=== PATIENT | female | born 1935 | race Caucasian/White ===

== ENCOUNTER → 2017-01-29 | Outpatient (CLI) | payer MEDICARE, BC ==
[~2017-01-29] MED LIST: ASPI-110 PO; BENEPOW PO; CALC600T10 PO; DILT90CA PO; FERR200T PO; FERR325T PO; GAVICHW CHEW; IPRA0.02 NEB; MACR100C3 PO; METF500T4 PO; MULT-120 PO; VITA10002 PO; VITA10007 PO; XOPEAER4 INH; ZOCO40TA PO
[2017-01-29 11:25] LABS: AUTOMATED NEUTROPHIL # 5.2 TH/MM3 (1.8-7.7); BASOPHIL # 0.2 TH/MM3 (0-0.2); BASOPHIL % 2.7 % (0.0-2.0); EOSINOPHIL # 0.5 TH/MM3 (0-0.4); EOSINOPHIL % 5.3 % (0.0-4.0); HEMATOCRIT 39.7 % (35.0-46.0); HEMO FLAGS DIFF FINAL; LYMPHOCYTE # 2.1 TH/MM3 (1.0-4.8); MEAN CELL VOLUME 87.5 FL (80.0-100.0); MEAN CORPUSCULAR HEMOGLOBIN 29.5 PG (27.0-34.0); MEAN CORPUSCULAR HGB CONC 33.7 % (32.0-36.0); MONO % 7.5 % (0.0-8.0); NEUT % 60.5 % (16.0-70.0); PLATELET COUNT 257 TH/MM3 (150-450); RED BLOOD COUNT 4.54 MIL/MM3 (4.00-5.30); RED CELL DISTRIBUTION WIDTH 13.8 % (11.6-17.2); WHITE BLOOD COUNT 8.6 TH/MM3 (4.0-11.0)
[2017-01-29 11:45] LABS: CHLORIDE 105 MEQ/L (98-107); POTASSIUM 3.9 MEQ/L (3.5-5.1); SODIUM (NA) 142 MEQ/L (136-145)
[2017-01-29 11:49] LABS: ANION GAP 8 MEQ/L (5-15); BICARBONATE 29.5 MEQ/L (21.0-32.0); BLOOD UREA NITROGEN 18 MG/DL (7-18); GLUCOSE,FASTING 158 MG/DL (74-99)
[2017-01-29 11:52] LABS: ALT (GPT) 28 U/L (10-53); AST (GOT) 18 U/L (15-37); GLOMERULAR FILTRATION RATE 48 ML/MIN (>89)
[2017-01-29 11:54] LABS: TOTAL BILIRUBIN ADULT 0.4 MG/DL (0.2-1.0)
[2017-01-29 11:55] LABS: ALKALINE PHOSPHATASE 69 U/L (45-117)
[2017-01-29 13:00] LABS: BACTERIA, URINE OCC /hpf; BLOOD, URINE SMALL (NEG); GLUCOSE,URINE NEG (NEG); KETONE, URINE NEG (NEG); MUCUS URINE FEW /lpf (OCC); NITRITE,URINE NEG (NEG); RENAL EPITHELIAL CELLS <1 /hpf; SQUAMOUS EPITHELIAL CELL URINE 6 /hpf (0-5); TRANSITIONAL EPI CELLS, URINE <1 /hpf; URINE COLOR YELLOW (YELLW/STRAW)
== END ==
LOC: PLAB 10:54
PROVIDERS: ATTEND Family Medicine
DX: E86.0 Dehydration (principal); R50.9 Fever, unspecified; R82.90 Unspecified abnormal findings in urine
CPT/HCPCS: 36415; 80053; 81001; 85025; 87040; 87086

== ENCOUNTER 2017-02-02 15:21 | Inpatient (IN) | payer MEDICARE, BC ==
[~2017-02-02] VITALS: Ht 160 cm; Wt 85.9 kg
[2017-02-02] VITALS (11 sets, daily range): BP systolic 107–161; BP diastolic 65–87; PULSE 60–142; RESP 16–20; TEMP 97.5–98.9; O2SAT 95–98
[~2017-02-02 15:21] MED LIST changes: -DILT90CA PO; -FERR200T PO; -MACR100C3 PO
[2017-02-02] MEDS ORDERED: FERR200T PO (15:41)
[2017-02-02] MEDS ORDERED: MACR100C3 PO (15:41)
[2017-02-02] MEDS ORDERED: SODIUM CHLORID 0.9% 500 ML INJ 500 ML IV ONE (16:00)
[2017-02-02] MEDS ORDERED: SODIUM CHLORIDE 0.9% FLUSH 10 ML FLUSH IVF PRN (16:00)
[2017-02-02] MEDS ORDERED: ASPIRIN 81 MG CHEW TAB PO ONE (16:00)
--- NOTE | 2017-02-02 16:27 | RADHPO ---
EXAM DATE/TIME: 02/02/2017 16:12 [place] COMPARISON: CHEST SINGLE AP, August 23, 2015, 15:45. INDICATIONS : Palpitations. MEDICAL HISTORY : Chronic obstructive pulmonary disease. Diabetes mellitus type II. SURGICAL HISTORY : Hiatal hernia repair ENCOUNTER: Initial ACUITY: 1 day PAIN SCORE: 6/10 LOCATION: Bilateral chest FINDINGS: A single view of the chest demonstrates the lungs to be symmetrically aerated without evidence of mas s, infiltrate or effusion. The cardiomediastinal contours are unremarkable. Osseous structures are intact. CONCLUSION: No acute disease. Joni Summers MD FACR on February 02, 2017 at 16:25 Board Certified Radiologist. This report was verified electronically.
[2017-02-02] MEDS ORDERED: DILTIAZEM HCL 25 MG/5 ML VIAL IV ONE (16:30)
--- NOTE | 2017-02-02 16:31 | PD ---
HPI Chief Complaint: Cardiac Complaint Time Seen by Provider: 15:33 Travel History International Travel<30 days: No Contact w/Intl Traveler<30days: No Traveled to known affect area: No History of Present Illness HPI 74 year-old woman presents emergent from complaining of palpitations and diarrhea. She states about a week or so ago she first started getting loose stools and upset stomach when she got her hair done. Since that time she's had some intermittent loose stools. She's also had recurrent episodes of palpitations associated of lightheadedness and near syncope. These come on often with exertion. She states she followed up with her database modeler, Dr. Lockwood, who did an EKG which was normal yesterday. She reports he was given a set her up for a Holter monitor on Sunday. She is continued to have the symptoms, with palpitations and lightheadedness and near syncope. She is also still continued have some intermittent episodes of stools. She saw Dr Harrison earlier in the week for the GI upset and was diagnosed with a UTI and has been taking Macrobid. She has a history of COPD, diabetes, and CAD, but no history of any arrhythmia or A. fib. No history of previous palpitations. History Past Medical History Narrative Medical COPD Diabetes CAD Influenza Vaccination: Yes Social History Alcohol Use: No Tobacco Use: No Allergies-Medications (Allergen,Severity, Reaction): Coded Allergies: Albuterol (Verified Allergy, Severe, Hives, 09/08/16) Cafergot (Verified Allergy, Severe, VOMITING, 09/08/16) Codeine (Verified Adverse Reaction, Severe, 09/08/16) b/p elevates,vomiting,cannot move physically Cymbalta (Verified Adverse Reaction, Severe, SEVERE SOMNOLENCE, 09/08/16) STATES SHE WAS DOWN ON HER BACK FOR 4 DAYS Lyrica (Verified Adverse Reaction, Severe, VOMITING, 09/08/16) Neurontin (Verified Adverse Reaction, Severe, VOMITING, 09/08/16) Darvon (Verified Adverse Reaction, Intermediate, 09/08/16) b/p elevates n/v cannot move physically Morphine (Verified Adverse Reaction, Intermediate, 09/08/16) vomiting Reported Meds & Prescriptions Reported Meds & Active Scripts Active Reported Macrodantin (Nitrofurantoin Macrocrystal) 100 Mg Cap 100 Mg PO BID Feosol (Ferrous Sulfate) 200 Mg Tab 200 Mg PO BIDPC Gaviscon (Aluminum Hydroxide-Mag Trisil) 80-14.2 mg Chew 2 Tab CHEW QID PRN Maximum 16 tabs/24 hrs Vitamin B-12 (Cyanocobalamin) 1,000 Mcg Tab 5,000 Mcg PO DAILY Ipratropium Neb (Ipratropium Altus) 0.5 Mg/2.5 Ml Amp 0.5 Mg NEB Q2HR NEB PRN Calcium + D3 (Calcium Carbonate-Cholecalciferol) 600-200 Mg-Unit Tab 1 Tab PO BID Aspirin 81 (Aspirin) 81 Mg Tabdr 81 Mg PO DAILY Metformin ER (Metformin HCl) 500 Mg Julissa 500 Mg PO HS With evening meal Zocor (Simvastatin) 40 Mg Tab 40 Mg PO HS Xopenex Hfa 15 GM Inh (Levalbuterol 15 GM Inh) 45 Mcg/Act Aer 45 Mcg INH TID Shake well before using. (1 puff = 45 mcg) Review of Systems Except as stated in HPI: all other systems reviewed are Neg Physical Exam Narrative GENERAL: Well-appearing 82 year-old woman, no acute distress. SKIN: Focused skin assessment warm/dry. HEAD: Atraumatic. Normocephalic. EYES: Pupils equal and round. No scleral icterus. No injection or drainage. ENT: No nasal bleeding or discharge. Mucous membranes pink and moist. NECK: Trachea midline. No JVD. CARDIOVASCULAR: Heart rate is a little bit variable. Initially regular and slow , then rapid and mostly regular, with some occasional ectopy. No appreciable murmurs. RESPIRATORY: No accessory muscle use. Clear to auscultation. Breath sounds equal bilaterally. GASTROINTESTINAL: Abdomen soft, non-tender, nondistended. Hepatic and splenic margins not palpable. MUSCULOSKELETAL: No obvious deformities. No clubbing. No cyanosis. No edema. NEUROLOGICAL: Awake and alert. No obvious cranial nerve deficits. Motor grossly within normal limits. Normal speech. PSYCHIATRIC: Appropriate mood and affect; insight and judgment normal. Data Data Last Documented VS Vital Signs Date Time Temp Pulse Resp B/P Pulse Ox O2 Delivery O2 Flow Rate FiO2 02/02/17 16:34 142 16 149/78 02/02/17 15:30 98.1 96 Orders Electrocardiogram (02/02/17 15:59) Complete Blood Count With Diff (02/02/17 15:59) Comprehensive Metabolic Panel (02/02/17 15:59) D-Dimer (02/02/17 15:59) Magnesium (Mg) (02/02/17 15:59) Prothrombin Time / Inr (Pt) (02/02/17 15:59) Act Partial Throm Time (Ptt) (02/02/17 15:59) Troponin I (02/02/17 15:59) Chest, Single Ap (02/02/17 15:59) Ecg Monitoring (02/02/17 15:59) Iv Access Insert/Monitor (02/02/17 15:59) Oximetry (02/02/17 15:59) Oxygen Administration (02/02/17 15:59) Aspirin Chew (Aspirin Chew) (02/02/17 16:00) Sodium Chloride 0.9% Flush (Ns Flush) (02/02/17 16:00) Sodium Chlorid 0.9% 500 Ml Inj (Ns 500 M (02/02/17 16:00) Diltiazem Inj (Cardizem Inj) (02/02/17 16:30) Vital Signs (Adult) Q15MX4,Q4H (02/02/17 17:02) Section Maintainer / Telemetry ROBBIE.Q8H (02/02/17 17:02) Cardiac Rhythm ROBBIE.Q8H (02/02/17 17:02) Notify Dr: Other (02/02/17 17:02) Diltiazem Inj (Cardizem Inj) (02/02/17 17:15) Labs Laboratory Tests Test 02/02/17 16:25 White Blood Count 14.5 TH/MM3 Red Blood Count 4.91 MIL/MM3 Hemoglobin 14.1 GM/DL Hematocrit 43.2 % Mean Corpuscular Volume 88.0 FL Mean Corpuscular Hemoglobin 28.8 PG Mean Corpuscular Hemoglobin 32.7 % Concent Red Cell Distribution Width 14.1 % Platelet Count 279 TH/MM3 Mean Platelet Volume 8.2 FL Neutrophils (%) (Auto) 76.9 % Lymphocytes (%) (Auto) 10.6 % Monocytes (%) (Auto) 8.0 % Eosinophils (%) (Auto) 1.3 % Basophils (%) (Auto) 3.2 % Neutrophils # (Auto) 11.1 TH/MM3 Lymphocytes # (Auto) 1.5 TH/MM3 Monocytes # (Auto) 1.2 TH/MM3 Eosinophils # (Auto) 0.2 TH/MM3 Basophils # (Auto) 0.5 TH/MM3 CBC Comment DIFF FINAL Differential Comment Prothrombin Time 9.6 SEC Prothromb Time International 0.9 RATIO Ratio Activated Partial 24.7 SEC Thromboplast Time D-Dimer Quantitative (PE/DVT) 0.56 MG/L FEU Sodium Level 143 MEQ/L Potassium Level 3.5 MEQ/L Chloride Level 108 MEQ/L Carbon Dioxide Level 26.6 MEQ/L Anion Gap 8 MEQ/L Blood Urea Nitrogen 19 MG/DL Creatinine 0.94 MG/DL Estimat Glomerular Filtration 57 ML/MIN Rate Random Glucose 89 MG/DL Calcium Level 8.5 MG/DL Magnesium Level 2.3 MG/DL Total Bilirubin 0.3 MG/DL Aspartate Amino Transf 14 U/L (AST/SGOT) Alanine Aminotransferase 24 U/L (ALT/SGPT) Alkaline Phosphatase 70 U/L Troponin I LESS THAN 0.02 NG/ML Total Protein 7.0 GM/DL Albumin 3.8 GM/DL [facility] Medical Decision Making Medical Screen Exam Complete: Yes Emergency Medical Condition: Yes Interpretation(s) My review of initial EKG done at 3:24 PM: Normal sinus rhythm at a rate of 94, occasional PACs, leftward axis, no definite evidence of acute ischemia. Some nonspecific lateral ST changes. Repeat EKG done at 3:49 PM shows rapid regular narrow complex rhythm at a rate of 148, probable flutter 2:1 or atrial tachycardia, with a fixed rate on the monitor, leftward axis, some lateral ST depressions. Chest x-ray: Negative. LABS: CBC remarkable for white count 14.5 thousand CMP is unremarkable, BUN is 19 Troponin negative Coags unremarkable D-dimer 0.56 Differential Diagnosis Arrhythmia, A. fib, like she went abnormality, dehydration, other Narrative Course Medical decision making INITIAL: 82 year-old woman presents emergent from complaining of palpitations lightheadedness near syncope and diarrhea. EKG is significant for changes with conversion to rapid and sometimes irregular narrow complex rhythm suggestive of an SVT, likely atrial flutter/fibrillation. This is new for the patient. We' ll check labs, electrolytes, reassess. FINAL: Patient with palpitations, near syncope, lightheadedness, and diarrhea, with new onset A. fib/flutter. Rate control with diltiazem. We'll plan on admission for consulted for cardiology, reassessment. D-dimer 0.56, blow age adjusted cut off for PE. No further evaluation. Diagnosis Primary Impression: Ac Isaacs MD Feb 02, 2017 16:31
[2017-02-02 16:38] LABS: AUTOMATED NEUTROPHIL # 11.1 TH/MM3 (1.8-7.7); BASOPHIL # 0.5 TH/MM3 (0-0.2); BASOPHIL % 3.2 % (0.0-2.0); EOSINOPHIL # 0.2 TH/MM3 (0-0.4); EOSINOPHIL % 1.3 % (0.0-4.0); HEMATOCRIT 43.2 % (35.0-46.0); HEMO FLAGS DIFF FINAL; LYMPH % 10.6 % (9.0-44.0); LYMPHOCYTE # 1.5 TH/MM3 (1.0-4.8); MEAN CORPUSCULAR HEMOGLOBIN 28.8 PG (27.0-34.0); MEAN CORPUSCULAR HGB CONC 32.7 % (32.0-36.0); NEUT % 76.9 % (16.0-70.0); PLATELET COUNT 279 TH/MM3 (150-450); RED BLOOD COUNT 4.91 MIL/MM3 (4.00-5.30); RED CELL DISTRIBUTION WIDTH 14.1 % (11.6-17.2); WHITE BLOOD COUNT 14.5 TH/MM3 (4.0-11.0)
[2017-02-02 16:48] LABS: CHLORIDE 108 MEQ/L (98-107); POTASSIUM 3.5 MEQ/L (3.5-5.1); SODIUM (NA) 143 MEQ/L (136-145)
[2017-02-02 16:52] LABS: ANION GAP 8 MEQ/L (5-15); BICARBONATE 26.6 MEQ/L (21.0-32.0); MAGNESIUM 2.3 MG/DL (1.5-2.5)
[2017-02-02 16:53] LABS: BLOOD UREA NITROGEN 19 MG/DL (7-18)
[2017-02-02 16:55] LABS: ALT (GPT) 24 U/L (10-53); AST (GOT) 14 U/L (15-37)
[2017-02-02 16:56] LABS: GLOMERULAR FILTRATION RATE 57 ML/MIN (>89)
[2017-02-02 16:57] LABS: TOTAL BILIRUBIN ADULT 0.3 MG/DL (0.2-1.0)
[2017-02-02 16:58] LABS: ALKALINE PHOSPHATASE 70 U/L (45-117)
[2017-02-02 16:59] LABS: APTT (PATIENT) 24.7 SEC (24.3-30.1); INTERNATIONAL NORMALIZED RATIO 0.9 RATIO; PROTHROMBIN TIME - PATIENT 9.6 SEC (9.8-11.6)
[2017-02-02] MEDS ORDERED: DILTIAZEM INJ 125 MG in SODIUM CHLORIDE 0.9% INJ 100 ML IV SCH (17:15)
[2017-02-02] MEDS ORDERED: SODIUM CHLOR 0.9% 250 ML INJ 250 ML IV ONE (18:00)
[2017-02-02] MEDS ORDERED: NALOXONE HCL 0.4 MG/ML AMP IV PRN (18:00)
[2017-02-02] MEDS ORDERED: AL HYDR/MG TRIS/ALGIN AC/SOD BIC REG STRENGTH CHEW TAB CHEW PRN (18:00)
[2017-02-02] MEDS ORDERED: ONDANSETRON HCL 4 MG/2 ML VIAL IVP PRN (18:00)
[2017-02-02] MEDS ORDERED: LEVALBUTEROL INH SCH (18:00)
[2017-02-02] MEDS ORDERED: MAGNESIUM HYDROXIDE SUSP 30 ML CUP PO PRN (18:00)
[2017-02-02] MEDS ORDERED: BISACODYL 10 MG SUPP RECTAL PRN (18:00)
[2017-02-02] MEDS ORDERED: SODIUM CHLORIDE 0.9% FLUSH 10 ML FLUSH IV FLUSH PRN (18:00)
[2017-02-02] MEDS ORDERED: SENNOSIDES 8.6 MG TAB PO PRN (18:00)
[2017-02-02] MEDS ORDERED: LACTULOSE SYRUP 20 GM/30 ML CUP PO PRN (18:00)
[2017-02-02] MEDS ORDERED: FERROUS SULFATE 325 MG (65 MG ELEMENTAL IRON) TAB PO SCH (18:00)
[2017-02-02] MEDS ORDERED: GLUCAGON 1 MG/ML VIAL OTHER PRN (18:15)
[2017-02-02] MEDS ORDERED: DEXTROSE 50% IN WATER 50 ML VIAL(D50) IV PUSH PRN (18:15)
--- NOTE | 2017-02-02 18:23 | HHI.HP ---
[facility] Unknown Admission Diagnosis A. fib RVR Diagnoses: Travel History International Travel<30 Days: No Contact w/Intl Traveler <30 Da: No Traveled to Known Affected Are: No History of Present Illness Patient began to experience dry heaves after breakfast this morning, with profuse brown nonbloody diarrhea. She denies any chest pain, shortness of breath. She does report some lightheadedness transiently today without feeling she will pass out. She does report some palpitations over the past few days. Delay she saw her PCP due to an episode of diarrhea last week. White count was elevated, and began treatment for UTI with Macrobid. Patient does report taking prednisone for an episode of diarrhea prior to her office visit last week, when she was diagnosed for UTI. Denies any dysuria or hematuria. Review of Systems Performed and negative except for history of present illness and past medical history. Past Family Social History Past Medical History COPD Diabetes Lipidemia B12 deficiency Chronic anemia CAD. Patient denies any chest pain. Past Surgical History surigal treatment injury for hiatal hernia Left foot surgery Left foot nerve block. Reported Medications Reported Meds & Active Scripts Active Reported Macrodantin (Nitrofurantoin Macrocrystal) 100 Mg Cap 100 Mg PO BID Feosol (Ferrous Sulfate) 200 Mg Tab 200 Mg PO BIDPC Gaviscon (Aluminum Hydroxide-Mag Trisil) 80-14.2 mg Chew 2 Tab CHEW QID PRN Maximum 16 tabs/24 hrs Vitamin B-12 (Cyanocobalamin) 1,000 Mcg Tab 5,000 Mcg PO DAILY Ipratropium Neb (Ipratropium Dante) 0.5 Mg/2.5 Ml Amp 0.5 Mg NEB Q2HR NEB PRN Calcium + D3 (Calcium Carbonate-Cholecalciferol) 600-200 Mg-Unit Tab 1 Tab PO BID Aspirin 81 (Aspirin) 81 Mg Tabdr 81 Mg PO DAILY Metformin ER (Metformin HCl) 500 Mg Julissa 500 Mg PO HS With evening meal Zocor (Simvastatin) 40 Mg Tab 40 Mg PO HS Xopenex Hfa 15 GM Inh (Levalbuterol 15 GM Inh) 45 Mcg/Act Aer 45 Mcg INH TID Shake well before using. (1 puff = 45 mcg) Allergies: Coded Allergies: Albuterol (Verified Allergy, Severe, Hives, 09/08/16) Cafergot (Verified Allergy, Severe, VOMITING, 09/08/16) Codeine (Verified Adverse Reaction, Severe, 09/08/16) b/p elevates,vomiting,cannot move physically Cymbalta (Verified Adverse Reaction, Severe, SEVERE SOMNOLENCE, 09/08/16) STATES SHE WAS DOWN ON HER BACK FOR 4 DAYS Lyrica (Verified Adverse Reaction, Severe, VOMITING, 09/08/16) Neurontin (Verified Adverse Reaction, Severe, VOMITING, 09/08/16) Darvon (Verified Adverse Reaction, Intermediate, 09/08/16) b/p elevates n/v cannot move physically Morphine (Verified Adverse Reaction, Intermediate, 09/08/16) vomiting Family History Family history reviewed with the patient and found to be currently noncontributory. Social History Nonsmoker. Nondrinker. Denies illicit drugs. Physical Exam Vital Signs Vital Signs Date Time Temp Pulse Resp B/P Pulse Ox O2 Delivery O2 Flow Rate FiO2 02/02/17 17:53 125 18 161/86 97 Room Air 02/02/17 17:08 100 18 151/73 96 Room Air 02/02/17 16:34 142 16 149/78 02/02/17 16:30 18 96 Room Air 02/02/17 16:30 96 Room Air 02/02/17 15:30 98.1 120 16 134/65 96 Physical Exam GENERAL: This is a well-nourished, well-developed patient, in no apparent distress. Alert and oriented 3. SKIN: No rashes, ecchymoses or lesions. Cool and dry. HEAD: Atraumatic. Normocephalic. No temporal or scalp tenderness. EYES: Pupils equal round and reactive. Extraocular motions intact. No scleral icterus. No injection or drainage. ENT: Nose without bleeding, purulent drainage or septal hematoma. Throat without erythema, tonsillar hypertrophy or exudate. Uvula midline. Airway patent. NECK: Trachea midline. No JVD or lymphadenopathy. Supple, nontender, no meningeal signs. CARDIOVASCULAR: Regular rate and rhythm without murmurs, gallops, or rubs. RESPIRATORY: Clear to auscultation. Breath sounds equal bilaterally. No wheezes , rales, or rhonchi. GASTROINTESTINAL: Abdomen soft, non-tender, nondistended. No hepato-splenomegaly , or palpable masses. No guarding. MUSCULOSKELETAL: Extremities without clubbing, cyanosis, or edema. No joint tenderness, effusion, or edema noted. No calf tenderness. Negative Homans sign bilaterally. NEUROLOGICAL: Awake and alert. Cranial nerves II through XII intact. Motor and sensory grossly within normal limits. Five out of 5 muscle strength in all muscle groups. Normal speech. Laboratory Laboratory Tests Test 02/02/17 16:25 White Blood Count 14.5 Red Blood Count 4.91 Hemoglobin 14.1 Hematocrit 43.2 Mean Corpuscular Volume 88.0 Mean Corpuscular Hemoglobin 28.8 Mean Corpuscular Hemoglobin 32.7 Concent Red Cell Distribution Width 14.1 Platelet Count 279 Mean Platelet Volume 8.2 Neutrophils (%) (Auto) 76.9 Lymphocytes (%) (Auto) 10.6 Monocytes (%) (Auto) 8.0 Eosinophils (%) (Auto) 1.3 Basophils (%) (Auto) 3.2 Neutrophils # (Auto) 11.1 Lymphocytes # (Auto) 1.5 Monocytes # (Auto) 1.2 Eosinophils # (Auto) 0.2 Basophils # (Auto) 0.5 CBC Comment DIFF FINAL Differential Comment Prothrombin Time 9.6 Prothromb Time International 0.9 Ratio Activated Partial 24.7 Thromboplast Time D-Dimer Quantitative (PE/DVT) 0.56 Sodium Level 143 Potassium Level 3.5 Chloride Level 108 Carbon Dioxide Level 26.6 Anion Gap 8 Blood Urea Nitrogen 19 Creatinine 0.94 Estimat Glomerular Filtration 57 Rate Random Glucose 89 Calcium Level 8.5 Magnesium Level 2.3 Total Bilirubin 0.3 Aspartate Amino Transf 14 (AST/SGOT) Alanine Aminotransferase 24 (ALT/SGPT) Alkaline Phosphatase 70 Troponin I LESS THAN 0.02 Total Protein 7.0 Albumin 3.8 Result Diagram: 02/02/17 1625 02/02/17 1625 Assessment and Plan Assessment and Plan //New-onset atrial fibrillation. Likely secondary to dehydration. Fluid bolus ordered with improvement. A cardiogram ordered and pending. Diltiazem drip. Consult cardiology //Diarrhea. Be secondary to antibiotics. C. difficile pending. Stool studies pending. IV hydration. Monitor. //Hypertension. Pressures acceptable. On any medications. Continue to monitor. //80s mellitus. Hold metformin. Diabetic diet and sliding scale. //Leukocytosis. Likely secondary to nausea and vomiting. Recent steroids. Monitor for signs of infection. //Prophylaxis: the patient will be on heparin drip for new A. fib. Discussed Condition With Patient, nurse, ED physician. Also discussed with family at bedside Physician Certification 2 Midnight Certification Type: Admission for Inpatient Services Order for Inpatient Services The services are ordered in accordance with Medicare regulations or non- Medicare payer requirements, as applicable. In the case of services not specified as inpatient-only, they are appropriately provided as inpatient services in accordance with the 2-midnight benchmark. Estimated LOS (days): 2 days is the estimated time the patient will need to remain in the hospital, assuming treatment plan goals are met and no additional complications. Post-Hospital Plan: Not yet determined Sergio Dunbar MD Feb 02, 2017 18:23
[2017-02-02] MEDS ORDERED: HEPARIN-D5W INJ 250 ML IV SCH (18:30)
[2017-02-02 18:46] LABS: BLOOD, URINE NEG (NEG); GLUCOSE,URINE NEG (NEG); KETONE, URINE TRACE mg/dL (NEG); NITRITE,URINE NEG (NEG)
[2017-02-02 19:06] LABS: URINE COLOR STRAW (YELLW/STRAW)
[2017-02-02 19:07] LABS: COMMENT (UR) CULT NOT INDICATED; CULTURE IF INDICATED CULT NOT INDICATED; RBC, URINE 0-2 /hpf (0-3); SQUAMOUS EPITHELIAL CELL URINE 0-5 /hpf (0-5); WBC, URINE 0-2 /hpf (0-5)
[2017-02-02] MEDS: SODIUM CHLOR 0.45% 1000 ML INJ 1,000 ML IV SCH (20:00)
[2017-02-02] MEDS: RESP: IPRATROPIUM 0.5 MG/2.5 ML NEB NEB PRN (20:27)
[2017-02-02] MEDS: INSULIN ASPART SUPPLEMENTAL SCALE SQ SCH (21:00)
[2017-02-02] MEDS ORDERED: PRAVASTATIN SOD 80 MG TAB PO SCH (21:00)
[2017-02-02] MEDS: DOCUSATE SODIUM 50 MG/SENNA 8.6 MG TAB PO SCH (21:36)
[2017-02-02] MEDS: SODIUM CHLORIDE 0.9% FLUSH 10 ML FLUSH IV FLUSH SCH (21:37)
[2017-02-02] MEDS: CALCIUM/VITAMIN D 250 MG/125 U TAB PO SCH (21:37)
[2017-02-03] MEDS ORDERED: HEPARIN SODIUM - IV 10,000 UNITS/10 ML VIAL IV PRN ×2 (00:30)
[2017-02-03 00:33] VITALS: BP 133/76; PULSE 60; RESP 20; TEMP 98.8; O2SAT 96
[2017-02-03] MEDS ORDERED: ALPRAZolam 0.5 MG TAB PO ONE (01:15)
[2017-02-03 02:15] LABS: APTT (PATIENT) 38.7 SEC (24.3-30.1)
[2017-02-03 04:16] VITALS: BP 152/86; PULSE 88; RESP 14; TEMP 98.2; O2SAT 97
[2017-02-03] MEDS: SODIUM CHLOR 0.45% 1000 ML INJ 1,000 ML IV SCH (06:45)
[2017-02-03] MEDS: INSULIN ASPART SUPPLEMENTAL SCALE SQ SCH (06:45)
[2017-02-03] MEDS: RESP: IPRATROPIUM 0.5 MG/2.5 ML NEB NEB PRN (07:39)
[2017-02-03 07:43] VITALS: O2SAT 96
[2017-02-03 08:00] VITALS: PULSE 67
[2017-02-03] MEDS: DOCUSATE SODIUM 50 MG/SENNA 8.6 MG TAB PO SCH (08:50)
[2017-02-03] MEDS: CALCIUM/VITAMIN D 250 MG/125 U TAB PO SCH (08:50)
[2017-02-03] MEDS: SODIUM CHLORIDE 0.9% FLUSH 10 ML FLUSH IV FLUSH SCH (08:51)
[2017-02-03] MEDS ORDERED: CYANOCOBALAMIN 1,000 MCG TAB PO SCH (09:00)
[2017-02-03] MEDS ORDERED: ASPIRIN EC 81 MG TABEC PO SCH (09:00)
[2017-02-03] MEDS ORDERED: FERROUS SULFATE 300 MG /5ML UDC PO SCH (09:00)
--- NOTE | 2017-02-03 09:13 | ECHRPT ---
Indication: Heart failure, unspecified CONCLUSIONS Normal left ventricular size. There is assymetric septal hypertrophy-sigmoid septum. The interatrial septum not well visualized. Mild thickening of the aortic valve leaflets. There is trace tricuspid valve regurgitation. The pulmonary valve is not well visualized. The inferior vena cava was not well visualized. The left ventricular systolic function is normal with an estimated ejection fraction in the range of 60-65%. BP: / HR: Rhythm: MEASUREMENTS (Male / Female) Normal Values Technical Quality:Fair 2D ECHO LV Diastolic Diameter PLAX 3.7 cm 4.2 - 5.9 / 3.9 - 5.3 cm LV Systolic Diameter PLAX 2.5 cm IVS Diastolic Thickness 2.1 cm 0.6 - 1.0 / 0.6 - 0.9 cm LVPW Diastolic Thickness 1.1 cm 0.6 - 1.0 / 0.6 - 0.9 cm LV Relative Wall Thickness 0.9 RV Internal Dim ED PLAX 2.0 cm M-MODE Aortic Root Diameter MM 3.1 cm LA Systolic Diameter MM 3.8 cm LA Ao Ratio MM 1.2 AV Cusp Separation MM 2.3 cm DOPPLER Mitral E Point Velocity 77.0 cm/s Mitral A Point Velocity 76.0 cm/s Mitral E to A Ratio 1.0 TR Peak Velocity 285.0 cm/s TR Peak Gradient 32.5 mmHg FINDINGS LEFT VENTRICLE Normal left ventricular size. There is assymetric septal hypertrophy-sigmoid septum. The left ventri cular systolic function is normal with an estimated ejection fraction in the range of 60-65%. RIGHT VENTRICLE Normal right ventricular size and systolic function. LEFT ATRIUM The left atrial size is normal. RIGHT ATRIUM The right atrial size is normal. ATRIAL SEPTUM The interatrial septum not well visualized. AORTA The aortic root and proximal ascending aorta are normal in size on limited imaging. MITRAL VALVE Structurally normal mitral valve. No mitral valve stenosis or regurgitation. AORTIC VALVE Trileaflet aortic valve. Mild thickening of the aortic valve leaflets. TRICUSPID VALVE Structurally normal tricuspid valve. No tricuspid valve stenosis or regurgitation. There is trace tricuspid valve regurgitation. PULMONARY VALVE The pulmonary valve is not well visualized. VESSELS The inferior vena cava was not well visualized. PERICARDIUM No pericardial effusion. Trell Guzman MD (Electronically Signed) Final Date:03 February 2017 09:12
[2017-02-03] MEDS ORDERED: METOPROLOL TARTRATE 25 MG TAB PO SCH (09:15)
[2017-02-03 09:20] VITALS: BP 130/70; PULSE 68; RESP 14; TEMP 96.8; O2SAT 95
[2017-02-03 09:38] LABS: AUTOMATED NEUTROPHIL # 6.3 TH/MM3 (1.8-7.7); BASOPHIL # 0.1 TH/MM3 (0-0.2); BASOPHIL % 1.1 % (0.0-2.0); EOSINOPHIL # 0.4 TH/MM3 (0-0.4); EOSINOPHIL % 4.1 % (0.0-4.0); HEMATOCRIT 36.9 % (35.0-46.0); HEMO FLAGS DIFF FINAL; LYMPH % 21.6 % (9.0-44.0); LYMPHOCYTE # 2.1 TH/MM3 (1.0-4.8); MEAN CELL VOLUME 87.2 FL (80.0-100.0); MEAN CORPUSCULAR HEMOGLOBIN 29.2 PG (27.0-34.0); MEAN CORPUSCULAR HGB CONC 33.5 % (32.0-36.0); MONO % 8.6 % (0.0-8.0); NEUT % 64.6 % (16.0-70.0); PLATELET COUNT 242 TH/MM3 (150-450); RED BLOOD COUNT 4.23 MIL/MM3 (4.00-5.30); RED CELL DISTRIBUTION WIDTH 13.6 % (11.6-17.2); WHITE BLOOD COUNT 9.7 TH/MM3 (4.0-11.0)
[2017-02-03 10:17] LABS: CHLORIDE 108 MEQ/L (98-107); POTASSIUM 3.4 MEQ/L (3.5-5.1); SODIUM (NA) 143 MEQ/L (136-145)
[2017-02-03 10:21] LABS: ANION GAP 10 MEQ/L (5-15); BICARBONATE 25.3 MEQ/L (21.0-32.0); BLOOD UREA NITROGEN 13 MG/DL (7-18)
[2017-02-03 10:24] LABS: ALT (GPT) 21 U/L (10-53); GLOMERULAR FILTRATION RATE 60 ML/MIN (>89)
[2017-02-03 10:25] LABS: TOTAL BILIRUBIN ADULT 0.5 MG/DL (0.2-1.0)
[2017-02-03 10:26] LABS: ALKALINE PHOSPHATASE 61 U/L (45-117); AST (GOT) 14 U/L (15-37)
[2017-02-03 10:30] LABS: APTT (PATIENT) 67.6 SEC (24.3-30.1)
[2017-02-03] MEDS ORDERED: POTASSIUM CHLORIDE 20 MEQ CONTROLLED RELEASE TAB PO ONE (11:00)
[2017-02-03] MEDS ORDERED: DILT90CA PO (11:20)
--- NOTE | 2017-02-03 11:21 | HHI.PR ---
Subjective Remarks Patient says she is feeling well. Says she got horrible sleep last night due to beeping IV pump. Denies any chest pain or shortness of breath. Denies any lightheadedness or dizziness. Denies any palpitations. She says the diarrhea is better. She says she would like to go home. Objective Vital Signs Date Time Temp Pulse Resp B/P Pulse Ox O2 Delivery O2 Flow Rate FiO2 02/03/17 09:20 96.8 68 14 130/70 95 02/03/17 08:00 67 02/03/17 07:43 96 21 02/03/17 04:16 98.2 88 14 152/86 97 02/03/17 00:33 98.8 60 20 133/76 96 02/02/17 21:09 98.9 64 20 146/87 95 02/02/17 21:00 60 02/02/17 20:27 96 21 02/02/17 20:05 97.5 64 20 138/76 98 02/02/17 20:02 63 20 98 Room Air 02/02/17 19:34 63 20 140/68 98 02/02/17 19:00 128 18 107/80 97 Room Air 02/02/17 17:53 125 18 161/86 97 Room Air 02/02/17 17:08 100 18 151/73 96 Room Air 02/02/17 16:34 142 16 149/78 02/02/17 16:30 18 96 Room Air 02/02/17 16:30 96 Room Air 02/02/17 15:30 98.1 120 16 134/65 96 I/O 02/02/17 02/02/17 02/02/17 02/03/17 02/03/17 02/03/17 07:00 15:00 23:00 07:00 15:00 23:00 Intake Total 740 ml 900 ml Output Total 300 ml Balance 440 ml 900 ml Intake Oral 240 ml IV Total 500 ml 900 ml Output Urine Total 300 ml # Voids 2 2 Result Diagram: 02/03/1710 02/03/1710 Imaging Last Impressions Chest X-Ray 02/02/17 8735 Signed Impressions: Service Date/Time: Thursday, February 02, 2017 16:12 - CONCLUSION: No acute disease. Joni Summers MD FACR Objective Remarks GENERAL: Incision sitting up in bed. Appears couple. Alert and oriented 3. SKIN: Warm and dry. HEAD: Normocephalic. EYES: No scleral icterus. No injection or drainage. NECK: Supple, trachea midline. No JVD. CARDIOVASCULAR: Regular rate and rhythm without murmurs, gallops, or rubs. sinus rhythm on telemetry. RESPIRATORY: Breath sounds equal bilaterally. No accessory muscle use. GASTROINTESTINAL: Abdomen soft, non-tender, nondistended. MUSCULOSKELETAL: No cyanosis, or edema. BACK: Nontender without obvious deformity. No CVA tenderness. A/P Assessment and Plan //New-onset atrial fibrillation. - Likely secondary to dehydration. -Echocardiogram with good ejection fraction -Back in sinus rhythm. Heart rate stable on metoprolol. -Discussed with Dr. Lockwood. Due to history of COPD, will transition patient to diltiazem for rate control. Patient will start on diltiazem tonight. Due to risk of bradycardia, will start at 90 mg ER every 12 hours. -Discussed with Dr. Lockwood. Continue aspirin for now. Dr. Lockwood will discuss and coagulation with patient at follow-up appointment. //Diarrhea. Likely secondary to antibiotics. C. difficile negative. Stool studies pending. Discontinue antibiotics. I'll with primary care. //Hypertension. Pressures acceptable. not On any medications. Continue to monitor. //Diabetes mellitus. Resume metformin at home. Diabetic diet. Discharge Planning Discharge home in good condition. Diabetic diet. Activity ad desire. Please see discharge medication list. Follow-up with primary care, as well as Dr. Lockwood. Pending stool studies to be followed by primary care. Patient conveys understanding. Sergio Dunbar MD Feb 03, 2017 11:21
--- NOTE | 2017-02-03 15:14 | MB ---
cc: LEEANNA GÓMEZ M.D. DATE OF CONSULTATION 02/03/17 HISTORY OF PRESENT ILLNESS Elin is a very pleasant 82-year lady with history of coronary artery disease, diabetes mellitus, COPD who has been experiencing palpitations. She presented to the emergency room with chief complaint of palpitations, near syncope and also had been experiencing nausea, vomiting. She was found to be in SVT. It was indeterminate whether this was a-flutter. It was a regular rhythm, however. Currently the patient is asymptomatic. Denies chest pain, fevers, chills, cough, GI or bleeding, PND, orthopnea, syncope or dizziness. PAST MEDICAL HISTORY Past medical history also includes COPD. SOCIAL HISTORY Denies tobacco or alcohol use. ALLERGIES ALBUTEROL, CAFERGOT, CODEINE, CYMBALTA, LYRICA, NEURONTIN, DARVON, MORPHINE. MEDICATIONS Current medications in the hospital: 1. Metoprolol 25 q. 12 hours. 2. Aspirin 81 milligrams a day. 3. Cyanocobalamin. 4. Ferrous sulfate 200 b.i.d. 5. Calcium 500 b.i.d. 6. Pravastatin 80. 7. Heparin drip. 8. Cardizem drip. PHYSICAL EXAMINATION VITAL SIGNS: Blood pressure 130/70, pulse 68, respiratory rate 14, temperature 96.8. GENERAL: She is alert and oriented times three in no acute distress. NECK: Supple. No JVD or bruit. CARDIOVASCULAR: S1-S2. No murmurs, rubs or gallops. LUNGS: Clear to auscultation bilaterally. ABDOMEN: Soft, nontender, nondistended with positive bowel sounds EXTREMITIES: No lower extremity edema. LABORATORY DATA White count 14.5, hemoglobin 14.1, hematocrit 43.2, platelet count 279, sodium of 143, potassium 2.5, chloride 108, bicarb 26.6, BUN 19, creatinine 0.94, troponin less than 0.02, albumin 3.8, INR is 0.9. IMAGING STUDIES Chest x-ray no acute disease. CARDIOLOGY STUDIES The EKG done at 15:59 on 02/02/2017 showed SVT at a rate of 148 beats per minute, regular rhythm, nonspecific ST-T wave changes, possible atrial flutter. Repeat EKG shows normal sinus rhythm at 65 beats per minute. Left anterior fascicular block. No ST-T wave changes. FINAL DIAGNOSIS 1. Paroxysmal SVT. 2. CAD. 3. Diabetes. 4. Gastroenteritis. DISCUSSION At this point in time the patient is converted to sinus rhythm on Cardizem drip. Lopressor 25 b.i.d. has been ordered which I think is reasonable. At this point in time I am going to recommend aspirin 81 milligrams a day. She does not have definite atrial flutter and she does not have atrial fibrillation. I do think she can be discharged home and I have told her and her nurse to have her followup with me on Sunday, February 05, 2017. MD OBI Concepcion/EO /10:01 AM /2:57 PM
--- NOTE | 2017-02-04 10:03 | EKG ---
Date Performed: 02/02/2017 Time Performed: 19:41:40 PTAGE: 82 years EKG: Sinus rhythm Left axis deviation Borderline ECG PREVIOUS TRACING : 02/02/2017 15.50 DOCTOR: Ac Aguirre Interpretating Date/Time 02/04/2017 09:50:37
--- NOTE | 2017-02-04 10:07 | EKG ---
Date Performed: 02/02/2017 Time Performed: 15:49:14 PTAGE: 82 years EKG: Probable sinus tachycardia Poor R wave progression - probable normal variant Extensive ST-T changes are nonspecific Borderline ECG PREVIOUS TRACING : 02/02/2017 15.24 DOCTOR: Ac Aguirre Interpretating Date/Time 02/04/2017 09:52:44
--- NOTE | 2017-02-04 10:08 | EKG ---
Date Performed: 02/02/2017 Time Performed: 15:24:12 PTAGE: 82 years EKG: Sinus rhythm with PAC(s) Left axis deviation Poor R wave progression - probable normal variant Borderline ECG PREVIOUS TRACING : 10/18/2013 21.30 DOCTOR: Ac Aguirre Interpretating Date/Time 02/04/2017 09:52:55
== END 2017-02-03 12:05 | disposition home or self-care (01) | DRG 309 ==
LOC: PHED 15:21 → PHEDA 17:33 → PH3B 20:13
PROVIDERS: ADMIT Internal Medicine; ATTEND Internal Medicine
DX: I48.91 Unspecified atrial fibrillation (principal); N39.0 Urinary tract infection, site not specified; J44.9 Chronic obstructive pulmonary disease, unspecified; E11.9 Type 2 diabetes mellitus without complications; E86.0 Dehydration; E78.5 Hyperlipidemia, unspecified; I10 Essential (primary) hypertension; I25.10 Atherosclerotic heart disease of native coronary artery without angina pectoris; I48.92 Unspecified atrial flutter; I47.1 Supraventricular tachycardia
CPT/HCPCS: 71010; 80053; 81001; 83735; 84484; 85025; 85379; 85610; 85730; 87086; 93005; 93306; 94640; 94664; 96361; 96374; J1644; J7040; J7050; J7644

== ENCOUNTER 2017-03-10 21:44 | Inpatient (IN) | payer MEDICARE, BC ==
[~2017-03-10] VITALS: Ht 160 cm; Wt 79.5 kg
[~2017-03-10 21:44] MED LIST changes: -BENEPOW PO; +DILT90CA PO; +FERR200T PO; -FERR325T PO; -MULT-120 PO; -VITA10007 PO
[2017-03-10 22:03] VITALS: BP 210/89; PULSE 133; RESP 20; O2SAT 97
[2017-03-10] MEDS ORDERED: DILTIAZEM HCL 25 MG/5 ML VIAL IV ONE (22:15)
[2017-03-10 22:18] VITALS: BP 124/63; PULSE 105; RESP 20; O2SAT 99
[2017-03-10 22:21] VITALS: BP 124/63; PULSE 109; RESP 20; O2SAT 96
[2017-03-10 22:22] LABS: AUTOMATED NEUTROPHIL # 6.5 TH/MM3 (1.8-7.7); BASOPHIL # 0.1 TH/MM3 (0-0.2); EOSINOPHIL # 0.3 TH/MM3 (0-0.4); EOSINOPHIL % 2.6 % (0.0-4.0); HEMATOCRIT 42.1 % (35.0-46.0); HEMO FLAGS DIFF FINAL; LYMPH % 28.6 % (9.0-44.0); LYMPHOCYTE # 3.3 TH/MM3 (1.0-4.8); MEAN CELL VOLUME 87.4 FL (80.0-100.0); MONO % 12.6 % (0.0-8.0); NEUT % 55.2 % (16.0-70.0); PLATELET COUNT 298 TH/MM3 (150-450); RED BLOOD COUNT 4.82 MIL/MM3 (4.00-5.30); RED CELL DISTRIBUTION WIDTH 13.8 % (11.6-17.2); WHITE BLOOD COUNT 11.7 TH/MM3 (4.0-11.0)
[2017-03-10 22:33] LABS: CHLORIDE 106 MEQ/L (98-107); SODIUM (NA) 143 MEQ/L (136-145)
[2017-03-10 22:37] LABS: ANION GAP 10 MEQ/L (5-15); BICARBONATE 27.5 MEQ/L (21.0-32.0); BLOOD UREA NITROGEN 20 MG/DL (7-18)
[2017-03-10 22:40] LABS: ALT (GPT) 32 U/L (10-53); AST (GOT) 29 U/L (15-37); GLOMERULAR FILTRATION RATE 57 ML/MIN (>89)
[2017-03-10 22:42] LABS: TOTAL BILIRUBIN ADULT 0.2 MG/DL (0.2-1.0)
[2017-03-10 22:43] LABS: ALKALINE PHOSPHATASE 92 U/L (45-117)
[2017-03-10] MEDS ORDERED: DILTIAZEM INJ 125 MG in SODIUM CHLORIDE 0.9% INJ 100 ML IV SCH (22:45)
[2017-03-10 22:46] VITALS: BP 109/65; PULSE 110; RESP 20; O2SAT 100
[2017-03-10 23:10] VITALS: BP 120/94; PULSE 116; RESP 20; O2SAT 98
[2017-03-10] MEDS ORDERED: MAGNESIUM HYDROXIDE SUSP 30 ML CUP PO PRN (23:15)
[2017-03-10] MEDS ORDERED: SENNOSIDES 8.6 MG TAB PO PRN (23:15)
[2017-03-10] MEDS ORDERED: ONDANSETRON HCL 4 MG/2 ML VIAL IVP PRN (23:15)
[2017-03-10] MEDS ORDERED: BISACODYL 10 MG SUPP RECTAL PRN (23:15)
[2017-03-10] MEDS ORDERED: SODIUM CHLORIDE 0.9% FLUSH 10 ML FLUSH IV FLUSH PRN (23:15)
[2017-03-10] MEDS ORDERED: ACETAMINOPHEN 325 MG TAB PO PRN (23:15)
[2017-03-10] MEDS ORDERED: LACTULOSE SYRUP 20 GM/30 ML CUP PO PRN (23:15)
--- NOTE | 2017-03-10 23:19 | PD ---
HPI Chief Complaint: Cardiac Complaint Time Seen by Provider: 21:50 Travel History International Travel<30 days: No Contact w/Intl Traveler<30days: No Traveled to known affect area: No History of Present Illness HPI This is an 82-year-old female who has a history of tachycardia arrhythmia for which she was admitted back in January who presents today with palpitations. In January she was admitted for what was suspected to be atrial flutter versus atrial fibrillation. She converted on her own and was discharged on diltiazem. She completed her course of diltiazem and it wasn't renewed. She since has seen both Dr. Lockwood and Dr. James. Dr. James placed a loop recorder. She has been feeling fine until today around 8:30 PM when she started to have palpitations, constant, severe, associated with some shortness of breath. She denies any chest pain. Since she's arrived in the emergency department her palpitations have subsided. PFSH Past Medical History Hx Anticoagulant Therapy: Yes (81 MG ASA HS) Arthritis: Yes (SPINE, HANDS) Asthma: No Autoimmune Disease: No Blood Disorders: No Anxiety: No Depression: No Heart Rhythm Problems: Yes Cancer: No Cardiovascular Problems: Yes (BLOCKAGE) High Cholesterol: Yes Chemotherapy: No Chest Pain: Yes Congestive Heart Failure: No COPD: Yes Cerebrovascular Accident: No Diabetes: Yes Patient Takes Glucophage: Yes (03/10/17-1799) Diminished Hearing: No Endocrine: Yes Fibromyalgia: Yes Gastrointestinal Disorders: Yes GERD: Yes Glaucoma: No Genitourinary: No Headaches: No Hepatitis: No Hiatal Hernia: Yes (MESH) Hypertension: No Immune Disorder: Yes (fibromyalgia) Implanted Vascular Access Dvce: Yes Kidney Stones: No Medical other: Yes Neurologic: Yes (NEUROPATHY) Psychiatric: No Reproductive: No Respiratory: Yes (COPD) Migraines: Yes Myocardial Infarction: No Radiation Therapy: No Renal Failure: No Seizures: No Sickle Cell Disease: No Sleep Apnea: Yes Thyroid Disease: No Ulcer: No Tetanus Vaccination: Unknown ?: Not Past Surgical History Abdominal Surgery: Yes (ABDOMINAL CYST REMOVED) AICD: No Appendectomy: Yes Body Medical Devices: lens implants due to cataracts Cholecystectomy: Yes Ear Surgery: No Endocrine Surgery: Yes Eye Surgery: Yes (CATARACTS-BILATERALLY) Genitourinary Surgery: Yes (BLADDER SUSPENSION) Gynecologic Surgery: Yes Hysterectomy: Yes (PARTIAL) Neurologic Surgery: No Oral Surgery: Yes Pacemaker: No Thoracic Surgery: No Tonsillectomy: Yes Other Surgery: Yes (LEFT KNEE REPLACEMENT) Social History Alcohol Use: No Tobacco Use: No Substance Use: No Allergies-Medications (Allergen,Severity, Reaction): Coded Allergies: Albuterol (Verified Allergy, Severe, Hives, 03/10/17) Cafergot (Verified Allergy, Severe, VOMITING, 03/10/17) Codeine (Verified Adverse Reaction, Severe, 03/10/17) b/p elevates,vomiting,cannot move physically Cymbalta (Verified Adverse Reaction, Severe, SEVERE SOMNOLENCE, 03/10/17) STATES SHE WAS DOWN ON HER BACK FOR 4 DAYS Lyrica (Verified Adverse Reaction, Severe, VOMITING, 03/10/17) Neurontin (Verified Adverse Reaction, Severe, VOMITING, 03/10/17) Darvon (Verified Adverse Reaction, Intermediate, 03/10/17) b/p elevates n/v cannot move physically Morphine (Verified Adverse Reaction, Intermediate, 03/10/17) vomiting Reported Meds & Prescriptions Reported Meds & Active Scripts Active Diltiazem ER 12 HR (Diltiazem HCl) 90 Mg Caper 90 Mg PO BID Reported Feosol (Ferrous Sulfate) 200 Mg Tab 200 Mg PO BIDPC Gaviscon (Aluminum Hydroxide-Mag Trisil) 80-14.2 mg Chew 2 Tab CHEW QID PRN Maximum 16 tabs/24 hrs Vitamin B-12 (Cyanocobalamin) 1,000 Mcg Tab 5,000 Mcg PO DAILY Ipratropium Neb (Ipratropium [place]) 0.5 Mg/2.5 Ml Amp 0.5 Mg NEB Q2HR NEB PRN Calcium + D3 (Calcium Carbonate-Cholecalciferol) 600-200 Mg-Unit Tab 1 Tab PO BID Aspirin 81 (Aspirin) 81 Mg Tabdr 81 Mg PO DAILY Metformin ER (Metformin HCl) 500 Mg Julissa 500 Mg PO HS With evening meal Zocor (Simvastatin) 40 Mg Tab 40 Mg PO HS Xopenex Hfa 15 GM Inh (Levalbuterol 15 GM Inh) 45 Mcg/Act Aer 45 Mcg INH TID Shake well before using. (1 puff = 45 mcg) Review of Systems Except as stated in HPI: all other systems reviewed are Neg Physical Exam Narrative GENERAL:Well appearing, no acute distress SKIN: Focused skin assessment warm and dry. HEAD: Atraumatic. Normocephalic. EYES: Pupils equal and round. No injection or drainage. ENT: Moist mucous membranes NECK: Trachea midline. CARDIOVASCULAR: Tachycardic, irregularly irregular No murmur appreciated. RESPIRATORY: Clear to auscultation. Breath sounds equal bilaterally. GASTROINTESTINAL: Abdomen soft, non-tender, nondistended. MUSCULOSKELETAL: No obvious deformities. NEUROLOGICAL: Awake and alert. No obvious cranial nerve deficits. Moving all extremities. PSYCHIATRIC: Appropriate mood and affect; insight and judgment normal. Data Data Last Documented VS Vital Signs Date Time Temp Pulse Resp B/P Pulse Ox O2 Delivery O2 Flow Rate FiO2 03/10/17 22:23 113 20 96 03/10/17 22:21 124/63 Nasal Cannula 2 Orders Complete Blood Count With Diff (03/10/17 22:04) Comprehensive Metabolic Panel (03/10/17 22:04) ^ Insert Iv (03/10/17 22:04) Diltiazem Inj (Cardizem Inj) (03/10/17 22:15) ^ Insert Iv (03/10/17 22:04) Troponin I (03/10/17 22:04) Diltiazem Inj (Cardizem Inj) (03/10/17 22:45) Admit Order (Ed Use Only) (03/10/17 23:04) Labs Laboratory Tests Test 03/10/17 22:15 White Blood Count 11.7 TH/MM3 Red Blood Count 4.82 MIL/MM3 Hemoglobin 13.5 GM/DL Hematocrit 42.1 % Mean Corpuscular Volume 87.4 FL Mean Corpuscular Hemoglobin 28.0 PG Mean Corpuscular Hemoglobin 32.0 % Concent Red Cell Distribution Width 13.8 % Platelet Count 298 TH/MM3 Mean Platelet Volume 8.5 FL Neutrophils (%) (Auto) 55.2 % Lymphocytes (%) (Auto) 28.6 % Monocytes (%) (Auto) 12.6 % Eosinophils (%) (Auto) 2.6 % Basophils (%) (Auto) 1.0 % Neutrophils # (Auto) 6.5 TH/MM3 Lymphocytes # (Auto) 3.3 TH/MM3 Monocytes # (Auto) 1.5 TH/MM3 Eosinophils # (Auto) 0.3 TH/MM3 Basophils # (Auto) 0.1 TH/MM3 CBC Comment DIFF FINAL Differential Comment Sodium Level 143 MEQ/L Potassium Level 4.0 MEQ/L Chloride Level 106 MEQ/L Carbon Dioxide Level 27.5 MEQ/L Anion Gap 10 MEQ/L Blood Urea Nitrogen 20 MG/DL Creatinine 0.95 MG/DL Estimat Glomerular Filtration 57 ML/MIN Rate Random Glucose 67 MG/DL Calcium Level 9.4 MG/DL Total Bilirubin 0.2 MG/DL Aspartate Amino Transf 29 U/L (AST/SGOT) Alanine Aminotransferase 32 U/L (ALT/SGPT) Alkaline Phosphatase 92 U/L Troponin I LESS THAN 0.02 NG/ML Total Protein 8.0 GM/DL Albumin 4.3 GM/DL [facility] Medical Decision Making Medical Screen Exam Complete: Yes Emergency Medical Condition: Yes Medical Record Reviewed: Yes (patient was admitted in January in the setting of a tachyarrhythmia and discharged on diltiazem.) Interpretation(s) EKG: Atrial fibrillation with rapid ventricular response, ST depression in the lateral leads Mild leukocytosis Electrolytes are reassuring Troponin is normal Differential Diagnosis Atrial fibrillation with RVR, congestive heart failure, electrolyte abnormality , anemia Narrative Course This is an 82-year-old female who presents to the emergency department with palpitations. She was placed on a monitor and an IV was established. She is found to be in atrial fibrillation with rapid ventricular response. Labs are obtained which were all reassuring. She initially had a heart rate in the 150s. She was given a dose of IV diltiazem and her heart rate improved. She was placed on a diltiazem drip. I think she requires admission for cardiology consultation if she may need an ablation or her medications titrated. Physician Communication Physician Communication Discussed with Dr. Almonte Diagnosis Primary Impression: Atrial fibrillation with rapid ventricular response Kia Ramirez MD Mar 10, 2017 23:19
[2017-03-10] MEDS ORDERED: ALPR.5 PO (23:21)
[2017-03-10 23:30] VITALS: BP 127/71; PULSE 109; RESP 20; O2SAT 98
--- NOTE | 2017-03-10 23:32 | RADRPT ---
EXAM DATE/TIME: 03/10/2017 23:21 [place] COMPARISON: CHEST SINGLE AP, February 02, 2017, 16:12. INDICATIONS : Chest pain. MEDICAL HISTORY : Chronic obstructive pulmonary disease. Diabetes mellitus type II. SURGICAL HISTORY : Hiatal hernia repair ENCOUNTER: Initial ACUITY: 1 day PAIN SCORE: 6/10 LOCATION: Bilateral chest FINDINGS: There is cardiomegaly and aortic tortuosity. Lungs are otherwise clear. No consolidation or effusion. Osseous structures are intact. CONCLUSION: No acute disease. Logan Mcnair MD on March 10, 2017 at 23:30 Board Certified Radiologist. This report was verified electronically.
[2017-03-11] VITALS (25 sets, daily range): BP systolic 92–149; BP diastolic 60–86; PULSE 64–130; RESP 14–25; TEMP 98–98.5; O2SAT 94–98
[2017-03-11 06:35] LABS: AUTOMATED NEUTROPHIL # 7.3 TH/MM3 (1.8-7.7); BASOPHIL # 0.2 TH/MM3 (0-0.2); BASOPHIL % 1.6 % (0.0-2.0); EOSINOPHIL # 0.2 TH/MM3 (0-0.4); HEMATOCRIT 40.6 % (35.0-46.0); HEMO FLAGS DIFF FINAL; LYMPH % 22.1 % (9.0-44.0); LYMPHOCYTE # 2.4 TH/MM3 (1.0-4.8); MEAN CELL VOLUME 87.2 FL (80.0-100.0); MEAN CORPUSCULAR HEMOGLOBIN 29.2 PG (27.0-34.0); MEAN CORPUSCULAR HGB CONC 33.4 % (32.0-36.0); MONO % 8.4 % (0.0-8.0); NEUT % 65.9 % (16.0-70.0); PLATELET COUNT 284 TH/MM3 (150-450); RED BLOOD COUNT 4.66 MIL/MM3 (4.00-5.30)
[2017-03-11 06:42] LABS: CHLORIDE 106 MEQ/L (98-107); POTASSIUM 3.6 MEQ/L (3.5-5.1); SODIUM (NA) 142 MEQ/L (136-145)
[2017-03-11 06:48] LABS: ANION GAP 10 MEQ/L (5-15); BICARBONATE 26.2 MEQ/L (21.0-32.0); BLOOD UREA NITROGEN 15 MG/DL (7-18)
[2017-03-11 06:51] LABS: ALT (GPT) 27 U/L (10-53); AST (GOT) 22 U/L (15-37); GLOMERULAR FILTRATION RATE 61 ML/MIN (>89)
[2017-03-11 06:53] LABS: TOTAL BILIRUBIN ADULT 0.5 MG/DL (0.2-1.0)
[2017-03-11 06:54] LABS: ALKALINE PHOSPHATASE 82 U/L (45-117)
[2017-03-11] MEDS: RESP: IPRATROPIUM 0.5 MG/2.5 ML NEB NEB PRN (08:46)
[2017-03-11] MEDS: SODIUM CHLORIDE 0.9% FLUSH 10 ML FLUSH IV FLUSH SCH ×2 (08:49→21:03)
[2017-03-11] MEDS: ASPIRIN EC 81 MG TABEC PO SCH (08:49)
[2017-03-11] MEDS: DOCUSATE SODIUM 50 MG/SENNA 8.6 MG TAB PO SCH ×2 (08:49→21:00)
[2017-03-11] MEDS ORDERED: ENOXAPARIN SODIUM 40 MG/0.4 ML SYRINGE SQ SCH (09:00)
[2017-03-11] MEDS ORDERED: DIGOXIN 0.5 MG/2 ML VIAL IVS STA (09:56)
[2017-03-11] MEDS ORDERED: GLUCAGON 1 MG/ML VIAL OTHER PRN (10:00)
[2017-03-11] MEDS ORDERED: DEXTROSE 50% IN WATER 50 ML VIAL(D50) IV PRN (10:00)
--- NOTE | 2017-03-11 10:13 | HHI.HP ---
[facility] Service [facility] Primary Care Physician Wilbert Harrison MD Admission Diagnosis atrial fibrillation with rvr Diagnoses: Chief Complaint: Palpitations Travel History International Travel<30 Days: No Contact w/Intl Traveler <30 Da: No Traveled to Known Affected Are: No History of Present Illness This patient is a very pleasant 82-year-old female who came to the emergency room yesterday complaining of a fast heart rate which was causing her some chest discomfort. She denies pain but says she had been feeling of fluttering on the left side of her chest and the sensation had been causing pressure radiating to the left side. Last about 45 minutes. Patient had this problem in January of this year and was treated for tachyarrhythmia presumed to be a flutter however she converted on her own and her cardiac antiarrhythmics were not continued. Patient did have an implantable loop monitor placed earlier last week and was instructed to follow-up with her qa specialist in 2 weeks. Since that time she has not had any symptoms of fluttering until yesterday evening when she came to the emergency room. Patient says that time she has not had any change in medicines otherwise no recent travel and denies shortness of breath nausea or vomiting which is unusual for her. She has some occasional shortness of breath because of her COPD and she uses her 's oxygen periodically but does not require herself. She follows with Dr. Oneill who instructed her to use his oxygen as she needed to. In any case the patient was found to have elevated heart rate in the emergency room heart rate was 113 and has been as high as 126 here on her EKG on my review does show atrial fibrillation intermittent with atrial flutter and rapid ventricular response. Patient has had normal cardiac enzymes. She is currently in the ICU with a rate of 126 while on diltiazem and has hypotension with a systolic blood pressure of 90. Patient does not have hypertension and has normal low blood pressure. She is comfortable and without complaints. For these reasons the patient admitted to the hospital for further evaluation cardiac arrhythmia Review of Systems Constitutional: DENIES: Diaphoretic episodes, Fatigue, Fever, Weight gain, Weight loss, Chills, Dizziness, Change in appetite, Night Sweats Endocrine: DENIES: Abnorml menstrual pattern, Heat/cold intolerance, Polydipsia , Polyuria, Polyphagia Eyes: DENIES: Blurred vision, Diplopia, Eye inflammation, Eye pain, Vision loss , Photosensitivity, Double Vision Respiratory: DENIES: Apneas, Cough, Snoring, Wheezing, Hemoptysis, Sputum production, Shortness of breath Cardiovascular: COMPLAINS OF: Palpitations, DENIES: Chest pain, Syncope, Dyspnea on Exertion, PND, Lower Extremity Edema, Orthopnea, Claudication Gastrointestinal: DENIES: Abdominal pain, Black stools, Bloody stools, Constipation, Diarrhea, Nausea, Vomiting, Difficulty Swallowing, Anorexia Genitourinary: DENIES: Abnormal vaginal bleeding, Dysmenorrhea, Dyspareunia, Sexual dysfunction, Urinary frequency, Urinary incontinence, Urgency, Hematuria , Dysuria, Nocturia, Vaginal discharge Musculoskeletal: DENIES: Joint pain, Muscle aches, Stiffness, Joint Swelling, Back pain, Neck pain Integumentary: DENIES: Abnormal pigmentation, Pruritus, Rash, Nail changes, Breast masses, Breast skin changes, Nipple discharge Hematologic/lymphatic: DENIES: Bruising, Lymphadenopathy Psychiatric: DENIES: Anxiety, Confusion, Mood changes, Depression, Hallucinations, Agitation, Suicidal Ideation, Homicidal Ideation, Delusions Past Family Social History Past Medical History Diabetes Arrhythmia Hyperlipidemia COPD Past Surgical History Cataracts Bladder suspension Cholecystectomy Appendectomy Partial hysterectomy Reported Medications Reviewed in the medical record, was on diltiazem but did not continue that. Allergies: Coded Allergies: Albuterol (Verified Allergy, Severe, Hives, 03/10/17) Cafergot (Verified Allergy, Severe, VOMITING, 03/10/17) Codeine (Verified Adverse Reaction, Severe, 03/10/17) b/p elevates,vomiting,cannot move physically Cymbalta (Verified Adverse Reaction, Severe, SEVERE SOMNOLENCE, 03/10/17) STATES SHE WAS DOWN ON HER BACK FOR 4 DAYS Lyrica (Verified Adverse Reaction, Severe, VOMITING, 03/10/17) Neurontin (Verified Adverse Reaction, Severe, VOMITING, 03/10/17) Darvon (Verified Adverse Reaction, Intermediate, 03/10/17) b/p elevates n/v cannot move physically Morphine (Verified Adverse Reaction, Intermediate, 03/10/17) vomiting Active Ordered Medications Reviewed in the medical record Family History Family history of hypertension Social History , no tobacco or alcohol dependency Physical Exam Vital Signs Vital Signs Date Time Temp Pulse Resp B/P Pulse Ox O2 Delivery O2 Flow Rate FiO2 03/11/17 06:00 124 03/11/17 05:00 122 03/11/17 04:00 124 03/11/17 04:00 98.1 124 16 129/74 95 03/11/17 03:00 124 03/11/17 03:00 124 18 135/73 95 03/11/17 02:00 114 17 140/65 97 03/11/17 02:00 114 03/11/17 01:00 116 03/11/17 01:00 116 14 149/86 97 03/11/17 00:30 130 03/11/17 00:30 98.5 130 24 136/86 95 03/11/17 00:20 109 20 138/74 100 Nasal Cannula 2 03/10/17 23:30 109 20 127/71 98 Nasal Cannula 2 03/10/17 23:10 116 20 120/94 98 03/10/17 22:46 110 20 109/65 100 Nasal Cannula 2 03/10/17 22:23 113 20 96 03/10/17 22:21 109 20 124/63 96 Nasal Cannula 2 03/10/17 22:18 105 20 124/63 99 Nasal Cannula 2 03/10/17 22:03 133 20 210/89 97 Physical Exam GENERAL: This is a well-nourished, well-developed patient, in no apparent distress. SKIN: No rashes, ecchymoses or lesions. Cool and dry. HEAD: Atraumatic. Normocephalic. No temporal or scalp tenderness. EYES: Pupils equal round and reactive. Extraocular motions intact. No scleral icterus. No injection or drainage. ENT: Nose without bleeding, purulent drainage or septal hematoma. Throat without erythema, tonsillar hypertrophy or exudate. Uvula midline. Airway patent. NECK: Trachea midline. No JVD or lymphadenopathy. Supple, nontender, no meningeal signs. CARDIOVASCULAR: Regular rate and rhythm without murmurs, gallops, or rubs. RESPIRATORY: Clear to auscultation. Breath sounds equal bilaterally. No wheezes , rales, or rhonchi. GASTROINTESTINAL: Abdomen soft, non-tender, nondistended. No hepato-splenomegaly , or palpable masses. No guarding. MUSCULOSKELETAL: Extremities without clubbing, cyanosis, or edema. No joint tenderness, effusion, or edema noted. No calf tenderness. Negative Homans sign bilaterally. NEUROLOGICAL: Awake and alert. Cranial nerves II through XII intact. Motor and sensory grossly within normal limits. Five out of 5 muscle strength in all muscle groups. Normal speech. Laboratory Laboratory Tests Test 03/10/17 03/11/17 22:15 05:28 White Blood Count 11.7 11.0 Red Blood Count 4.82 4.66 Hemoglobin 13.5 13.6 Hematocrit 42.1 40.6 Mean Corpuscular Volume 87.4 87.2 Mean Corpuscular Hemoglobin 28.0 29.2 Mean Corpuscular Hemoglobin 32.0 33.4 Concent Red Cell Distribution Width 13.8 13.0 Platelet Count 298 284 Mean Platelet Volume 8.5 8.6 Neutrophils (%) (Auto) 55.2 65.9 Lymphocytes (%) (Auto) 28.6 22.1 Monocytes (%) (Auto) 12.6 8.4 Eosinophils (%) (Auto) 2.6 2.0 Basophils (%) (Auto) 1.0 1.6 Neutrophils # (Auto) 6.5 7.3 Lymphocytes # (Auto) 3.3 2.4 Monocytes # (Auto) 1.5 0.9 Eosinophils # (Auto) 0.3 0.2 Basophils # (Auto) 0.1 0.2 CBC Comment DIFF FINAL DIFF FINAL Differential Comment Sodium Level 143 142 Potassium Level 4.0 3.6 Chloride Level 106 106 Carbon Dioxide Level 27.5 26.2 Anion Gap 10 10 Blood Urea Nitrogen 20 15 Creatinine 0.95 0.89 Estimat Glomerular Filtration 57 61 Rate Random Glucose 67 139 Calcium Level 9.4 9.1 Total Bilirubin 0.2 0.5 Aspartate Amino Transf 29 22 (AST/SGOT) Alanine Aminotransferase 32 27 (ALT/SGPT) Alkaline Phosphatase 92 82 Troponin I LESS THAN 0.02 LESS THAN 0.02 Total Protein 8.0 7.3 Albumin 4.3 3.9 Result Diagram: 03/11/1728 03/11/17527 Assessment and Plan Problem List: (1) Atrial fibrillation with rapid ventricular response ICD Code: I48.91 Status: Acute Plan: Symptomatic. Patient will need to see her qa specialist. Currently wearing an implantable loop monitor lovenox bid Follow-up electrolytes and check TSH Echocardiogram 01/2017 unremarkable Continue telemetry, IV diltiazem resume (2) COPD (chronic obstructive pulmonary disease) ICD Code: J44.9 Status: Acute Plan: No evidence of acute exacerbation at this time Patient does take Xopenex and, ipratropium which we will continue Follow on oxygen as needed (3) DM2 (diabetes mellitus, type 2) ICD Code: E11.9 Status: Acute Plan: Continue diabetic diet, hold metformin for now Sliding scale with insulin as needed Assessment and Plan Patient has chronic iron deficiency anemia which is stable at this time and we will continue her iron and vitamin B 12. Code Status full code Physician Certification 2 Midnight Certification Type: Admission for Inpatient Services Order for Inpatient Services The services are ordered in accordance with Medicare regulations or non- Medicare payer requirements, as applicable. In the case of services not specified as inpatient-only, they are appropriately provided as inpatient services in accordance with the 2-midnight benchmark. Estimated LOS (days): 3 3 days is the estimated time the patient will need to remain in the hospital, assuming treatment plan goals are met and no additional complications. Post-Hospital Plan: Home Cate Clarke MD Mar 11, 2017 10:12
[2017-03-11] MEDS: INSULIN ASPART SUPPLEMENTAL SCALE SQ SCH ×3 (10:38→21:00)
[2017-03-11 12:40] LABS: MAGNESIUM 2.5 MG/DL (1.5-2.5)
[2017-03-11] MEDS ORDERED: NON-FORMULARY DRUG (Levalbuterol 15 GM Inh (Xopenex Hfa 15 GM Inh) 45 MCG) INH SCH (13:00)
--- NOTE | 2017-03-11 13:07 | MB ---
cc: LINCOLN GÓMEZ MD DATE OF CONSULTATION: 03/11/2017 REASON FOR CONSULTATION: HISTORY OF PRESENT ILLNESS: Elin is a very pleasant 82 year-old lady with history of COPD, probable A-fib, being worked up by Dr. James as an outpatient, also diabetes, hyperlipidemia, presents with palpitations, lightheadedness. She was recently admitted, placed on Cardizem. She stopped her Cardizem, did not get this refilled as she said she had swelling in the ankles and could not tolerate it. She was found to be in A-fib with rapid ventricular response. Currently she is in sinus rhythm on a Cardizem drip. There are no EKGs in the computer for me to corroborate the presence of A-fib or not. The patient otherwise denies any fever, chills, cough, GI or bleeding, paroxysmal nocturnal dyspnea, orthopnea, syncope or dizziness. She is on intermittent home oxygen. PAST MEDICAL HISTORY: As per the history of present illness. She had a remote GI bleed about 15 years ago. She required two units of blood transfusion. Dr. Mcleod did an upper and lower endoscopy and there was no source of bleeding found. She also has a history of bladder suspension, cataract surgery, cholecystectomy, appendectomy, partial hysterectomy, arrhythmia. MEDICATIONS: 1. Albuterol 2. Cafergot. 3. Codeine. 4. Cymbalta. 5. Lyrica. 6. Neurontin. 7. Darvon. 8. Morphine. ALLERGIES/INTOLERANCES: INTOLERANT TO COUMADIN SOCIAL HISTORY: Denies tobacco or alcohol use. MEDICATIONS IN THE HOSPITAL: 1. Digoxin 0.25 daily. 2. Lipitor 20 hs. 3. Lovenox 80 q12 hours. 4. Ferrous sulfate 325 b.i.d. 5. Digoxin 0.25 q6 hours IV. 6. Aspirin 81 milligrams daily. 7. Cardizem drip. PHYSICAL EXAMINATION: Pulse is 70 in normal sinus rhythm, blood pressure 129/74. General: She is alert and oriented x3 in no acute distress. Neck: Supple. No JVD, no bruits. Cardiovascular: S1-S2. No murmurs, rubs, or gallops. Abdomen: Soft, non-tender, non-distended, positive bowel sounds. Extremities: No lower extremity edema. LABORATORY DATA Sodium 142, potassium 3.6, chloride 106, bicarb 26.3, BUN 15, creatinine 0.9, troponin is less than 0.2 x2. TSH is pending. White count 11.7, hemoglobin 13.5, hematocrit 42.1, platelet count 298. EKG is not available. Chest x-ray is clear. FINAL DIAGNOSIS: Arrhythmia Symptomatic arrhythmia Probable A-fib, but again no EKG available to confirm. COPD. INTOLERANCE TO CARDIZEM Remote GI bleeding. Elevated white count. DISCUSSION I have recommended Coumadin to the patient and her daughters who are at the bedside due to AUGUSTIN score of 3. She has hypertension, diabetes and age greater than 70. I have also recommended, if not Coumadin, pradaxa, Eliquis or Xarelto. I have explained that Pradaxa, Eliquis and Xarelto are non-reversible and can lead to fatal bleeding. The patient and her family understand. She is undecided. She is currently on Lovenox and aspirin. She has been on Lovenox with no evidence of GI bleeding, therefore, again I think full anticoagulation is indicated. Again, the patient is undecided. She is intolerant of calcium-channel blockers and beta-blockers are relatively contraindicated given her COPD requiring oxygen. Therefore, it appears that due to her medication intolerance that she may need a pacemaker, and I will reconsult Dr. James. Will continue telemetry monitoring. Further medical management and/or pacemaker placement will be deferred to Dr. James. Will continue to monitor the hemoglobin and will discontinue the digoxin. Lincoln Gómez MD [facility] /12:44 PM /12:59 PM
[2017-03-11] MEDS: RESP: LEVALBUTEROL HYDROCHLORIDE 0.63 MG/3 ML NEB (SCH) NEB ×2 (14:52→21:29)
[2017-03-11] MEDS ORDERED: DIGOXIN 0.5 MG/2 ML VIAL IVS SCH (16:00)
[2017-03-11] MEDS: FERROUS SULFATE 325 MG (65 MG ELEMENTAL IRON) TAB PO SCH (17:54)
[2017-03-11] MEDS: ATORVASTATIN 20 MG TAB PO SCH (21:03)
[2017-03-11] MEDS: ENOXAPARIN SODIUM 80 MG/0.8 ML SYRINGE SQ SCH (21:03)
[2017-03-11] MEDS: ALPRAZolam 0.5 MG TAB PO PRN (22:00)
[2017-03-12] VITALS (25 sets, daily range): BP systolic 137–154; BP diastolic 73–92; PULSE 62–89; RESP 16–20; TEMP 97.4–98.4; O2SAT 95–100
[2017-03-12] MEDS: INSULIN ASPART SUPPLEMENTAL SCALE SQ SCH ×4 (07:00→21:00)
[2017-03-12] MEDS: RESP: LEVALBUTEROL HYDROCHLORIDE 0.63 MG/3 ML NEB (SCH) NEB ×3 (08:00→20:00)
[2017-03-12] MEDS: ENOXAPARIN SODIUM 80 MG/0.8 ML SYRINGE SQ SCH ×2 (08:19→21:45)
[2017-03-12] MEDS: FERROUS SULFATE 325 MG (65 MG ELEMENTAL IRON) TAB PO SCH ×2 (08:19→17:25)
[2017-03-12] MEDS: ASPIRIN EC 81 MG TABEC PO SCH (08:19)
[2017-03-12] MEDS: DOCUSATE SODIUM 50 MG/SENNA 8.6 MG TAB PO SCH ×2 (08:19→21:00)
[2017-03-12] MEDS: SODIUM CHLORIDE 0.9% FLUSH 10 ML FLUSH IV FLUSH SCH ×2 (08:20→21:45)
[2017-03-12] MEDS ORDERED: DIGOXIN 0.25 MG TAB PO SCH (09:00)
--- NOTE | 2017-03-12 10:53 | HHI.PR ---
Subjective Remarks Follow-up Osorio palomino with RVR/COPD without any exacerbation 03/12/17-patient seen and examined, denies any heart palpitation or shortness of breath. Currently afebrile. Patient is now willing to have AICD placed Objective Vitals Vital Signs Date Time Temp Pulse Resp B/P Pulse Ox O2 Delivery O2 Flow Rate FiO2 03/12/17 08:35 96 03/12/17 08:00 98.2 64 18 137/82 95 03/12/17 08:00 65 03/12/17 06:00 74 03/12/17 05:00 62 03/12/17 04:00 68 03/12/17 03:00 98.1 71 16 147/85 95 03/12/17 03:00 74 03/12/17 02:00 78 03/12/17 01:00 70 03/12/17 00:00 72 03/11/17 23:00 74 03/11/17 23:00 94 Room Air 03/11/17 23:00 98.0 78 18 133/67 94 03/11/17 22:00 70 03/11/17 21:29 97 Nasal Cannula 2.00 03/11/17 21:00 66 03/11/17 20:00 98.2 71 20 143/67 98 03/11/17 20:00 72 03/11/17 19:00 70 03/11/17 19:00 98 Nasal Cannula 2.00 03/11/17 16:00 72 03/11/17 16:00 98.3 72 16 119/64 95 03/11/17 15:00 66 03/11/17 14:00 68 03/11/17 13:00 64 03/11/17 12:00 64 03/11/17 12:00 98.4 64 18 125/63 96 03/11/17 11:00 66 17 110/70 97 03/11/17 11:00 66 I/O 03/11/17 03/11/17 03/11/17 03/12/17 03/12/17 03/12/17 07:00 15:00 23:00 07:00 15:00 23:00 Intake Total 57 ml 240 ml Output Total 1525 ml 100 ml Balance -1468 ml 140 ml Intake Oral 240 ml IV Total 57 ml Output Urine Total 1525 ml 100 ml # Voids 2 2 # Bowel Movements 1 Result Diagram: 03/11/17 0528 03/11/17 0528 Imaging Last Impressions Chest X-Ray 03/10/17 0000 Signed Impressions: Service Date/Time: Friday, March 10, 2017 23:21 - CONCLUSION: No acute disease. Logan Mcnair MD Objective Remarks GENERAL: NAD SKIN: Warm and dry. HEAD: Normocephalic. EYES: No scleral icterus. No injection or drainage. NECK: Supple, trachea midline. No JVD or lymphadenopathy. CARDIOVASCULAR: Irregular Regular rate and rhythm without murmurs, gallops, or rubs. Implantable loop recorder in place RESPIRATORY: Breath sounds equal bilaterally. No accessory muscle use. GASTROINTESTINAL: Abdomen soft, non-tender, nondistended. MUSCULOSKELETAL: No cyanosis, or edema. BACK: Nontender without obvious deformity. No CVA tenderness. A/P Problem List: (1) Atrial fibrillation with rapid ventricular response ICD Code: I48.91 Status: Acute (2) COPD (chronic obstructive pulmonary disease) ICD Code: J44.9 Status: Acute (3) DM2 (diabetes mellitus, type 2) ICD Code: E11.9 Status: Acute Assessment and Plan 82-year-old female with A. fib with RVR Appreciate input from cardiology Pending evaluation from EP for possible AICD placement. Patient cannot tolerate calcium channel julio Continue Lovenox however patient will need OAC COPD No current exacerbation Continue Xopenex, DuoNeb when necessary Diabetes type 2 Continue sliding scale insulin Hold oral hypoglycemic agents Hyperlipidemia On statin DVT prophylaxis: Lovenox Sreedhar Dumont MD Mar 12, 2017 10:53
--- NOTE | 2017-03-12 13:39 | PD.CARD.PN ---
Subjective Subjective Remarks alert in nad Objective Vital Signs / I&O Vital Signs Date Time Temp Pulse Resp B/P Pulse Ox O2 Delivery O2 Flow Rate FiO2 03/12/17 12:00 69 03/12/17 12:00 98.1 89 18 154/92 96 03/12/17 11:00 86 03/12/17 10:00 84 03/12/17 09:00 66 03/12/17 08:35 96 03/12/17 08:00 98.2 64 18 137/82 95 03/12/17 08:00 65 03/12/17 07:00 62 03/12/17 06:00 74 03/12/17 05:00 62 03/12/17 04:00 68 03/12/17 03:00 98.1 71 16 147/85 95 03/12/17 03:00 74 03/12/17 02:00 78 03/12/17 01:00 70 03/12/17 00:00 72 03/11/17 23:00 74 03/11/17 23:00 94 Room Air 03/11/17 23:00 98.0 78 18 133/67 94 03/11/17 22:00 70 03/11/17 21:29 97 Nasal Cannula 2.00 03/11/17 21:00 66 03/11/17 20:00 98.2 71 20 143/67 98 03/11/17 20:00 72 03/11/17 19:00 70 03/11/17 19:00 98 Nasal Cannula 2.00 03/11/17 16:00 72 03/11/17 16:00 98.3 72 16 119/64 95 03/11/17 15:00 66 03/11/17 14:00 68 I/O 03/11/17 03/11/17 03/11/17 03/12/17 03/12/17 03/12/17 07:00 15:00 23:00 07:00 15:00 23:00 Intake Total 57 ml 240 ml Output Total 1525 ml 100 ml Balance -1468 ml 140 ml Intake Oral 240 ml IV Total 57 ml Output Urine Total 1525 ml 100 ml # Voids 2 2 # Bowel Movements 1 Laboratory GENERAL: SKIN: Warm and dry. HEAD: Normocephalic. EYES: No scleral icterus. No injection or drainage. NECK: Supple, trachea midline. No JVD or lymphadenopathy. CARDIOVASCULAR: Regular rate and rhythm without murmurs, gallops, or rubs. RESPIRATORY: Breath sounds equal bilaterally. No accessory muscle use. GASTROINTESTINAL: Abdomen soft, non-tender, nondistended. MUSCULOSKELETAL: No cyanosis, or edema. BACK: Nontender without obvious deformity. No CVA tenderness. Assessment and Plan Problem List: (1) A-fib (2) Atrial fibrillation with rapid ventricular response (3) DM2 (diabetes mellitus, type 2) (4) COPD (chronic obstructive pulmonary disease) Assessment and Plan 1.) PAF - intolerant of beta blcockers due to oxygen dependent copd and ccb d/t le edema, i recommended coumadin or noac d/t chads score=3, patient undecided, continue aspiirn, lovenox, f/u cbc in am, consult Dr James to torie stokesl/wyatt uriben rfa and ppm and/or alternative med manage,emt Lincoln Lockwood MD Mar 12, 2017 13:39
[2017-03-12] MEDS: ALPRAZolam 0.5 MG TAB PO PRN (21:45)
[2017-03-12] MEDS: ATORVASTATIN 20 MG TAB PO SCH (21:45)
[2017-03-12 22:12] LABS: INTERNATIONAL NORMALIZED RATIO 0.9 RATIO; PROTHROMBIN TIME - PATIENT 10.1 SEC (9.8-11.6)
[2017-03-12] MEDS: WARFARIN SOD 6 MG TAB PO SCH (22:45)
[2017-03-13] VITALS (25 sets, daily range): BP systolic 141–158; BP diastolic 70–94; PULSE 61–109; RESP 16–18; TEMP 97.3–98.5; O2SAT 93–99
[2017-03-13] MEDS: INSULIN ASPART SUPPLEMENTAL SCALE SQ SCH ×4 (05:50→20:17)
[2017-03-13 06:21] LABS: HEMATOCRIT 35.9 % (35.0-46.0); MEAN CELL VOLUME 87.1 FL (80.0-100.0); MEAN CORPUSCULAR HEMOGLOBIN 29.2 PG (27.0-34.0); MEAN CORPUSCULAR HGB CONC 33.5 % (32.0-36.0); PLATELET COUNT 247 TH/MM3 (150-450); RED BLOOD COUNT 4.12 MIL/MM3 (4.00-5.30); RED CELL DISTRIBUTION WIDTH 13.6 % (11.6-17.2); REVIEW FLAG FINAL; WHITE BLOOD COUNT 6.4 TH/MM3 (4.0-11.0)
[2017-03-13 06:34] LABS: INTERNATIONAL NORMALIZED RATIO 0.9 RATIO; PROTHROMBIN TIME - PATIENT 10.3 SEC (9.8-11.6)
[2017-03-13] MEDS: RESP: LEVALBUTEROL HYDROCHLORIDE 0.63 MG/3 ML NEB (SCH) NEB ×3 (08:43→19:40)
[2017-03-13] MEDS: SODIUM CHLORIDE 0.9% FLUSH 10 ML FLUSH IV FLUSH SCH ×2 (09:00→20:17)
[2017-03-13] MEDS: DOCUSATE SODIUM 50 MG/SENNA 8.6 MG TAB PO SCH ×2 (09:24→20:17)
[2017-03-13] MEDS: ENOXAPARIN SODIUM 80 MG/0.8 ML SYRINGE SQ SCH ×2 (09:25→20:17)
[2017-03-13] MEDS: FERROUS SULFATE 325 MG (65 MG ELEMENTAL IRON) TAB PO SCH ×2 (09:25→16:51)
--- NOTE | 2017-03-13 10:50 | HHI.PR ---
Subjective Remarks Follow-up A. fib with RVR/COPD without any exacerbation 03/12/17-patient seen and examined, denies any heart palpitation or shortness of breath. Currently afebrile. Patient is now willing to have AICD placed 03/13/17-patient seen and examined, no complaint of chest pain or shortness of breath or heart palpitation. BP improving. Currently on warfarin with Lovenox bridge Objective Vitals Vital Signs Date Time Temp Pulse Resp B/P Pulse Ox O2 Delivery O2 Flow Rate FiO2 03/13/17 10:19 61 03/13/17 09:02 64 03/13/17 08:00 63 03/13/17 07:00 66 03/13/17 07:00 98.5 66 18 141/88 96 03/13/17 07:00 74 03/13/17 05:00 64 03/13/17 04:00 63 03/13/17 04:00 97.7 63 16 150/85 97 03/13/17 03:00 64 03/13/17 02:00 64 03/13/17 01:00 68 03/13/17 00:00 72 03/13/17 00:00 97.3 74 18 149/70 96 03/12/17 23:00 68 03/12/17 22:00 70 03/12/17 21:00 72 03/12/17 20:00 97.4 73 20 148/73 100 03/12/17 20:00 96 21 03/12/17 20:00 71 03/12/17 19:00 68 03/12/17 18:00 74 03/12/17 17:00 74 03/12/17 16:00 98.4 67 16 147/91 95 03/12/17 16:00 68 03/12/17 15:00 66 03/12/17 14:00 64 03/12/17 13:00 68 03/12/17 12:00 69 03/12/17 12:00 98.1 89 18 154/92 96 03/12/17 11:00 86 I/O 03/12/17 03/12/17 03/12/17 03/13/17 03/13/17 03/13/17 06:59 14:59 22:59 06:59 14:59 22:59 Intake Total 240 ml 720 ml 480 ml Output Total 100 ml 600 ml Balance 140 ml 120 ml 480 ml Intake Oral 240 ml 720 ml 480 ml IV Total 0 ml Output Urine Total 100 ml 600 ml # Voids 2 2 # Bowel Movements 1 1 0 Result Diagram: 03/13/17 0543 03/11/17 0528 Objective Remarks GENERAL: NAD SKIN: Warm and dry. HEAD: Normocephalic. EYES: No scleral icterus. No injection or drainage. NECK: Supple, trachea midline. No JVD or lymphadenopathy. CARDIOVASCULAR: Irregular Regular rate and rhythm without murmurs, gallops, or rubs. Implantable loop recorder in place RESPIRATORY: Breath sounds equal bilaterally. No accessory muscle use. GASTROINTESTINAL: Abdomen soft, non-tender, nondistended. MUSCULOSKELETAL: No cyanosis, or edema. BACK: Nontender without obvious deformity. No CVA tenderness. A/P Problem List: (1) Atrial fibrillation with rapid ventricular response ICD Code: I48.91 Status: Acute (2) COPD (chronic obstructive pulmonary disease) ICD Code: J44.9 Status: Acute (3) DM2 (diabetes mellitus, type 2) ICD Code: E11.9 Status: Acute Assessment and Plan 82-year-old female with A. fib with RVR Appreciate input from cardiology Per EP, continuing with current medical management as AICD placement would be last resort. Patient cannot tolerate calcium channel julio Continue Coumadin with Lovenox bridge Monitor INR/PT COPD No current exacerbation Continue Xopenex, DuoNeb when necessary Diabetes type 2 Continue sliding scale insulin Continue to Hold oral hypoglycemic agents Hyperlipidemia On statin DVT prophylaxis: Coumadin and Lovenox Patient will need hospital monitoring for next 4-5 days Discharge Planning Discharge when medically clear by cardiology Sreedhar Dumont MD Mar 13, 2017 10:50
--- NOTE | 2017-03-13 11:43 | MB ---
cc: PAMELA LUU MD DATE OF CONSULTATION 03/12/2017 DATE OF [address] Clarke and Dr. Lockwood REASON FOR CONSULTATION Management of atrial fibrillation including optional ablation versus pacemaker. HISTORY OF PRESENT ILLNESS Ms. Rivera is an 82-year-old lady well-known to Dr. Lockwood. She did have a cardiac catheterization back in April of 2014 that showed mid LAD about moderate disease of 50% stenosis. Over the last two months, the patient had two episodes of atrial fibrillation. She had a ZIO patch on. An echocardiogram was done August of 2015 showing an EF around 60% with normal-sized left atrium. She does have diabetes and COPD an intermedullary taking inhalers and O2 at home. Her O2 sat has been around 90% here without O2. She has been seen by me in the office and discussed the option of possible anticoagulation. She had remote history of GI bleeding in the past. So far, a she awoke up was negative. She was on baby aspirin. She presented to [place] with palpitations and atrial fibrillation. She was noted to have tachycardia then transferred to [facility]. So far she converted back in a normal rhythm with heart rate in the 70s. No TIA or CVA. Of note, she has tried Cardizem in the past, but it was stopped due to peripheral swelling. She could not tolerate beta blockers due to underlying COPD. So far, she also has some financial issues. She could not afford antiarrhythmic medications such as Multaq. Currently she is on Lovenox 80 mg b.i.d. She was noted to have hypotension the ER, but she denied hypertension at home. I did discuss other options including option of atrial fibrillation/ablation, but she has to stay on anticoagulation pre and post ablation. Of note, she denied any usage of Coumadin in the past and also has a possible allergy to COUMADIN. She never tried Coumadin the past though upon a detailed discussion. PAST MEDICAL HISTORY As above. ALLERGIES NO KNOWN DRUG ALLERGIES. PAST SURGICAL HISTORY Includin. Cataract surgery 2. Cholecystectomy 3. Bladder suspension 4. Appendectomy 5. Partial hysterectomy MEDICATIONS Includin. Lovenox 80 mg b.i.d. 2. Iron 325 mg daily 3. Digoxin 4. Baby aspirin ALLERGIES NO KNOWN DRUG ALLERGIES. SOCIAL HISTORY She does not smoke or drink large amounts of alcohol. REVIEW OF SYSTEMS HEAD, EYES, EARS, NOSE, AND THROAT: Normal. GI: No nausea or vomiting. : No dysuria. Has fatigue. CARDIOVASCULAR: As above. CHEST: Some dyspnea. ENDOCRINE: Normal. SKIN: Normal. FISCAL ECONOMIST: She has no dizziness. PHYSICAL EXAM On physical, the patient has blood pressures of 147/91 with pulse in the 60s, currently sinus. The patient's O2 sat is 95% on room air. HEENT: Normal. PERRLA. ENDOCRINE: There is no thyroid enlargement. LYMPHATICS: Denies any lymphadenopathy. RESPIRATORY: Decreased breath sounds bilaterally. No crackles, no wheezing. CARDIOVASCULAR: Regular. No loud murmurs. No JVP visualized. GI: Active bowel sounds all four quadrants. : Deferred. MUSCULOSKELETAL: Range of motion intact. SKIN: There is no ecchymosis. PSYCH: The patient has good mood and good judgment. TESTS So far EKG shows sinus. Hematocrit of 40.6 with a WBC 11.0. Creatinine 0.9. ASSESSMENT 1. Symptomatic paroxysmal atrial fibrillation 2. Diabetes 3. COPD, some chest discomfort along with dyspnea. 4. History GI bleed in the past. PLAN I did undergo further treatment options. She does have a remote history of GI bleeding, but she had no recent blood loss. According to her chart, she had tried Coumadin in the past and could not afford normal anticoagulants so far. I did discuss in detail, she agreed to take the Coumadin and see how she does. I did discuss other options. So far, she is unwilling to take antiarrhythmic medication due to cost and possible side effects. One of the options is to consider ablation for atrial fibrillation, but she has be anticoagulated pre and post ablation. The other options would consider pacemaker and AV node ablation, but she is quite fearful of pacemaker dependence and complete heart block, but I did emphasize to her she had to have 4-5. Anticoagulation is very appropriate for her age. I will start Coumadin 6 mg and PT-INR will be checked regularly. I will stop the baby aspirin. If she is able to take anticoagulation, may consider A. Fib ablation. She wants to reserve pacemaker as a last option. For now, we can observe and see how she does. I like to thank Dr. Lockwood and Dr. Neumann for letting me participate in the care of Mrs. Rivera I will start Coumadin 6 mg. PT-INR will be checked. Aspirin will be DC'd. MD ALINA Lyn/ARAM /7:52 PM /11:47 AM
--- NOTE | 2017-03-13 12:12 | PD.CARD.PN ---
Subjective Subjective Remarks alert in nad Objective Vital Signs / I&O Vital Signs Date Time Temp Pulse Resp B/P Pulse Ox O2 Delivery O2 Flow Rate FiO2 03/13/17 12:04 109 03/13/17 11:31 98.2 65 18 155/94 99 03/13/17 10:19 61 03/13/17 09:02 64 03/13/17 08:00 63 03/13/17 07:00 66 03/13/17 07:00 98.5 66 18 141/88 96 03/13/17 07:00 74 03/13/17 05:00 64 03/13/17 04:00 63 03/13/17 04:00 97.7 63 16 150/85 97 03/13/17 03:00 64 03/13/17 02:00 64 03/13/17 01:00 68 03/13/17 00:00 72 03/13/17 00:00 97.3 74 18 149/70 96 03/12/17 23:00 68 03/12/17 22:00 70 03/12/17 21:00 72 03/12/17 20:00 97.4 73 20 148/73 100 03/12/17 20:00 96 21 03/12/17 20:00 71 03/12/17 19:00 68 03/12/17 18:00 74 03/12/17 17:00 74 03/12/17 16:00 98.4 67 16 147/91 95 03/12/17 16:00 68 03/12/17 15:00 66 03/12/17 14:00 64 03/12/17 13:00 68 I/O 03/12/17 03/12/17 03/12/17 03/13/17 03/13/17 03/13/17 07:00 15:00 23:00 07:00 15:00 23:00 Intake Total 240 ml 720 ml 480 ml Output Total 100 ml 600 ml Balance 140 ml 120 ml 480 ml Intake Oral 240 ml 720 ml 480 ml IV Total 0 ml Output Urine Total 100 ml 600 ml # Voids 2 2 # Bowel Movements 1 1 0 Laboratory GENERAL: SKIN: Warm and dry. HEAD: Normocephalic. EYES: No scleral icterus. No injection or drainage. NECK: Supple, trachea midline. No JVD or lymphadenopathy. CARDIOVASCULAR: Regular rate and rhythm without murmurs, gallops, or rubs. RESPIRATORY: Breath sounds equal bilaterally. No accessory muscle use. GASTROINTESTINAL: Abdomen soft, non-tender, nondistended. MUSCULOSKELETAL: No cyanosis, or edema. BACK: Nontender without obvious deformity. No CVA tenderness. Laboratory Tests Test 03/12/17 03/13/17 21:35 05:43 Prothrombin Time 10.1 SEC 10.3 SEC Prothromb Time International 0.9 RATIO 0.9 RATIO Ratio White Blood Count 6.4 TH/MM3 Red Blood Count 4.12 MIL/MM3 Hemoglobin 12.0 GM/DL Hematocrit 35.9 % Mean Corpuscular Volume 87.1 FL Mean Corpuscular Hemoglobin 29.2 PG Mean Corpuscular Hemoglobin 33.5 % Concent Red Cell Distribution Width 13.6 % Platelet Count 247 TH/MM3 Mean Platelet Volume 8.0 FL Assessment and Plan Problem List: (1) A-fib (2) Atrial fibrillation with rapid ventricular response (3) DM2 (diabetes mellitus, type 2) (4) COPD (chronic obstructive pulmonary disease) Assessment and Plan 1.) PAF - intolerant of beta blcockers due to oxygen dependent copd and ccb d/t le edema, i recommended coumadin or noac d/t chads score=3, lovenox, f/u cbc in am, consult Dr James to torie recinos/wyatt godoy rfa and ppm and/or alternative med manage, on coumadin Lincoln Lockwood MD Mar 13, 2017 12:12
--- NOTE | 2017-03-13 14:07 | EKG ---
Date Performed: 03/10/2017 Time Performed: 21:57:43 PTAGE: 82 years EKG: ATRIAL FIBRILLATION WITH RAPID VENTRICULAR RESPONSE BORDERLINE LEFT AXIS DEVIATION MODERATE ST DEPRESSION ABNORMAL ECG INTERPRETATION BASED ON A DEFAULT AGE OF 42 YEARS Compared to PREVIOUS TRACING patient is now in atrial fibrillation with a rapid v. response. Prior E KG showed Sinus rhythm . PREVIOUS TRACIN02/02/17 DOCTOR: Divine Nava Interpretating Date/Time 03/13/2017 14:05:14
[2017-03-13] MEDS: WARFARIN SOD 6 MG TAB PO SCH (16:51)
[2017-03-13] MEDS: ATORVASTATIN 20 MG TAB PO SCH (20:16)
[2017-03-13] MEDS: ALPRAZolam 0.5 MG TAB PO PRN (21:58)
[2017-03-14] VITALS (32 sets, daily range): BP systolic 122–175; BP diastolic 42–102; PULSE 52–86; RESP 16–18; TEMP 97.6–98.6; O2SAT 93–98
[2017-03-14] MEDS ORDERED: ENALAPRILAT 2.5 MG/2 ML VIAL IV PUSH PRN (05:15)
[2017-03-14] MEDS: RESP: IPRATROPIUM 0.5 MG/2.5 ML NEB NEB PRN (06:26)
[2017-03-14 06:41] LABS: PROTHROMBIN TIME - PATIENT 11.1 SEC (9.8-11.6)
[2017-03-14] MEDS: INSULIN ASPART SUPPLEMENTAL SCALE SQ SCH ×4 (06:47→21:00)
[2017-03-14] MEDS: RESP: LEVALBUTEROL HYDROCHLORIDE 0.63 MG/3 ML NEB (SCH) NEB ×3 (08:00→20:43)
[2017-03-14] MEDS: DOCUSATE SODIUM 50 MG/SENNA 8.6 MG TAB PO SCH ×2 (08:39→08:40)
[2017-03-14] MEDS: ENOXAPARIN SODIUM 80 MG/0.8 ML SYRINGE SQ SCH ×2 (08:39→21:03)
[2017-03-14] MEDS: SODIUM CHLORIDE 0.9% FLUSH 10 ML FLUSH IV FLUSH SCH ×2 (08:39→21:04)
[2017-03-14] MEDS: FERROUS SULFATE 325 MG (65 MG ELEMENTAL IRON) TAB PO SCH ×2 (08:39→17:47)
--- NOTE | 2017-03-14 12:22 | PD.CARD.PN ---
Subjective Subjective Remarks alert in nad Objective Vital Signs / I&O Vital Signs Date Time Temp Pulse Resp B/P Pulse Ox O2 Delivery O2 Flow Rate FiO2 03/14/17 11:30 97.9 73 18 131/66 98 03/14/17 10:01 68 03/14/17 09:00 68 03/14/17 08:30 98.6 71 18 155/82 93 03/14/17 08:10 98 Nasal Cannula 2.00 03/14/17 08:00 52 03/14/17 07:01 61 03/14/17 06:43 67 03/14/17 05:36 175/102 03/14/17 05:15 63 03/14/17 04:27 97.6 65 164/75 95 03/14/17 04:00 76 03/14/17 03:48 61 03/14/17 02:00 64 03/14/17 01:00 70 03/14/17 00:36 98.1 81 164/89 95 03/14/17 00:00 86 03/13/17 23:00 74 03/13/17 22:00 66 03/13/17 21:00 66 03/13/17 20:00 74 03/13/17 19:44 97 21 03/13/17 19:00 68 03/13/17 19:00 98.2 65 158/73 93 03/13/17 18:01 65 03/13/17 17:21 67 03/13/17 16:00 80 03/13/17 15:00 98.3 84 18 156/80 96 03/13/17 15:00 86 03/13/17 14:19 62 03/13/17 13:01 63 I/O 03/13/17 03/13/17 03/13/17 03/14/17 03/14/17 03/14/17 06:59 14:59 22:59 06:59 14:59 22:59 Intake Total 480 ml 900 ml 240 ml Balance 480 ml 900 ml 240 ml Intake Oral 480 ml 900 ml 240 ml IV Total 0 ml 0 ml # Voids 2 5 4 # Bowel Movements 0 2 Laboratory GENERAL: SKIN: Warm and dry. HEAD: Normocephalic. EYES: No scleral icterus. No injection or drainage. NECK: Supple, trachea midline. No JVD or lymphadenopathy. CARDIOVASCULAR: Regular rate and rhythm without murmurs, gallops, or rubs. RESPIRATORY: Breath sounds equal bilaterally. No accessory muscle use. GASTROINTESTINAL: Abdomen soft, non-tender, nondistended. MUSCULOSKELETAL: No cyanosis, or edema. BACK: Nontender without obvious deformity. No CVA tenderness. Laboratory Tests Test 03/14/17 06:05 Prothrombin Time 11.1 SEC Prothromb Time International 1.0 RATIO Ratio Assessment and Plan Problem List: (1) A-fib (2) Atrial fibrillation with rapid ventricular response (3) DM2 (diabetes mellitus, type 2) (4) COPD (chronic obstructive pulmonary disease) Assessment and Plan 1.) PAF - intolerant of beta blcockers due to oxygen dependent copd and ccb d/t le edema, i recommended coumadin or noac d/t chads score=3, lovenox, f/u cbc in am, consult Dr James to torie stokesl/wyatt avn rfa and ppm and/or alternative med manage, on coumadin Lincoln Lockwood MD Mar 14, 2017 12:22
[2017-03-14] MEDS: WARFARIN SOD 6 MG TAB PO SCH (16:00)
--- NOTE | 2017-03-14 19:23 | HHI.PR ---
Subjective Remarks patient c/o palpitations on and off denies cp/sob BP elevated Objective Vitals Vital Signs Date Time Temp Pulse Resp B/P Pulse Ox O2 Delivery O2 Flow Rate FiO2 03/14/17 18:01 70 03/14/17 17:00 60 03/14/17 16:00 64 03/14/17 15:45 98.0 63 18 122/42 96 03/14/17 15:00 65 03/14/17 14:00 64 03/14/17 13:01 72 03/14/17 12:00 58 03/14/17 11:30 97.9 73 18 131/66 98 03/14/17 11:00 65 03/14/17 10:01 68 03/14/17 09:00 68 03/14/17 08:30 98.6 71 18 155/82 93 03/14/17 08:10 98 Nasal Cannula 2.00 03/14/17 08:00 52 03/14/17 07:01 61 03/14/17 06:43 67 03/14/17 05:36 175/102 03/14/17 05:15 63 03/14/17 04:27 97.6 65 164/75 95 03/14/17 04:00 76 03/14/17 03:48 61 03/14/17 02:00 64 03/14/17 01:00 70 03/14/17 00:36 98.1 81 164/89 95 03/14/17 00:00 86 03/13/17 23:00 74 03/13/17 22:00 66 03/13/17 21:00 66 03/13/17 20:00 74 03/13/17 19:44 97 21 I/O 03/13/17 03/13/17 03/13/17 03/14/17 03/14/17 03/14/17 07:00 15:00 23:00 07:00 15:00 23:00 Intake Total 480 ml 900 ml 240 ml 690 ml Output Total 350 ml Balance 480 ml 900 ml 240 ml 340 ml Intake Oral 480 ml 900 ml 240 ml 690 ml IV Total 0 ml 0 ml Output Urine Total 350 ml # Voids 2 5 4 3 # Bowel Movements 0 2 2 Result Diagram: 03/13/17 0543 03/11/17 0528 Imaging Last Impressions Chest X-Ray 03/10/17 0000 Signed Impressions: Service Date/Time: Friday, March 10, 2017 23:21 - CONCLUSION: No acute disease. Logan Mcnair MD Objective Remarks GENERAL: NAD SKIN: Warm and dry. HEAD: Normocephalic. EYES: No scleral icterus. No injection or drainage. NECK: Supple, trachea midline. No JVD or lymphadenopathy. CARDIOVASCULAR: Irregular Regular rate and rhythm without murmurs, gallops, or rubs. Implantable loop recorder in place RESPIRATORY: Breath sounds equal bilaterally. No accessory muscle use. GASTROINTESTINAL: Abdomen soft, non-tender, nondistended. MUSCULOSKELETAL: No cyanosis, or edema. BACK: Nontender without obvious deformity. No CVA tenderness. Medications and IVs Current Medications Medications (Trade) Dose Ordered Sig/Raymundo Route Start Time Stop Time Status Last Admin (Cardizem Inj/NS Inj) 125 ml @ 0 mls/hr TITRATE IV 03/10/17 22:45 03/11/17 00:38 (NS Flush) 2 ml UNSCH PRN IV FLUSH 03/10/17 23:15 (NS Flush) 2 ml BID IV FLUSH 03/11/17 09:00 03/14/17 08:39 (Zofran Inj) 4 mg Q6H PRN IVP 03/10/17 23:15 (Tylenol) 650 mg Q6H PRN PO 03/10/17 23:15 03/13/17 00:44 (Luda-Colace) 1 tab BID PO 03/11/17 09:00 03/13/17 09:24 (Milk Of Magnesia Liq) 30 ml Q12H PRN PO 03/10/17 23:15 (Senokot) 17.2 mg Q12H PRN PO 03/10/17 23:15 (Dulcolax Supp) 10 mg DAILY PRN RECTAL 03/10/17 23:15 (Lactulose Liq) 30 ml DAILY PRN PO 03/10/17 23:15 (Lipitor) 20 mg HS PO 03/11/17 21:00 03/13/17 20:16 (D50w (Vial) Inj) 50 ml UNSCH PRN IV 03/11/17 10:00 (Glucagon Inj) 1 mg UNSCH PRN OTHER 03/11/17 10:00 (Lovenox Inj) 80 mg Q12H SQ 03/11/17 21:00 03/14/17 08:39 (Xanax) 0.5 mg HS PRN PO 03/11/17 10:15 03/13/17 21:58 (Ferrous Sulfate) 325 mg BIDPC PO 03/11/17 18:00 03/14/17 17:47 (Coumadin) 6 mg DAILY@1600 PO 03/12/17 22:45 03/14/17 16:00 (Vasotec Inj) 2.5 mg Q6H PRN IV PUSH 03/14/17 05:15 03/14/17 05:39 Urinary Catheter: No Vascular Central Line Catheter: No A/P Problem List: (1) Atrial fibrillation with rapid ventricular response ICD Code: I48.91 Status: Acute (2) COPD (chronic obstructive pulmonary disease) ICD Code: J44.9 Status: Acute (3) DM2 (diabetes mellitus, type 2) ICD Code: E11.9 Status: Acute (4) HTN (hypertension) ICD Code: I10 Status: Acute Assessment and Plan 82-year-old female with A. fib with RVR TSH normal, troponin negative Cardiology consulted. Intolerant of beta blockers due to oxygen dependent copd and ccb d/t le sangita Per EP, continuing with current medical management as AICD placement would be last resort. Continue Coumadin with Lovenox bridge Monitor INR/PT - still subtherapeutic COPD No current exacerbation Continue Xopenex, DuoNeb when necessary Diabetes type 2 Continue sliding scale insulin Continue to Hold oral hypoglycemic agents Blood sugars stable Hyperlipidemia On statin HTN Blood pressure is uncontrolled as patient has had persistently elevated blood pressures. Has required Vasotec to control it. I will start the patient on lisinopril 10 mg by mouth daily. Continue with Vasotec IV for uncontrolled blood pressures. DVT prophylaxis: Coumadin and Lovenox Tushar Rodriguez MD Mar 14, 2017 19:23
[2017-03-14] MEDS: ATORVASTATIN 20 MG TAB PO SCH (21:03)
[2017-03-14] MEDS: ALPRAZolam 0.5 MG TAB PO PRN (22:10)
[2017-03-15] VITALS (25 sets, daily range): BP systolic 113–159; BP diastolic 65–92; PULSE 58–86; RESP 12–18; TEMP 97.8–99; O2SAT 93–97
[2017-03-15] MEDS: INSULIN ASPART SUPPLEMENTAL SCALE SQ SCH ×4 (06:31→21:00)
[2017-03-15 06:59] LABS: INTERNATIONAL NORMALIZED RATIO 1.2 RATIO; PROTHROMBIN TIME - PATIENT 13.5 SEC (9.8-11.6)
[2017-03-15] MEDS: RESP: LEVALBUTEROL HYDROCHLORIDE 0.63 MG/3 ML NEB (SCH) NEB ×2 (07:57→11:26)
[2017-03-15] MEDS: SODIUM CHLORIDE 0.9% FLUSH 10 ML FLUSH IV FLUSH SCH ×2 (08:17→21:07)
[2017-03-15] MEDS: DOCUSATE SODIUM 50 MG/SENNA 8.6 MG TAB PO SCH ×2 (08:17→21:00)
[2017-03-15] MEDS: ENOXAPARIN SODIUM 80 MG/0.8 ML SYRINGE SQ SCH ×2 (08:17→21:07)
[2017-03-15] MEDS: FERROUS SULFATE 325 MG (65 MG ELEMENTAL IRON) TAB PO SCH ×2 (08:17→17:18)
--- NOTE | 2017-03-15 12:06 | PD.CARD.PN ---
Subjective Subjective Remarks alert in nad Objective Vital Signs / I&O Vital Signs Date Time Temp Pulse Resp B/P Pulse Ox O2 Delivery O2 Flow Rate FiO2 03/15/17 11:00 60 03/15/17 10:00 86 03/15/17 09:00 68 03/15/17 08:00 72 03/15/17 08:00 98.2 72 16 113/70 93 03/15/17 07:58 97 21 03/15/17 07:00 60 03/15/17 06:00 70 03/15/17 05:00 62 03/15/17 04:00 58 03/15/17 03:00 98.1 76 16 150/92 03/15/17 03:00 64 03/15/17 02:00 64 03/15/17 01:00 72 03/15/17 00:00 66 03/14/17 23:00 60 03/14/17 23:00 97.9 64 16 141/73 96 03/14/17 22:00 66 03/14/17 21:00 58 03/14/17 20:45 96 21 03/14/17 20:00 60 03/14/17 20:00 98.1 60 16 123/58 96 03/14/17 19:00 62 03/14/17 18:01 70 03/14/17 17:00 60 03/14/17 16:00 64 03/14/17 15:45 98.0 63 18 122/42 96 03/14/17 15:00 65 03/14/17 14:00 64 03/14/17 13:01 72 I/O 03/14/17 03/14/17 03/14/17 03/15/17 03/15/17 03/15/17 07:00 15:00 23:00 07:00 15:00 23:00 Intake Total 240 ml 690 ml 480 ml Output Total 350 ml 1100 ml Balance 240 ml 340 ml -620 ml Intake Oral 240 ml 690 ml 480 ml Output Urine Total 350 ml 1100 ml # Voids 4 3 # Bowel Movements 2 Physical Exam GENERAL: SKIN: Warm and dry. HEAD: Normocephalic. EYES: No scleral icterus. No injection or drainage. NECK: Supple, trachea midline. No JVD or lymphadenopathy. CARDIOVASCULAR: Regular rate and rhythm without murmurs, gallops, or rubs. RESPIRATORY: Breath sounds equal bilaterally. No accessory muscle use. GASTROINTESTINAL: Abdomen soft, non-tender, nondistended. MUSCULOSKELETAL: No cyanosis, or edema. BACK: Nontender without obvious deformity. No CVA tenderness. Laboratory Laboratory Tests Test 03/15/17 06:10 Prothrombin Time 13.5 SEC Prothromb Time International 1.2 RATIO Ratio Assessment and Plan Problem List: (1) A-fib (2) Atrial fibrillation with rapid ventricular response (3) DM2 (diabetes mellitus, type 2) (4) COPD (chronic obstructive pulmonary disease) Assessment and Plan 1.) PAF - intolerant of beta blcockers due to oxygen dependent copd and ccb d/t le edema, i recommended coumadin or noac d/t chads score=3, lovenox, f/u cbc in am, consult Dr James to torie stokesl/wyatt avn rfa and ppm and/or alternative med manage, on coumadin, inr=1.2 today Lincoln Lockwood MD Mar 15, 2017 12:06
[2017-03-15] MEDS: WARFARIN SOD 6 MG TAB PO SCH (15:28)
[2017-03-15] MEDS: RESP: IPRATROPIUM 0.5 MG/2.5 ML NEB NEB PRN (20:43)
[2017-03-15] MEDS: ATORVASTATIN 20 MG TAB PO SCH (21:06)
[2017-03-15] MEDS: ALPRAZolam 0.5 MG TAB PO PRN (22:08)
[2017-03-16] VITALS (28 sets, daily range): BP systolic 137–171; BP diastolic 66–81; PULSE 52–99; RESP 16–18; TEMP 97.7–98.4; O2SAT 95–99
[2017-03-16 05:51] LABS: HEMATOCRIT 36.2 % (35.0-46.0); MEAN CELL VOLUME 87.1 FL (80.0-100.0); MEAN CORPUSCULAR HEMOGLOBIN 28.9 PG (27.0-34.0); MEAN CORPUSCULAR HGB CONC 33.2 % (32.0-36.0); PLATELET COUNT 240 TH/MM3 (150-450); RED BLOOD COUNT 4.15 MIL/MM3 (4.00-5.30); RED CELL DISTRIBUTION WIDTH 13.8 % (11.6-17.2); REVIEW FLAG FINAL
[2017-03-16 05:57] LABS: INTERNATIONAL NORMALIZED RATIO 1.5 RATIO; PROTHROMBIN TIME - PATIENT 16.9 SEC (9.8-11.6)
[2017-03-16] MEDS: INSULIN ASPART SUPPLEMENTAL SCALE SQ SCH ×4 (07:00→21:00)
[2017-03-16] MEDS: RESP: IPRATROPIUM 0.5 MG/2.5 ML NEB NEB PRN ×2 (07:56→19:59)
[2017-03-16] MEDS: DOCUSATE SODIUM 50 MG/SENNA 8.6 MG TAB PO SCH ×2 (09:00→21:00)
[2017-03-16] MEDS: SODIUM CHLORIDE 0.9% FLUSH 10 ML FLUSH IV FLUSH SCH ×2 (09:17→21:48)
[2017-03-16] MEDS: ENOXAPARIN SODIUM 80 MG/0.8 ML SYRINGE SQ SCH ×2 (09:17→21:48)
[2017-03-16] MEDS: FERROUS SULFATE 325 MG (65 MG ELEMENTAL IRON) TAB PO SCH ×2 (09:17→16:08)
--- NOTE | 2017-03-16 13:25 | HHI.PR ---
Subjective Remarks Deferred entry patient seen on 03/15 at 10 am patient denies cp/sob denies palpitations no further arrhythmias on telemetry Objective Vitals Vital Signs Date Time Temp Pulse Resp B/P Pulse Ox O2 Delivery O2 Flow Rate FiO2 03/16/17 13:09 63 03/16/17 12:14 70 03/16/17 11:00 98.2 99 18 167/81 97 03/16/17 11:00 67 03/16/17 09:40 73 03/16/17 08:27 70 03/16/17 07:57 98 21 03/16/17 07:00 56 03/16/17 07:00 98.2 68 18 139/66 95 03/16/17 06:00 56 03/16/17 05:00 60 03/16/17 04:00 58 03/16/17 03:00 54 03/16/17 03:00 98.1 60 16 142/75 96 03/16/17 02:00 52 03/16/17 01:00 56 03/16/17 00:00 72 03/15/17 23:00 72 03/15/17 23:00 99.0 79 16 147/65 97 03/15/17 22:00 66 03/15/17 21:00 64 03/15/17 20:00 97.8 69 12 159/78 96 03/15/17 20:00 66 03/15/17 19:00 64 03/15/17 18:00 74 03/15/17 17:00 60 03/15/17 16:00 98.1 64 18 135/66 94 03/15/17 16:00 73 03/15/17 15:00 66 03/15/17 14:00 70 I/O 03/15/17 03/15/17 03/15/17 03/16/17 03/16/17 03/16/17 07:00 15:00 23:00 07:00 15:00 23:00 Intake Total 480 ml 620 ml 240 ml Output Total 1100 ml 1000 ml 800 ml Balance -620 ml -380 ml -560 ml Intake Oral 480 ml 620 ml 240 ml Output Urine Total 1100 ml 1000 ml 800 ml # Bowel Movements 0 1 Result Diagram: 03/16/17 0434 Objective Remarks GENERAL: NAD SKIN: Warm and dry. HEAD: Normocephalic. EYES: No scleral icterus. No injection or drainage. NECK: Supple, trachea midline. No JVD or lymphadenopathy. CARDIOVASCULAR: Irregular Regular rate and rhythm without murmurs, gallops, or rubs. Implantable loop recorder in place RESPIRATORY: Breath sounds equal bilaterally. No accessory muscle use. GASTROINTESTINAL: Abdomen soft, non-tender, nondistended. MUSCULOSKELETAL: No cyanosis, or edema. BACK: Nontender without obvious deformity. No CVA tenderness. A/P Problem List: (1) Atrial fibrillation with rapid ventricular response ICD Code: I48.91 Status: Acute (2) COPD (chronic obstructive pulmonary disease) ICD Code: J44.9 Status: Acute (3) DM2 (diabetes mellitus, type 2) ICD Code: E11.9 Status: Acute (4) HTN (hypertension) ICD Code: I10 Status: Acute Assessment and Plan 82-year-old female with A. fib with RVR TSH normal, troponin negative Cardiology consulted. Intolerant of beta blockers due to oxygen dependent copd and ccb d/t le sangita Per EP, continuing with current medical management as AICD placement would be last resort. Continue Coumadin with Lovenox bridge Monitor INR/PT - still subtherapeutic 1.5 COPD No current exacerbation Continue Xopenex, DuoNeb when necessary Diabetes type 2 Continue sliding scale insulin Continue to Hold oral hypoglycemic agents Blood sugars stable Hyperlipidemia On statin HTN Blood pressure is uncontrolled as patient has had persistently elevated blood pressures. Has required Vasotec to control it. I will start the patient on lisinopril 10 mg by mouth daily. Continue with Vasotec IV for uncontrolled blood pressures. 7/20 BP much improved. Continue antihypertensive medication as mentioned above. DVT prophylaxis: Coumadin and Lovenox Discharge Planning Discharge pending cardiology clearance. Tushar Rodriguez MD Mar 16, 2017 13:25
[2017-03-16] MEDS: LISINOPRIL 20 MG TAB PO SCH (14:37)
[2017-03-16] MEDS: WARFARIN SOD 6 MG TAB PO SCH (16:08)
--- NOTE | 2017-03-16 16:38 | PD.CARD.PN ---
Subjective Subjective Remarks alert in nad Objective Vital Signs / I&O Vital Signs Date Time Temp Pulse Resp B/P Pulse Ox O2 Delivery O2 Flow Rate FiO2 03/16/17 16:10 67 03/16/17 15:22 97.7 69 18 171/75 97 03/16/17 15:09 71 03/16/17 14:39 64 03/16/17 13:09 63 03/16/17 12:14 70 03/16/17 11:00 98.2 99 18 167/81 97 03/16/17 11:00 67 03/16/17 09:40 73 03/16/17 08:27 70 03/16/17 07:57 98 21 03/16/17 07:00 56 03/16/17 07:00 98.2 68 18 139/66 95 03/16/17 06:00 56 03/16/17 05:00 60 03/16/17 04:00 58 03/16/17 03:00 54 03/16/17 03:00 98.1 60 16 142/75 96 03/16/17 02:00 52 03/16/17 01:00 56 03/16/17 00:00 72 03/15/17 23:00 72 03/15/17 23:00 99.0 79 16 147/65 97 03/15/17 22:00 66 03/15/17 21:00 64 03/15/17 20:00 97.8 69 12 159/78 96 03/15/17 20:00 66 03/15/17 19:00 64 03/15/17 18:00 74 03/15/17 17:00 60 I/O 03/15/17 03/15/17 03/15/17 03/16/17 03/16/17 03/16/17 07:00 15:00 23:00 07:00 15:00 23:00 Intake Total 480 ml 620 ml 240 ml Output Total 1100 ml 1000 ml 800 ml Balance -620 ml -380 ml -560 ml Intake Oral 480 ml 620 ml 240 ml Output Urine Total 1100 ml 1000 ml 800 ml # Bowel Movements 0 1 Physical Exam GENERAL: SKIN: Warm and dry. HEAD: Normocephalic. EYES: No scleral icterus. No injection or drainage. NECK: Supple, trachea midline. No JVD or lymphadenopathy. CARDIOVASCULAR: Regular rate and rhythm without murmurs, gallops, or rubs. RESPIRATORY: Breath sounds equal bilaterally. No accessory muscle use. GASTROINTESTINAL: Abdomen soft, non-tender, nondistended. MUSCULOSKELETAL: No cyanosis, or edema. BACK: Nontender without obvious deformity. No CVA tenderness. Laboratory Laboratory Tests Test 03/16/17 04:34 White Blood Count 7.0 TH/MM3 Red Blood Count 4.15 MIL/MM3 Hemoglobin 12.0 GM/DL Hematocrit 36.2 % Mean Corpuscular Volume 87.1 FL Mean Corpuscular Hemoglobin 28.9 PG Mean Corpuscular Hemoglobin 33.2 % Concent Red Cell Distribution Width 13.8 % Platelet Count 240 TH/MM3 Mean Platelet Volume 7.9 FL Prothrombin Time 16.9 SEC Prothromb Time International 1.5 RATIO Ratio Assessment and Plan Problem List: (1) A-fib (2) Atrial fibrillation with rapid ventricular response (3) DM2 (diabetes mellitus, type 2) (4) COPD (chronic obstructive pulmonary disease) Assessment and Plan 1.) PAF - intolerant of beta blcockers due to oxygen dependent copd and ccb d/t le edema, i recommended coumadin or noac d/t chads score=3, lovenox, f/u cbc in am, consult Dr James to eval riskl/wyatt avn rfa and ppm and/or alternative med manage, on coumadin, inr=1.5 today Lincoln Lockwood MD Mar 16, 2017 16:37
[2017-03-16] MEDS: ALPRAZolam 0.5 MG TAB PO PRN (21:47)
[2017-03-16] MEDS: ATORVASTATIN 20 MG TAB PO SCH (21:48)
[2017-03-17] VITALS (26 sets, daily range): BP systolic 113–149; BP diastolic 55–77; PULSE 52–86; RESP 16–20; TEMP 97.3–98.5; O2SAT 94–97
[2017-03-17 05:54] LABS: INTERNATIONAL NORMALIZED RATIO 1.8 RATIO; PROTHROMBIN TIME - PATIENT 20.4 SEC (9.8-11.6)
[2017-03-17] MEDS: INSULIN ASPART SUPPLEMENTAL SCALE SQ SCH ×4 (06:01→21:00)
[2017-03-17] MEDS: RESP: IPRATROPIUM 0.5 MG/2.5 ML NEB NEB PRN ×3 (08:26→19:26)
[2017-03-17] MEDS: ENOXAPARIN SODIUM 80 MG/0.8 ML SYRINGE SQ SCH ×2 (08:48→21:07)
[2017-03-17] MEDS: FERROUS SULFATE 325 MG (65 MG ELEMENTAL IRON) TAB PO SCH ×2 (08:48→17:30)
[2017-03-17] MEDS: SODIUM CHLORIDE 0.9% FLUSH 10 ML FLUSH IV FLUSH SCH ×2 (08:49→21:00)
[2017-03-17] MEDS: DOCUSATE SODIUM 50 MG/SENNA 8.6 MG TAB PO SCH ×2 (08:49→21:07)
[2017-03-17] MEDS: LISINOPRIL 20 MG TAB PO SCH (08:49)
--- NOTE | 2017-03-17 09:09 | HHI.PR ---
Subjective Remarks Deferred entry, patient seen on 03/16/17 at 12:30 am denies cp/sob denies palpitations Objective Vitals Vital Signs Date Time Temp Pulse Resp B/P Pulse Ox O2 Delivery O2 Flow Rate FiO2 03/17/17 07:00 97.6 78 18 113/63 97 03/17/17 06:00 58 03/17/17 05:00 52 03/17/17 04:00 56 03/17/17 03:00 54 03/17/17 03:00 98.4 62 18 139/77 95 03/17/17 02:00 58 03/17/17 01:00 60 03/17/17 00:00 60 03/16/17 23:46 97.7 62 18 137/66 97 03/16/17 23:00 57 03/16/17 22:00 62 03/16/17 21:00 61 03/16/17 20:23 98.4 93 18 140/67 97 03/16/17 20:00 56 03/16/17 19:59 99 03/16/17 19:00 65 03/16/17 18:03 60 03/16/17 17:00 59 03/16/17 16:10 67 03/16/17 15:22 97.7 69 18 171/75 97 03/16/17 15:09 71 03/16/17 14:39 64 03/16/17 13:09 63 03/16/17 12:14 70 03/16/17 11:00 98.2 99 18 167/81 97 03/16/17 11:00 67 03/16/17 09:40 73 I/O 03/16/17 03/16/17 03/16/17 03/17/17 03/17/17 03/17/17 07:00 15:00 23:00 07:00 15:00 23:00 Intake Total 240 ml 720 ml 244 ml Output Total 800 ml 450 ml 1200 ml Balance -560 ml 270 ml -956 ml Intake Oral 240 ml 720 ml 244 ml Output Urine Total 800 ml 450 ml 1200 ml # Voids 3 # Bowel Movements 1 Result Diagram: 03/16/17 0434 Objective Remarks GENERAL: NAD SKIN: Warm and dry. HEAD: Normocephalic. EYES: No scleral icterus. No injection or drainage. NECK: Supple, trachea midline. No JVD or lymphadenopathy. CARDIOVASCULAR: Irregular Regular rate and rhythm without murmurs, gallops, or rubs. Implantable loop recorder in place RESPIRATORY: Breath sounds equal bilaterally. No accessory muscle use. GASTROINTESTINAL: Abdomen soft, non-tender, nondistended. MUSCULOSKELETAL: No cyanosis, or edema. BACK: Nontender without obvious deformity. No CVA tenderness. A/P Problem List: (1) Atrial fibrillation with rapid ventricular response ICD Code: I48.91 Status: Acute (2) COPD (chronic obstructive pulmonary disease) ICD Code: J44.9 Status: Acute (3) DM2 (diabetes mellitus, type 2) ICD Code: E11.9 Status: Acute (4) HTN (hypertension) ICD Code: I10 Status: Acute Assessment and Plan 82-year-old female with A. fib with RVR TSH normal, troponin negative Cardiology consulted. Intolerant of beta blockers due to oxygen dependent copd and ccb d/t le sangita Per EP, Will anticoagulate to attempt ablation procedure once INR therapeutic. Continue Coumadin with Lovenox bridge Monitor INR/PT - still subtherapeutic 1.5 COPD No current exacerbation Continue Xopenex, DuoNeb when necessary Diabetes type 2 Continue sliding scale insulin Continue to Hold oral hypoglycemic agents Blood sugars stable Hyperlipidemia On statin HTN Blood pressure is uncontrolled as patient has had persistently elevated blood pressures. Has required Vasotec to control it. 03/16 start on lisinopril 20 mg po daily. DVT prophylaxis: Coumadin and Lovenox Discharge Planning Discharge pending cardiology clearance. Tushar Rodriguez MD Mar 17, 2017 09:09
--- NOTE | 2017-03-17 11:49 | PD.CARD.PN ---
Subjective Subjective Remarks alert in nad Objective Vital Signs / I&O Vital Signs Date Time Temp Pulse Resp B/P Pulse Ox O2 Delivery O2 Flow Rate FiO2 03/17/17 10:17 83 03/17/17 09:00 74 03/17/17 08:00 70 03/17/17 07:00 97.6 78 18 113/63 97 03/17/17 07:00 54 03/17/17 06:00 58 03/17/17 05:00 52 03/17/17 04:00 56 03/17/17 03:00 54 03/17/17 03:00 98.4 62 18 139/77 95 03/17/17 02:00 58 03/17/17 01:00 60 03/17/17 00:00 60 03/16/17 23:46 97.7 62 18 137/66 97 03/16/17 23:00 57 03/16/17 22:00 62 03/16/17 21:00 61 03/16/17 20:23 98.4 93 18 140/67 97 03/16/17 20:00 56 03/16/17 19:59 99 03/16/17 19:00 65 03/16/17 18:03 60 03/16/17 17:00 59 03/16/17 16:10 67 03/16/17 15:22 97.7 69 18 171/75 97 03/16/17 15:09 71 03/16/17 14:39 64 03/16/17 13:09 63 03/16/17 12:14 70 I/O 03/16/17 03/16/17 03/16/17 03/17/17 03/17/17 03/17/17 06:59 14:59 22:59 06:59 14:59 22:59 Intake Total 240 ml 720 ml 244 ml Output Total 800 ml 450 ml 1200 ml Balance -560 ml 270 ml -956 ml Intake Oral 240 ml 720 ml 244 ml Output Urine Total 800 ml 450 ml 1200 ml # Voids 3 # Bowel Movements 1 Physical Exam GENERAL: SKIN: Warm and dry. HEAD: Normocephalic. EYES: No scleral icterus. No injection or drainage. NECK: Supple, trachea midline. No JVD or lymphadenopathy. CARDIOVASCULAR: Regular rate and rhythm without murmurs, gallops, or rubs. RESPIRATORY: Breath sounds equal bilaterally. No accessory muscle use. GASTROINTESTINAL: Abdomen soft, non-tender, nondistended. MUSCULOSKELETAL: No cyanosis, or edema. BACK: Nontender without obvious deformity. No CVA tenderness. Laboratory Laboratory Tests Test 03/17/17 04:10 Prothrombin Time 20.4 SEC Prothromb Time International 1.8 RATIO Ratio Assessment and Plan Problem List: (1) A-fib (2) Atrial fibrillation with rapid ventricular response (3) DM2 (diabetes mellitus, type 2) (4) COPD (chronic obstructive pulmonary disease) Assessment and Plan 1.) PAF - intolerant of beta blcockers due to oxygen dependent copd and ccb d/t le edema, i recommended coumadin or noac d/t chads score=3, lovenox, f/u cbc in am, consult Dr James to torie recinos/wyatt uriben rfa and ppm and/or alternative med manage, on coumadin, inr=1.8 today Lincoln Lockwood MD Mar 17, 2017 11:49
--- NOTE | 2017-03-17 15:59 | HHI.PR ---
Subjective Remarks no complaints denies palpitations denies cp/sob bp stable Objective Vitals Vital Signs Date Time Temp Pulse Resp B/P Pulse Ox O2 Delivery O2 Flow Rate FiO2 03/17/17 15:00 97.3 64 16 130/56 96 03/17/17 14:11 86 03/17/17 13:16 66 03/17/17 12:03 57 03/17/17 11:00 98.2 64 18 135/72 94 03/17/17 11:00 58 03/17/17 10:17 83 03/17/17 09:00 74 03/17/17 08:00 70 03/17/17 07:00 97.6 78 18 113/63 97 03/17/17 07:00 54 03/17/17 06:00 58 03/17/17 05:00 52 03/17/17 04:00 56 03/17/17 03:00 54 03/17/17 03:00 98.4 62 18 139/77 95 03/17/17 02:00 58 03/17/17 01:00 60 03/17/17 00:00 60 03/16/17 23:46 97.7 62 18 137/66 97 03/16/17 23:00 57 03/16/17 22:00 62 03/16/17 21:00 61 03/16/17 20:23 98.4 93 18 140/67 97 03/16/17 20:00 56 03/16/17 19:59 99 03/16/17 19:00 65 03/16/17 18:03 60 03/16/17 17:00 59 03/16/17 16:10 67 I/O 03/16/17 03/16/17 03/16/17 03/17/17 03/17/17 03/17/17 06:59 14:59 22:59 06:59 14:59 22:59 Intake Total 240 ml 720 ml 244 ml Output Total 800 ml 450 ml 1200 ml Balance -560 ml 270 ml -956 ml Intake Oral 240 ml 720 ml 244 ml Output Urine Total 800 ml 450 ml 1200 ml # Voids 3 # Bowel Movements 1 Result Diagram: 03/16/17 0434 Imaging Last Impressions Chest X-Ray 03/10/17 0000 Signed Impressions: Service Date/Time: Friday, March 10, 2017 23:21 - CONCLUSION: No acute disease. Logan Mcnair MD Objective Remarks GENERAL: NAD SKIN: Warm and dry. HEAD: Normocephalic. EYES: No scleral icterus. No injection or drainage. NECK: Supple, trachea midline. No JVD or lymphadenopathy. CARDIOVASCULAR: Irregular Regular rate and rhythm without murmurs, gallops, or rubs. Implantable loop recorder in place RESPIRATORY: Breath sounds equal bilaterally. No accessory muscle use. GASTROINTESTINAL: Abdomen soft, non-tender, nondistended. MUSCULOSKELETAL: No cyanosis, or edema. BACK: Nontender without obvious deformity. No CVA tenderness. Medications and IVs Current Medications Medications (Trade) Dose Ordered Sig/Raymundo Route Start Time Stop Time Status Last Admin (Cardizem Inj/NS Inj) 125 ml @ 0 mls/hr TITRATE IV 03/10/17 22:45 03/11/17 00:38 (NS Flush) 2 ml UNSCH PRN IV FLUSH 03/10/17 23:15 (NS Flush) 2 ml BID IV FLUSH 03/11/17 09:00 03/17/17 08:49 (Zofran Inj) 4 mg Q6H PRN IVP 03/10/17 23:15 03/17/17 09:59 (Tylenol) 650 mg Q6H PRN PO 03/10/17 23:15 03/13/17 00:44 (Luda-Colace) 1 tab BID PO 03/11/17 09:00 03/13/17 09:24 (Milk Of Magnesia Liq) 30 ml Q12H PRN PO 03/10/17 23:15 (Senokot) 17.2 mg Q12H PRN PO 03/10/17 23:15 (Dulcolax Supp) 10 mg DAILY PRN RECTAL 03/10/17 23:15 (Lactulose Liq) 30 ml DAILY PRN PO 03/10/17 23:15 (Lipitor) 20 mg HS PO 03/11/17 21:00 03/16/17 21:48 (D50w (Vial) Inj) 50 ml UNSCH PRN IV 03/11/17 10:00 (Glucagon Inj) 1 mg UNSCH PRN OTHER 03/11/17 10:00 (Lovenox Inj) 80 mg Q12H SQ 03/11/17 21:00 03/17/17 08:48 (Xanax) 0.5 mg HS PRN PO 03/11/17 10:15 03/16/17 21:47 (Ferrous Sulfate) 325 mg BIDPC PO 03/11/17 18:00 03/17/17 08:48 (Coumadin) 6 mg DAILY@1600 PO 03/12/17 22:45 03/16/17 16:08 (Vasotec Inj) 2.5 mg Q6H PRN IV PUSH 03/14/17 05:15 03/14/17 05:39 (Prinivil) 20 mg DAILY PO 03/16/17 14:00 03/17/17 08:49 A/P Problem List: (1) Atrial fibrillation with rapid ventricular response ICD Code: I48.91 Status: Chronic (2) COPD (chronic obstructive pulmonary disease) ICD Code: J44.9 Status: Chronic (3) DM2 (diabetes mellitus, type 2) ICD Code: E11.9 Status: Chronic (4) HTN (hypertension) ICD Code: I10 Status: Chronic Assessment and Plan 82-year-old female with A. fib with RVR TSH normal, troponin negative Cardiology consulted. Intolerant of beta blockers due to oxygen dependent copd and ccb d/t le sangita Per EP, Will anticoagulate to attempt ablation procedure once INR therapeutic. Continue Coumadin with Lovenox bridge Monitor INR/PT - still subtherapeutic 1.8 COPD No current exacerbation Continue Xopenex, DuoNeb when necessary Diabetes type 2 Continue sliding scale insulin Continue to Hold oral hypoglycemic agents Blood sugars stable Hyperlipidemia On statin HTN Blood pressure is uncontrolled as patient has had persistently elevated blood pressures. Has required Vasotec to control it. 03/16 start on lisinopril 20 mg po daily. 03/17 BP much improved. Continue Lisinopril. DVT prophylaxis: Coumadin and Lovenox Discharge Planning Discharge pending cardiology clearance. Problem Qualifiers (1) HTN (hypertension): Qualified Code: I10 - Essential hypertension Tushar Rodriguez MD Mar 17, 2017 15:59
[2017-03-17] MEDS: WARFARIN SOD 6 MG TAB PO SCH (17:31)
[2017-03-17] MEDS: ATORVASTATIN 20 MG TAB PO SCH (21:07)
[2017-03-17] MEDS: ALPRAZolam 0.5 MG TAB PO PRN (23:12)
[2017-03-18] VITALS (25 sets, daily range): BP systolic 113–144; BP diastolic 54–72; PULSE 52–72; RESP 17–20; TEMP 97.5–98.4; O2SAT 94–97
[2017-03-18] MEDS: INSULIN ASPART SUPPLEMENTAL SCALE SQ SCH ×4 (05:26→20:19)
[2017-03-18] MEDS: RESP: IPRATROPIUM 0.5 MG/2.5 ML NEB NEB PRN ×3 (07:27→20:49)
[2017-03-18 08:31] LABS: INTERNATIONAL NORMALIZED RATIO 1.8 RATIO; PROTHROMBIN TIME - PATIENT 19.9 SEC (9.8-11.6)
[2017-03-18] MEDS: DOCUSATE SODIUM 50 MG/SENNA 8.6 MG TAB PO SCH ×2 (09:00→20:42)
[2017-03-18] MEDS: SODIUM CHLORIDE 0.9% FLUSH 10 ML FLUSH IV FLUSH SCH ×2 (09:39→20:41)
[2017-03-18] MEDS: FERROUS SULFATE 325 MG (65 MG ELEMENTAL IRON) TAB PO SCH ×2 (09:39→17:57)
[2017-03-18] MEDS: ENOXAPARIN SODIUM 80 MG/0.8 ML SYRINGE SQ SCH ×2 (09:40→20:42)
[2017-03-18] MEDS: LISINOPRIL 20 MG TAB PO SCH (09:40)
[2017-03-18] MEDS: WARFARIN SOD 6 MG TAB PO SCH (16:23)
--- NOTE | 2017-03-18 18:09 | HHI.PR ---
Subjective Remarks no new complaints - Denies CP/SOB. Objective Vitals Vital Signs Date Time Temp Pulse Resp B/P Pulse Ox O2 Delivery O2 Flow Rate FiO2 03/18/17 17:00 72 03/18/17 16:00 57 03/18/17 15:00 60 03/18/17 15:00 98.1 58 17 124/63 94 03/18/17 14:03 64 03/18/17 13:00 64 03/18/17 12:10 56 03/18/17 11:19 97.5 71 18 113/59 96 03/18/17 11:00 65 03/18/17 10:02 67 03/18/17 09:00 60 03/18/17 08:00 68 03/18/17 07:00 97.5 65 18 131/54 95 03/18/17 07:00 60 03/18/17 06:03 61 03/18/17 05:00 67 03/18/17 04:00 71 03/18/17 04:00 98.4 54 18 144/70 97 03/18/17 03:00 56 03/18/17 02:00 71 03/18/17 01:00 71 03/18/17 00:00 62 03/17/17 23:28 98.2 59 20 149/55 96 03/17/17 23:00 60 03/17/17 22:00 62 03/17/17 21:00 59 03/17/17 20:00 98.5 61 18 116/55 96 03/17/17 20:00 60 03/17/17 19:00 61 03/17/17 18:00 59 I/O 03/17/17 03/17/17 03/17/17 03/18/17 03/18/17 03/18/17 07:00 15:00 23:00 07:00 15:00 23:00 Intake Total 244 ml 800 ml 240 ml 720 ml Output Total 1200 ml 900 ml 650 ml 400 ml Balance -956 ml -100 ml -410 ml 320 ml Intake Oral 244 ml 800 ml 240 ml 720 ml Output Urine Total 1200 ml 900 ml 650 ml 400 ml # Bowel Movements 1 2 Result Diagram: 03/16/17 0434 Imaging Last Impressions Chest X-Ray 03/10/17 0000 Signed Impressions: Service Date/Time: Friday, March 10, 2017 23:21 - CONCLUSION: No acute disease. Logan Mcnair MD Objective Remarks GENERAL: NAD SKIN: Warm and dry. HEAD: Normocephalic. EYES: No scleral icterus. No injection or drainage. NECK: Supple, trachea midline. No JVD or lymphadenopathy. CARDIOVASCULAR: Irregular Regular rate and rhythm without murmurs, gallops, or rubs. Implantable loop recorder in place RESPIRATORY: Breath sounds equal bilaterally. No accessory muscle use. GASTROINTESTINAL: Abdomen soft, non-tender, nondistended. MUSCULOSKELETAL: No cyanosis, or edema. BACK: Nontender without obvious deformity. No CVA tenderness. Medications and IVs Current Medications Medications (Trade) Dose Ordered Sig/Raymundo Route Start Time Stop Time Status Last Admin (Cardizem Inj/NS Inj) 125 ml @ 0 mls/hr TITRATE IV 03/10/17 22:45 03/11/17 00:38 (NS Flush) 2 ml UNSCH PRN IV FLUSH 03/10/17 23:15 (NS Flush) 2 ml BID IV FLUSH 03/11/17 09:00 03/18/17 09:39 (Zofran Inj) 4 mg Q6H PRN IVP 03/10/17 23:15 03/17/17 09:59 (Tylenol) 650 mg Q6H PRN PO 03/10/17 23:15 03/13/17 00:44 (Luda-Colace) 1 tab BID PO 03/11/17 09:00 03/17/17 21:07 (Milk Of Magnesia Liq) 30 ml Q12H PRN PO 03/10/17 23:15 (Senokot) 17.2 mg Q12H PRN PO 03/10/17 23:15 (Dulcolax Supp) 10 mg DAILY PRN RECTAL 03/10/17 23:15 (Lactulose Liq) 30 ml DAILY PRN PO 03/10/17 23:15 (Lipitor) 20 mg HS PO 03/11/17 21:00 03/17/17 21:07 (D50w (Vial) Inj) 50 ml UNSCH PRN IV 03/11/17 10:00 (Glucagon Inj) 1 mg UNSCH PRN OTHER 03/11/17 10:00 (Lovenox Inj) 80 mg Q12H SQ 03/11/17 21:00 03/18/17 09:40 (Xanax) 0.5 mg HS PRN PO 03/11/17 10:15 03/17/17 23:12 (Ferrous Sulfate) 325 mg BIDPC PO 03/11/17 18:00 03/18/17 17:57 (Coumadin) 6 mg DAILY@1600 PO 03/12/17 22:45 03/18/17 16:23 (Vasotec Inj) 2.5 mg Q6H PRN IV PUSH 03/14/17 05:15 03/14/17 05:39 (Prinivil) 20 mg DAILY PO 03/16/17 14:00 03/18/17 09:40 A/P Problem List: (1) Atrial fibrillation with rapid ventricular response ICD Code: I48.91 Status: Chronic (2) COPD (chronic obstructive pulmonary disease) ICD Code: J44.9 Status: Chronic (3) DM2 (diabetes mellitus, type 2) ICD Code: E11.9 Status: Chronic (4) HTN (hypertension) ICD Code: I10 Status: Chronic Assessment and Plan 82-year-old female with A. fib with RVR TSH normal, troponin negative Cardiology consulted. Intolerant of beta blockers due to oxygen dependent copd and ccb d/t le sangita Per EP, Will anticoagulate to attempt ablation procedure once INR therapeutic . Continue Coumadin with Lovenox bridge Monitor INR/PT - still subtherapeutic 1.8 DC home when INR therapeutic COPD No current exacerbation Continue Xopenex, DuoNeb when necessary Diabetes type 2 Continue sliding scale insulin Continue to Hold oral hypoglycemic agents Blood sugars stable Hyperlipidemia On statin HTN Blood pressure is uncontrolled as patient has had persistently elevated blood pressures. Has required Vasotec to control it. 03/16 start on lisinopril 20 mg po daily. 03/17 BP much improved. Continue Lisinopril. DVT prophylaxis: Coumadin and Lovenox Discharge Planning DC when INR >2 Problem Qualifiers (1) HTN (hypertension): Qualified Code: I10 - Essential hypertension Tushar Rodriguez MD Mar 18, 2017 18:09
--- NOTE | 2017-03-18 18:30 | PD.CARD.PN ---
Subjective Subjective Remarks alert in nad Objective Vital Signs / I&O Vital Signs Date Time Temp Pulse Resp B/P Pulse Ox O2 Delivery O2 Flow Rate FiO2 03/18/17 18:00 65 03/18/17 17:00 72 03/18/17 16:00 57 03/18/17 15:00 60 03/18/17 15:00 98.1 58 17 124/63 94 03/18/17 14:03 64 03/18/17 13:00 64 03/18/17 12:10 56 03/18/17 11:19 97.5 71 18 113/59 96 03/18/17 11:00 65 03/18/17 10:02 67 03/18/17 09:00 60 03/18/17 08:00 68 03/18/17 07:00 97.5 65 18 131/54 95 03/18/17 07:00 60 03/18/17 06:03 61 03/18/17 05:00 67 03/18/17 04:00 71 03/18/17 04:00 98.4 54 18 144/70 97 03/18/17 03:00 56 03/18/17 02:00 71 03/18/17 01:00 71 03/18/17 00:00 62 03/17/17 23:28 98.2 59 20 149/55 96 03/17/17 23:00 60 03/17/17 22:00 62 03/17/17 21:00 59 03/17/17 20:00 98.5 61 18 116/55 96 03/17/17 20:00 60 03/17/17 19:00 61 I/O 03/17/17 03/17/17 03/17/17 03/18/17 03/18/17 03/18/17 07:00 15:00 23:00 07:00 15:00 23:00 Intake Total 244 ml 800 ml 240 ml 720 ml Output Total 1200 ml 900 ml 650 ml 400 ml Balance -956 ml -100 ml -410 ml 320 ml Intake Oral 244 ml 800 ml 240 ml 720 ml Output Urine Total 1200 ml 900 ml 650 ml 400 ml # Bowel Movements 1 2 Physical Exam GENERAL: SKIN: Warm and dry. HEAD: Normocephalic. EYES: No scleral icterus. No injection or drainage. NECK: Supple, trachea midline. No JVD or lymphadenopathy. CARDIOVASCULAR: Regular rate and rhythm without murmurs, gallops, or rubs. RESPIRATORY: Breath sounds equal bilaterally. No accessory muscle use. GASTROINTESTINAL: Abdomen soft, non-tender, nondistended. MUSCULOSKELETAL: No cyanosis, or edema. BACK: Nontender without obvious deformity. No CVA tenderness. Laboratory Laboratory Tests Test 03/18/17 07:39 Prothrombin Time 19.9 SEC Prothromb Time International 1.8 RATIO Ratio Assessment and Plan Problem List: (1) A-fib (2) Atrial fibrillation with rapid ventricular response (3) DM2 (diabetes mellitus, type 2) (4) COPD (chronic obstructive pulmonary disease) Assessment and Plan 1.) PAF - intolerant of beta blcockers due to oxygen dependent copd and ccb d/t le edema, i recommended coumadin or noac d/t chads score=3, lovenox, f/u cbc in am, consult Dr James to eval riskl/wyatt avn rfa and ppm and/or alternative med manage, on coumadin, inr=1.8 today Lincoln Lockwood MD Mar 18, 2017 18:30
[2017-03-18] MEDS ORDERED: COUM6TAB PO (18:31)
[2017-03-18] MEDS ORDERED: LISI-515 PO (18:31)
--- NOTE | 2017-03-18 18:32 | HHI.DCPOC ---
Discharge Care Plan Diagnosis: (1) A-fib (2) COPD (chronic obstructive pulmonary disease) (3) HTN (hypertension) (4) Atrial fibrillation with rapid ventricular response (5) DM2 (diabetes mellitus, type 2) Goals to Promote Your Health * To prevent worsening of your condition and complications * To maintain your health at the optimal level Directions to Meet Your Goals Take your medications as prescribed Follow your dietary instruction Follow activity as directed Keep your appointments as scheduled Take your immunizations and boosters as scheduled If your symptoms worsen call your PCP, if no PCP go to Urgent Care Center or Emergency Room Smoking is Dangerous to Your Health. Avoid second hand smoke Call the 24-hour hour crisis hotline for domestic abuse at Tushar Rodriguez MD Mar 18, 2017 18:32
[2017-03-18 19:25] LABS: INTERNATIONAL NORMALIZED RATIO 1.9 RATIO; PROTHROMBIN TIME - PATIENT 21.3 SEC (9.8-11.6)
[2017-03-18] MEDS: ATORVASTATIN 20 MG TAB PO SCH (20:41)
[2017-03-18] MEDS: ALPRAZolam 0.5 MG TAB PO PRN (23:31)
[2017-03-19] VITALS (13 sets, daily range): BP systolic 138–143; BP diastolic 50–82; PULSE 20–75; RESP 16–20; TEMP 97.6–98.6; O2SAT 94–96
[2017-03-19] MEDS: INSULIN ASPART SUPPLEMENTAL SCALE SQ SCH ×2 (06:01→11:00)
[2017-03-19] MEDS: RESP: IPRATROPIUM 0.5 MG/2.5 ML NEB NEB PRN ×2 (07:18→12:44)
[2017-03-19] MEDS: DOCUSATE SODIUM 50 MG/SENNA 8.6 MG TAB PO SCH (08:00)
[2017-03-19] MEDS: FERROUS SULFATE 325 MG (65 MG ELEMENTAL IRON) TAB PO SCH (08:20)
[2017-03-19] MEDS: LISINOPRIL 20 MG TAB PO SCH (08:20)
[2017-03-19] MEDS: ENOXAPARIN SODIUM 80 MG/0.8 ML SYRINGE SQ SCH (08:20)
[2017-03-19] MEDS: SODIUM CHLORIDE 0.9% FLUSH 10 ML FLUSH IV FLUSH SCH (08:21)
[2017-03-19 11:50] LABS: PROTHROMBIN TIME - PATIENT 23.1 SEC (9.8-11.6)
--- NOTE | 2017-03-19 13:35 | HHI.DS ---
Discharge Summary Admission Date Mar 10, 2017 at 23:05 Discharge Date: Mar 19, 2017 Admitting Diagnosis atrial fibrillation with rvr (1) Atrial fibrillation with rapid ventricular response ICD Code: I48.91 (2) COPD (chronic obstructive pulmonary disease) ICD Code: J44.9 (3) DM2 (diabetes mellitus, type 2) ICD Code: E11.9 (4) HTN (hypertension) ICD Code: I10 Brief History - From Admission This patient is a very pleasant 82-year-old female who came to the emergency room yesterday complaining of a fast heart rate which was causing her some chest discomfort. She denies pain but says she had been feeling of fluttering on the left side of her chest and the sensation had been causing pressure radiating to the left side. Last about 45 minutes. Patient had this problem in January of this year and was treated for tachyarrhythmia presumed to be a flutter however she converted on her own and her cardiac antiarrhythmics were not continued. 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 Since that time she has not had any symptoms of fluttering until yesterday evening when she came to the emergency room. Patient says that time she has not had any change in medicines otherwise no recent travel and denies shortness of breath nausea or vomiting which is unusual for her. She has some occasional shortness of breath because of her COPD and she uses her 's oxygen periodically but does not require herself. She follows with Dr. Oneill who instructed her to use his oxygen as she needed to. In any case the patient was found to have elevated heart rate in the emergency room heart rate was 113 and has been as high as 126 here on her EKG on my review does show atrial fibrillation intermittent with atrial flutter and rapid ventricular response. Patient has had normal cardiac enzymes. She is currently in the ICU with a rate of 126 while on diltiazem and has hypotension with a systolic blood pressure of 90. Patient does not have hypertension and has normal low blood pressure. She is comfortable and without complaints. For these reasons the patient admitted to the hospital for further evaluation cardiac arrhythmia CBC/BMP: 03/16/17 0434 Significant Findings Laboratory Tests Test 03/17/17 03/18/17 03/18/17 03/19/17 04:10 07:39 18:22 11:20 Prothrombin Time 20.4 SEC 19.9 SEC 21.3 SEC 23.1 SEC (9.8-11.6) (9.8-11.6) (9.8-11.6) (9.8-11.6) Imaging Last Impressions Chest X-Ray 03/10/17 0000 Signed Impressions: Service Date/Time: Sunday, March 10, 2017 23:21 - CONCLUSION: No acute disease. Logan Mcnair MD PE at Discharge GENERAL: NAD SKIN: Warm and dry. HEAD: Normocephalic. EYES: No scleral icterus. No injection or drainage. NECK: Supple, trachea midline. No JVD or lymphadenopathy. CARDIOVASCULAR: Irregular Regular rate and rhythm without murmurs, gallops, or rubs. Implantable loop recorder in place RESPIRATORY: Breath sounds equal bilaterally. No accessory muscle use. GASTROINTESTINAL: Abdomen soft, non-tender, nondistended. MUSCULOSKELETAL: No cyanosis, or edema. BACK: Nontender without obvious deformity. No CVA tenderness. Pt Condition on Discharge: Stable Discharge Disposition: Discharge Home Discharge Time: <= 30 minutes Discharge Instructions DIET: Follow Instructions for: Diabetic Diet Activities you can perform: Regular-No Restrictions Activities to Avoid: Prolonged Standing, Strenuous Activity Follow up Referrals: Cardiology - Next Day with Lincoln Lockwood MD New Medications: Lisinopril (Lisinopril) 20 Mg Tab 20 MG PO DAILY Blood Pressure Management #31 TAB Warfarin (Coumadin) 6 Mg Tab 6 MG PO DAILY@1600 Blood Clot Prevention #20 TAB Continued Medications: Alprazolam (Xanax) 0.5 Mg Tab 0.5 MG PO HS PRN ANXIETY Ref 0 TAB Aluminum Hydroxide-Mag Trisil (Gaviscon) 80-14.2 mg Chew 2 TAB CHEW QID Maximum 16 tabs/24 hrs PRN HEARTBURN Ref [address] (Aspirin 81) 81 Mg Tabdr 81 MG PO DAILY Blood Clot Prevention Ref 0 TAB Calcium Carbonate-Cholecalciferol (Calcium + D3) 600-200 Mg-Unit Tab 1 TAB PO BID Nutritional Supplement TAB Cyanocobalamin (Vitamin B-12) 1,000 Mcg Tab 5000 MCG PO DAILY Nutritional Supplement #1 Ref 0 BOTTLE Ferrous Sulfate (Feosol) 200 Mg Tab 200 MG PO BIDPC Nutritional Supplement #60 Ref 0 TAB Ipratropium Neb (Ipratropium Neb) 0.5 Mg/2.5 Ml Amp 0.5 MG NEB Q2HR NEB PRN SHORTNESS OF BREATH Ref 0 NEBULE Metformin ER (Metformin ER) 500 Mg Julissa 500 MG PO HS With evening meal Blood Sugar Management Ref 0 TAB Simvastatin (Zocor) 40 Mg Tab 40 MG PO HS Cholesterol Management #30 Ref 0 TAB Discontinued Medications: Levalbuterol 15 GM Inh (Xopenex Hfa 15 GM Inh) 45 Mcg/Act Aer 45 MCG INH TID Shake well before using. (1 puff = 45 mcg) Broncospasm #1 Ref 0 INHALER Tushar Rodriguez MD Mar 19, 2017 13:35
== END 2017-03-19 13:53 | disposition home or self-care (01) | DRG 310 ==
LOC: PHED 21:44 → PHEDA 23:05 → PHICU 03-11 00:23 → HCIS 03-11 17:22
PROVIDERS: ADMIT Hospitalist; ATTEND Hospitalist
DX: I48.0 Paroxysmal atrial fibrillation (principal); Z99.81 Dependence on supplemental oxygen; J44.9 Chronic obstructive pulmonary disease, unspecified; E11.9 Type 2 diabetes mellitus without complications; I10 Essential (primary) hypertension; E78.5 Hyperlipidemia, unspecified; Z79.84 Long term (current) use of oral hypoglycemic drugs; Z88.5 Allergy status to narcotic agent; Z88.8 Allergy status to other drugs, medicaments and biological substances
CPT/HCPCS: 71010; 76937; 80053; 82948; 83735; 84443; 84484; 85025; 85027; 85610; 93005; 94640; 94664; 96374; J1160; J1650; J1815; J2405; J7614; J7644

== ENCOUNTER 2017-05-11 09:44 | Day surgery (SDC) | payer MEDICARE, BC ==
[~2017-05-11] VITALS: Ht 160 cm; Wt 76.5 kg
[2017-05-11] VITALS (10 sets, daily range): BP systolic 116–140; BP diastolic 68–79; PULSE 66–85; RESP 16–20; TEMP 97.3–97.9; O2SAT 96–100
[~2017-05-11 09:44] MED LIST changes: +ALPR.5 PO; +COUM6TAB PO; -DILT90CA PO; +LISI-515 PO; -XOPEAER4 INH
[2017-05-11] MEDS ORDERED: LACTATED RINGER'S 1000 ML IV PRN (10:15)
[2017-05-11] MEDS ORDERED: POVIDONE IODINE 5% (ANTISEPSIS KIT) 4 APPLICATIONS EACH NARE PRN (10:15)
[2017-05-11] MEDS ORDERED: INSULIN HUMAN REGULAR 1,000 UNITS/10 ML VIAL SQ PRN (10:15)
[2017-05-11] MEDS ORDERED: SODIUM CHLORID 0.9% 500 ML IV PRN (10:15)
[2017-05-11] MEDS ORDERED: METOPROLOL TARTRATE 25 MG TAB PO PRN (10:15)
[2017-05-11] MEDS ORDERED: LORazepam 1 MG TAB SL SCH (10:15)
[2017-05-11] MEDS ORDERED: CHLORHEXIDINE GLUCONATE 2 % 1 PACK (2 CLOTHS) TOPICAL PRN (10:15)
[2017-05-11] MEDS ORDERED: LEVOFLOXACIN 500 MG PREMIX INJ 100 ML IV ONE (10:30)
[2017-05-11] MEDS ORDERED: FERR325T8 PO (10:43)
[2017-05-11] MEDS ORDERED: REST0.05 RIGHT EYE (10:43)
[2017-05-11] MEDS ORDERED: TIOT12.9 INH (10:43)
[2017-05-11] MEDS ORDERED: SYSTSOL EACH EYE (10:43)
[2017-05-11] MEDS ORDERED: EYEL1MED2 EACH EYE (10:43)
[2017-05-11] MEDS ORDERED: DILT120C15 PO (10:43)
[2017-05-11] MEDS ORDERED: ATOR40TA16 PO (10:43)
[2017-05-11] MEDS ORDERED: VITA500C18 PO (10:43)
[2017-05-11] MEDS ORDERED: oxygen (10:49)
[2017-05-11 10:57] LABS: AUTOMATED NEUTROPHIL # 5.3 TH/MM3 (1.8-7.7); BASOPHIL # 0.1 TH/MM3 (0-0.2); BASOPHIL % 0.7 % (0.0-2.0); EOSINOPHIL # 0.1 TH/MM3 (0-0.4); EOSINOPHIL % 1.7 % (0.0-4.0); HEMATOCRIT 41.8 % (35.0-46.0); HEMO FLAGS DIFF FINAL; LYMPH % 22.6 % (9.0-44.0); LYMPHOCYTE # 1.8 TH/MM3 (1.0-4.8); MEAN CELL VOLUME 87.3 FL (80.0-100.0); MEAN CORPUSCULAR HEMOGLOBIN 28.7 PG (27.0-34.0); MEAN CORPUSCULAR HGB CONC 32.9 % (32.0-36.0); MONO % 7.6 % (0.0-8.0); NEUT % 67.4 % (16.0-70.0); PLATELET COUNT 250 TH/MM3 (150-450); RED BLOOD COUNT 4.79 MIL/MM3 (4.00-5.30); RED CELL DISTRIBUTION WIDTH 14.5 % (11.6-17.2); WHITE BLOOD COUNT 7.8 TH/MM3 (4.0-11.0)
[2017-05-11 11:13] LABS: APTT (PATIENT) 40.1 SEC (24.3-30.1)
[2017-05-11 11:14] LABS: INTERNATIONAL NORMALIZED RATIO 3.5 RATIO
[2017-05-11 11:20] LABS: BICARBONATE 28.2 MEQ/L (21.0-32.0)
[2017-05-11 11:21] LABS: POTASSIUM 5.4 MEQ/L (3.5-5.1)
[2017-05-11] MEDS ORDERED: FAMOTIDINE 20 MG/2 ML VIAL ONE (11:47)
[2017-05-11] MEDS ORDERED: HEPARIN-D5W 25,000 U/250 ML 250 ML ONE (11:55)
[2017-05-11] MEDS ORDERED: SODIUM CHLOR 0.9% 250 ML INJ 250 ML ONE (11:56)
[2017-05-11] MEDS ORDERED: ISOPROTERENOL HCL 1 MG/5 ML AMP ONE (11:56)
[2017-05-11] MEDS ORDERED: HEPARIN SODIUM - IV 10,000 UNITS/10 ML VIAL ONE (11:56)
[2017-05-11] MEDS ORDERED: PROTAMINE SULFATE 50 MG/5 ML VIAL ONE (11:56)
[2017-05-11] MEDS ORDERED: FUROSEMIDE 40 MG/4 ML VIAL ONE (11:56)
[2017-05-11] MEDS ORDERED: ONDANSETRON HCL 4 MG/2 ML VIAL ONE (12:43)
[2017-05-11] MEDS ORDERED: APREPITANT 40 MG CAP ONE (12:43)
--- NOTE | 2017-05-11 13:36 | EKG ---
Date Performed: 05/11/2017 Time Performed: 10:54:06 PTAGE: 82 years EKG: Sinus rhythm Left axis deviation Borderline ECG Compared to prior electrocardiogram, atrial fibrillation no longe r present. PREVIOUS TRACING : 03/10/2017 21.57 DOCTOR: Trell Guzman Interpretating Date/Time 05/11/2017 13:34:59
--- NOTE | 2017-05-11 15:53 | PD.CARD ---
Atrial Fibrillation Cryo Study PROCEDURE DATE: May 11, 2017 PROCEDURE PERFORMED Electrophysiology study, CS cannulation, 3-D mapping, transeptal approach, right and left heart catheterization, cryoablation of atrial fibrillation, pulmonary vein isolation, posterior ablation, anterior ablation, repeat electrophysiology study on Isuprel infusion, intracardiac echo. Very complex case. INDICATIONS FOR PROCEDURE Ms. Rivera is a 82-year-old female with atrial fibrillation, on multiple medications, on anticoagulation, referred for electrophysiology study and ablation. The risks, the nature and the benefit of the procedure are clearly stated to her. The risks include pneumothorax, cardiac perforation, stroke, need for open heart surgery and even . The patient understood and agreed to proceed. PROCEDURE As written informed consent was obtained prior to esophageal echo, the patient was kept on the table where she was prepped and draped in the usual sterile fashion. Conscious sedation was initiated and throughout the procedure by the anesthesiologist. Once sedation was verified, the right and left inguinal area was anesthetized with 2% Xylocaine. Using modified Seldinger technique, the left femoral vein was cannulated on three occasions and three guidewires were advanced over the wire, one 6, one 7, and one 10-Eth[place] Hemaquet were advanced. Then the left femoral artery was done on one occasion, one guidewire was advanced over the wire. A 4-Eth[place] Hemaquet was advanced. Then the right femoral vein was cannulated on one occasion and one guidewire was advanced over the wire. An 8-[place] Hemaquet was advanced. Then under fluoroscopic guidance through the 6 and 7-Eth[place]ian Hemaquet, two 5- Ethiopian Dany curved quadripolar electrophysiology catheters were advanced and positioned on the His as well as coronary sinus. The patient was in sinus rhythm. Basic interval was measured. They were all within normal limits. Then through the 10-Eth[place]ian Hemaquet, a arGEN-X-Bonner AcuNav intracardiac echo catheter was advanced and placed at the right atrium. Multiple views were obtained. There was no pericardial effusion. Pulmonary vein was seen. The atrial septum was visualized. Then the 8-Eth[place]ian Hemaquet in the right femoral vein was exchanged for an Agilis transseptal sheath that was placed all the way to the superior vena cava. Through this sheath a [place] needle was advanced. Then the sheath, the dilator and the needle were pulled back progressively until foci engaged. Once the needle was advanced, RF was delivered for 2 seconds. I was able to cross into the left atrium. Once the needle was crossed, the dilator was advanced. Once the dilator was crossed, the sheath was advanced. Once the sheath crossed , the dilator and needle were removed. An intracardiac echo showed the sheath in good position. The patient already received 8,000 units of heparin. The goal is to get an ACT around 360 during the ablation. Through this sheath a [employer] Shahram 20-pole circumferential catheter was advanced. Using [employer] endocardial solution mapping system a three-dimensional configuration of the left atrium was obtained. Points were taken at the left superior and inferior vein, right superior and inferior vein, mitral valve, and appendage. Then at this point I decided to proceed with cryoablation. The circumferential catheter was removed. Through the sheath a 0.035 wire was advanced. I did exchange the Agilis sheath for a [employer] flex sheath. I decided to use a 28mm balloon. The balloon was advanced over the wire. First I did engage the left superior vein. The balloon was inflated, complete occlusion obtained. CryoEnergy was delivered for 3 and 3 minutes. Temperature reached -48. Then I did engage the left inferior vein, occlusion obtained. Venography showed complete occlusion and CryoEnergy was delivered for 3 and 3 minutes. Temperature was around -50 to -52. Then the right inferior was engaged, complete occlusion obtained. Temperature reach -48 for 3 and 3 minutes. Then the right superior was engaged. Before CryoEnergy of the right veins, the His catheter was placed at the left and the right subclavian. Phrenic nerve pacing was performed. There was diaphragmatic stimulation. That is going to be used for phrenic nerve monitoring during cryoablation. I did cryoablate the right superior vein. There was no loss of phrenic nerve movement , diaphragmatic movement. Phrenic nerve was intact. The temperature dropped to -50 for 3 and 3 minutes. At that point I removed the balloon. The circumferential catheter was advanced into the veins. Pacing from the vein showed no conduction to the atrium. Pacing from the atrium showed no conduction to the veins. The patient at this point received Isuprel infusion for around 10 minutes at 20mcg. No tachyarrhythmia was induced, no conduction resumed. Post-Isuprel no conduction resumed either. At that point the procedure was complete. All catheters were removed, the transeptal sheath was exchanged for a 12-Ethiopian Hemaquet. Intracardiac echo showed pericardial effusion, still good flow in the pulmonary vein. No incident reported. The patient tolerated the procedure. Blood loss minimal. 1. Electrocardiogram: At baseline the patient was in sinus. Postprocedure the patient in sinus. 2. Basic Interval: Base cycle length was around 900 milliseconds.AH 98and HV 64ms. 3. Tachyarrhythmia: Atrial fibrillation was mapped and ablated. Ablation was successful. CONCLUSION Successful electrophysiology study, mapping and cryo ablation of atrial fibrillation, pulmonary vein isolation, posterior and anterior wall ablation, repeat electrophysiology study on Isuprel infusion. COMMENT AND RECOMMENDATIONS The patient is going to be transferred to the telemetry unit, will be observed, and when stable can be discharged home. Jannette Saini MD May 11, 2017 15:53
[2017-05-11] MEDS ORDERED: ONDANSETRON HCL 4 MG/2 ML VIAL IV PUSH PRN (16:00)
[2017-05-11] MEDS ORDERED: oxyCODONE/ACETAMINOPHEN 5 MG/325 MG TAB PO PRN ×2 (16:00)
[2017-05-11] MEDS ORDERED: LORazepam 2 MG/ML VIAL IV PUSH PRN (16:00)
[2017-05-11] MEDS ORDERED: ATROPINE SULFATE 1 MG/ML VIAL IV PUSH PRN (16:00)
[2017-05-11] MEDS ORDERED: BACITRACIN OINT 0.9 GM PKT TOP ONE (16:00)
[2017-05-11] MEDS ORDERED: LIDOCAINE HCL 1% 50 ML VIAL INFIL PRN (16:00)
[2017-05-11] MEDS ORDERED: SODIUM CHLOR 0.9% 250 ML INJ 250 ML IV PRN (16:00)
[2017-05-11] MEDS ORDERED: METOCLOPRAMIDE HCL 10 MG/2 ML VIAL IV PUSH PRN ×2 (16:00→17:45)
--- NOTE | 2017-05-11 16:54 | CATHPROC ---
[facility] HIS Report Study Information Study Number Scheduled Start Study Start [id number] 05/11/2017 May 11 2017 8:10AM Referring Institution Admit Source Facility Department 1 Other [facility] - Motorcycle Engine Assembler Physician and Clinical Staff Initial Jannette Christie Boardinghouse Keeper Adalid Redding,RT(R) Other Anesthesia, AVIONICS SUPERVISOR Recorder Kanchan Bunch,BSRN Recorder Jillian Price,RN Scrub Wendy Sherman,OVERHAULER TECH2 Procedures Performed Procedure Location (Site) Vessel Name Ablation Procedure CRYO Ablation LIPV LIPV CRYO Ablation LSPV LSPV CRYO Ablation RIPV RIPV CRYO Ablation RSPV RSPV ICE CATHETER INSERT RA Atruim Venogram LIPV LIPV Venogram LSPV LSPV Venogram RIPV RIPV Venogram RSPV RSPV Equipment Time Rebeamer Description Size Mfg Part Number Used/Scraped COPILOT VALVE, BLEEDBACK [id number] 11:23 [employer] Used CONTROL *[id number] TRANSDUCER, TRUWAVE [id number] 11:23 Etalia * Used W/STOCKCOCK *[id number] NEEDLE, TRANSSEPTAL NR 98 11:23 [facility] [id number] Used C1 COVER, TRANSDUCER CABLE 11:23 [employer] 612-113 Used ACUNAV 11:23 CONMED LEADWIRE, DEFIBRILLATION PAD 2001M-[id number] Used SHEATH SET, FR12 CHECK-NIKOLAS [id number]-[id number]-[id number] 11:23 COOK/PACER FR12 Used 13CM *[id number] 11:23 CORDIS/PACER SHEATH, FR10 YUDI 11CM FR 10 [id number] Used [id number] 11:23 [employer] INDUSTRIES PACK, CCL CUSTOM * Used *[id number] 11:23 MEDLINE PACER HYATT, LIMB * 2530 *[id number] Used [id number] 11:23 [employer] MEDICAL SHEATH, FR4.5 PRELUDE 11CM FR 4.5 Used [id number] 11:23 [employer]pex Guard MEDICAL WIRE, 3MMJ .035 180CM 180CM Used *[id number] 11:23 NAMIC MANIFOLD, 4 PORT * Used *[id number] 11:23 NAMIC TUBING, HIGH PRESSURE 20" 20" Used *[id number] 11:23 NAMIC TUBING, HIGH PRESSURE 48" 48" Used *[id number] 11:23 NAMIC TUBING, HIGH PRESSURE 48" 48" Used *[id number] TUBING, PRESSURE MONITORING [id number] 11:23 NAMIC PACER 72" Used 72" *[id number] 14:44 NYCOMED OMNIPAQUE, 350 MG, 150ML 150ML [id number] Used [id number] 11:23 [employer] MEDICAL BLANKET,WARM AIR CCL * Used *[id number] 915344 11:23 [facility] [employer] CATHETER, JSN, QUAD FR 5 Used *[id number] 006409 11:23 [facility] MEDICAL CATHETER, JSN, QUAD FR 5 Used *[id number] 11:23 [facility] MED[employer] ELECTRODE KIT, HENRY X SURFACE * [id number] Used [id number] 11:23 [facility] [employer] SHEATH, EPS, FR6 FAST CATH FR 6 Used *[id number] 11:23 [facility] [employer] SHEATH, EPS, FR7 FAST CATH FR 7 [id number] Used [id number] 11:23 [facility] MED[employer] SHEATH, EPS, FR8 FAST CATH FR 8 Used *[id number] SHEATH, FR8.5 STEERABLE SM 14:11 [facility] MEDICAL 71CM [id number] Used 71CM CATHETER, ACUNAV FR10 ICE [id number] 14:08 MALENA FR 10 Used (MALENA) *[id number] [facility] PAD, ELECTROSURGICAL 11:23 * [id number] *[id number] Used SURGICAL GROUNDING (BLUE) BALLOON, ARCTIC FRONT [id number] 14:20 [employer] Used ADVANCE 28MM *[id number] CATHETER, ACHEIVE MAPPING [id number] 14:19 [employer] 20MM Used 20MM *[id number] SHEATH, FR12 FLEXCATH 14:23 [employer]RON [employer] FR 12 [id number] Used STEERABLE History: Current Medications Medication Dosage/Unit Route Frequency Last Date/Time Taken Statins (any) Coumadin History: Allergies Allergy Reaction Codeine Darvon Lyrica Morphine History: Risk Factors Dyslipidemia Previous Heart Failure Yes Yes Chronic Lung Diabetes Diabetes Therapy Disease Labs Hgb (g/dl) Hct (%) RBC (MIL/MM3) WBC (l/cumm) Platelets (thousands) 11.60-17.00 35.00-51.00 4.00-5.90 4.00-11.00 150.00-450.00 13.8 41.8 4.7 7.8 250 Glucose (mg/dl) BUN (mg/dl) Creatinine (mg/dl) BUN:Creatinine (1:x) 74.00-106.00 7.00-18.00 0.50-1.30 10.00-20.00 135 16 1.1 14.5 Na (meq/l) K (meq/l) Cl (meq/l) CO2 (mmol/L) Ca (mg/dl) 136.00-145.00 3.50-5.10 98.00-107.00 21.00-32.00 8.50-10.10 138 5.4 106 28.2 8.9 INR (PTT:PT) 0.90-1.10 3.5 Medication Medication Total Dose (Bolus/Oral) Medication Total Dosage/Unit 1% XYLOCAINE 40 mL HEPARIN 8000 units PROTAMINE 50 mg Medications (Bolus/Oral) Medication Time Given Dosage/Unit Administered By Reason 1% XYLOCAINE 05/11/2017 2:00:52 PM 20 mL Jannette Saini For pain 20 mL 1% XYLOCAINE given in lab by Jannette Saini in Left Groin via Subcutaneous. Ordered by Eliazar Saini. Reason: For pain. 1% XYLOCAINE 05/11/2017 2:06:00 PM 20 mL Jannette Saini For pain 20 mL 1% XYLOCAINE given in lab by Jannette Saini in Right Groin via Subcutaneous. Ordered by Harvinder Saini. Reason: For pain. HEPARIN 05/11/2017 2:11:00 PM 8000 units Anesthesia, AVIONICS SUPERVISOR As per physicians verbal order 8000 units HEPARIN given in lab by Anesthesia, AVIONICS SUPERVISOR in Right Antecubital via Peripheral IV. Ordered Jannette Rock. Reason: As per physicians verbal order. PROTAMINE 05/11/2017 2:27:22 PM 10 mg Anesthesia, AVIONICS SUPERVISOR As per physicians ve rbal order 10 mg PROTAMINE given in lab by Anesthesia, AVIONICS SUPERVISOR in Right Antecubital via Peripheral IV. Ordered by Jannette Ayon. Reason: As per physicians verbal order. PROTAMINE 05/11/2017 3:44:47 PM 40 mg Anesthesia, AVIONICS SUPERVISOR As per physicians ve rbal order 40 mg PROTAMINE given in lab by Anesthesia, AVIONICS SUPERVISOR in Right Antecubital via Peripheral IV. Ordered by Jannette Ayon. Reason: As per physicians verbal order. Medication (Drip) Medication Time Given Dosage/Unit Concentration/Unit Diluent (ml) Solution ISUPREL 05/11/2017 3:29:15 PM 20 mcg/min 1 mg 250 NaCl .9 20 mcg/min ISUPREL given in lab by TODD Gaines in Right Antecubital via Peripheral IV. Pump/Drip Flow = 300 ml/hr using NaCl .9 with a concentration of 1 mg in 250 ml. Ordered by Jannette Saini. Reason: As per physicians verbal order. IV Solutions 05/11/2017 1:22:17 PM 0 mL (IV) NaCl .9 IV Solutions given in lab by Kanchan Bunch BSRN in Left Hand via Peripheral IV. Pump/Drip Flow = 50 ml/hr using NaCl .9. Ordered by Jannette Saini. Reason: As per physicians verbal order. IV Solutions 05/11/2017 1:22:49 PM 0 mL (IV) NaCl .9 IV Solutions given in lab by Kanchan Bunch BSRN in Right Antecubital via Peripheral IV. Pump/Drip Flow = 50 ml/hr using NaCl .9. Ordered by Jannette Saini. Reason: As per physicians verbal order. Initial Case Assessment Cardiovascular HR NIBP Chest Pain 67 147/75 0 Edema Present Skin color Skin None Normal Warm Dry Neurological State Oriented to time-place- Alert Moves all extremities person Respiration - General Respiration Rate SpO2 (%) (B/min) 18 99 Final Case Assessment Cardiovascular HR NIBP 75 183/91 Edema Present Skin color Skin None Normal Warm Dry Neurological State Oriented to time-place- Alert Moves all extremities person Respiration - General Respiration Rate SpO2 (%) (B/min) 20 98 Chronological Log Time Study Chronological Log 13:08:04 Patient arrived via Bed. 13:08:08 Patient Name, D.O.B, / Armband Verified By R.N. 13:08:25 Anesthesia at bedside. Assumes care of patient. Will AVIONICS SUPERVISOR 13:09:20 Consent signed by the physician and the patient and verified by the Motorcycle Engine Assembler staff. 13:09:22 Pre-op and post- op instructions given; patient acknowledges understanding of instructions. 13:20:46 Presedation assessment performed by Motorcycle Engine Assembler RN. 13:21:28 Patient has been NPO for More than 6Hrs. 13:21:30 Skin Breakdown- none 13:21:39 Disposable Defibrillator Pads Placed On Patient. 13:21:43 Susan Prominences Protected 13:21:46 A # 20 IV was noted in the Hand (left). Grade = ~GRADE~ 13:22:03 A # 20 IV was noted in the Antecubital (right). Grade = ~GRADE~ IV Solutions given in lab by Kanchan Bunch BSRN in Left Hand via Peripheral IV. Pump/Drip F low = 50 ml/hr using 13:22:17 NaCl .9. Ordered by Jannette Saini. Reason: As per physicians verbal order. IV Solutions given in lab by Kanchan Bunch BSRN in Right Antecubital via Peripheral IV. Pum p/Drip Flow = 50 ml/hr 13:22:49 using NaCl .9. Ordered by Jannette Saini. Reason: As per physicians verbal order. 13:23:13 History and physical on the chart or being dictated. Assessment: Initial Case, HR=67 BPM, HGJH=467/75 mmhg, Chest Pain=0, Edema=None, Color=Normal, Skin = Warm, Dry 13:23:15 Neurological: State=Alert, Ox3, ESCAMILLA Respiration: Resp=18 B/min, SpO2=99 % 13:23:36 Table restraints applied according to hospital policy 13:23:38 Right groin prepped with 2% chlorhexidine, and with a 3 min. waiting time. 13:23:40 Left groin prepped with 2% chlorhexidine, and with a 3 min. waiting time. 13:24:31 Anesthesia here. Patient intubated under general anesthesia. 13:33:00 Dr Saini texted that EP was ready. 13:35:40 Reference ECG taken 13:36:00 responded. 13:36:10 Pressure channel 2 zeroed. 13:50:00 MD arrived. 13:54:37 Presedation re-assessment performed by Motorcycle Engine Assembler RN. 13:56:08 Levaquin 500 mgs IV given in DOC unit prior to procedure. Time Out. Correct patient, procedure, procedure equipment, site and side verified with physicia n present. Time 13:56:40 concurred by MD, individual staff and AVIONICS SUPERVISOR. Time Out #2 - Consents verified, patient in correct position, all results are labled and displa yed, safety precautions 13:56:45 taken, antibiotics administered. Time out concurred by MD, individual staff and AVIONICS SUPERVISOR in procedu re 13:56:49 Case Start 13:56:52 CHIKI begun at bedside. 13:59:34 CHIKI completed. 20 mL 1% XYLOCAINE given in lab by Jannette Saini in Left Groin via Subcutaneous. Ordered by Jannette Ibarra. 14:00:52 Reason: For pain. 14:01:22 Vascular access was obtained in the Fem Vein (left). 14:01:38 Vascular access was obtained in the Fem Vein (left). 14:01:38 Vascular access was obtained in the Fem Vein (left). 14:01:52 Vascular access was obtained in the Fem Art (left). 14:02:12 A SHEATH, FR4.5 PRELUDE 11CM FR 4.5 was advanced into the Fem Art (left) using the Percutan eous technique. 14:02:28 A SHEATH, EPS, FR6 FAST CATH FR 6 was advanced into the Fem Vein (left) using the Percutane ous technique. 14:02:53 A SHEATH, EPS, FR7 FAST CATH FR 7 was advanced into the Fem Vein (left) using the Percutane ous technique. 14:03:03 A SHEATH, FR10 YUDI 11CM FR 10 was advanced into the Fem Vein (left) using the Percutaneo us technique. 20 mL 1% XYLOCAINE given in lab by Jannette Saini in Right Groin via Subcutaneous. Ordered by Jannette Joya. 14:06:00 Reason: For pain. 14:06:19 Vascular access was obtained in the Fem Vein (right). 14:06:27 A SHEATH, EPS, FR8 FAST CATH FR 8 was advanced into the Fem Vein (right) using the Percutan eous technique. A CATHETER, JSN, QUAD FR 5 was advanced vis Fem Vein (left) and placed in the HIS. Placement wa s visually 14:07:07 confirmed under fluoroscopy. A CATHETER, JSN, QUAD FR 5 was advanced vis Fem Vein (left) and placed in the CS. Placement was visually 14:07:24 confirmed under fluoroscopy. 14:07:51 CATHETER, ACUNAV FR10 ICE (MALENA) FR 10 Was Postioned. A SHEATH, FR8.5 STEERABLE SM 71CM 71CM was exchanged in the Fem Vein (right). This was necessar y in order for 14:09:44 catheter support. 8000 units HEPARIN given in lab by Anesthesia, AVIONICS SUPERVISOR in Right Antecubital via Peripheral IV. Ord ered by Jannette Saini. 14:11:00 Reason: As per physicians verbal order. 14:11:36 Bonaparte needle inserted into steerable sheath. 14:12:42 transseptal 14:12:56 Bonaparte needle removed. A SHEATH, FR12 FLEXCATH STEERABLE FR 12 was advanced into the Fem Vein (right) using the Percut aneous 14:20:11 technique. 14:20:12 Activated Clotting Time Drawn A CATHETER, ACHEIVE MAPPING 20MM 20MM was advanced vis Fem Vein (right) and placed in the LA. P lacement was 14:20:16 visually confirmed under fluoroscopy. 14:22:50 Mapping in progress. 10 mg PROTAMINE given in lab by Anesthesia, AVIONICS SUPERVISOR in Right Antecubital via Peripheral IV. Ordere d by Jannette Saini. 14:27:22 Reason: As per physicians verbal order. 14:29:53 Activated Clotting Time Drawn Repeated due to first draw not resulting 14:38:05 ACT (Normal Range 90-180) = 473 first result 14:39:33 ACT (Normal Range 90-180) = 478 second 14:41:12 A BALLOON, ARCTIC FRONT ADVANCE 28MM was inserted over WIRE, 3MMJ .035 180CM 180CM via the LSPV. 14:42:04 The LSPV was manually injected with 10 cc's of contrast. OMNIPAQUE, 350 MG, 150ML 150ML use d. 14:43:36 Cryo Ablation of the LSPV with a BALLOON, ARCTIC FRONT ADVANCE 28MM. 1st freeze (-54) 14:45:00 The LSPV was manually injected with 10 cc's of contrast. OMNIPAQUE, 350 MG, 150ML 150ML use d. 14:46:58 Cryo Ablation of the LSPV with a BALLOON, ARCTIC FRONT ADVANCE 28MM. 2nd freeze (-53) 14:51:08 Activated Clotting Time Drawn 14:52:00 The LIPV was manually injected with 10 cc's of contrast. OMNIPAQUE, 350 MG, 150ML 150ML use d. 14:52:36 Cryo Ablation of the LIPV with a BALLOON, ARCTIC FRONT ADVANCE 28MM. 1st 15:00:11 ACT (Normal Range 90-180) = 521 15:00:52 Activated Clotting Time Drawn 15:01:10 The LIPV was manually injected with 10 cc's of contrast. OMNIPAQUE, 350 MG, 150ML 150ML use d. 15:01:40 Cryo Ablation of the LIPV with a BALLOON, ARCTIC FRONT ADVANCE 28MM. 2nd freeze 15:02:00 The LIPV was manually injected with 10 cc's of contrast. OMNIPAQUE, 350 MG, 150ML 150ML use d. 15:05:41 Cryo Ablation of the LIPV with a BALLOON, ARCTIC FRONT ADVANCE 28MM. third freeze( -46) 15:09:35 ACT (Normal Range 90-180) = 458 15:10:07 The RIPV was manually injected with 10 cc's of contrast. OMNIPAQUE, 350 MG, 150ML 150ML use d. 15:10:22 Cryo Ablation of the RIPV with a BALLOON, ARCTIC FRONT ADVANCE 28MM. 15:20:00 Cryo Ablation of the RIPV with a BALLOON, ARCTIC FRONT ADVANCE 28MM. 15:20:00 The RIPV was manually injected with 10 cc's of contrast. OMNIPAQUE, 350 MG, 150ML 150ML use d. 15:26:49 The RSPV was manually injected with 10 cc's of contrast. OMNIPAQUE, 350 MG, 150ML 150ML use d. 15:27:11 Cryo Ablation of the RSPV with a BALLOON, ARCTIC FRONT ADVANCE 28MM. first freeze 15:27:39 The RSPV was manually injected with 10 cc's of contrast. OMNIPAQUE, 350 MG, 150ML 150ML use d. 15:29:09 Cryo Ablation of the RSPV with a BALLOON, ARCTIC FRONT ADVANCE 28MM. 20 mcg/min ISUPREL given in lab by Anesthesia, AVIONICS SUPERVISOR in Right Antecubital via Peripheral IV. Pum p/Drip Flow = 300 15:29:15 ml/hr using NaCl .9 with a concentration of 1 mg in 250 ml. Ordered by Jannette Saini. Reaso n: As per physicians verbal order. 15:38:04 Isuprel gtt stopped. A SHEATH SET, FR12 CHECK-NIKOLAS 13CM FR12 was exchanged in the Fem Vein (right). This was necessar y in order to 15:42:11 minimize site leakage. 15:42:43 Catheter(s) removed without difficulty by Dr. Saini 15:43:05 Ablation procedure performed: AFIB. 15:43:23 EP Procedure was performed. 40 mg PROTAMINE given in lab by Anesthesia, AVIONICS SUPERVISOR in Right Antecubital via Peripheral IV. Order ed by Jannette Saini. 15:44:47 Reason: As per physicians verbal order. 15:51:00 Activated Clotting Time Drawn 15:55:12 ACT (Normal Range 90-180) = 177 15:57:06 4 Fr sheath left femoral artery removed. Pressure applied by Tariq Price RN 15:58:22 Venous sheath right groin pulled by Gabino Sherman RT and pressure applied. 15:59:35 PACU called. Spoke to Lucia 16:04:22 Venous sheaths left groin pulled and pressure applied by Shadi Price RN. Hemostasis achieved . Assessment: Final Case, HR=75 BPM, QHFG=258/91 mmhg, Edema=None, Color=Normal, Skin = Warm, Dr harmon 16:05:07 Neurological: State=Alert, Ox3, ESCAMILLA Respiration: Resp=20 B/min, SpO2=98 % 16:05:53 No case complications noted. 16:05:56 Cine recording checked. 16:05:58 Bedside Report will be given. 16:06:03 Contrast Scanned 16:06:05 Defibrillator and ground pads removed. Skin intact. 16:30:00 Case End 16:43:35 Left groin pressure applied for 40 minutes. Questionable hematoma noted. 16:45:37 Both groins pressure being held to obtain hemostasis. Dressings applied. Hemostasis achieved. Sand bags in place both groins to maintain integrity. Patient transferred to 16:50:16 bed and transported in stable condition. End Study - Contrast Media Used In Study Contrast Total Opened (mL) Total Used (mL) Total Wasted (mL) Unspecified 50 50 0 End Study - Maximum Contrast Load Max Contrast Load (mL) 346.3 End Study - Radiation Exposure Fluoro Time (minutes) 7.8 End Study - Patient Disposition Complications Transferred To Interventional Outcome No Telemetry Bed successful
[2017-05-11] MEDS ORDERED: DO NOT ADM ANY ANTICOAGULANT DRUGS PRN (16:59)
[2017-05-11] MEDS ORDERED: *ONDANSETRON 4 MG VIAL PERIprocedural Use ONLY ONE (17:29)
[2017-05-11] MEDS ORDERED: PROMETHAZINE INJ 25 MG/ML VIAL ONE (17:53)
--- NOTE | 2017-05-11 18:34 | EKG ---
Date Performed: 05/11/2017 Time Performed: 17:15:06 PTAGE: 82 years EKG: Sinus rhythm MARKED LEFT AXIS DEVIATION ABNORMAL ECG No significant change from prior electrocardiogram. PREVIOUS TRACING : 05/11/2017 10.54 DOCTOR: Trell Guzman Interpretating Date/Time 05/11/2017 18:32:15
[2017-05-11] MEDS ORDERED: Cyclosporine Opth 0.05% (Restasis Opth 0.05%) 1 DROP RIGHT EYE SCH (21:00)
[2017-05-11] MEDS: ATORVASTATIN 40 MG TAB PO SCH (21:27)
[2017-05-11] MEDS: CALCIUM/VITAMIN D 250 MG/125 U TAB PO SCH (21:27)
[2017-05-12] VITALS (24 sets, daily range): BP systolic 93–120; BP diastolic 48–71; PULSE 72–88; RESP 16–24; TEMP 96.8–98.2; O2SAT 95–97
[2017-05-12] MEDS: SODIUM CHLORID 0.9% 500 ML INJ 500 ML IV SCH ×2 (03:10→15:57)
[2017-05-12] MEDS: DILTIAZEM-CD 120 MG CAP ER PO SCH (08:24)
[2017-05-12] MEDS: FERROUS SULFATE 325 MG (65 MG ELEMENTAL IRON) TAB PO SCH (08:25)
[2017-05-12] MEDS: TIOTROPIUM BROMIDE 18 MCG INH INH SCH (08:25)
[2017-05-12] MEDS: CALCIUM/VITAMIN D 250 MG/125 U TAB PO SCH ×2 (08:25→21:01)
[2017-05-12] MEDS: RESP: IPRATROPIUM 0.5 MG/2.5 ML NEB NEB PRN ×3 (08:38→20:42)
--- NOTE | 2017-05-12 08:58 | PD.CARD.PN ---
Subjective Subjective Remarks The patient denies chest pain, shortness of breath, palpitations, GI symptoms or bleeding. This will also serve as a discharge note. Full discharge orders have been filled out. Telemetry reveals sinus rhythm. Objective Medications Medication list reviewed. She will be discharged home on her identical medication as preadmission. We will hold her warfarin today and restart it tomorrow. She understands her medications and her sister is there. She will call our office Sunday morning as she will need follow-up of her pro time there. Vital Signs / I&O Vital Signs Date Time Temp Pulse Resp B/P (MAP) Pulse Ox O2 Delivery O2 Flow Rate FiO2 05/12/17 08:00 82 05/12/17 03:00 96.8 84 16 115/71 (86) 96 05/11/17 23:00 97.3 85 16 116/68 (84) 100 05/11/17 20:00 77 16 120/77 (91) 100 05/11/17 19:40 97.9 75 20 123/72 (89) 100 05/11/17 18:45 97.9 75 20 126/75 (92) 99 05/11/17 18:30 97.9 73 20 131/76 (94) 99 05/11/17 18:15 97.9 70 18 140/79 (99) 99 05/11/17 18:15 97.9 73 18 140/79 (99) 98 05/11/17 18:00 96.9 82 18 153/79 (103) 100 Nasal Cannula 2 05/11/17 17:45 74 18 152/82 (105) 100 Nasal Cannula 2 05/11/17 17:30 70 18 154/85 (108) 100 Nasal Cannula 3 05/11/17 17:15 72 16 158/85 (109) 98 Nasal Cannula 3 05/11/17 17:00 96.6 73 16 164/84 (110) 98 Nasal Cannula 3 05/11/17 10:28 97.9 66 17 136/72 (93) 96 I/O 05/11/17 05/11/17 05/11/17 05/12/17 05/12/17 05/12/17 07:00 15:00 23:00 07:00 15:00 23:00 Intake Total 1000 ml 720 ml Output Total 360 ml 300 ml Balance 640 ml 420 ml Intake Oral 720 ml IV Total 100 ml Other 900 ml Output Urine Total 300 ml Estimated Blood Loss 10 ml Other 350 ml Physical Exam GENERAL: Well-nourished, well-developed patient in no apparent distress. SKIN: Warm and dry. NECK: JVD normal - less than or equal to 5 cm H20. CARDIOVASCULAR: Regular rate and rhythm without murmurs, gallops, or rubs. RESPIRATORY: Normal breath sounds - equal bilaterally. No accessory muscle use. No wheezes, rales or rubs. PERIPHERY: No cyanosis, or edema. Right groin without hematoma or bruit. Left groin with minimal ecchymosis most likely related to bandage. There is no active bleeding or hematoma or bruit. Laboratory Laboratory Tests Test 05/11/17 10:19 White Blood Count 7.8 TH/MM3 Red Blood Count 4.79 MIL/MM3 Hemoglobin 13.8 GM/DL Hematocrit 41.8 % Mean Corpuscular Volume 87.3 FL Mean Corpuscular Hemoglobin 28.7 PG Mean Corpuscular Hemoglobin Concent 32.9 % Red Cell Distribution Width 14.5 % Platelet Count 250 TH/MM3 Mean Platelet Volume 8.0 FL Neutrophils (%) (Auto) 67.4 % Lymphocytes (%) (Auto) 22.6 % Monocytes (%) (Auto) 7.6 % Eosinophils (%) (Auto) 1.7 % Basophils (%) (Auto) 0.7 % Neutrophils # (Auto) 5.3 TH/MM3 Lymphocytes # (Auto) 1.8 TH/MM3 Monocytes # (Auto) 0.6 TH/MM3 Eosinophils # (Auto) 0.1 TH/MM3 Basophils # (Auto) 0.1 TH/MM3 CBC Comment DIFF FINAL Differential Comment Prothrombin Time 41.0 SEC Prothromb Time International Ratio 3.5 RATIO Activated Partial Thromboplast Time 40.1 SEC Blood Urea Nitrogen 16 MG/DL Creatinine 1.10 MG/DL Random Glucose 135 MG/DL Calcium Level 8.9 MG/DL Sodium Level 138 MEQ/L Potassium Level 5.4 MEQ/L Chloride Level 106 MEQ/L Carbon Dioxide Level 28.2 MEQ/L Anion Gap 4 MEQ/L Estimat Glomerular Filtration Rate 48 ML/MIN Assessment and Plan Assessment and Plan Problems: Atrial fibrillation with cryoablation yesterday Chronic anticoagulation with mildly elevated pro time-INR yesterday. Moderate coronary disease Hypertension Diabetes Hyperlipidemia Recommendations: The patient will be watched for 2-3 more hours. She will be discharged home if her groin status is stable. Groin care was discussed and again, her sister was present for this. No heavy exertion Low-cholesterol/salt/diabetic diet Continue home medication without change except for holding her Coumadin/ warfarin today which she understands. She will call the office on Sunday for pro time. She will follow-up with . All questions were answered. Trell Guzman MD May 12, 2017 08:58
[2017-05-12] MEDS ORDERED: EYELID CLEANSER COMBINATION EACH EYE SCH (09:00)
[2017-05-12 10:03] LABS: APTT (PATIENT) 42.4 SEC (24.3-30.1); INTERNATIONAL NORMALIZED RATIO 3.8 RATIO; PROTHROMBIN TIME - PATIENT 44.7 SEC (9.8-11.6)
--- NOTE | 2017-05-12 11:20 | EKG ---
Date Performed: 05/12/2017 Time Performed: 06:26:28 PTAGE: 82 years EKG: Sinus rhythm Leftward axis Borderline ECG NO PREVIOUS TRACING DOCTOR: Trell Guzman Interpretating Date/Time 05/12/2017 11:20:11
[2017-05-12] MEDS ORDERED: SODIUM CHLOR 0.9% IV ONE (14:00)
[2017-05-12] MEDS ORDERED: WARFARIN SOD 6 MG TAB PO SCH (16:00)
[2017-05-12 16:57] LABS: BICARBONATE 20.1 MEQ/L (21.0-32.0)
[2017-05-12 16:58] LABS: POTASSIUM 4.7 MEQ/L (3.5-5.1)
[2017-05-12] MEDS: ATORVASTATIN 40 MG TAB PO SCH (21:00)
[2017-05-13] VITALS (8 sets, daily range): BP systolic 112–114; BP diastolic 57–67; PULSE 77–86; RESP 16–22; TEMP 98.3–98.4; O2SAT 96–97
[2017-05-13] MEDS: DILTIAZEM-CD 120 MG CAP ER PO SCH (08:00)
[2017-05-13] MEDS: FERROUS SULFATE 325 MG (65 MG ELEMENTAL IRON) TAB PO SCH (08:00)
[2017-05-13] MEDS: CALCIUM/VITAMIN D 250 MG/125 U TAB PO SCH (08:01)
[2017-05-13] MEDS: TIOTROPIUM BROMIDE 18 MCG INH INH SCH (08:01)
[2017-05-13] MEDS: RESP: IPRATROPIUM 0.5 MG/2.5 ML NEB NEB PRN (08:04)
[2017-05-13 08:29] LABS: POTASSIUM 3.7 MEQ/L (3.5-5.1)
[2017-05-13] MEDS: SODIUM CHLORID 0.9% 500 ML INJ 500 ML IV SCH (08:38)
--- NOTE | 2017-05-13 08:53 | PD.CARD.PN ---
Subjective Subjective Remarks The patient denies chest pain, shortness of breath, GI symptoms, urinary tract symptoms or bleeding. She was supposed to be discharged yesterday but this was held because of inability to void. She was hydrated and did void successfully and has no complaints. Telemetry shows sinus rhythm. Objective Medications Reviewed. Warfarin was held yesterday because of elevated INR. Vital Signs / I&O Vital Signs Date Time Temp Pulse Resp B/P (MAP) Pulse Ox O2 Delivery O2 Flow Rate FiO2 05/13/17 08:00 77 05/13/17 08:00 98.4 78 16 114/67 (83) 97 05/13/17 06:00 78 05/13/17 05:00 84 05/13/17 04:00 84 05/13/17 04:00 98.4 85 22 114/59 (77) 96 05/13/17 03:00 86 05/13/17 02:00 86 05/13/17 01:00 86 05/13/17 00:00 80 05/13/17 00:00 98.3 83 18 112/57 (75) 96 05/12/17 23:00 80 05/12/17 22:00 76 05/12/17 21:00 80 05/12/17 20:00 98.2 77 24 114/48 (70) 95 05/12/17 20:00 74 05/12/17 19:04 75 05/12/17 18:00 80 05/12/17 17:00 80 05/12/17 16:00 73 05/12/17 16:00 97.8 77 18 120/60 (80) 97 05/12/17 15:00 72 05/12/17 14:00 88 05/12/17 13:00 88 05/12/17 12:00 81 05/12/17 12:00 97.9 86 18 93/51 (65) 96 05/12/17 11:00 84 05/12/17 10:00 82 05/12/17 09:00 82 I/O 05/12/17 05/12/17 05/12/17 05/13/17 05/13/17 05/13/17 07:00 15:00 23:00 07:00 15:00 23:00 Intake Total 720 ml 150 ml 870 ml 720 ml Output Total 300 ml 0 ml 1075 ml Balance 420 ml 150 ml 870 ml -355 ml Intake Oral 720 ml 720 ml 720 ml IV Total 150 ml 150 ml Output Urine Total 300 ml 0 ml 1075 ml Bladder Scan Volume Amount 82 ml 187 ml # Voids 0 # Bowel Movements 2 Physical Exam GENERAL: Well-nourished, well-developed patient in no apparent distress. SKIN: Warm and dry. NECK: JVD normal - less than or equal to 5 cm H20. CARDIOVASCULAR: Regular rate and rhythm without murmurs, gallops, or rubs. RESPIRATORY: Normal breath sounds - equal bilaterally. No accessory muscle use. No wheezes, rales or rubs. Abdomen: Benign PERIPHERY: No cyanosis, or edema. Right groin without hematoma or bruit. Left groin with minimal ecchymosis most likely related to bandage. There is no active bleeding or hematoma or bruit. Findings are unchanged from yesterday. Laboratory Laboratory Tests Test 05/12/17 09:00 05/12/17 15:55 05/13/17 07:58 Prothrombin Time 44.7 SEC Prothromb Time International Ratio 3.8 RATIO Activated Partial Thromboplast Time 42.4 SEC Blood Urea Nitrogen 20 MG/DL 14 MG/DL Creatinine 1.16 MG/DL 1.04 MG/DL Random Glucose 177 MG/DL 134 MG/DL Calcium Level 8.1 MG/DL 8.5 MG/DL Sodium Level 138 MEQ/L 138 MEQ/L Potassium Level 4.7 MEQ/L 3.7 MEQ/L Chloride Level 104 MEQ/L 105 MEQ/L Carbon Dioxide Level 20.1 MEQ/L 25.0 MEQ/L Anion Gap 14 MEQ/L 8 MEQ/L Estimat Glomerular Filtration Rate 45 ML/MIN 51 ML/MIN Assessment and Plan Assessment and Plan Problems: Atrial fibrillation with cryoablation yesterday Chronic anticoagulation with mildly elevated pro time-INR yesterday. Moderate coronary disease Hypertension Diabetes Hyperlipidemia Recommendations: The patient is stable from a cardiac standpoint. She will be discharged this morning. Groin care was discussed. I did speak with the nurse. No heavy exertion Low-cholesterol/salt/diabetic diet Continue home medication without change . She will call the office on Sunday for pro time. She will follow-up with . All questions were answered. Trell Guzman MD May 13, 2017 08:53
--- NOTE | 2017-05-13 12:52 | EKG ---
Date Performed: 05/12/2017 Time Performed: 19:51:00 PTAGE: 82 years EKG: Sinus rhythm Leftward axis Borderline ECG PREVIOUS TRACING : 05/12/2017 06.26 No significant change from previous tracing noted. DOCTOR: [facility] Interpretating Date/Time 05/13/2017 12:51:23
== END 2017-05-13 09:29 | disposition home or self-care (01) ==
LOC: HCAT 09:44 → HDIC 09:45 → HCIN 18:01 → HCAT 05-13 09:29
PROVIDERS: ATTEND Internal Medicine Interventional Cardiology
DX: I48.91 Unspecified atrial fibrillation (principal); I10 Essential (primary) hypertension; E11.9 Type 2 diabetes mellitus without complications; E78.5 Hyperlipidemia, unspecified; I25.10 Atherosclerotic heart disease of native coronary artery without angina pectoris; J44.9 Chronic obstructive pulmonary disease, unspecified; Z87.891 Personal history of nicotine dependence; Z79.01 Long term (current) use of anticoagulants; Z79.84 Long term (current) use of oral hypoglycemic drugs; Z79.51 Long term (current) use of inhaled steroids; Z79.899 Other long term (current) drug therapy
CPT/HCPCS: 80048; 85002; 85025; 85610; 85730; 86850; 86900; 86901; 93005; 93312; 93320; 93325; 93613; 93623; 93656; 93662; C1730; C1731; C1732; C1733; J1644; J1940; J1956; J2405; J2550; J2720; J7050; J8501; 94640; 94664; J2765; J7644

== ENCOUNTER 2017-05-15 14:13 | Inpatient (IN) | payer MEDICARE, BC ==
[2017-05-15] VITALS (11 sets, daily range): BP systolic 134–163; BP diastolic 64–81; PULSE 68–78; RESP 16–20; TEMP 98.1–98.8; O2SAT 96–99
[~2017-05-15] VITALS: Ht 160 cm; Wt 74.0 kg
[~2017-05-15 14:13] MED LIST changes: -ALPR.5 PO; -ASPI-110 PO; +ATOR40TA16 PO; +DILT120C15 PO; +EYEL1MED2 EACH EYE; -FERR200T PO; +FERR325T8 PO; -GAVICHW CHEW; -LISI-515 PO; +REST0.05 RIGHT EYE; +SYSTSOL EACH EYE; +TIOT12.9 INH; -VITA10002 PO; +VITA500C18 PO; -ZOCO40TA PO; +oxygen
--- NOTE | 2017-05-15 14:22 | PD ---
HPI . Left leg swelling and bruising Chief Complaint: Edema Time Seen by Provider: 14:21 Travel History International Travel<30 days: No Contact w/Intl Traveler<30days: No Traveled to known affect area: No History of Present Illness HPI 82-year-old female here complaining of left leg swelling and bruising. Patient had a cardiac catheterization performed on Sunday and says that her leg started to swell. She contacted her manager branch Dr. Saini and was instructed to come to the ED. he denies any chest pain or shortness of breath. She is requesting a breathing treatment with ipratropium as she is due for it at this time. PFSH Past Medical History Hx Anticoagulant Therapy: Yes (81 MG ASA HS) Arthritis: Yes (SPINE, HANDS) Asthma: Yes Autoimmune Disease: No Blood Disorders: No Anxiety: No Depression: No Heart Rhythm Problems: Yes Cancer: No Cardiovascular Problems: Yes (AFIB, HYPOTENSION, HEART FAILURE) High Cholesterol: Yes Chemotherapy: No Chest Pain: No Congestive Heart Failure: No COPD: Yes Cerebrovascular Accident: No Diabetes: Yes (TYPE II) Diminished Hearing: No Endocrine: No Fibromyalgia: Yes Gastrointestinal Disorders: No GERD: Yes Glaucoma: No Genitourinary: No Headaches: No Hepatitis: No Hiatal Hernia: No Hypertension: Yes Immune Disorder: No Implanted Vascular Access Dvce: Yes Kidney Stones: No Musculoskeletal: No Neurologic: No Psychiatric: No Reproductive: No Respiratory: Yes (COPD) Integumentary: No Migraines: Yes Myocardial Infarction: No Radiation Therapy: No Renal Failure: No Seizures: No Sickle Cell Disease: No Sleep Apnea: No Thyroid Disease: No Ulcer: No Past Surgical History Abdominal Surgery: No AICD: No Appendectomy: Yes Arteriovenous Shunt: No Body Medical Devices: lens implants due to cataracts Cardiac Surgery: Yes Cholecystectomy: Yes Ear Surgery: No Endocrine Surgery: No Eye Surgery: No Genitourinary Surgery: No Gynecologic Surgery: No Hysterectomy: Yes (PARTIAL) Insulin Pump: No Joint Replacement: Yes (left knee replacement) Neurologic Surgery: No Oral Surgery: No Pacemaker: No Thoracic Surgery: No Tonsillectomy: Yes Other Surgery: Yes (LEFT KNEE REPLACEMENT) Social History Alcohol Use: No Tobacco Use: No Substance Use: No Allergies-Medications (Allergen,Severity, Reaction): Coded Allergies: albuterol (Unverified Allergy, Severe, Hives, 05/15/17) caffeine (Unverified Allergy, Severe, VOMITING, 05/15/17) ergotamine (Unverified Allergy, Severe, VOMITING, 05/15/17) codeine (Unverified Adverse Reaction, Severe, 05/15/17) b/p elevates,vomiting,cannot move physically duloxetine (Unverified Adverse Reaction, Severe, SEVERE SOMNOLENCE, ) STATES SHE WAS DOWN ON HER BACK FOR 4 DAYS gabapentin (Unverified Adverse Reaction, Severe, VOMITING, 05/15/17) pregabalin (Unverified Adverse Reaction, Severe, VOMITING, 05/15/17) morphine (Unverified Adverse Reaction, Intermediate, 05/15/17) vomiting propoxyphene (Unverified Adverse Reaction, Intermediate, 05/15/17) b/p elevates n/v cannot move physically Reported Meds & Prescriptions Reported Meds & Active Scripts Active Reported Eliquis (Apixaban) 5 Mg Tab 5 Mg PO BID [oxygen] 2 Liter NA DIRECTED Vitamin C Sr (Ascorbic Acid) 500 Mg Caper 1,000 Mg PO Systane Opth Drops (Polyethylene Glycol-Propylene Glycol Opth Drp) 0.4-0.3% Soln 1-2 Drop EACH EYE PRN PRN Spiriva Respimat Inh (Tiotropium Inh) 2.5 Mcg/Act Aero 2 Puff INH DAILY 2.5 mcg = 1 inhalation Restasis Opth 0.05% (Cyclosporine Opth 0.05%) 0.05% Emul 1 Drop RIGHT EYE BID Ocusoft Lid Scrub Plus (Eyelid Cleanser Combination #3) 1 Each Med..pad 1 Drop EACH EYE DAILY Ferrous Sulfate 325 Mg (65 Mg Iron) Tablet 325 Mg PO DAILY Diltiazem HCl ER (Diltiazem HCl Extended Release) 120 Mg Cap 120 Mg PO DAILY Atorvastatin (Atorvastatin Calcium) 40 Mg Tab 40 Mg PO HS Ipratropium Neb (Ipratropium Coello) 0.5 Mg/2.5 Ml Amp 0.5 Mg NEB Q2HR NEB PRN Calcium + D3 (Calcium Carbonate-Cholecalciferol) 600-200 Mg-Unit Tab 1 Tab PO BID Metformin ER (Metformin HCl) 500 Mg Julissa 500 Mg PO HS With evening meal Review of Systems General / Constitutional: No: Fever Eyes: No: Visual changes HENT: No: Headaches Cardiovascular: No: Chest Pain or Discomfort Respiratory: No: Shortness of Breath Gastrointestinal: No: Abdominal Pain Genitourinary: No: Dysuria Musculoskeletal: Positive: Edema (left leg), No: Pain Skin: Positive Other (bruising left leg), No Rash Neurologic: No: Weakness Psychiatric: No: Depression Endocrine: No: Polydipsia Hematologic/Lymphatic: No: Easy Bruising Physical Exam Narrative GENERAL: AAO x 3, no acute distress, Well-nourished, well-developed patient. SKIN: Warm and dry. No visible rashes or bruising. left thigh with ecchymosis and mild edema extending just above the knee HEAD: Normocephalic and atraumatic. EYES: No scleral icterus. No injection or drainage. ENT: No nasal drainage noted. Mucous membranes pink. Airway patent. NECK: Supple, trachea midline. No JVD. CARDIOVASCULAR: Regular rate and rhythm without murmurs, gallops, or rubs. RESPIRATORY: Breath sounds equal bilaterally. No accessory muscle use. No rhonchi or rales. GASTROINTESTINAL:visual inspection normal EXTREMITIES: No cyanosis or edema. BACK: No obvious deformity. NEURO: CN II-12 intact, managed care nurse strength normal b/l, UE and LE 5/5, no focal deficits PSYCH: AAO x 3, normal affect. Data Data Last Documented VS Vital Signs Date Time Temp Pulse Resp B/P (MAP) Pulse Ox O2 Delivery O2 Flow Rate FiO2 05/15/17 15:45 68 17 163/72 (102) 96 Room Air 05/15/17 14:56 21 05/15/17 14:15 98.1 Orders Orders Ipratropium Neb (Atrovent Neb) (05/15/17 14:30) Us Leg Hematoma/Pseudoaneurysm (05/15/17 ) Complete Blood Count With Diff (05/15/17 15:13) Comprehensive Metabolic Panel (05/15/17 15:13) Magnesium (Mg) (05/15/17 15:13) Prothrombin Time / Inr (Pt) (05/15/17 15:13) Act Partial Throm Time (Ptt) (05/15/17 15:13) Ecg Monitoring (05/15/17 15:13) Iv Access Insert/Monitor (05/15/17 15:13) Oximetry (05/15/17 15:13) Oxygen Administration (05/15/17 15:13) Sodium Chloride 0.9% Flush (Ns Flush) (05/15/17 15:15) Transcath Iv Occ,Fem Pseudoany (05/15/17 ) Thrombin Top Soln (Thrombin Top Soln) (05/15/17 16:11) Comprehensive Metabolic Panel (05/16/17 06:00) Free Thyroxine (T4) (05/16/17 06:00) Hemoglobin (Hgb) A1c (05/16/17 06:00) Magnesium (Mg) (05/16/17 06:00) Phosphorus (Po4) (05/16/17 06:00) Thyroid Stimulating Hormone (05/16/17 06:00) Complete Blood Count With Diff (05/16/17 06:00) Prothrombin Time / Inr (Pt) (05/16/17 06:00) Place In Observation (05/15/17 ) Code Status (05/15/17 16:15) Vital Signs (Adult) Q4H (05/15/17 16:15) Activity Bed Rest (05/15/17 16:15) Otm Consultant / Telemetry .CONTINUOUS (05/15/17 16:15) Intake + Output ROBBIE.QSHIFT (05/15/17 16:15) Sodium Chloride 0.9% Flush (Ns Flush) (05/15/17 16:15) Sodium Chloride 0.9% Flush (Ns Flush) (05/15/17 21:00) Acetaminophen (Tylenol) (05/15/17 16:15) Ondansetron Inj (Zofran Inj) (05/15/17 16:15) Prochlorperazine Supp (Compazine Supp) (05/15/17 16:15) Creatine Kinase (Cpk) (05/15/17 16:15) Creatine Kinase (Cpk) (05/15/17 22:15) Troponin I (05/15/17 16:15) Troponin I (05/15/17 22:15) Urinalysis - C+S If Indicated (05/15/17 16:15) Resp Oxygen Palmer C Titrat 1-4 L (05/15/17 ) Pt Request For Service (05/15/17 16:15) Ot Request For Service (05/15/17 16:15) Case Management Consult (05/15/17 16:15) Scd Bilateral/Knee High ROBBIE.BID (05/15/17 16:15) Sarkis Bilateral/Knee High ROBBIE.QSHIFT (05/15/17 16:30) Acetaminophen (Tylenol) (05/15/17 16:15) Tramadol (Ultram) (05/15/17 16:15) Tramadol (Ultram) (05/15/17 16:15) Naloxone Inj (Narcan Inj) (05/15/17 16:15) Docusate Sodium-Senna (Luda-Colace) (05/15/17 21:00) Magnesium Hydroxide Liq (Milk Of Magnesi (05/15/17 16:15) Sennosides (Senokot) (05/15/17 16:15) Bisacodyl Supp (Dulcolax Supp) (05/15/17 16:15) Lactulose Liq (Lactulose Liq) (05/15/17 16:15) Invasive Rad Dept Consult (05/15/17 ) Consult Cardiology (05/15/17 ) Atorvastatin (Lipitor) (05/15/17 21:00) Ferrous Sulfate (Ferrous Sulfate) (05/16/17 09:00) Ipratropium Neb (Atrovent Neb) (05/15/17 16:30) (Nf) Calcium Carbonate-Cholecalciferol ( (05/15/17 21:00) (Nf) Cyclosporine Opth 0.05% (Restasis O (05/15/17 21:00) (Nf) Diltiazem Hcl Extended Release (Dil (05/16/17 09:00) (Nf) Eyelid Cleanser Combination #3 (Ocu (05/16/17 09:00) (Nf) Polyethylene Glycol-Propylene Glyco (05/15/17 16:30) (Nf) Tiotropium Inh (Spiriva Respimat In (05/16/17 09:00) (Nf) [Oxygen] (05/15/17 16:30) Bedside Glucose ROBBIE.CSUGAR (05/15/17 16:22) Blood Glucose Goal (Criteria) (05/15/17 16:22) Hypoglycemia 70 Mg/Dl Or < (05/15/17 16:22) Notify Dr: Other (05/15/17 16:22) Dextrose 50% In Jason (Vial) Inj (D50w (Vi (05/15/17 16:30) Glucagon Inj (Glucagon Inj) (05/15/17 16:30) Insulin Aspart Supplemtl Scale (Novolog (05/15/17 17:00) (Hub Use Only)Inp Phy Cons/Ref (05/15/17 ) Diet Regular Basic (05/15/17 Dinner) Admit Order (Ed Use Only) (05/15/17 ) Labs Laboratory Tests Test 05/15/17 15:35 White Blood Count 7.0 TH/MM3 Red Blood Count 2.96 MIL/MM3 Hemoglobin 8.5 GM/DL Hematocrit 25.8 % Mean Corpuscular Volume 87.1 FL Mean Corpuscular Hemoglobin 28.9 PG Mean Corpuscular Hemoglobin Concent 33.2 % Red Cell Distribution Width 14.7 % Platelet Count 212 TH/MM3 Mean Platelet Volume 7.6 FL Neutrophils (%) (Auto) 59.5 % Lymphocytes (%) (Auto) 27.1 % Monocytes (%) (Auto) 9.5 % Eosinophils (%) (Auto) 3.3 % Basophils (%) (Auto) 0.6 % Neutrophils # (Auto) 4.2 TH/MM3 Lymphocytes # (Auto) 1.9 TH/MM3 Monocytes # (Auto) 0.7 TH/MM3 Eosinophils # (Auto) 0.2 TH/MM3 Basophils # (Auto) 0.0 TH/MM3 CBC Comment DIFF FINAL Differential Comment Prothrombin Time 11.1 SEC Prothromb Time International Ratio 1.0 RATIO Activated Partial Thromboplast Time 28.8 SEC Blood Urea Nitrogen 13 MG/DL Creatinine 0.83 MG/DL Random Glucose 144 MG/DL Total Protein 6.3 GM/DL Albumin 3.0 GM/DL Calcium Level 8.7 MG/DL Magnesium Level 2.2 MG/DL Alkaline Phosphatase 69 U/L Aspartate Amino Transf (AST/SGOT) 31 U/L Alanine Aminotransferase (ALT/SGPT) 31 U/L Total Bilirubin 0.8 MG/DL Sodium Level 138 MEQ/L Potassium Level 4.4 MEQ/L Chloride Level 104 MEQ/L Carbon Dioxide Level 27.2 MEQ/L Anion Gap 7 MEQ/L Estimat Glomerular Filtration Rate 66 ML/MIN MDM Medical Decision Making Medical Screen Exam Complete: Yes Emergency Medical Condition: Yes Medical Record Reviewed: Yes Differential Diagnosis Hematoma, DVT, pseudoaneurysm Narrative Course 82 yr old female s/p cardiac cath here with left leg edema and ecchymosis. I have discussed with my attending Dr. Murray. We will check Venous doppler and Arterial doppler of this leg. US measurement and sensing technician came to discuss with us. Patient found to have a pseudoaneurysm. Dr. Murray has spoken with interventional radiologist who will take the patient for a procedure. Dr. Murray spoke with Dr. Worthington, who wants to hold off until the morning due to the fact that patient's most recent INR was therapeutic. Dr. Murray resumed care of the patient and handled admission and all call backs. Please refer to his note for details. Diagnosis Primary Impression: Pseudoaneurysm following procedure Admitting Information Admitting Physician Requests: Admit Disposition: 01 DISCHARGE HOME Condition: Stable Kristine Hickey May 15, 2017 14:22
[2017-05-15] MEDS ORDERED: RESP: IPRATROPIUM 0.5 MG/2.5 ML NEB NEB ONE (14:30)
--- NOTE | 2017-05-15 15:13 | PD ---
Data Data Last Documented VS Vital Signs Date Time Temp Pulse Resp B/P (MAP) Pulse Ox O2 Delivery O2 Flow Rate FiO2 05/15/17 15:45 68 17 163/72 (102) 96 Room Air 05/15/17 14:56 21 05/15/17 14:15 98.1 Orders Orders Ipratropium Neb (Atrovent Neb) (05/15/17 14:30) Us Leg Hematoma/Pseudoaneurysm (05/15/17 ) Complete Blood Count With Diff (05/15/17 15:13) Comprehensive Metabolic Panel (05/15/17 15:13) Magnesium (Mg) (05/15/17 15:13) Prothrombin Time / Inr (Pt) (05/15/17 15:13) Act Partial Throm Time (Ptt) (05/15/17 15:13) Ecg Monitoring (05/15/17 15:13) Iv Access Insert/Monitor (05/15/17 15:13) Oximetry (05/15/17 15:13) Oxygen Administration (05/15/17 15:13) Sodium Chloride 0.9% Flush (Ns Flush) (05/15/17 15:15) Transcath Iv Occ,Fem Pseudoany (05/15/17 ) Thrombin Top Soln (Thrombin Top Soln) (05/15/17 16:11) Comprehensive Metabolic Panel (05/16/17 06:00) Free Thyroxine (T4) (05/16/17 06:00) Hemoglobin (Hgb) A1c (05/16/17 06:00) Magnesium (Mg) (05/16/17 06:00) Phosphorus (Po4) (05/16/17 06:00) Thyroid Stimulating Hormone (05/16/17 06:00) Complete Blood Count With Diff (05/16/17 06:00) Prothrombin Time / Inr (Pt) (05/16/17 06:00) Place In Observation (05/15/17 ) Code Status (05/15/17 16:15) Vital Signs (Adult) Q4H (05/15/17 16:15) Activity Bed Rest (05/15/17 16:15) Bank Accountant / Telemetry .CONTINUOUS (05/15/17 16:15) Intake + Output ROBBIE.QSHIFT (05/15/17 16:15) Sodium Chloride 0.9% Flush (Ns Flush) (05/15/17 16:15) Sodium Chloride 0.9% Flush (Ns Flush) (05/15/17 21:00) Acetaminophen (Tylenol) (05/15/17 16:15) Ondansetron Inj (Zofran Inj) (05/15/17 16:15) Prochlorperazine Supp (Compazine Supp) (05/15/17 16:15) Creatine Kinase (Cpk) (05/15/17 16:15) Creatine Kinase (Cpk) (05/15/17 22:15) Troponin I (05/15/17 16:15) Troponin I (05/15/17 22:15) Urinalysis - C+S If Indicated (05/15/17 16:15) Resp Oxygen Palmer C Titrat 1-4 L (05/15/17 ) Pt Request For Service (05/15/17 16:15) Ot Request For Service (05/15/17 16:15) Case Management Consult (05/15/17 16:15) Scd Bilateral/Knee High ROBBIE.BID (05/15/17 16:15) Sarkis Bilateral/Knee High ROBBIE.QSHIFT (05/15/17 16:30) Acetaminophen (Tylenol) (05/15/17 16:15) Tramadol (Ultram) (05/15/17 16:15) Tramadol (Ultram) (05/15/17 16:15) Naloxone Inj (Narcan Inj) (05/15/17 16:15) Docusate Sodium-Senna (Luda-Colace) (05/15/17 21:00) Magnesium Hydroxide Liq (Milk Of Magnesi (05/15/17 16:15) Sennosides (Senokot) (05/15/17 16:15) Bisacodyl Supp (Dulcolax Supp) (05/15/17 16:15) Lactulose Liq (Lactulose Liq) (05/15/17 16:15) Invasive Rad Dept Consult (05/15/17 ) Consult Cardiology (05/15/17 ) Atorvastatin (Lipitor) (05/15/17 21:00) Ferrous Sulfate (Ferrous Sulfate) (05/16/17 09:00) Ipratropium Neb (Atrovent Neb) (05/15/17 16:30) (Nf) Calcium Carbonate-Cholecalciferol ( (05/15/17 21:00) (Nf) Cyclosporine Opth 0.05% (Restasis O (05/15/17 21:00) (Nf) Diltiazem Hcl Extended Release (Dil (05/16/17 09:00) (Nf) Eyelid Cleanser Combination #3 (Ocu (05/16/17 09:00) (Nf) Polyethylene Glycol-Propylene Glyco (05/15/17 16:30) (Nf) Tiotropium Inh (Spiriva Respimat In (05/16/17 09:00) (Nf) [Oxygen] (05/15/17 16:30) Bedside Glucose ROBBIE.CSUGAR (05/15/17 16:22) Blood Glucose Goal (Criteria) (05/15/17 16:22) Hypoglycemia 70 Mg/Dl Or < (05/15/17 16:22) Notify Dr: Other (05/15/17 16:22) Dextrose 50% In Jason (Vial) Inj (D50w (Vi (05/15/17 16:30) Glucagon Inj (Glucagon Inj) (05/15/17 16:30) Insulin Aspart Supplemtl Scale (Novolog (05/15/17 17:00) (Hub Use Only)Inp Phy Cons/Ref (05/15/17 ) Diet Regular Basic (05/15/17 Dinner) Admit Order (Ed Use Only) (05/15/17 ) Labs Laboratory Tests Test 05/15/17 15:35 White Blood Count 7.0 TH/MM3 Red Blood Count 2.96 MIL/MM3 Hemoglobin 8.5 GM/DL Hematocrit 25.8 % Mean Corpuscular Volume 87.1 FL Mean Corpuscular Hemoglobin 28.9 PG Mean Corpuscular Hemoglobin Concent 33.2 % Red Cell Distribution Width 14.7 % Platelet Count 212 TH/MM3 Mean Platelet Volume 7.6 FL Neutrophils (%) (Auto) 59.5 % Lymphocytes (%) (Auto) 27.1 % Monocytes (%) (Auto) 9.5 % Eosinophils (%) (Auto) 3.3 % Basophils (%) (Auto) 0.6 % Neutrophils # (Auto) 4.2 TH/MM3 Lymphocytes # (Auto) 1.9 TH/MM3 Monocytes # (Auto) 0.7 TH/MM3 Eosinophils # (Auto) 0.2 TH/MM3 Basophils # (Auto) 0.0 TH/MM3 CBC Comment DIFF FINAL Differential Comment Prothrombin Time 11.1 SEC Prothromb Time International Ratio 1.0 RATIO Activated Partial Thromboplast Time 28.8 SEC Blood Urea Nitrogen 13 MG/DL Creatinine 0.83 MG/DL Random Glucose 144 MG/DL Total Protein 6.3 GM/DL Albumin 3.0 GM/DL Calcium Level 8.7 MG/DL Magnesium Level 2.2 MG/DL Alkaline Phosphatase 69 U/L Aspartate Amino Transf (AST/SGOT) 31 U/L Alanine Aminotransferase (ALT/SGPT) 31 U/L Total Bilirubin 0.8 MG/DL Sodium Level 138 MEQ/L Potassium Level 4.4 MEQ/L Chloride Level 104 MEQ/L Carbon Dioxide Level 27.2 MEQ/L Anion Gap 7 MEQ/L Estimat Glomerular Filtration Rate 66 ML/MIN Total Creatine Kinase 99 U/L Troponin I 1.47 NG/ML MDM Supervised Visit with ROSEMARIE: Yes Narrative Course I, Dr. Murray, have reviewed the advance practice practitioner's documentation and am in agreement, met with the patient face to face, made the diagnosis, and the medical decision making was done by me. *My assessment and Findings: Patient seen and examined by me in addition to Kristine Banks PA-C, patient has pseudoaneurysm of her left lower extremity secondary to recent cardiac catheterization by Dr. Saini. She is on Eliquis but she tells me she is only taken one dose and that was last night prior to bed at approximately 10:00 PM. Received a call from Dr. Samir Summers who is preparing for interventional radiology procedure. Dr. Caballero to perform but he would like to wait for coagulation studies prior to performing the procedure. Patient's INR is 1.0, PTT within normal limits. Dr. Caballero would like to perform the procedure tonight. Patient was briefly discussed with Dr. Andrews by me, awaiting chemistries and then will place in observation status. Patient basic labs ordered from the chest pain order set including a troponin which was +1.47. Patient is not had any chest pain, has clear contraindications to anticoagulation IE pseudoaneurysm. Furthermore I would expect her troponin to be somewhat elevated after having an ablation. EKG was ordered and shows sinus first degree heart block no concerning ST segment changes, normal axis normal R-wave progression. Is a borderline EKG. Diagnosis Primary Impression: Pseudoaneurysm following procedure Admitting Information Admitting Physician Requests: Observation Condition: Stable Ky Murray MD May 15, 2017 15:13
[2017-05-15] MEDS ORDERED: SODIUM CHLORIDE 0.9% FLUSH 10 ML FLUSH IVF PRN (15:15)
--- NOTE | 2017-05-15 15:23 | RADRPT ---
EXAM DATE/TIME: 05/15/2017 14:45 [facility] COMPARISON: No previous studies available for comparison. EXTERNAL COMPARISON : [facility], US LEG LEFT, September 13, 2011 INDICATIONS : Pain and bruising in left groin following a cardiac catheterization MEDICAL HISTORY : Hypercholesterolemia. Arthritis. Osteoporosis. Migraines. Afib. Hypotension. Heart failure. HTN. COPD . Asthma. Dyspnea. Fibromyalgia. Type II Diabetes. Herniated discs x5. GERD. Anticoagulant therapy, Aspirin 81mg. SURGICAL HISTORY : Tonsillectomy. Appendectomy. Cholecystectomy. Cataracts. Vaginal prolapse with repair. Left knee repl acement. Blood tranfusions. ENCOUNTER: Initial ACUITY: 1 day PAIN SCORE: 2/10 LOCATION: Left leg. AREA EVALUATED: Left groin. FINDINGS: Imaging through the left groin demonstrates a pseudoaneurysm with some surrounding hematoma. This edna ears to feed via the common femoral. The hematoma and the aneurysm combined measure approximately 5.5 x 2.5 x 3.1 cm. CONCLUSION: 1. Pseudoaneurysm with surrounding hematoma in the left groin. Monroe Summers MD on May 15, 2017 at 15:15 Board Certified Radiologist. This report was verified electronically.
[2017-05-15] MEDS ORDERED: APIX5TAB PO (15:40)
[2017-05-15 15:56] LABS: AUTOMATED NEUTROPHIL # 4.2 TH/MM3 (1.8-7.7); BASOPHIL % 0.6 % (0.0-2.0); EOSINOPHIL # 0.2 TH/MM3 (0-0.4); EOSINOPHIL % 3.3 % (0.0-4.0); HEMATOCRIT 25.8 % (35.0-46.0); HEMO FLAGS DIFF FINAL; LYMPH % 27.1 % (9.0-44.0); LYMPHOCYTE # 1.9 TH/MM3 (1.0-4.8); MEAN CELL VOLUME 87.1 FL (80.0-100.0); MEAN CORPUSCULAR HEMOGLOBIN 28.9 PG (27.0-34.0); MEAN CORPUSCULAR HGB CONC 33.2 % (32.0-36.0); MONO % 9.5 % (0.0-8.0); NEUT % 59.5 % (16.0-70.0); PLATELET COUNT 212 TH/MM3 (150-450); RED BLOOD COUNT 2.96 MIL/MM3 (4.00-5.30); RED CELL DISTRIBUTION WIDTH 14.7 % (11.6-17.2)
[2017-05-15 16:03] LABS: APTT (PATIENT) 28.8 SEC (24.3-30.1); PROTHROMBIN TIME - PATIENT 11.1 SEC (9.8-11.6)
[2017-05-15] MEDS ORDERED: THROMBIN (TOPICAL) 5,000 UNIT VIAL ONE (16:11)
[2017-05-15] MEDS ORDERED: SENNOSIDES 8.6 MG TAB PO PRN (16:15)
[2017-05-15] MEDS ORDERED: LACTULOSE SYRUP 20 GM/30 ML CUP PO PRN (16:15)
[2017-05-15] MEDS ORDERED: traMADol HCL 50 MG TAB PO PRN ×2 (16:15)
[2017-05-15] MEDS ORDERED: PROCHLORPERAZINE 25 MG SUPP RECTAL PRN (16:15)
[2017-05-15] MEDS ORDERED: MAGNESIUM HYDROXIDE SUSP 30 ML CUP PO PRN (16:15)
[2017-05-15] MEDS ORDERED: ONDANSETRON HCL 4 MG/2 ML VIAL IVP PRN (16:15)
[2017-05-15] MEDS ORDERED: SODIUM CHLORIDE 0.9% FLUSH 10 ML FLUSH IV FLUSH PRN (16:15)
[2017-05-15] MEDS ORDERED: ACETAMINOPHEN 325 MG TAB PO PRN ×2 (16:15)
[2017-05-15] MEDS ORDERED: BISACODYL 10 MG SUPP RECTAL PRN (16:15)
[2017-05-15] MEDS ORDERED: NALOXONE HCL 0.4 MG/ML AMP IV PUSH PRN (16:15)
[2017-05-15 16:29] LABS: ALKALINE PHOSPHATASE 69 U/L (45-117); TOTAL BILIRUBIN ADULT 0.8 MG/DL (0.2-1.0)
[2017-05-15 16:30] LABS: ALT (GPT) 31 U/L (10-53); ANION GAP 7 MEQ/L (5-15); AST (GOT) 31 U/L (15-37); BICARBONATE 27.2 MEQ/L (21.0-32.0); BLOOD UREA NITROGEN 13 MG/DL (7-18); CHLORIDE 104 MEQ/L (98-107); GLOMERULAR FILTRATION RATE 66 ML/MIN (>89); MAGNESIUM 2.2 MG/DL (1.5-2.5); SODIUM (NA) 138 MEQ/L (136-145)
[2017-05-15] MEDS ORDERED: GLUCAGON 1 MG/ML VIAL OTHER PRN (16:30)
[2017-05-15] MEDS ORDERED: POLYETHYLENE GLYCOL PROPYLENE GLYCOL OPTH DRP D EACH EYE PRN (16:30)
[2017-05-15] MEDS ORDERED: DEXTROSE 50% IN WATER 50 ML VIAL(D50) IV PUSH PRN (16:30)
[2017-05-15 16:32] LABS: POTASSIUM 4.4 MEQ/L (3.5-5.1)
--- NOTE | 2017-05-15 17:09 | HHI.HP ---
[facility] Service [facility] Primary Care Physician Wilbert Harrison MD Admission Diagnosis Large hematoma left groin Diagnoses: (1) Pseudoaneurysm following procedure Diagnosis: Principal (2) DM2 (diabetes mellitus, type 2) Diagnosis: Secondary (3) Atrial fibrillation with rapid ventricular response Diagnosis: Principal (4) HTN (hypertension) Diagnosis: Secondary (5) COPD (chronic obstructive pulmonary disease) Diagnosis: Secondary (6) A-fib Diagnosis: Principal Chief Complaint: Left leg ecchymosis and edema Travel History International Travel<30 Days: No Contact w/Intl Traveler <30 Da: No Traveled to Known Affected Are: No History of Present Illness This is an 82yo female with PMHX of paroxysmal atrial fibrillation, HTN, HLD, COPD, DM and GERD who underwent a cardiac catheterization by Dr. Saini with cryoablation this past Sunday on 05/11/17 with left groin access site. Patient was found to have supratherapeutic INR of 3.8 and Coumadin was held prior to her discharge on Sunday05/13/17. Patient followed up in Dr. Saini's office on Sunday and repeat INR was 1.4. She was given a new prescription for Eliquis 5mg BID which she took only 2 doses of one Sunday night and the other this morning. Patient states she began to notice progressive swelling and bruising extending from her left groin down to her knee. Patient contacted Dr. Saini's office and was instructed to come into the ED where she had an ultrasound completed revealing a pseudoaneurysm with surrounding hematoma in the left groin. Patients current INR is 1.0. IR has been consulted and plans to perform procedure tomorrow. Patient's only complaint at present is she feels weak. She denies any chest pain or shortness of breath. She denies any fever, chills, lightheadedness, dizziness or numbness/tingling. She denies any N/V or abdominal pain. She denies any urinary complaints, diarrhea or constipation. Review of Systems Constitutional: DENIES: Diaphoretic episodes, Fatigue, Fever, Weight gain, Weight loss, Chills, Dizziness Endocrine: DENIES: Abnorml menstrual pattern, Heat/cold intolerance Eyes: DENIES: Blurred vision, Diplopia, Eye inflammation Ears, nose, mouth, throat: DENIES: Tinnitus, Hearing loss, Vertigo, Nasal discharge, Running Nose, Epistaxis Respiratory: DENIES: Apneas, Cough, Snoring, Wheezing Cardiovascular: DENIES: Chest pain, Palpitations, Syncope, Dyspnea on Exertion Gastrointestinal: DENIES: Abdominal pain, Black stools, Bloody stools, Anorexia Genitourinary: DENIES: Abnormal vaginal bleeding Musculoskeletal: DENIES: Joint pain, Muscle aches, Stiffness Integumentary: DENIES: Abnormal pigmentation, Pruritus Hematologic/lymphatic: DENIES: Bruising, Lymphadenopathy Immunologic/allergic: DENIES: Eczema, Urticaria Neurologic: DENIES: Abnormal gait, Headache, Localized weakness, Paresthesias, Seizures, Tremor Psychiatric: DENIES: Anxiety, Confusion, Mood changes, Depression Except as stated in HPI: all other systems reviewed are Neg Past Family Social History Past Medical History HTN COPD DM Paroxysmal atrial fibrillation s/p cryoablation 05/11/17 Asthma Arthritis GERD HLD Past Surgical History Cardiac catheterization 05/11/17 Appendectomy Partial hysterectomy Cholecystectomy Cataract sx Bladder suspension sx Reported Medications Eliquis (Apixaban) 5 Mg Tab 5 Mg PO BID [oxygen] 2 Liter NA DIRECTED Vitamin C Sr (Ascorbic Acid) 500 Mg Caper 1,000 Mg PO Systane Opth Drops (Polyethylene Glycol-Propylene Glycol Opth Drp) 0.4-0.3% Soln 1-2 Drop EACH EYE PRN PRN Spiriva Respimat Inh (Tiotropium Inh) 2.5 Mcg/Act Aero 2 Puff INH DAILY 2.5 mcg = 1 inhalation Restasis Opth 0.05% (Cyclosporine Opth 0.05%) 0.05% Emul 1 Drop RIGHT EYE BID Ocusoft Lid Scrub Plus (Eyelid Cleanser Combination #3) 1 Each Med..pad 1 Drop EACH EYE DAILY Ferrous Sulfate 325 Mg (65 Mg Iron) Tablet 325 Mg PO DAILY Diltiazem HCl ER (Diltiazem HCl Extended Release) 120 Mg Cap 120 Mg PO DAILY Atorvastatin (Atorvastatin Calcium) 40 Mg Tab 40 Mg PO HS Ipratropium Neb (Ipratropium [place]) 0.5 Mg/2.5 Ml Amp 0.5 Mg NEB Q2HR NEB PRN Calcium + D3 (Calcium Carbonate-Cholecalciferol) 600-200 Mg-Unit Tab 1 Tab PO BID Metformin ER (Metformin HCl) 500 Mg Julissa 500 Mg PO HS With evening meal Allergies: Coded Allergies: albuterol (Unverified Allergy, Severe, Hives, 05/15/17) caffeine (Unverified Allergy, Severe, VOMITING, 05/15/17) ergotamine (Unverified Allergy, Severe, VOMITING, 05/15/17) codeine (Unverified Adverse Reaction, Severe, 05/15/17) b/p elevates,vomiting,cannot move physically duloxetine (Unverified Adverse Reaction, Severe, SEVERE SOMNOLENCE, ) STATES SHE WAS DOWN ON HER BACK FOR 4 DAYS gabapentin (Unverified Adverse Reaction, Severe, VOMITING, 05/15/17) pregabalin (Unverified Adverse Reaction, Severe, VOMITING, 05/15/17) morphine (Unverified Adverse Reaction, Intermediate, 05/15/17) vomiting propoxyphene (Unverified Adverse Reaction, Intermediate, 05/15/17) b/p elevates n/v cannot move physically Active Ordered Medications Current Medications Medications (Trade) Dose Ordered Sig/Raymundo Route Start Time Stop Time Status Last Admin (NS Flush) 2 ml UNSCH PRN IVF 05/15/17 15:15 (NS Flush) 2 ml UNSCH PRN IV FLUSH 05/15/17 16:15 UNV (NS Flush) 2 ml BID IV FLUSH 05/15/17 21:00 UNV (Tylenol) 650 mg Q4H PRN PO 05/15/17 16:15 UNV (Zofran Inj) 4 mg Q6H PRN IVP 05/15/17 16:15 UNV (Compazine Supp) 25 mg Q12H PRN OK 05/15/17 16:15 UNV (Tylenol) 650 mg Q6H PRN PO 05/15/17 16:15 UNV (Ultram) 50 mg Q4H PRN PO 05/15/17 16:15 UNV (Ultram) 100 mg Q4H PRN PO 05/15/17 16:15 UNV (Narcan Inj) 0.4 mg UNSCH PRN IV PUSH 05/15/17 16:15 UNV (Luda-Colace) 1 tab BID PO 05/15/17 21:00 UNV (Milk Of Magnesia Liq) 30 ml Q12H PRN PO 05/15/17 16:15 UNV (Senokot) 17.2 mg Q12H PRN PO 05/15/17 16:15 UNV (Dulcolax Supp) 10 mg DAILY PRN RECTAL 05/15/17 16:15 UNV (Lactulose Liq) 30 ml DAILY PRN PO 05/15/17 16:15 UNV (Lipitor) 40 mg HS PO 05/15/17 21:00 UNV (Ferrous Sulfate) 325 mg DAILY PO 05/16/17 09:00 UNV (Atrovent Neb) 0.5 mg Q2HR NEB PRN NEB 05/15/17 16:30 UNV Non-Formulary Medication 1 tab BID PO 05/15/17 21:00 UNV Non-Formulary Medication 1 drop BID RIGHT EYE 05/15/17 21:00 UNV Non-Formulary Medication 120 mg DAILY PO 05/16/17 09:00 UNV Non-Formulary Medication 1 drop DAILY EACH EYE 05/16/17 09:00 UNV Non-Formulary Medication 1 drop Q2HR PRN EACH EYE 05/15/17 16:30 UNV Non-Formulary Medication 2 puff DAILY INH 05/16/17 09:00 UNV Non-Formulary Medication 2 liter DIRECTED NA 05/15/17 16:30 UNV (D50w (Vial) Inj) 50 ml UNSCH PRN IV PUSH 05/15/17 16:30 UNV (Glucagon Inj) 1 mg UNSCH PRN OTHER 05/15/17 16:30 UNV (NovoLOG SUPPLEMENTAL SCALE) 1 ACHS SLIDING SCALE SQ 05/15/17 17:00 UNV Family History Sister, breast cancer Father, bladder cancer Mother, alcohol related liver cirrhosis HTN, DM Social History Patient has a remote hx of tobacco use of 1ppd starting at age 21 until 1984. Patient denies any EtOH use. Patient denies any illicit drug use. Physical Exam Vital Signs Vital Signs Date Time Temp Pulse Resp B/P (MAP) Pulse Ox O2 Delivery O2 Flow Rate FiO2 05/15/17 15:45 68 17 163/72 (102) 96 Room Air 05/15/17 14:56 97 21 05/15/17 14:15 98.1 76 16 135/81 (99) 99 Physical Exam GENERAL: This is a well-nourished, well-developed patient, in no apparent distress. Awake and alert. Appears comfortable. Talkative. SKIN: Warm and dry. LLE with edema and ecchymosis extending from the groin to just below the knee. Large area of ecchymosis bruising purplish hue the left groin HEAD: Atraumatic. Normocephalic. No temporal or scalp tenderness. EYES: Pupils equal round and reactive. Extraocular motions intact. No scleral icterus. No injection or drainage. ENT: Nose without bleeding, purulent drainage. Throat without erythema, tonsillar hypertrophy or exudate. Uvula midline. Airway patent. Tongue is midline NECK: Trachea midline. No lymphadenopathy. Supple, nontender, no meningeal signs. CARDIOVASCULAR: Regular rate and rhythm without murmurs, gallops, or rubs. S1 and S2 no S3 or S4 RESPIRATORY: Diminished but clear to auscultation. No wheezes, rales, or rhonchi. GASTROINTESTINAL: Abdomen soft, non-tender, nondistended. No hepato-splenomegaly , or palpable masses. No guarding. MUSCULOSKELETAL: Extremities without clubbing, cyanosis, or edema. No joint tenderness, effusion, or edema noted. No calf tenderness. Large left groin hematoma NEUROLOGICAL: Awake and alert. Able to move all extremities. No focal neurologic finding. Normal speech. Insight and judgment is good mood and behavior is appropriate Laboratory Laboratory Tests Test 05/15/17 15:35 White Blood Count 7.0 Red Blood Count 2.96 Hemoglobin 8.5 Hematocrit 25.8 Mean Corpuscular Volume 87.1 Mean Corpuscular Hemoglobin 28.9 Mean Corpuscular Hemoglobin Concent 33.2 Red Cell Distribution Width 14.7 Platelet Count 212 Mean Platelet Volume 7.6 Neutrophils (%) (Auto) 59.5 Lymphocytes (%) (Auto) 27.1 Monocytes (%) (Auto) 9.5 Eosinophils (%) (Auto) 3.3 Basophils (%) (Auto) 0.6 Neutrophils # (Auto) 4.2 Lymphocytes # (Auto) 1.9 Monocytes # (Auto) 0.7 Eosinophils # (Auto) 0.2 Basophils # (Auto) 0.0 CBC Comment DIFF FINAL Differential Comment Prothrombin Time 11.1 Prothromb Time International Ratio 1.0 Activated Partial Thromboplast Time 28.8 Total Protein 6.3 Alkaline Phosphatase 69 Total Bilirubin 0.8 Result Diagram: 05/15/17 1535 Imaging Last Impressions Lower Extremity Ultrasound 05/15/17 0000 Signed Impressions: Service Date/Time: Monday, May 15, 2017 14:45 - CONCLUSION: 1. Pseudoaneurysm with surrounding hematoma in the left groin. MD Morelia Aggarwal VTE Risk Assessment Caprini VTE Risk Assessment: Mod/High Risk (score >= 2) VTE Pharm Contraindication: Hemorrhage Caprini Risk Assessment Model Point Value = 1 Point Value = 2 Point Value = 3 Point Value = 5 Age 41-60 Minor surgery BMI > 25 kg/m2 Swollen legs Varicose veins or History of unexplained or recurrent spontaneous Oral contraceptives or hormone replacement Sepsis (< 1 month) Serious lung disease, including pneumonia (< 1 month) Abnormal pulmonary function Acute myocardial infarction Congestive heart failure (< 1 month) History of inflammatory bowel disease Medical patient at bed rest Age 61-74 Arthroscopic surgery Major open surgery (> 45 min) Laparoscopic surgery (> 45 min) Malignancy Confined to bed (> 72 hours) Immobilizing plaster cast Central venous access Age >= 75 History of VTE Family history of VTE Factor V Leiden Prothrombin [id number] Lupus anticoagulant Anticardiolipin antibodies Elevated serum homocysteine Heparin-induced thrombocytopenia Other congenital or acquired thrombophilia Stroke (< 1 month) Elective arthroplasty Hip, pelvis, or leg fracture Acute spinal cord injury (< 1 month) Prophylaxis Regimen Total Risk Factor Score Risk Level Prophylaxis Regimen 0-1 Low Early ambulation 2 Moderate Order ONE of the following: *Sequential Compression Device (SCD) *Heparin 5000 units SQ BID 3-4 Higher Order ONE of the following medications: *Heparin 5000 units SQ TID *Enoxaparin/Lovenox 40 mg SQ daily (WT < 150 kg, CrCl > 30 mL/min) *Enoxaparin/Lovenox 30 mg SQ daily (WT < 150 kg, CrCl > 10-29 mL/min) *Enoxaparin/Lovenox 30 mg SQ BID (WT < 150 kg, CrCl > 30 mL/min) AND/OR *Sequential Compression Device (SCD) 5 or more Highest Order ONE of the following medications: *Heparin 5000 units SQ TID (Preferred with Epidurals) *Enoxaparin/Lovenox 40 mg SQ daily (WT < 150 kg, CrCl > 30 mL/min) *Enoxaparin/Lovenox 30 mg SQ daily (WT < 150 kg, CrCl > 10-29 mL/min) *Enoxaparin/Lovenox 30 mg SQ BID (WT < 150 kg, CrCl > 30 mL/min) AND *Sequential Compression Device (SCD) Assessment and Plan Assessment and Plan 82yo female with PMHX of atrial fibrillation, HTN, HLD, COPD, DM and GERD who underwent a cardiac catheterization by Dr. Saini with cryoablation this past Sunday on 05/11/17 with left groin access site who developed progressive edema and ecchymosis of the LLE after beginning Eliquis x 2 doses. Pseudoaneurysm left groin s/p cardiac catheterization 05/11/17 - Doppler US reviewed showing pseudoaneurysm with surrounding hematoma in the left groin - hold all anticoagulants - INR 1.0 - IR consulted and plans to perform therapeutic procedure in a.m. Anemia AIRAM, chronic - secondary to acute blood loss - monitor H/H closely - continue on po supplementation PAF s/p cardiac cath with cryoablation 05/11/17 - Consult cardiology - Consult Dr. Saini - resume patient on Diltiazem 120mg daily - Chads score 3 - continuous cardiac monitoring - of note, patient is intolerant of BB due to oxygen dependent COPD and CCB d /t LE edema DM - hold patients home Metformin - ISS - accuchecks - obtain HgbA1c COPD, not in acute exacerbation - resume patients home bronchodilators - Atrovent neb - monitor respiratory status - supplemental oxygen to keep O2 sats above 92% HLD - resume patients home dose of Atorvastatin 40mg daily DVT prophylaxis - chemoprophylaxis contraindicated - Bilateral SCD/KELLY hose The exam, history, and the medical decision-making described in the above note were completed with the assistance of the mid-level provider. I reviewed and agree with the findings presented. I attest that I had a [id number] encounter with the patient on the same day, and personally performed and documented my assessment and findings in the medical record. 2 days is the estimated time the patient will need to remain in the hospital, assuming treatment plan goals are met and no additional complications. The services are ordered in accordance with Medicare regulations or non- Medicare payer requirements, as applicable. In the case of services not specified as inpatient-only, they are appropriately provided as inpatient services in accordance with the 2-midnight benchmark. Code Status Full code Discussed Condition With ED physician, patient and Dr. Sumner Discussed with emergency room physician RNs patient and her Attending Statement The exam, history, and the medical decision-making described in the above note were completed with the assistance of the mid-level provider. I reviewed and agree with the findings presented. I attest that I had a [id number] encounter with the patient on the same day, and personally performed and documented my assessment and findings in the medical record. 2 days is the estimated time the patient will need to remain in the hospital, assuming treatment plan goals are met and no additional complications. Betite Richardson May 15, 2017 17:09 Joni Sumner DO May 15, 2017 17:47
[2017-05-15] MEDS ORDERED: RESP: ALBUTEROL 2.5 MG/IPRATROPIUM 0.5 MG NEB (PRN) NEB (17:15)
[2017-05-15] MEDS: RESP: IPRATROPIUM 0.5 MG/2.5 ML NEB NEB PRN (19:52)
[2017-05-15] MEDS: DOCUSATE SODIUM 50 MG/SENNA 8.6 MG TAB PO SCH (20:45)
[2017-05-15] MEDS: SODIUM CHLORIDE 0.9% FLUSH 10 ML FLUSH IV FLUSH SCH (20:45)
[2017-05-15] MEDS: INSULIN ASPART SUPPLEMENTAL SCALE SQ SCH (20:45)
[2017-05-15] MEDS: ATORVASTATIN 40 MG TAB PO SCH (20:46)
[2017-05-15] MEDS: CALCIUM/VITAMIN D 250 MG/125 U TAB PO SCH (20:46)
[2017-05-15] MEDS ORDERED: Cyclosporine Opth 0.05% (Restasis Opth 0.05%) 1 DROP RIGHT EYE SCH (21:00)
[2017-05-15 21:18] LABS: HEMATOCRIT 24.5 % (35.0-46.0); REVIEW FLAG FINAL
[2017-05-16] VITALS (33 sets, daily range): BP systolic 122–160; BP diastolic 43–87; PULSE 70–88; RESP 16–18; TEMP 97.7–98.8; O2SAT 95–98
[2017-05-16 06:43] LABS: AUTOMATED NEUTROPHIL # 4.2 TH/MM3 (1.8-7.7); BASOPHIL % 0.6 % (0.0-2.0); EOSINOPHIL # 0.3 TH/MM3 (0-0.4); EOSINOPHIL % 3.7 % (0.0-4.0); HEMATOCRIT 24.8 % (35.0-46.0); HEMO FLAGS DIFF FINAL; LYMPH % 25.7 % (9.0-44.0); LYMPHOCYTE # 1.8 TH/MM3 (1.0-4.8); MEAN CELL VOLUME 86.7 FL (80.0-100.0); MEAN CORPUSCULAR HEMOGLOBIN 28.8 PG (27.0-34.0); MEAN CORPUSCULAR HGB CONC 33.2 % (32.0-36.0); MONO % 10.2 % (0.0-8.0); NEUT % 59.8 % (16.0-70.0); PLATELET COUNT 217 TH/MM3 (150-450); RED BLOOD COUNT 2.86 MIL/MM3 (4.00-5.30); RED CELL DISTRIBUTION WIDTH 14.2 % (11.6-17.2); WHITE BLOOD COUNT 7.1 TH/MM3 (4.0-11.0)
[2017-05-16 06:57] LABS: PROTHROMBIN TIME - PATIENT 10.7 SEC (9.8-11.6)
[2017-05-16 07:11] LABS: ANION GAP 8 MEQ/L (5-15); BICARBONATE 27.3 MEQ/L (21.0-32.0); BLOOD UREA NITROGEN 10 MG/DL (7-18); CHLORIDE 105 MEQ/L (98-107); GLOMERULAR FILTRATION RATE 65 ML/MIN (>89); MAGNESIUM 2.2 MG/DL (1.5-2.5); POTASSIUM 3.8 MEQ/L (3.5-5.1); SODIUM (NA) 140 MEQ/L (136-145)
[2017-05-16 07:13] LABS: ALT (GPT) 27 U/L (10-53); AST (GOT) 21 U/L (15-37)
[2017-05-16 07:22] LABS: ALKALINE PHOSPHATASE 68 U/L (45-117); FREE T4 1.13 NG/DL (0.76-1.46); TOTAL BILIRUBIN ADULT 0.9 MG/DL (0.2-1.0)
[2017-05-16] MEDS: INSULIN ASPART SUPPLEMENTAL SCALE SQ SCH ×4 (08:00→20:25)
[2017-05-16] MEDS: RESP: IPRATROPIUM 0.5 MG/2.5 ML NEB NEB PRN ×2 (08:33→20:27)
[2017-05-16] MEDS ORDERED: THROMBIN (TOPICAL) 5,000 UNIT VIAL ONE (08:53)
[2017-05-16] MEDS: EYELID CLEANSER COMBINATION EACH EYE SCH (09:00)
--- NOTE | 2017-05-16 09:51 | HHI.PR ---
Subjective Remarks This is an 82yo female with PMHX of paroxysmal atrial fibrillation, HTN, HLD, COPD, DM and GERD who underwent a cardiac catheterization by Dr. Saini with cryoablation this past Sunday on 05/11/17 with left groin access site. Patient was found to have supratherapeutic INR of 3.8 and Coumadin was held prior to her discharge on Sunday05/13/17. Patient followed up in Dr. Saini's office on Sunday and repeat INR was 1.4. She was given a new prescription for Eliquis 5mg BID which she took only 2 doses of one Sunday night and the other this morning. Patient states she began to notice progressive swelling and bruising extending from her left groin down to her knee. Patient contacted Dr. Saini's office and was instructed to come into the ED where she had an ultrasound completed revealing a pseudoaneurysm with surrounding hematoma in the left groin. Patients current INR is 1.0. IR has been consulted and plans to perform procedure tomorrow. Patient's only complaint at present is she feels weak. She denies any chest pain or shortness of breath. She denies any fever, chills, lightheadedness, dizziness or numbness/tingling. She denies any N/V or abdominal pain. She denies any urinary complaints, diarrhea or constipation. 05-16 to undergo pseudoaneurysm drainage by interventional radiology No nausea no vomiting no diarrhea no constipation no fevers or chills or no dysuria no urgency or no frequency denies any hematuria, emesis, hematochezia, denies any seizures or strokes Objective Vitals Vital Signs Date Time Temp Pulse Resp B/P (MAP) Pulse Ox O2 Delivery O2 Flow Rate FiO2 05/16/17 08:40 95 05/16/17 08:30 97.7 78 18 145/82 (103) 96 05/16/17 07:16 80 05/16/17 06:00 79 05/16/17 05:00 80 05/16/17 04:00 78 05/16/17 03:28 98.2 76 16 144/76 (98) 97 05/16/17 03:00 74 05/16/17 02:00 71 05/16/17 01:00 80 05/16/17 00:00 70 05/16/17 00:00 98.6 70 16 122/63 (82) 98 05/15/17 23:00 70 05/15/17 22:00 72 05/15/17 21:00 72 05/15/17 20:00 98.8 75 16 134/64 (87) 97 05/15/17 20:00 78 05/15/17 19:52 97 21 05/15/17 19:00 76 05/15/17 18:40 98.5 72 20 158/71 (100) 99 05/15/17 18:40 74 05/15/17 18:31 05/15/17 18:13 72 17 152/69 (96) 99 Room Air 05/15/17 15:45 68 17 163/72 (102) 96 Room Air 05/15/17 14:56 97 21 05/15/17 14:15 98.1 76 16 135/81 (99) 99 I/O 05/15/17 05/15/17 05/15/17 05/16/17 05/16/17 05/16/17 06:59 14:59 22:59 06:59 14:59 22:59 Intake Total 720 ml Output Total 875 ml Balance -155 ml Intake Oral 720 ml Output Urine Total 875 ml # Bowel Movements 0 Result Diagram: 05/16/17 0605 05/16/17 0608 Other Results Laboratory Tests Test 05/15/17 15:35 05/15/17 20:58 05/15/17 21:06 05/16/17 06:05 White Blood Count 7.0 TH/MM3 7.1 TH/MM3 Red Blood Count 2.96 MIL/MM3 2.86 MIL/MM3 Hemoglobin 8.5 GM/DL 8.0 GM/DL 8.2 GM/DL Hematocrit 25.8 % 24.5 % 24.8 % Mean Corpuscular Volume 87.1 FL 86.7 FL Mean Corpuscular Hemoglobin 28.9 PG 28.8 PG Mean Corpuscular Hemoglobin Concent 33.2 % 33.2 % Red Cell Distribution Width 14.7 % 14.2 % Platelet Count 212 TH/MM3 217 TH/MM3 Mean Platelet Volume 7.6 FL 7.4 FL Neutrophils (%) (Auto) 59.5 % 59.8 % Lymphocytes (%) (Auto) 27.1 % 25.7 % Monocytes (%) (Auto) 9.5 % 10.2 % Eosinophils (%) (Auto) 3.3 % 3.7 % Basophils (%) (Auto) 0.6 % 0.6 % Neutrophils # (Auto) 4.2 TH/MM3 4.2 TH/MM3 Lymphocytes # (Auto) 1.9 TH/MM3 1.8 TH/MM3 Monocytes # (Auto) 0.7 TH/MM3 0.7 TH/MM3 Eosinophils # (Auto) 0.2 TH/MM3 0.3 TH/MM3 Basophils # (Auto) 0.0 TH/MM3 0.0 TH/MM3 CBC Comment DIFF FINAL DIFF FINAL Differential Comment Prothrombin Time 11.1 SEC Prothromb Time International Ratio 1.0 RATIO Activated Partial Thromboplast Time 28.8 SEC Blood Urea Nitrogen 13 MG/DL Creatinine 0.83 MG/DL Random Glucose 144 MG/DL Total Protein 6.3 GM/DL Albumin 3.0 GM/DL Calcium Level 8.7 MG/DL Magnesium Level 2.2 MG/DL Alkaline Phosphatase 69 U/L Aspartate Amino Transf (AST/SGOT) 31 U/L Alanine Aminotransferase (ALT/SGPT) 31 U/L Total Bilirubin 0.8 MG/DL Sodium Level 138 MEQ/L Potassium Level 4.4 MEQ/L Chloride Level 104 MEQ/L Carbon Dioxide Level 27.2 MEQ/L Anion Gap 7 MEQ/L Estimat Glomerular Filtration Rate 66 ML/MIN Total Creatine Kinase 99 U/L 72 U/L Troponin I 1.47 NG/ML 1.22 NG/ML Test 05/16/17 06:08 Prothrombin Time 10.7 SEC Prothromb Time International Ratio 1.0 RATIO Blood Urea Nitrogen 10 MG/DL Creatinine 0.84 MG/DL Random Glucose 104 MG/DL Total Protein 5.8 GM/DL Albumin 2.9 GM/DL Calcium Level 8.7 MG/DL Phosphorus Level 3.5 MG/DL Magnesium Level 2.2 MG/DL Alkaline Phosphatase 68 U/L Aspartate Amino Transf (AST/SGOT) 21 U/L Alanine Aminotransferase (ALT/SGPT) 27 U/L Total Bilirubin 0.9 MG/DL Sodium Level 140 MEQ/L Potassium Level 3.8 MEQ/L Chloride Level 105 MEQ/L Carbon Dioxide Level 27.3 MEQ/L Anion Gap 8 MEQ/L Estimat Glomerular Filtration Rate 65 ML/MIN Free Thyroxine 1.13 NG/DL Thyroid Stimulating Hormone 3rd Gen 0.837 uIU/ML Imaging Last Impressions Lower Extremity Ultrasound 05/15/17 0000 Signed Impressions: Service Date/Time: Monday, May 15, 2017 14:45 - CONCLUSION: 1. Pseudoaneurysm with surrounding hematoma in the left groin. Monroe Summers MD Objective Remarks GENERAL: This is a well-nourished, well-developed patient, in no apparent distress. Awake and alert. Appears comfortable. Talkative. SKIN: Warm and dry. LLE with edema and ecchymosis extending from the groin to just below the knee. Large area of ecchymosis bruising purplish hue the left groin HEAD: Atraumatic. Normocephalic. No temporal or scalp tenderness. EYES: Pupils equal round and reactive. Extraocular motions intact. No scleral icterus. No injection or drainage. ENT: Nose without bleeding, purulent drainage. Throat without erythema, tonsillar hypertrophy or exudate. Uvula midline. Airway patent. Tongue is midline NECK: Trachea midline. No lymphadenopathy. Supple, nontender, no meningeal signs. CARDIOVASCULAR: Regular rate and rhythm without murmurs, gallops, or rubs. S1 and S2 no S3 or S4 RESPIRATORY: Diminished but clear to auscultation. No wheezes, rales, or rhonchi. GASTROINTESTINAL: Abdomen soft, non-tender, nondistended. No hepato-splenomegaly , or palpable masses. No guarding. MUSCULOSKELETAL: Extremities without clubbing, cyanosis, or edema. No joint tenderness, effusion, or edema noted. No calf tenderness. Large left groin hematoma NEUROLOGICAL: Awake and alert. Able to move all extremities. No focal neurologic finding. Normal speech. Insight and judgment is good mood and behavior is appropriate Procedures To have interventional radiology do pseudoaneurysm drainage on the left groin Medications and IVs Current Medications Ipratropium Webster (Atrovent Neb) 0.5 mg ONCE ONCE NEB Last administered on t 14:35; Start 05/15/17 at 14:30; Stop 05/15/17 at 14:31; Status DC Sodium Chloride (NS Flush) 2 ml UNSCH PRN IVF FLUSH AFTER USING IV ACCESS; Start 05/15/17 at 15:15 Thrombin (Thrombin Top Soln) 5,000 units STBakers Shoes-MED ONCE .ROUTE ; Start 05/15/17 at 16:11; Stop 05/15/17 at 16:12; Status DC Sodium Chloride (NS Flush) 2 ml UNSCH PRN IV FLUSH FLUSH AFTER USING IV ACCESS ; Start 05/15/17 at 16:15 Sodium Chloride (NS Flush) 2 ml BID IV FLUSH Last administered on 05/15/17t 20: 45; Start 05/15/17 at 21:00 Acetaminophen (Tylenol) 650 mg Q4H PRN PO TEMP > 100.4; Start 05/15/17 at 16:15 Ondansetron HCl (Zofran Inj) 4 mg Q6H PRN IVP NAUSEA OR VOMITING; Start at 16:15 Prochlorperazine (Compazine Supp) 25 mg Q12H PRN RECTAL NAUSEA OR VOMITING; Start 05/15/17 at 16:15 Acetaminophen (Tylenol) 650 mg Q6H PRN PO PAIN SCALE 1 TO 2; Start 05/15/17 at 16:15 Tramadol HCl (Ultram) 50 mg Q4H PRN PO PAIN SCALE 3 TO 5; Start 05/15/17 at 16: 15 Tramadol HCl (Ultram) 100 mg Q4H PRN PO PAIN SCALE 6 TO 10; Start 05/15/17 at 16:15 Naloxone HCl (Narcan Inj) 0.4 mg UNSCH PRN IV PUSH SEE LABEL COMMENTS; Start at 16:15 Senna/Docusate Sodium (Luad-Colace) 1 tab BID PO ; Start 05/15/17 at 21:00 Magnesium Hydroxide (Milk Of Magnesia Liq) 30 ml Q12H PRN PO MILD - MODERATE CONSTIPATION; Start 05/15/17 at 16:15 Sennosides (Senokot) 17.2 mg Q12H PRN PO MODERATE - SEVERE CONSTIPATION; Start 05/15/17 at 16:15 Bisacodyl (Dulcolax Supp) 10 mg DAILY PRN RECTAL SEVERE CONSITIPATION; Start at 16:15 Lactulose (Lactulose Liq) 30 ml DAILY PRN PO SEVERE CONSITIPATION; Start at 16:15 Atorvastatin Calcium (Lipitor) 40 mg HS PO Last administered on 05/15/17t 20:46 ; Start 05/15/17 at 21:00 Ferrous Sulfate (Ferrous Sulfate) 325 mg DAILY PO ; Start 05/16/17 at 09:00 Ipratropium Webster (Atrovent Neb) 0.5 mg Q2HR NEB PRN NEB SHORTNESS OF BREATH Last administered on 05/16/17 08:33; Start 05/15/17 at 16:30 Calcium/Vitamin D (Oscal-D 250-125) 500 mg BID PO Last administered on 20:46; Start 05/15/17 at 21:00 Patient Own Medication PT OWN MED: Cyclosporine Opth 0.... BID RIGHT EYE ; Start 05/15/17 at 21:00; Status Future Hold Diltiazem HCl (Cardizem Cd) 120 mg DAILY PO ; Start 05/16/17 at 09:00 Patient Own Medication PT OWN MED: Eye... DAILY EACH EYE ; Start 05/16/17 at 09: 00 Patient Own Medication PT OWN MED: Polyethylene Glycol-Propyl... Q2HR PRN EACH EYE DRY EYE; Start 05/15/17 at 16:30 Tiotropium Webster (Spiriva Inh) 2 mcg DAILY INH ; Start 05/16/17 at 09:00 Non-Formulary Medication 2 liter DIRECTED NA ; Start 05/15/17 at 16:30; Stop 05/15/17 at 18:34; Status DC Dextrose (D50w (Vial) Inj) 50 ml UNSCH PRN IV PUSH HYPOGLYCEMIA-SEE COMMENTS; Start 05/15/17 at 16:30 Glucagon (Glucagon Inj) 1 mg UNSCH PRN OTHER HYPOGLYCEMIA-SEE COMMENTS; Start 05/15/17 at 16:30 Insulin Aspart (NovoLOG SUPPLEMENTAL SCALE) 1 ACHS SLIDING SCALE SQ Last administered on 05/15/17 20:45; Start 05/15/17 at 17:00 Albuterol/ Ipratropium (Duoneb Neb) 1 ampule Q4HR NEB PRN NEB sob; Start at 17:15; Stop 05/15/17 at 18:29; Status DC Thrombin (Thrombin Top Soln) 5,000 units STK-MED ONCE .ROUTE ; Start 05/16/17 at 08:53; Stop 05/16/17 at 08:54; Status DC Urinary Catheter: No Vascular Central Line Catheter: No A/P Problem List: (1) Pseudoaneurysm following procedure ICD Code: I99.8 - Other disorder of circulatory system; I72.9 - Aneurysm of unspecified site Status: Acute (2) DM2 (diabetes mellitus, type 2) ICD Code: E11.9 - Type 2 diabetes mellitus without complications Status: Chronic (3) Atrial fibrillation with rapid ventricular response ICD Code: I48.91 - Atrial fibrillation with rapid ventricular response Status: Chronic (4) HTN (hypertension) ICD Code: I10 - Essential (primary) hypertension Status: Chronic (5) COPD (chronic obstructive pulmonary disease) ICD Code: J44.9 - Chronic obstructive pulmonary disease, unspecified Status: Chronic (6) A-fib ICD Code: I48.91 - Atrial fibrillation Status: Acute (7) 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 Saini with cryoablation this past Sunday on 05/11/17 with left groin access site who developed progressive edema and ecchymosis of the LLE after beginning Eliquis x 2 doses. Pseudoaneurysm left groin s/p cardiac catheterization 05/11/17 - Doppler US reviewed showing pseudoaneurysm with surrounding hematoma in the left groin - hold all anticoagulants - INR 1.0 - IR consulted and plans to perform therapeutic procedure in a.m. Anemia AIRAM, chronic - secondary to acute blood loss - monitor H/H closely - continue on po supplementation PAF s/p cardiac cath with cryoablation 05/11/17 - Consult cardiology - Consult Dr. Saini - resume patient on Diltiazem 120mg daily - Chads score 3 - continuous cardiac monitoring - of note, patient is intolerant of BB due to oxygen dependent COPD and CCB d /t LE edema DM - hold patients home Metformin - ISS - accuchecks - obtain HgbA1c COPD, not in acute exacerbation - resume patients home bronchodilators - Atrovent neb - monitor respiratory status - supplemental oxygen to keep O2 sats above 92% HLD - resume patients home dose of Atorvastatin 40mg daily DVT prophylaxis - chemoprophylaxis contraindicated - Bilateral SCD/KELLY hose Hold all anticoagulation at this time A.m. Joni Espino DO May 16, 2017 09:51
[2017-05-16] MEDS: CALCIUM/VITAMIN D 250 MG/125 U TAB PO SCH ×2 (10:12→20:20)
[2017-05-16] MEDS: FERROUS SULFATE 325 MG (65 MG ELEMENTAL IRON) TAB PO SCH (10:12)
[2017-05-16] MEDS: DILTIAZEM-CD 120 MG CAP ER PO SCH (10:13)
[2017-05-16] MEDS: TIOTROPIUM BROMIDE 18 MCG INH INH SCH (10:17)
--- NOTE | 2017-05-16 10:17 | PD.RAD ---
Post Procedure Progress Note Pre Procedure Diagnosis: (1) Pseudoaneurysm following procedure Post Procedure Diagnosis: (1) Pseudoaneurysm following procedure Procedure Date: May 16, 2017 Supervising Radiologist: Raffaele Caballero Proceduralist/Assist: Kolton Watson, RT(R), Chris Gunn, RT(R) Anesthesia: Local Plan of Activity Patient to Unit: Nursing Unit Patient Condition: Good See PACS Report for procedural detail/treatment Vascular-Arterial Procedure Procedure 1 Procedure Site: Left Leg Procedure(s): Embolization (Left groin pseudoaneurysm) Access Access Site(s): Other (Left groin pseudoaneurysm) Findings: Large left pseudoaneurysm. Under direct U/S guidance, 0.5 cc (500 units) of thrombin was injected into pseudoaneurysm. Direct pressure maintained with u/s probe for 20 minutes. No detectable doppler flow in pseudoaneurysm after therapy. Raffaele Caballero MD May 16, 2017 10:17
[2017-05-16] MEDS: SODIUM CHLORIDE 0.9% FLUSH 10 ML FLUSH IV FLUSH SCH ×2 (10:18→20:23)
[2017-05-16] MEDS: DOCUSATE SODIUM 50 MG/SENNA 8.6 MG TAB PO SCH ×2 (10:19→21:00)
--- NOTE | 2017-05-16 13:53 | RADRPT ---
EXAM DATE/TIME: 05/16/2017 10:05 [facility] COMPARISON: No previous studies available for comparison.w INDICATIONS : Patient presents with left groin pseudoaneurysm in need of evaluation with possible thrombin injectio n. MEDICAL HISTORY : Asthma High cholesterol Afib Hypotension Heart failure COPD DM Fibromyalgia GERD HTN SURGICAL HISTORY : Appendectomy Cardiac surgery Tonsillectomy Left knee replacement Partial hysterectomy ENCOUNTER: Initial ACUITY: 1 day PAIN SCORE: 0/10 LOCATION: N/A IMAGE SERIES: 6 MEDICATION(S): 1.) 500 units Thrombin IART TECH NOTE: Ultrasound guidance was utilized for injection of thrombin into pseudoaneurysm.[facility] MR #:[id number] :37 Exam Dt/Desc: May 16, 2017TRANSCATH IV OCCLUSSION, FEMORAL PSEUDOANEURY SM, LEFT PROCEDURE : 1. Ultrasound guided puncture of pseudoaneurysm. 2. Thrombin injection of pseudoaneurysm. The risks, benefits and alternatives to the procedure were explained and verbal and written consent w as obtained. The site was prepped in sterile fashion. Full sterile technique was used, including ca p, mask, sterile gloves and gown and a large sterile sheet. Hand hygiene and 2% chlorhexidine and/or betadine/alcohol prep was utilized per protocol for cutaneous antisepsis. Sterile gel and sterile p robe cover were utilized for ultrasound guidance. The skin and subcutaneous tissues were infiltrate d with local anesthetic solution. Ultrasonography was performed of the pseudoaneurysm in the left groin. With ultrasound guidance the p ulsatile mass was punctured and the prescribed dose of thrombin was injected. Followup ultrasound ex amination demonstrates complete stasis of flow within the pseudoaneurysm. CONCLUSION: Uncomplicated occlusion of left pseudoaneurysm as above Raffaele Caballero MD on May 16, 2017 at 13:49 Board Certified Radiologist. This report was verified electronically.
--- NOTE | 2017-05-16 14:45 | RADRPT ---
EXAM DATE/TIME: 05/16/2017 11:59 [facility] COMPARISON: US LEG LEFT HEMATOMA/PSEUDOANEURYSM, May 15, 2017, 14:45. INDICATIONS : Pseudoanerysm, post occlusion 05/16/17. MEDICAL HISTORY : Hypercholesterolemia. Arthritis. Osteoporosis. Migraines. Afib. Hypotension. Heart failure. HTN. COPD . Asthma. Dyspnea. Fibromyalgia. Type II Diabetes. Herniated discs x5. GERD. Anticoagulant therapy, A spirin 81mg. SURGICAL HISTORY : Tonsillectomy. Appendectomy. Cholecystectomy. Cataracts. Vaginal prolapse with repair. Left knee repl acement. Blood tranfusions. ENCOUNTER: Subsequent ACUITY: 1 day PAIN SCORE: 2/10 LOCATION: Left groin. AREA EVALUATED: Left groin. FINDINGS: Previously seen pseudoaneurysm appears to been successfully occluded. No residual flow in the pseudoa neurysm. Regional hematoma measures 4.2 x 2.6 x 3.4 cm. CONCLUSION: Successful occlusion of the previously seen left groin pseudoaneurysm Raffaele Caballero MD on May 16, 2017 at 14:40 Board Certified Radiologist. This report was verified electronically.
[2017-05-16 16:43] LABS: HEMOGLOBIN A1a 1.4 %; HEMOGLOBIN A1b 2.1 %; HEMOGLOBIN Ao 83.3 %; HEMOGLOBIN LA1C 1.9 %; HEMOGLOBIN P3 4.1 %
[2017-05-16] MEDS: ATORVASTATIN 40 MG TAB PO SCH (20:20)
--- NOTE | 2017-05-16 20:56 | EKG ---
Date Performed: 05/15/2017 Time Performed: 17:48:12 PTAGE: 82 years EKG: Sinus rhythm WITH FIRST DEGREE AV BLOCK ABNORMAL ECG PREVIOUS TRACING : 05/12/2017 19.51 Compared to prior tracing no significant change DOCTOR: Carrillo Javier Interpretating Date/Time 05/16/2017 20:49:09
[2017-05-17] VITALS (21 sets, daily range): BP systolic 123–154; BP diastolic 47–80; PULSE 52–81; RESP 16–19; TEMP 97.8–99.1; O2SAT 95–98
[2017-05-17 06:05] LABS: AUTOMATED NEUTROPHIL # 3.4 TH/MM3 (1.8-7.7); BASOPHIL % 0.8 % (0.0-2.0); EOSINOPHIL # 0.3 TH/MM3 (0-0.4); EOSINOPHIL % 4.1 % (0.0-4.0); HEMATOCRIT 25.4 % (35.0-46.0); HEMO FLAGS DIFF FINAL; LYMPH % 29.9 % (9.0-44.0); LYMPHOCYTE # 1.9 TH/MM3 (1.0-4.8); MEAN CELL VOLUME 88.3 FL (80.0-100.0); MEAN CORPUSCULAR HEMOGLOBIN 29.6 PG (27.0-34.0); MEAN CORPUSCULAR HGB CONC 33.5 % (32.0-36.0); MONO % 11.2 % (0.0-8.0); PLATELET COUNT 240 TH/MM3 (150-450); RED BLOOD COUNT 2.88 MIL/MM3 (4.00-5.30); RED CELL DISTRIBUTION WIDTH 14.5 % (11.6-17.2); WHITE BLOOD COUNT 6.4 TH/MM3 (4.0-11.0)
[2017-05-17 06:34] LABS: ALT (GPT) 24 U/L (10-53); ANION GAP 6 MEQ/L (5-15); AST (GOT) 13 U/L (15-37); BICARBONATE 29.2 MEQ/L (21.0-32.0); BLOOD UREA NITROGEN 7 MG/DL (7-18); CHLORIDE 105 MEQ/L (98-107); GLOMERULAR FILTRATION RATE 64 ML/MIN (>89); MAGNESIUM 2.3 MG/DL (1.5-2.5); SODIUM (NA) 140 MEQ/L (136-145)
[2017-05-17 06:37] LABS: ALKALINE PHOSPHATASE 71 U/L (45-117); TOTAL BILIRUBIN ADULT 1.2 MG/DL (0.2-1.0)
[2017-05-17] MEDS: RESP: IPRATROPIUM 0.5 MG/2.5 ML NEB NEB PRN (07:53)
[2017-05-17] MEDS: INSULIN ASPART SUPPLEMENTAL SCALE SQ SCH ×4 (08:00→21:00)
[2017-05-17] MEDS: DOCUSATE SODIUM 50 MG/SENNA 8.6 MG TAB PO SCH ×2 (09:00→21:00)
[2017-05-17] MEDS: EYELID CLEANSER COMBINATION EACH EYE SCH (09:00)
[2017-05-17] MEDS: FERROUS SULFATE 325 MG (65 MG ELEMENTAL IRON) TAB PO SCH (09:24)
[2017-05-17] MEDS: SODIUM CHLORIDE 0.9% FLUSH 10 ML FLUSH IV FLUSH SCH ×2 (09:24→23:02)
[2017-05-17] MEDS: CALCIUM/VITAMIN D 250 MG/125 U TAB PO SCH ×2 (09:24→23:02)
[2017-05-17] MEDS: DILTIAZEM-CD 120 MG CAP ER PO SCH (09:24)
--- NOTE | 2017-05-17 09:34 | HHI.PR ---
Subjective Remarks The patient was sitting up in a chair. She said that she had no pain. She said she did not know that her bruising was as widespread as it was. She said she has been very weak since she has been in and out of the hospital since February. She would like to go home. Discussed with nursing at the bedside. Objective Vitals Vital Signs Date Time Temp Pulse Resp B/P (MAP) Pulse Ox O2 Delivery O2 Flow Rate FiO2 05/17/17 08:00 71 05/17/17 07:00 81 05/17/17 07:00 97.9 71 18 154/76 (102) 95 05/17/17 06:11 56 05/17/17 05:00 52 05/17/17 04:24 77 05/17/17 03:59 74 05/17/17 03:39 98.7 68 17 132/47 (75) 98 05/17/17 02:07 73 05/17/17 01:06 75 05/17/17 00:30 72 05/17/17 00:30 97.8 72 17 148/69 (95) 96 05/16/17 22:35 76 05/16/17 21:45 80 05/16/17 20:27 96 05/16/17 20:03 82 05/16/17 19:51 77 05/16/17 19:00 98.8 77 17 151/60 (90) 96 05/16/17 17:06 75 05/16/17 16:01 76 05/16/17 15:04 98.6 86 17 139/43 (75) 97 05/16/17 15:00 88 05/16/17 14:39 77 05/16/17 13:14 78 05/16/17 12:30 160/83 (108) 05/16/17 12:08 74 05/16/17 12:00 152/76 (101) 05/16/17 11:30 160/79 (106) 05/16/17 11:07 78 16 151/80 (103) 97 05/16/17 11:00 151/80 (103) 05/16/17 10:30 150/77 (101) 05/16/17 10:13 82 05/16/17 10:00 155/87 (109) I/O 05/16/17 05/16/17 05/16/17 05/17/17 9/21/17 9/21/17 07:00 15:00 23:00 07:00 15:00 23:00 Intake Total 720 ml 1200 ml 600 ml Output Total 875 ml 700 ml 1200 ml Balance -155 ml 500 ml -600 ml Intake Oral 720 ml 1200 ml 600 ml Output Urine Total 875 ml 700 ml 1200 ml # Bowel Movements 0 2 1 Result Diagram: 05/17/17 0531 05/17/17 0530 Imaging Last Impressions Lower Extremity Ultrasound 05/16/17 1500 Signed Impressions: Service Date/Time: Tuesday, May 16, 2017 11:59 - CONCLUSION: Successful occlusion of the previously seen left groin pseudoaneurysm Raffaele Caballero MD Embolization, Transcatheter 05/16/17 0000 Signed Impressions: Service Date/Time: Tuesday, May 16, 2017 10:05 - CONCLUSION: Uncomplicated occlusion of left pseudoaneurysm as above Raffaele Caballero MD Objective Remarks GENERAL: This is a well-nourished, well-developed patient, in no apparent distress. SKIN: Warm and dry. LLE with ecchymosis extending from the thigh to the lower left flank. HEAD: Atraumatic. Normocephalic. No temporal or scalp tenderness. EYES: Pupils equal round and reactive. Extraocular motions intact. No scleral icterus. No injection or drainage. ENT: Nose without bleeding, purulent drainage. Throat without erythema, tonsillar hypertrophy or exudate. Uvula midline. Airway patent. Tongue is midline NECK: Trachea midline. No lymphadenopathy. Supple, nontender, no meningeal signs. CARDIOVASCULAR: Regular rate and rhythm without murmurs, gallops, or rubs. S1 and S2 no S3 or S4. RESPIRATORY: Diminished but clear to auscultation. No wheezes, rales, or rhonchi. GASTROINTESTINAL: Abdomen soft, non-tender, nondistended. No hepato-splenomegaly , or palpable masses. No guarding. MUSCULOSKELETAL: Extremities without clubbing, cyanosis, or edema. NEUROLOGICAL: Awake and alert. Able to move all extremities. No focal neurologic finding. Normal speech. PSYCH: Mood and affect appropriate. Procedures Pseudoaneurysm occlusion 05/16 Medications and IVs Current Medications Medications (Trade) Dose Ordered Sig/Raymundo Route Start Time Stop Time Status Last Admin (NS Flush) 2 ml UNSCH PRN IVF 05/15/17 15:15 (NS Flush) 2 ml UNSCH PRN IV FLUSH 05/15/17 16:15 (NS Flush) 2 ml BID IV FLUSH 05/15/17 21:00 05/17/17 09:24 (Tylenol) 650 mg Q4H PRN PO 05/15/17 16:15 (Zofran Inj) 4 mg Q6H PRN IVP 05/15/17 16:15 (Compazine Supp) 25 mg Q12H PRN RECTAL 05/15/17 16:15 (Tylenol) 650 mg Q6H PRN PO 05/15/17 16:15 (Ultram) 50 mg Q4H PRN PO 05/15/17 16:15 (Ultram) 100 mg Q4H PRN PO 05/15/17 16:15 (Narcan Inj) 0.4 mg UNSCH PRN IV PUSH 05/15/17 16:15 (Luda-Colace) 1 tab BID PO 05/15/17 21:00 (Milk Of Magnesia Liq) 30 ml Q12H PRN PO 05/15/17 16:15 (Senokot) 17.2 mg Q12H PRN PO 05/15/17 16:15 (Dulcolax Supp) 10 mg DAILY PRN RECTAL 05/15/17 16:15 (Lactulose Liq) 30 ml DAILY PRN PO 05/15/17 16:15 (Lipitor) 40 mg HS PO 05/15/17 21:00 05/16/17 20:20 (Ferrous Sulfate) 325 mg DAILY PO 05/16/17 09:00 05/17/17 09:24 (Atrovent Neb) 0.5 mg Q2HR NEB PRN NEB 05/15/17 16:30 05/17/17 07:53 (Oscal-D 250-125) 500 mg BID PO 05/15/17 21:00 05/17/17 09:24 Patient Own Medication PT OWN MED: Cyclosporine Opth 0.... BID RIGHT EYE 05/15/17 21:00 Future Hold (Cardizem Cd) 120 mg DAILY PO 05/16/17 09:00 05/17/17 09:24 Patient Own Medication PT OWN MED: Eye... DAILY EACH EYE 05/16/17 09:00 Patient Own Medication PT OWN MED: Polyethylene Glycol-Propyl... Q2HR PRN EACH EYE 05/15/17 16:30 (Spiriva Inh) 2 mcg DAILY INH 05/16/17 09:00 05/16/17 10:17 (D50w (Vial) Inj) 50 ml UNSCH PRN IV PUSH 05/15/17 16:30 (Glucagon Inj) 1 mg UNSCH PRN OTHER 05/15/17 16:30 (NovoLOG SUPPLEMENTAL SCALE) 1 ACHS SLIDING SCALE SQ 05/15/17 17:00 05/16/17 12:00 A/P Problem List: (1) Pseudoaneurysm following procedure ICD Code: I99.8 - Other disorder of circulatory system; I72.9 - Aneurysm of unspecified site Status: Acute (2) DM2 (diabetes mellitus, type 2) ICD Code: E11.9 - Type 2 diabetes mellitus without complications Status: Chronic (3) Atrial fibrillation with rapid ventricular response ICD Code: I48.91 - Atrial fibrillation with rapid ventricular response Status: Chronic (4) HTN (hypertension) ICD Code: I10 - Essential (primary) hypertension Status: Chronic (5) COPD (chronic obstructive pulmonary disease) ICD Code: J44.9 - Chronic obstructive pulmonary disease, unspecified Status: Chronic (6) A-fib ICD Code: I48.91 - Atrial fibrillation Status: Acute (7) 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 Saini with cryoablation this past Sunday on 05/11/17 with left groin access site who developed progressive edema and ecchymosis of the LLE after beginning Eliquis x 2 doses. Pseudoaneurysm left groin s/p cardiac catheterization 05/11/17 - Doppler US reviewed showing pseudoaneurysm with surrounding hematoma in the left groin - hold all anticoagulants - IR consulted and performed pseudoaneurysm occlusion - follow up with cardiology. Anemia AIRAM, chronic - secondary to acute blood loss - monitor H/H closely. Stable - continue on po supplementation PAF s/p cardiac cath with cryoablation 05/11/17 - Consult cardiology - resume patient on Diltiazem 120mg daily - Chads score 3 - continuous cardiac monitoring - of note, patient is intolerant of BB due to oxygen dependent COPD and CCB d /t LE edema DM A1c 6.8%. - hold patients home Metformin - ISS - accuchecks COPD, not in acute exacerbation - resume patients home bronchodilators - Atrovent neb - monitor respiratory status - supplemental oxygen to keep O2 sats above 92% HLD - resume patients home dose of Atorvastatin 40mg daily DVT prophylaxis - chemoprophylaxis contraindicated - Bilateral SCD/KELLY hose Discharge Planning D/c home once cleared by cardiology Marquis Alcantara DO May 17, 2017 09:34
[2017-05-17] MEDS: TIOTROPIUM BROMIDE 18 MCG INH INH SCH (09:53)
[2017-05-17 14:18] LABS: BACTERIA, URINE RARE /hpf; BLOOD, URINE NEG (NEG); COMMENT (UR) CULT NOT INDICATED; CULTURE IF INDICATED CULT NOT INDICATED; GLUCOSE,URINE NEG (NEG); KETONE, URINE NEG (NEG); MUCUS URINE FEW /lpf (OCC); NITRITE,URINE NEG (NEG); SQUAMOUS EPITHELIAL CELL URINE <1 /hpf (0-5); URINE COLOR YELLOW (YELLW/STRAW)
--- NOTE | 2017-05-17 20:39 | HHI.DCPOC ---
Discharge Care Plan Diagnosis: (1) Blood loss anemia (2) Pseudoaneurysm following procedure Goals to Promote Your Health * To prevent worsening of your condition and complications * To maintain your health at the optimal level Directions to Meet Your Goals Take your medications as prescribed Follow your dietary instruction Follow activity as directed Keep your appointments as scheduled Take your immunizations and boosters as scheduled If your symptoms worsen call your PCP, if no PCP go to Urgent Care Center or Emergency Room Smoking is Dangerous to Your Health. Avoid second hand smoke Call the 24-hour hour crisis hotline for domestic abuse at Marquis Alcantara DO May 17, 2017 20:39
--- NOTE | 2017-05-17 20:50 | HHI.DS ---
Discharge Summary Admission Date May 15, 2017 at 17:06 Discharge Date: May 17, 2017 Admitting Diagnosis Large hematoma left groin (1) Pseudoaneurysm following procedure ICD Code: I99.8 - Other disorder of circulatory system; I72.9 - Aneurysm of unspecified site Diagnosis: Principal Status: Acute (2) DM2 (diabetes mellitus, type 2) ICD Code: E11.9 - Type 2 diabetes mellitus without complications Status: Chronic (3) Atrial fibrillation with rapid ventricular response ICD Code: I48.91 - Atrial fibrillation with rapid ventricular response Status: Chronic (4) HTN (hypertension) ICD Code: I10 - Essential (primary) hypertension Status: Chronic (5) COPD (chronic obstructive pulmonary disease) ICD Code: J44.9 - Chronic obstructive pulmonary disease, unspecified Status: Chronic (6) A-fib ICD Code: I48.91 - Atrial fibrillation Status: Acute (7) Blood loss anemia ICD Code: D50.0 - Iron deficiency anemia secondary to blood loss (chronic) Procedures Pseudoaneurysm occlusion 05/16 Brief History - From Admission This is an 82yo female with PMHX of paroxysmal atrial fibrillation, HTN, HLD, COPD, DM and GERD who underwent a cardiac catheterization by Dr. Saini with cryoablation this past Sunday on 05/11/17 with left groin access site. Patient was found to have supratherapeutic INR of 3.8 and Coumadin was held prior to her discharge on Sunday05/13/17. Patient followed up in Dr. Saini's office on Sunday and repeat INR was 1.4. She was given a new prescription for Eliquis 5mg BID which she took only 2 doses of one Sunday night and the other this morning. Patient states she began to notice progressive swelling and bruising extending from her left groin down to her knee. Patient contacted Dr. Saini's office and was instructed to come into the ED where she had an ultrasound completed revealing a pseudoaneurysm with surrounding hematoma in the left groin. Patients current INR is 1.0. IR has been consulted and plans to perform procedure tomorrow. Patient's only complaint at present is she feels weak. She denies any chest pain or shortness of breath. She denies any fever, chills, lightheadedness, dizziness or numbness/tingling. She denies any N/V or abdominal pain. She denies any urinary complaints, diarrhea or constipation. CBC/BMP: 05/17/17 0531 05/17/17 0530 Significant Findings Laboratory Tests Test 05/15/17 15:35 05/15/17 20:58 05/15/17 21:06 05/16/17 06:05 Red Blood Count 2.96 MIL/MM3 (4.00-5.30) 2.86 MIL/MM3 (4.00-5.30) Hemoglobin 8.5 GM/DL (11.6-15.3) 8.0 GM/DL (11.6-15.3) 8.2 GM/DL (11.6-15.3) Hematocrit 25.8 % (35.0-46.0) 24.5 % (35.0-46.0) 24.8 % (35.0-46.0) Monocytes (%) (Auto) 9.5 % (0.0-8.0) 10.2 % (0.0-8.0) Random Glucose 144 MG/DL (74-106) Total Protein 6.3 GM/DL (6.4-8.2) Albumin 3.0 GM/DL (3.4-5.0) Estimat Glomerular Filtration Rate 66 ML/MIN (>89) Troponin I 1.47 NG/ML (0.02-0.05) 1.22 NG/ML (0.02-0.05) Test 05/16/17 06:08 05/17/17 05:30 05/17/17 05:31 05/17/17 13:20 Total Protein 5.8 GM/DL (6.4-8.2) 6.0 GM/DL (6.4-8.2) Albumin 2.9 GM/DL (3.4-5.0) 2.8 GM/DL (3.4-5.0) Estimat Glomerular Filtration Rate 65 ML/MIN (>89) 64 ML/MIN (>89) Hemoglobin A1c 6.8 % (4.3-6.0) Random Glucose 113 MG/DL (74-106) Aspartate Amino Transf (AST/SGOT) 13 U/L (15-37) Total Bilirubin 1.2 MG/DL (0.2-1.0) Red Blood Count 2.88 MIL/MM3 (4.00-5.30) Hemoglobin 8.5 GM/DL (11.6-15.3) Hematocrit 25.4 % (35.0-46.0) Monocytes (%) (Auto) 11.2 % (0.0-8.0) Eosinophils (%) (Auto) 4.1 % (0.0-4.0) Urine Bacteria RARE /hpf (NONE) Urine Mucus FEW /lpf (OCC) Imaging Last Impressions Lower Extremity Ultrasound 05/16/17 1500 Signed Impressions: Service Date/Time: Tuesday, May 16, 2017 11:59 - CONCLUSION: Successful occlusion of the previously seen left groin pseudoaneurysm Raffaele Caballero MD Embolization, Transcatheter 05/16/17 0000 Signed Impressions: Service Date/Time: Tuesday, May 16, 2017 10:05 - CONCLUSION: Uncomplicated occlusion of left pseudoaneurysm as above Raffaele Caballero MD PE at Discharge GENERAL: This is a well-nourished, well-developed patient, in no apparent distress. SKIN: Warm and dry. LLE with ecchymosis extending from the thigh to the lower left flank. HEAD: Atraumatic. Normocephalic. No temporal or scalp tenderness. EYES: Pupils equal round and reactive. Extraocular motions intact. No scleral icterus. No injection or drainage. ENT: Nose without bleeding, purulent drainage. Throat without erythema, tonsillar hypertrophy or exudate. Uvula midline. Airway patent. Tongue is midline NECK: Trachea midline. No lymphadenopathy. Supple, nontender, no meningeal signs. CARDIOVASCULAR: Regular rate and rhythm without murmurs, gallops, or rubs. S1 and S2 no S3 or S4. RESPIRATORY: Diminished but clear to auscultation. No wheezes, rales, or rhonchi. GASTROINTESTINAL: Abdomen soft, non-tender, nondistended. No hepato-splenomegaly , or palpable masses. No guarding. MUSCULOSKELETAL: Extremities without clubbing, cyanosis, or edema. NEUROLOGICAL: Awake and alert. Able to move all extremities. No focal neurologic finding. Normal speech. PSYCH: Mood and affect appropriate. Hospital Course 82yo female with PMHX of atrial fibrillation, HTN, HLD, COPD, DM and GERD who underwent a cardiac catheterization by Dr. Saini with cryoablation this past Sunday on 05/11/17 with left groin access site who developed progressive edema and ecchymosis of the LLE after beginning Eliquis x 2 doses. Doppler US reviewed showing pseudoaneurysm with surrounding hematoma in the left groin. We held all anticoagulants. Cardiology was consulted. IR was consulted and performed pseudoaneurysm occlusion. She will be discharged and will follow up with cardiology. Her anticoagulation will continue to be held at this time. She will resume the rest of her cardiac regimen. Anemia Secondary to acute blood loss. Hemoglobin remained stable. She will have a repeat CBC in 2-3 days. Anticoagulation is on hold. She will continue her po supplementation. Pt Condition on Discharge: Stable Discharge Disposition: Discharge Home Discharge Time: > 30 minutes Discharge Instructions DIET: Follow Instructions for: Diabetic Diet Activities you can perform: Weight Bearing as Ricardo Follow up Referrals: Cardiology - 2-3 Days with Jannette Saini MD PCP Follow-up - 1 Week New Orders: CBC NO DIFF - 2-3 Days Continued Medications: Ascorbic Acid ER (Vitamin C Sr) 500 Mg Caper 1000 MG PO for Nutritional Supplement, CAP 0 Refills Atorvastatin (Atorvastatin) 40 Mg Tab 40 MG PO HS for Cholesterol Management, #30 TAB 0 Refills Calcium Carbonate-Cholecalciferol (Calcium + D3) 600-200 Mg-Unit Tab 1 TAB PO BID for Nutritional Supplement, TAB Cyclosporine Opth 0.05% (Restasis Opth 0.05%) 0.05% Emul 1 DROP RIGHT EYE BID for Dry Eye, #1 BOX 0 Refills Diltiazem HCl Extended Release (Diltiazem HCl ER) 120 Mg Cap 120 MG PO DAILY Eyelid Cleanser Combination #3 (Ocusoft Lid Scrub Plus) 1 Each Med..pad 1 DROP EACH EYE DAILY Ferrous Sulfate (Ferrous Sulfate) 325 Mg (65 Mg Iron) Tablet 325 MG PO DAILY for Nutritional Supplement, #30 TAB 0 Refills Ipratropium Neb (Ipratropium Neb) 0.5 Mg/2.5 Ml Amp 0.5 MG NEB Q2HR NEB PRN for SHORTNESS OF BREATH, NEBULE 0 Refills Metformin ER (Metformin ER) 500 Mg Julissa 500 MG PO HS for Blood Sugar Management, TAB 0 Refills With evening meal Polyethylene Glycol-Propylene Glycol Opth Drp (Systane Opth Drops) 0.4-0.3% Soln 1-2 DROP EACH EYE PRN PRN for DRY EYE, #1 BOTTLE 0 Refills Tiotropium Inh (Spiriva Respimat Inh) 2.5 Mcg/Act Aero 2 PUFF INH DAILY for COPD, #1 INHALER 0 Refills 2.5 mcg = 1 inhalation [oxygen] () 2 LITER NA DIRECTED Discontinued Medications: Apixaban (Eliquis) 5 Mg Tab 5 MG PO BID for Blood Clot Prevention, #60 TAB 0 Refills Marquis Alcantara DO May 17, 2017 20:50
[2017-05-17] MEDS: ATORVASTATIN 40 MG TAB PO SCH (23:02)
== END 2017-05-17 23:10 | disposition home or self-care (01) | DRG 274 ==
LOC: NEPD 14:13 → NEDA 16:51 → OBSVTOIN 17:06 → HCIS 18:20
PROVIDERS: ADMIT Hospitalist; ATTEND Hospitalist
PROC: 02583ZZ Destruction of Conduction Mechanism, Percutaneous Approach (ICD-10-PCS; principal; 2017-05-11)
PROC: 4A023FZ Measurement of Cardiac Rhythm, Percutaneous Approach (ICD-10-PCS; 2017-05-11)
PROC: 4A0234Z Measurement of Cardiac Electrical Activity, Percutaneous Approach (ICD-10-PCS; 2017-05-11)
PROC: 02K83ZZ Map Conduction Mechanism, Percutaneous Approach (ICD-10-PCS; 2017-05-11)
PROC: 4A023N8 Measurement of Cardiac Sampling and Pressure, Bilateral, Percutaneous Approach (ICD-10-PCS; 2017-05-11)
PROC: B244ZZZ Ultrasonography of Right Heart (ICD-10-PCS; 2017-05-11)
PROC: 3E053GC Introduction of Other Therapeutic Substance into Peripheral Artery, Percutaneous Approach (ICD-10-PCS; 2017-05-16)
DX: I97.89 Other postprocedural complications and disorders of the circulatory system, not elsewhere classified (principal); D62 Acute posthemorrhagic anemia; I48.0 Paroxysmal atrial fibrillation; Z99.81 Dependence on supplemental oxygen; J44.9 Chronic obstructive pulmonary disease, unspecified; E78.5 Hyperlipidemia, unspecified; I72.4 Aneurysm of artery of lower extremity; J45.909 Unspecified asthma, uncomplicated; M79.7 Fibromyalgia; K21.9 Gastro-esophageal reflux disease without esophagitis; I10 Essential (primary) hypertension; Z96.652 Presence of left artificial knee joint; M19.90 Unspecified osteoarthritis, unspecified site; E11.9 Type 2 diabetes mellitus without complications; Z79.84 Long term (current) use of oral hypoglycemic drugs; Z87.891 Personal history of nicotine dependence; Z79.01 Long term (current) use of anticoagulants; I25.10 Atherosclerotic heart disease of native coronary artery without angina pectoris; Z79.51 Long term (current) use of inhaled steroids; Z79.899 Other long term (current) drug therapy
CPT/HCPCS: 36002; 76942; 80048; 80053; 81001; 82550; 82948; 83036; 83735; 84100; 84439; 84443; 84484; 85014; 85018; 85025; 85610; 85730; 93005; 93926; 94150; 94640; 94664; J1815; J2765; J7050; J7644

== ENCOUNTER 2017-05-29 17:07 | Emergency (ER) | payer MEDICARE, BC ==
[~2017-05-29] VITALS: Ht 160 cm; Wt 76.0 kg
[~2017-05-29 17:07] MED LIST changes: -COUM6TAB PO
[2017-05-29 17:09] VITALS: BP 130/70; PULSE 71; RESP 18; TEMP 98.1; O2SAT 98
[2017-05-29 18:54] VITALS: BP 128/64; PULSE 64; RESP 14; O2SAT 99
[2017-05-29] MEDS ORDERED: MORPHINE SULFATE 4 MG/ML INJ IV PUSH ONE (19:15)
[2017-05-29] MEDS ORDERED: ONDANSETRON HCL 4 MG/2 ML VIAL IV PUSH ONE (19:15)
[2017-05-29] MEDS ORDERED: SODIUM CHLORIDE 0.9% FLUSH 10 ML FLUSH IV FLUSH PRN (19:15)
--- NOTE | 2017-05-29 19:15 | PD ---
HPI Chief Complaint: Edema Time Seen by Provider: 19:08 Travel History International Travel<30 days: No Contact w/Intl Traveler<30days: No Traveled to known affect area: No History of Present Illness HPI 82-year-old female presents the emergency department with increasing ecchymosis, swelling, and pain in the left lower extremity. PMHX of atrial fibrillation, HTN, HLD, COPD, DM and GERD who underwent a cardiac catheterization by Dr. Saini with cryoablation this past Sunday on 05/11/17 with left groin access site who developed progressive edema and ecchymosis of the LLE after beginning Eliquis. Area was cauterized by IR and patient discharged home on [place] 5 mg twice a day. Patient feels that she is having increasing swelling, pain, and ecchymosis in the last several days. Patient denies fever, chills, or significant weakness. She has no chest pain or shortness of breath. Patient has COPD as well as diabetes treated atrial fibrillation. Patient has multiple allergies, please see list. PFSH Past Medical History Hx Anticoagulant Therapy: Yes Arthritis: Yes (SPINE, HANDS) Asthma: Yes Autoimmune Disease: No Blood Disorders: No Anxiety: No Depression: No Heart Rhythm Problems: Yes Cancer: No Cardiovascular Problems: Yes High Cholesterol: Yes Chemotherapy: No Chest Pain: No Congestive Heart Failure: No COPD: Yes Cerebrovascular Accident: No Diabetes: Yes Diminished Hearing: No Endocrine: No Fibromyalgia: Yes Gastrointestinal Disorders: No GERD: Yes Glaucoma: No Genitourinary: No Headaches: No Hepatitis: No Hiatal Hernia: No Hypertension: Yes Immune Disorder: No Implanted Vascular Access Dvce: Yes Kidney Stones: No Musculoskeletal: No Neurologic: No Psychiatric: No Reproductive: No Respiratory: Yes Integumentary: No Migraines: Yes Myocardial Infarction: No Radiation Therapy: No Renal Failure: No Seizures: No Sickle Cell Disease: No Sleep Apnea: No Thyroid Disease: No Ulcer: No Past Surgical History Abdominal Surgery: No AICD: No Appendectomy: Yes Arteriovenous Shunt: No Body Medical Devices: lens implants due to cataracts Cardiac Surgery: Yes Cholecystectomy: Yes Ear Surgery: No Endocrine Surgery: No Eye Surgery: No Genitourinary Surgery: No Gynecologic Surgery: No Hysterectomy: Yes Insulin Pump: No Joint Replacement: Yes (left knee replacement) Neurologic Surgery: No Oral Surgery: No Pacemaker: No Thoracic Surgery: No Tonsillectomy: Yes Other Surgery: Yes (LEFT KNEE REPLACEMENT) Social History Alcohol Use: No Tobacco Use: No Substance Use: No Allergies-Medications (Allergen,Severity, Reaction): Coded Allergies: albuterol (Unverified Allergy, Severe, Hives, 05/29/17) caffeine (Unverified Allergy, Severe, VOMITING, 05/29/17) ergotamine (Unverified Allergy, Severe, VOMITING, 05/29/17) codeine (Unverified Adverse Reaction, Severe, 05/29/17) b/p elevates,vomiting,cannot move physically duloxetine (Unverified Adverse Reaction, Severe, SEVERE SOMNOLENCE, ) STATES SHE WAS DOWN ON HER BACK FOR 4 DAYS gabapentin (Unverified Adverse Reaction, Severe, VOMITING, 05/29/17) pregabalin (Unverified Adverse Reaction, Severe, VOMITING, 05/29/17) morphine (Unverified Adverse Reaction, Intermediate, 05/29/17) vomiting propoxyphene (Unverified Adverse Reaction, Intermediate, 05/29/17) b/p elevates n/v cannot move physically Reported Meds & Prescriptions Reported Meds & Active Scripts Active Reported [oxygen] 2 Liter NA DIRECTED Vitamin C Sr (Ascorbic Acid) 500 Mg Caper 1,000 Mg PO Systane Opth Drops (Polyethylene Glycol-Propylene Glycol Opth Drp) 0.4-0.3% Soln 1-2 Drop EACH EYE PRN PRN Spiriva Respimat Inh (Tiotropium Inh) 2.5 Mcg/Act Aero 2 Puff INH DAILY 2.5 mcg = 1 inhalation Restasis Opth 0.05% (Cyclosporine Opth 0.05%) 0.05% Emul 1 Drop RIGHT EYE BID Ocusoft Lid Scrub Plus (Eyelid Cleanser Combination #3) 1 Each Med..pad 1 Drop EACH EYE DAILY Ferrous Sulfate 325 Mg (65 Mg Iron) Tablet 325 Mg PO DAILY Diltiazem HCl ER (Diltiazem HCl Extended Release) 120 Mg Cap 120 Mg PO DAILY Atorvastatin (Atorvastatin Calcium) 40 Mg Tab 40 Mg PO HS Ipratropium Neb (Ipratropium [place]) 0.5 Mg/2.5 Ml Amp 0.5 Mg NEB Q2HR NEB PRN Calcium + D3 (Calcium Carbonate-Cholecalciferol) 600-200 Mg-Unit Tab 1 Tab PO BID Metformin ER (Metformin HCl) 500 Mg Julissa 500 Mg PO HS With evening meal Review of Systems Except as stated in HPI: all other systems reviewed are Neg General / Constitutional: No: Fever Eyes: No: Visual changes HENT: No: Headaches Cardiovascular: No: Chest Pain or Discomfort Respiratory: No: Shortness of Breath Gastrointestinal: No: Abdominal Pain Genitourinary: No: Dysuria Musculoskeletal: Positive: Limited ROM, Edema (see history of present illness) , Pain Skin: Positive Other (swelling and ecchymosis to the left lower extremity.), No Rash Neurologic: No: Weakness Psychiatric: No: Depression Endocrine: No: Polydipsia Hematologic/Lymphatic: No: Easy Bruising Physical Exam Narrative GENERAL: Patient is charming and in no acute distress. SKIN: Warm and dry. Mild pallor. Normal turgor. She has significant ecchymosis to the left lower extremity from the knee to the foot as well as posterior left flank and hip. There are no open wounds or signs of cellulitis. HEAD: Atraumatic. Normocephalic. EYES: Pupils equal and round. No scleral icterus. No injection or drainage. ENT: No nasal bleeding or discharge. Mucous membranes pink and moist. Pharynx is clear. Airway is patent. NECK: Trachea midline. Supple nontender. CARDIOVASCULAR: Regular rate and rhythm. No murmurs gallops or rubs. RESPIRATORY: No accessory muscle use. Clear to auscultation. Breath sounds equal bilaterally. GASTROINTESTINAL: Abdomen soft, non-tender, nondistended. Hepatic and splenic margins not palpable. MUSCULOSKELETAL: Extremities without clubbing, cyanosis, 1+ pitting edema. No obvious deformities. Range of motion is intact although patient complains of tenderness with palpation of the left calf, foot, and left upper thigh. There is a palpable posterior tibialis pulse. Pedal pulses not palpated. Both lower extremities are cool to the touch equally. NEUROLOGICAL: Awake and alert. No obvious cranial nerve deficits. Motor grossly within normal limits. Five out of 5 muscle strength in the arms and legs. Normal speech. PSYCHIATRIC: Appropriate mood and affect; insight and judgment normal. Data Data Last Documented VS Vital Signs Date Time Temp Pulse Resp B/P (MAP) Pulse Ox O2 Delivery O2 Flow Rate FiO2 05/29/17 21:40 69 20 136/63 (87) 99 Room Air 05/29/17 19:55 21 05/29/17 17:09 98.1 Orders Orders Complete Blood Count With Diff (05/29/17 19:15) Comprehensive Metabolic Panel (05/29/17 19:15) Prothrombin Time / Inr (Pt) (05/29/17 19:15) Act Partial Throm Time (Ptt) (05/29/17 19:15) Iv Access Insert/Monitor (05/29/17 19:15) Ecg Monitoring (05/29/17 19:15) Oximetry (05/29/17 19:15) Sodium Chloride 0.9% Flush (Ns Flush) (05/29/17 19:15) Electrocardiogram (05/29/17 19:15) Chest, Single Ap (05/29/17 19:15) Us Leg Venous Doppler (05/29/17 19:15) Morphine Inj (Morphine Inj) (05/29/17 19:15) Ondansetron Inj (Zofran Inj) (05/29/17 19:15) Ipratropium Neb (Atrovent Neb) (05/29/17 19:30) Labs Laboratory Tests Test 05/29/17 20:20 White Blood Count 7.3 TH/MM3 Red Blood Count 3.49 MIL/MM3 Hemoglobin 10.4 GM/DL Hematocrit 31.6 % Mean Corpuscular Volume 90.5 FL Mean Corpuscular Hemoglobin 29.9 PG Mean Corpuscular Hemoglobin Concent 33.1 % Red Cell Distribution Width 17.5 % Platelet Count 383 TH/MM3 Mean Platelet Volume 7.8 FL Neutrophils (%) (Auto) 59.8 % Lymphocytes (%) (Auto) 27.2 % Monocytes (%) (Auto) 10.2 % Eosinophils (%) (Auto) 1.7 % Basophils (%) (Auto) 1.1 % Neutrophils # (Auto) 4.4 TH/MM3 Lymphocytes # (Auto) 2.0 TH/MM3 Monocytes # (Auto) 0.7 TH/MM3 Eosinophils # (Auto) 0.1 TH/MM3 Basophils # (Auto) 0.1 TH/MM3 CBC Comment DIFF FINAL Differential Comment Prothrombin Time 10.7 SEC Prothromb Time International Ratio 1.0 RATIO Activated Partial Thromboplast Time 25.4 SEC Blood Urea Nitrogen 15 MG/DL Creatinine 0.88 MG/DL Random Glucose 83 MG/DL Total Protein 7.0 GM/DL Albumin 3.7 GM/DL Calcium Level 9.1 MG/DL Alkaline Phosphatase 83 U/L Aspartate Amino Transf (AST/SGOT) 48 U/L Alanine Aminotransferase (ALT/SGPT) 35 U/L Total Bilirubin 0.5 MG/DL Sodium Level 137 MEQ/L Potassium Level 4.4 MEQ/L Chloride Level 103 MEQ/L Carbon Dioxide Level 27.6 MEQ/L Anion Gap 6 MEQ/L Estimat Glomerular Filtration Rate 62 ML/MIN [facility] Medical Decision Making Medical Screen Exam Complete: Yes Emergency Medical Condition: Yes Medical Record Reviewed: Yes Differential Diagnosis Recurrent DVT. Recurrent pseudoaneurysm to the left groin. Significant ecchymosis to the left lower extremity. Narrative Course Patient is felt to be medically stable at time of exam. Labs ordered including CBC, CMP, and coagulation studies. Ultrasound left lower extremity is ordered. Chest x-ray is ordered. EKG is ordered. EKG shows sinus rhythm with first-degree AV block. Chest x-ray is normal per radiologist. EKG is unchanged from previous. CBC shows mild anemia with a hemoglobin of 10.4 which is not significantly changed from previous. CMP and coagulation studies are unremarkable. Ultrasound of the left lower extremity shows no DVT and just localized ecchymosis and hematoma at the previous pseudoaneurysm area. Patient is discussed with Dr. Ardon and feels the patient is stable for discharge. Recommend the patient use compressive stockings to the left lower extremity as discussed. Patient should use elevation and warm compresses as well. Patient should continue her previous medications as prescribed. Patient can return with worsening symptoms as necessary. Diagnosis Primary Impression: Hematoma Additional Impression: Lower leg edema Referrals: Primary Care Physician Patient Instructions: General Instructions Additional Instructions: Ultrasound of the left lower extremity shows no DVT and just localized ecchymosis and hematoma at the previous pseudoaneurysm area. Patient is discussed with Dr. Ardon and feels the patient is stable for discharge. Recommend the patient use compressive stockings to the left lower extremity as discussed. Patient should use elevation and warm compresses as well. Patient should continue her previous medications as prescribed. Patient can return with worsening symptoms as necessary. Med/Other Pt SpecificInfo: No Change to Meds Disposition: 01 DISCHARGE HOME Condition: Stable Sam Dudley May 29, 2017 19:15
[2017-05-29] MEDS ORDERED: RESP: IPRATROPIUM 0.5 MG/2.5 ML NEB NEB ONE (19:30)
--- NOTE | 2017-05-29 19:30 | RADRPT ---
EXAM DATE/TIME: 05/29/2017 19:12 [facility] COMPARISON: CHEST SINGLE AP, March 10, 2017, 23:21. INDICATIONS : Short of breath. MEDICAL HISTORY : Chronic obstructive pulmonary disease. Diabetes mellitus type II. SURGICAL HISTORY : Hiatal hernia repair. ENCOUNTER: Initial ACUITY: 1 day PAIN SCORE: 0/10 LOCATION: Bilateral chest FINDINGS: A single view of the chest demonstrates the lungs to be symmetrically aerated without evidence of mas s, infiltrate or effusion. The cardiomediastinal contours are unremarkable. There is a dextroscolios is of the lower thoracic spine. CONCLUSION: No acute disease. Jorge Thomson MD on May 29, 2017 at 19:28 Board Certified Radiologist. This report was verified electronically.
[2017-05-29 19:55] VITALS: O2SAT 99
[2017-05-29 20:47] LABS: AUTOMATED NEUTROPHIL # 4.4 TH/MM3 (1.8-7.7); BASOPHIL # 0.1 TH/MM3 (0-0.2); BASOPHIL % 1.1 % (0.0-2.0); EOSINOPHIL # 0.1 TH/MM3 (0-0.4); EOSINOPHIL % 1.7 % (0.0-4.0); HEMATOCRIT 31.6 % (35.0-46.0); HEMO FLAGS DIFF FINAL; LYMPH % 27.2 % (9.0-44.0); MEAN CELL VOLUME 90.5 FL (80.0-100.0); MEAN CORPUSCULAR HEMOGLOBIN 29.9 PG (27.0-34.0); MEAN CORPUSCULAR HGB CONC 33.1 % (32.0-36.0); MONO % 10.2 % (0.0-8.0); NEUT % 59.8 % (16.0-70.0); PLATELET COUNT 383 TH/MM3 (150-450); RED BLOOD COUNT 3.49 MIL/MM3 (4.00-5.30); RED CELL DISTRIBUTION WIDTH 17.5 % (11.6-17.2); WHITE BLOOD COUNT 7.3 TH/MM3 (4.0-11.0)
[2017-05-29 20:53] LABS: APTT (PATIENT) 25.4 SEC (24.3-30.1); PROTHROMBIN TIME - PATIENT 10.7 SEC (9.8-11.6)
[2017-05-29 21:14] LABS: ALT (GPT) 35 U/L (10-53)
[2017-05-29 21:16] LABS: ALKALINE PHOSPHATASE 83 U/L (45-117); TOTAL BILIRUBIN ADULT 0.5 MG/DL (0.2-1.0)
--- NOTE | 2017-05-29 21:17 | RADRPT ---
EXAM DATE/TIME: 05/29/2017 20:14 [facility] COMPARISON: No previous studies available for comparison. INDICATIONS : Left leg pain. MEDICAL HISTORY : Hypercholesterolemia. Arthritis. Osteoporosis. Migraines. Afib. Hypotension.Heart failure. HTN. COPD. Asthma. Dyspnea. Fibromyalgia. Type II Diabetes. Herniated discs x5.GERD. Anticoagulant therapy, Asp irin 81mg. SURGICAL HISTORY : Tonsillectomy. Appendectomy. Cholecystectomy. Cataracts. Vaginal prolapse with repair. Left knee repl acement. Blood tranfusions. ENCOUNTER: Subsequent ACUITY: 2 weeks PAIN SCORE: 6/10 LOCATION: Left leg. TECHNIQUE: Venous ultrasound of the leg was performed from the inguinal ligament to the proximal calf. Real-mario e, color Doppler and spectral tracing, compression and augmentation techniques were used. FINDINGS: There is normal compressibility of the deep venous system from the inguinal region to the proximal ca lf. No echogenic clot is seen in the lumen of the common femoral, femoral, popliteal, and posterior tibial veins. There is a normal response of the venous system to proximal and distal augmentation an d respiration. There are several hypoechoic complex masses seen in the left groin including a 3.0 x 3.0 x 1.9 cm mas s, a 2.9 x 3.4 x 1.1 cm mass, and a 1.6 x 1.5 x 0.8 cm mass. No flow is seen within these. CONCLUSION: 1. No DVT. 2. Multiple complex masses in the left groin region likely related to hematomas. Jorge Thomson MD on May 29, 2017 at 21:14 Board Certified Radiologist. This report was verified electronically.
[2017-05-29 21:20] LABS: ANION GAP 6 MEQ/L (5-15); AST (GOT) 48 U/L (15-37); BICARBONATE 27.6 MEQ/L (21.0-32.0); BLOOD UREA NITROGEN 15 MG/DL (7-18); CHLORIDE 103 MEQ/L (98-107); GLOMERULAR FILTRATION RATE 62 ML/MIN (>89); POTASSIUM 4.4 MEQ/L (3.5-5.1); SODIUM (NA) 137 MEQ/L (136-145)
[2017-05-29 21:40] VITALS: BP 136/63; PULSE 69; RESP 20; O2SAT 99
--- NOTE | 2017-05-30 10:11 | EKG ---
Date Performed: 05/29/2017 Time Performed: 21:39:26 PTAGE: 82 years EKG: Sinus rhythm WITH FIRST DEGREE AV BLOCK ABNORMAL ECG PREVIOUS TRACING : 05/15/2017 17.48 DOCTOR: Ac Aguirre Interpretating Date/Time 05/30/2017 10:10:55
== END 2017-05-29 22:15 | disposition home or self-care (01) ==
LOC: NEPE 17:07
DX: S80.12XA Contusion of left lower leg, initial encounter (principal); I11.0 Hypertensive heart disease with heart failure; I50.9 Heart failure, unspecified; X58.XXXA Exposure to other specified factors, initial encounter
CPT/HCPCS: 71010; 80053; 85025; 85610; 85730; 93005; 93971; 94664; 99285; J7644

== ENCOUNTER 2017-07-17 13:14 | Emergency (ER) | payer MEDICARE, BC ==
[~2017-07-17] VITALS: Ht 160 cm; Wt 75.5 kg
[~2017-07-17 13:14] MED LIST changes: +FERR325T18 PO; -FERR325T8 PO
[2017-07-17 13:15] VITALS: BP 123/64; PULSE 75; RESP 16; TEMP 98.1; O2SAT 99
--- NOTE | 2017-07-17 13:52 | PD ---
HPI Chief Complaint: Injury Time Seen by Provider: 13:42 Travel History International Travel<30 days: No Contact w/Intl Traveler<30days: No Traveled to known affect area: No History of Present Illness HPI Send 82 year-old woman who jammed her right pinky toe about a week or so ago, was taking care of her and couldn't get it checked until now, but is having pain. She complains of pain in the right pinky toe with some bruising, worse with walking. PFSH Past Medical History Hx Anticoagulant Therapy: Yes Arthritis: Yes (SPINE, HANDS) Asthma: Yes Autoimmune Disease: No Blood Disorders: No Anxiety: No Depression: No Heart Rhythm Problems: Yes Cancer: No Cardiovascular Problems: Yes High Cholesterol: Yes Chemotherapy: No Chest Pain: No Congestive Heart Failure: No COPD: Yes Cerebrovascular Accident: No Diabetes: Yes Patient Takes Glucophage: Yes Diminished Hearing: No Endocrine: No Fibromyalgia: Yes Gastrointestinal Disorders: No GERD: Yes Glaucoma: No Genitourinary: No Headaches: No Hepatitis: No Hiatal Hernia: No Hypertension: Yes Immune Disorder: No Implanted Vascular Access Dvce: Yes Kidney Stones: No Medical other: Yes (arthritis, back and neck problems,REFLUX, FIBROMYALGIA) Musculoskeletal: No Neurologic: No Psychiatric: No Reproductive: No Respiratory: Yes Integumentary: No Migraines: Yes Myocardial Infarction: No Radiation Therapy: No Renal Failure: No Seizures: No Sickle Cell Disease: No Sleep Apnea: No Thyroid Disease: No Ulcer: No Tetanus Vaccination: < 5 Years Past Surgical History Abdominal Surgery: No AICD: No Appendectomy: Yes Arteriovenous Shunt: No Body Medical Devices: lens implants due to cataracts Cardiac Surgery: Yes Cholecystectomy: Yes Ear Surgery: No Endocrine Surgery: No Eye Surgery: No Genitourinary Surgery: No Gynecologic Surgery: No Hysterectomy: Yes Insulin Pump: No Joint Replacement: Yes (left knee replacement) Neurologic Surgery: No Oral Surgery: No Pacemaker: No Thoracic Surgery: No Tonsillectomy: Yes Other Surgery: Yes (LEFT KNEE REPLACEMENT) Social History Alcohol Use: No Tobacco Use: No Substance Use: No Allergies-Medications (Allergen,Severity, Reaction): Coded Allergies: albuterol (Unverified Allergy, Severe, Hives, 07/17/17) caffeine (Unverified Allergy, Severe, VOMITING, 07/17/17) ergotamine (Unverified Allergy, Severe, VOMITING, 07/17/17) codeine (Unverified Adverse Reaction, Severe, 07/17/17) b/p elevates,vomiting,cannot move physically duloxetine (Unverified Adverse Reaction, Severe, SEVERE SOMNOLENCE, ) STATES SHE WAS DOWN ON HER BACK FOR 4 DAYS gabapentin (Unverified Adverse Reaction, Severe, VOMITING, 07/17/17) pregabalin (Unverified Adverse Reaction, Severe, VOMITING, 07/17/17) morphine (Unverified Adverse Reaction, Intermediate, 07/17/17) vomiting propoxyphene (Unverified Adverse Reaction, Intermediate, 07/17/17) b/p elevates n/v cannot move physically Reported Meds & Prescriptions Reported Meds & Active Scripts Active Reported [oxygen] 2 Liter NA DIRECTED Vitamin C Sr (Ascorbic Acid) 500 Mg Caper 1,000 Mg PO Systane Opth Drops (Polyethylene Glycol-Propylene Glycol Opth Drp) 0.4-0.3% Soln 1-2 Drop EACH EYE PRN PRN Spiriva Respimat Inh (Tiotropium Inh) 2.5 Mcg/Act Aero 2 Puff INH DAILY 2.5 mcg = 1 inhalation Restasis Opth 0.05% (Cyclosporine Opth 0.05%) 0.05% Emul 1 Drop RIGHT EYE BID Ocusoft Lid Scrub Plus (Eyelid Cleanser Combination #3) 1 Each Med..pad 1 Drop EACH EYE DAILY Ferrous Sulfate 325 Mg (65 Mg Iron) Tablet 325 Mg PO DAILY Diltiazem HCl ER (Diltiazem HCl Extended Release) 120 Mg Cap 120 Mg PO DAILY Atorvastatin (Atorvastatin Calcium) 40 Mg Tab 40 Mg PO HS Ipratropium Neb (Ipratropium [place]) 0.5 Mg/2.5 Ml Amp 0.5 Mg NEB Q2HR NEB PRN Calcium + D3 (Calcium Carbonate-Cholecalciferol) 600-200 Mg-Unit Tab 1 Tab PO BID Metformin ER (Metformin HCl) 500 Mg Julissa 500 Mg PO HS With evening meal Review of Systems Except as stated in HPI: all other systems reviewed are Neg Physical Exam Narrative GENERAL: Well 82 year-old woman, no acute distress. SKIN: Warm and dry. CARDIOVASCULAR: Warm and well perfused. RESPIRATORY: Normal rate and effort. MUSCULOSKELETAL: Examination of the right foot reveals some ecchymosis and bruising in the right pinky toe. There is no significant swelling. Pain with palpation or rate of motion. NEUROLOGICAL: Awake and alert. No gross deficits. Data Data Last Documented VS Vital Signs Date Time Temp Pulse Resp B/P (MAP) Pulse Ox O2 Delivery O2 Flow Rate FiO2 07/17/17 13:15 98.1 75 16 123/64 (83) 99 Room Air Orders Orders Toe (Min 2vws) (07/17/17 ) MDM Medical Decision Making Medical Screen Exam Complete: Yes Emergency Medical Condition: Yes Interpretation(s) X-ray negative Differential Diagnosis Contusion, fracture, other Narrative Course 82 year-old woman jammed her right pinky toe, likely fracture. Plan Ramiro tape , hard sole shoe. Diagnosis Primary Impression: Toe contusion Additional Instructions: Ramiro tape toe as shown. He is hard sole rigid shoe as needed for comfort. Follow-up with her primary doctor for not improved in 2-3 weeks. Disposition: 01 DISCHARGE HOME Condition: Stable Ac Emerson MD Jul 17, 2017 13:52
--- NOTE | 2017-07-17 14:34 | RADRPT ---
EXAM DATE/TIME: 07/17/2017 14:11 [facility] COMPARISON: No previous studies available for comparison. INDICATIONS : Hit 5th digit of right foot on furniture leg one week ago, pain in 5th digit only MEDICAL HISTORY : None. SURGICAL HISTORY : None. ENCOUNTER: Initial ACUITY: 1 week PAIN SCORE: 5/10 LOCATION: Right fifth toe FINDINGS: Examination of the fifth digit of the right foot demonstrates no evidence of fracture or dislocation. No radiopaque foreign bodies are seen. The soft tissues are intact. CONCLUSION: 1. No acute fracture or dislocation. Jeremiah Johnson MD on July 17, 2017 at 14:31 Board Certified Radiologist. This report was verified electronically.
== END 2017-07-17 14:52 | disposition home or self-care (01) ==
LOC: NEPK 13:14
DX: S90.121A Contusion of right lesser toe(s) without damage to nail, initial encounter (principal); M19.90 Unspecified osteoarthritis, unspecified site; E78.00 Pure hypercholesterolemia, unspecified; J44.9 Chronic obstructive pulmonary disease, unspecified; E11.9 Type 2 diabetes mellitus without complications; M79.7 Fibromyalgia; K21.9 Gastro-esophageal reflux disease without esophagitis; I10 Essential (primary) hypertension; W22.8XXA Striking against or struck by other objects, initial encounter
CPT/HCPCS: 73660; 99283

== ENCOUNTER 2017-10-26 20:06 | Emergency (ER) | payer BC, MEDICARE ==
[~2017-10-26] VITALS: Ht 160 cm; Wt 75.0 kg
[2017-10-26 20:27] VITALS: BP 180/88; PULSE 72; RESP 20; TEMP 98.2; O2SAT 96
[2017-10-26] MEDS ORDERED: ACETAMINOPHEN 325 MG TAB PO ONE (21:30)
[2017-10-26] MEDS ORDERED: SODIUM CHLORIDE 0.9% FLUSH 10 ML FLUSH IV FLUSH PRN (21:30)
--- NOTE | 2017-10-26 22:00 | RADRPT ---
EXAM DATE/TIME: 10/26/2017 21:39 [facility] COMPARISON: CHEST SINGLE AP, May 29, 2017, 19:12. INDICATIONS : Left sided chest pain under breast from leaning over cough arm. MEDICAL HISTORY : Osteoporosis. Hypotension. Heart failure. HTN. COPD. Asthma. Type II Diabetes. SURGICAL HISTORY : None. ENCOUNTER: Initial ACUITY: 3 days PAIN SCORE: 8/10 LOCATION: Left chest FINDINGS: Tiny nodular density is noted within the right lung base which is indeterminate. True pulmonary nodul e or sclerotic bone lesion are in the differential. The heart is stable. Left basilar scarring is not ed. Degenerative changes and scoliosis of the thoracic spine are noted. CONCLUSION: 1. Tiny nodular density within the right lung base which is indeterminate. True pulmonary nodule or s clerotic bone lesion are in the differential. 2. Left basilar scarring. Ky Schultz MD on October 26, 2017 at 21:57 Board Certified Radiologist. This report was verified electronically.
[2017-10-26 22:10] LABS: AUTOMATED NEUTROPHIL # 5.2 TH/MM3 (1.8-7.7); BASOPHIL # 0.1 TH/MM3 (0-0.2); EOSINOPHIL # 0.2 TH/MM3 (0-0.4); HEMATOCRIT 38.3 % (35.0-46.0); HEMOGLOBIN 12.7 GM/DL (11.6-15.3); LYMPH % 23.7 % (9.0-44.0); MEAN CELL VOLUME 87.1 FL (80.0-100.0); MEAN CORPUSCULAR HEMOGLOBIN 28.9 PG (27.0-34.0); MEAN CORPUSCULAR HGB CONC 33.1 % (32.0-36.0); MEAN PLATELET VOLUME 8.1 FL (7.0-11.0); MONO % 9.8 % (0.0-8.0); MONOCYTE # 0.8 TH/MM3 (0-0.9); NEUT % 63.5 % (16.0-70.0); PLATELET COUNT 294 TH/MM3 (150-450); RED BLOOD COUNT 4.39 MIL/MM3 (4.00-5.30); RED CELL DISTRIBUTION WIDTH 15.7 % (11.6-17.2); WHITE BLOOD COUNT 8.2 TH/MM3 (4.0-11.0)
--- NOTE | 2017-10-26 22:17 | PD ---
HPI Chief Complaint: Pain: Acute or Chronic Time Seen by Provider: 21:14 Travel History International Travel<30 days: No Contact w/Intl Traveler<30days: No Traveled to known affect area: No History of Present Illness HPI 82-year-old female presents to the ED for evaluation of 10/10 left upper quadrant/lower chest pain. He has associated shortness of breath. She states that the pain is worsened by deep breathing. She denies chest pain, palpitations, nausea, vomiting, changes in bowel habits. She states that she had trauma to the area a few days ago. She states that she was attempting to turn over in the recliner when her breast and left chest became trapped between the seat and the arm of the chair. She was able to extricate herself. She states that she was able to go about her normal activities today but once she laid down on her side tonight the pain became unbearable. Treatment attempted at home. PFSH Past Medical History Hx Anticoagulant Therapy: Yes Arthritis: Yes (SPINE, HANDS) Asthma: Yes Autoimmune Disease: No Blood Disorders: No Anxiety: No Depression: No Heart Rhythm Problems: Yes Cancer: No Cardiovascular Problems: Yes High Cholesterol: Yes Chemotherapy: No Chest Pain: No Congestive Heart Failure: No COPD: Yes Cerebrovascular Accident: No Diabetes: Yes Patient Takes Glucophage: No Diminished Hearing: No Endocrine: No Fibromyalgia: Yes Gastrointestinal Disorders: No GERD: Yes Glaucoma: No Genitourinary: No Headaches: No Hepatitis: No Hiatal Hernia: No Hypertension: Yes Immune Disorder: No Implanted Vascular Access Dvce: Yes Kidney Stones: No Medical other: Yes (arthritis, back and neck problems,REFLUX, FIBROMYALGIA) Musculoskeletal: No Neurologic: No Psychiatric: No Reproductive: No Respiratory: Yes Integumentary: No Migraines: Yes Myocardial Infarction: No Radiation Therapy: No Renal Failure: No Seizures: No Sickle Cell Disease: No Sleep Apnea: No Thyroid Disease: No Ulcer: No ?: Not Past Surgical History Abdominal Surgery: No AICD: No Appendectomy: Yes Arteriovenous Shunt: No Body Medical Devices: lens implants due to cataracts Cardiac Surgery: Yes Cholecystectomy: Yes Ear Surgery: No Endocrine Surgery: No Eye Surgery: No Genitourinary Surgery: No Gynecologic Surgery: No Hysterectomy: Yes Insulin Pump: No Joint Replacement: Yes (left knee replacement) Neurologic Surgery: No Oral Surgery: No Pacemaker: No Thoracic Surgery: No Tonsillectomy: Yes Other Surgery: Yes (LEFT KNEE REPLACEMENT) Social History Alcohol Use: No Tobacco Use: No Substance Use: No Allergies-Medications (Allergen,Severity, Reaction): Coded Allergies: albuterol (Unverified Allergy, Severe, Hives, 10/26/17) caffeine (Unverified Allergy, Severe, VOMITING, 10/26/17) ergotamine (Unverified Allergy, Severe, VOMITING, 10/26/17) codeine (Unverified Adverse Reaction, Severe, 10/26/17) b/p elevates,vomiting,cannot move physically duloxetine (Unverified Adverse Reaction, Severe, SEVERE SOMNOLENCE, 10/26/17 ) STATES SHE WAS DOWN ON HER BACK FOR 4 DAYS gabapentin (Unverified Adverse Reaction, Severe, VOMITING, 10/26/17) pregabalin (Unverified Adverse Reaction, Severe, VOMITING, 10/26/17) morphine (Unverified Adverse Reaction, Intermediate, 10/26/17) vomiting propoxyphene (Unverified Adverse Reaction, Intermediate, 10/26/17) b/p elevates n/v cannot move physically Reported Meds & Prescriptions Reported Meds & Active Scripts Active Reported [oxygen] 2 Liter NA DIRECTED Vitamin C Sr (Ascorbic Acid) 500 Mg Caper 1,000 Mg PO Systane Opth Drops (Polyethylene Glycol-Propylene Glycol Opth Drp) 0.4-0.3% Soln 1-2 Drop EACH EYE PRN PRN Spiriva Respimat Inh (Tiotropium Inh) 2.5 Mcg/Act Aero 2 Puff INH DAILY 2.5 mcg = 1 inhalation Restasis Opth (Cyclosporine Opth) 0.05% Emul 1 Drop RIGHT EYE BID Ocusoft Lid Scrub Plus (Eyelid Cleanser Combination #3) 1 Each Med..pad 1 Drop EACH EYE DAILY Ferrous Sulfate 325 Mg (65 Mg Iron) Tablet 325 Mg PO DAILY Diltiazem HCl ER (Diltiazem HCl Extended Release) 120 Mg Cap 120 Mg PO DAILY Atorvastatin (Atorvastatin Calcium) 40 Mg Tab 40 Mg PO HS Ipratropium Neb (Ipratropium [place]) 0.5 Mg/2.5 Ml Amp 0.5 Mg NEB Q2HR NEB PRN Calcium + D3 (Calcium Carbonate-Cholecalciferol) 600-200 Mg-Unit Tab 1 Tab PO BID Metformin ER (Metformin HCl) 500 Mg Julissa 500 Mg PO HS With evening meal Review of Systems Except as stated in HPI: all other systems reviewed are Neg Physical Exam Narrative GENERAL: Well-nourished, well-developed pleasant white female in no acute distress. SKIN: Focused skin assessment warm/dry. HEAD: Normocephalic. EYES: No scleral icterus. No injection or drainage. NECK: Supple, trachea midline. No JVD or lymphadenopathy. CARDIOVASCULAR: Regular rate and rhythm without murmurs, gallops, or rubs. RESPIRATORY: Breath sounds clear and equal bilaterally. No accessory muscle use. GASTROINTESTINAL: Abdomen soft, nondistended. Tender to palpation in the left upper quadrant. Active bowel sounds. MUSCULOSKELETAL: No cyanosis, or edema. BACK: Nontender without obvious deformity. No CVA tenderness. Data Data Last Documented VS Vital Signs Date Time Temp Pulse Resp B/P (MAP) Pulse Ox O2 Delivery O2 Flow Rate FiO2 10/27/17 00:12 10/26/17 20:27 98.2 72 20 96 Room Air Orders Orders Acetaminophen (Tylenol) (10/26/17 21:30) Complete Blood Count With Diff (10/26/17 21:26) Comprehensive Metabolic Panel (10/26/17 21:26) Lipase (10/26/17 21:26) Prothrombin Time / Inr (Pt) (10/26/17 21:26) Act Partial Throm Time (Ptt) (10/26/17 21:26) Iv Access Insert/Monitor (10/26/17 21:26) Ecg Monitoring (10/26/17 21:26) Oximetry (10/26/17 21:26) Sodium Chloride 0.9% Flush (Ns Flush) (10/26/17 21:30) Chest, Pa & Lat (10/26/17 ) Electrocardiogram (10/26/17 ) Troponin I (10/26/17 21:26) Ct Abd/Pel W/O Iv Contrast (10/26/17 ) Ed Discharge Order (10/27/17 00:10) Labs Laboratory Tests Test 10/26/17 21:50 White Blood Count 8.2 TH/MM3 Red Blood Count 4.39 MIL/MM3 Hemoglobin 12.7 GM/DL Hematocrit 38.3 % Mean Corpuscular Volume 87.1 FL Mean Corpuscular Hemoglobin 28.9 PG Mean Corpuscular Hemoglobin Concent 33.1 % Red Cell Distribution Width 15.7 % Platelet Count 294 TH/MM3 Mean Platelet Volume 8.1 FL Neutrophils (%) (Auto) 63.5 % Lymphocytes (%) (Auto) 23.7 % Monocytes (%) (Auto) 9.8 % Eosinophils (%) (Auto) 2.0 % Basophils (%) (Auto) 1.0 % Neutrophils # (Auto) 5.2 TH/MM3 Lymphocytes # (Auto) 2.0 TH/MM3 Monocytes # (Auto) 0.8 TH/MM3 Eosinophils # (Auto) 0.2 TH/MM3 Basophils # (Auto) 0.1 TH/MM3 CBC Comment DIFF FINAL Differential Comment Prothrombin Time 10.0 SEC Prothromb Time International Ratio 1.0 RATIO Activated Partial Thromboplast Time 27.0 SEC Blood Urea Nitrogen 18 MG/DL Creatinine 0.96 MG/DL Random Glucose 116 MG/DL Total Protein 7.1 GM/DL Albumin 3.9 GM/DL Calcium Level 9.4 MG/DL Alkaline Phosphatase 79 U/L Aspartate Amino Transf (AST/SGOT) 19 U/L Alanine Aminotransferase (ALT/SGPT) 23 U/L Total Bilirubin 0.4 MG/DL Sodium Level 138 MEQ/L Potassium Level 4.0 MEQ/L Chloride Level 103 MEQ/L Carbon Dioxide Level 25.2 MEQ/L Anion Gap 10 MEQ/L Estimat Glomerular Filtration Rate 56 ML/MIN Troponin I LESS THAN 0.02 NG/ML Lipase 123 U/L MDM Medical Decision Making Medical Screen Exam Complete: Yes Emergency Medical Condition: Yes Differential Diagnosis Musculoskeletal pain versus splenic contusion versus ACS versus rib fracture versus other Narrative Course 82-year-old female presents to the ED for evaluation of 10/10 left upper quadrant/lower chest pain with associated SOB. Pain worsened by deep breathing. She states that she had trauma to the area a few days ago. She states that she was attempting to turn over in the recliner when her breast and left chest became trapped between the seat and the arm of the chair. She was able to extricate herself. She states that she was able to go about her normal activities today but once she laid down on her side tonight the pain became unbearable. Vitals reviewed. On physical exam the patient does have tenderness to palpation in the left upper quadrant. Chest is CTAB. I offer the patient pain medications. She consented to Tylenol. CBC without concerning abnormalities. INR 1.0. CMP: No concerning abnormalities CXR: Tiny nodular density within the right lung base which is indeterminate. True pulmonary nodule or sclerotic bone lesion on the differential. Left basilar scarring. Cardiac enzymes negative 1 CT abdomen and pelvis: Pending. On recheck the patient is resting comfortably. She was provided with a copy of her chest x-ray report and instructed to follow-up with her primary care for further evaluation. The patient and her daughter indicated understanding of these instructions. The patient is signed out to Dr. Boland at end of shift. Please see his note for disposition. Annette Blake Oct 26, 2017 22:17
[2017-10-26 22:31] LABS: ALBUMIN 3.9 GM/DL (3.4-5.0); AST (GOT) 19 U/L (15-37); BICARBONATE 25.2 MEQ/L (21.0-32.0); BLOOD UREA NITROGEN 18 MG/DL (7-18); CALCIUM 9.4 MG/DL (8.5-10.1); CHLORIDE 103 MEQ/L (98-107); CREATININE 0.96 MG/DL (0.50-1.00); GLOMERULAR FILTRATION RATE 56 ML/MIN (>89); GLUCOSE,RANDOM 116 MG/DL (74-106); SODIUM (NA) 138 MEQ/L (136-145)
[2017-10-26 22:32] LABS: ALT (GPT) 23 U/L (10-53)
[2017-10-26 22:36] LABS: ALKALINE PHOSPHATASE 79 U/L (45-117); TOTAL BILIRUBIN ADULT 0.4 MG/DL (0.2-1.0); TOTAL PROTEIN 7.1 GM/DL (6.4-8.2); TROPONIN I LESS THAN 0.02 NG/ML (0.02-0.05)
--- NOTE | 2017-10-26 23:21 | RADRPT ---
EXAM DATE/TIME: 10/26/2017 22:52 [facility] COMPARISON: No previous studies available for comparison. INDICATIONS : Left upper quadrant abdomen pain. ORAL CONTRAST: No oral contrast ingested. RADIATION DOSE: 12.88 CTDIvol (mGy) MEDICAL HISTORY : Cardiovascular disease. Diabetes mellitus type 2. Gastroesophageal reflux disease. SURGICAL HISTORY : Cholecystectomy. Appendectomy.Hysterectomy. ENCOUNTER: Initial ACUITY: 1 day PAIN SCALE: 7/10 LOCATION: Left upper quadrant abdomen TECHNIQUE: Volumetric scanning of the abdomen and pelvis was performed. Using automated exposure control and ad justment of the mA and/or kV according to patient size, radiation dose was kept as low as reasonably achievable to obtain optimal diagnostic quality images. DICOM format image data is available electro nically for review and comparison. FINDINGS: LOWER LUNGS: The visualized lower lungs are clear. Small hiatus hernia. LIVER: Homogeneous density without lesion for noncontrast technique. There is no dilation of the biliary tr ee. Cholecystectomy. SPLEEN: Normal size without lesion. PANCREAS: Within normal limits. KIDNEYS: There are 2 small calcified stones in the lower pole of the right kidney measuring 3 mm or less witho ut hydronephrosis. No calcifications along the course of the right ureter. The lower pole of the le ft kidney, there is a 6 mm calcified stone without evidence of hydronephrosis. The left ureter is no rmal in dimension. ADRENAL GLANDS: Within normal limits. VASCULAR: There is no aortic aneurysm. BOWEL/MESENTERY: No dilated loops of small or large bowel. Moderate amount of stool in the colon. Numerous diverticu la in the sigmoid colon without radiographic evidence of diverticulitis. No evidence of free fluid. ABDOMINAL WALL: Within normal limits. RETROPERITONEUM: There is no lymphadenopathy. BLADDER: Mildly distended with smooth margins. REPRODUCTIVE: Within normal limits. INGUINAL: There is no lymphadenopathy or hernia. MUSCULOSKELETAL: Moderate degenerative changes in the posterior elements of the lower lumbar spine. Diffuse osteopeni a. CONCLUSION: 1. Sigmoid diverticulosis without radiographic evidence of diverticulitis. 2. Bilateral lower pole renal stones without evidence of obstruction. Wilver Andujar MD on October 26, 2017 at 23:11 Board Certified Radiologist. This report was verified electronically.
--- NOTE | 2017-10-26 23:49 | PD ---
Data Data Last Documented VS Vital Signs Date Time Temp Pulse Resp B/P (MAP) Pulse Ox O2 Delivery O2 Flow Rate FiO2 10/26/17 20:27 98.2 72 20 180/88 (118) 96 Room Air Orders Orders Acetaminophen (Tylenol) (10/26/17 21:30) Complete Blood Count With Diff (10/26/17 21:26) Comprehensive Metabolic Panel (10/26/17 21:26) Lipase (10/26/17 21:26) Prothrombin Time / Inr (Pt) (10/26/17 21:26) Act Partial Throm Time (Ptt) (10/26/17 21:26) Iv Access Insert/Monitor (10/26/17 21:26) Ecg Monitoring (10/26/17 21:26) Oximetry (10/26/17 21:26) Sodium Chloride 0.9% Flush (Ns Flush) (10/26/17 21:30) Chest, Pa & Lat (10/26/17 ) Electrocardiogram (10/26/17 ) Troponin I (10/26/17 21:26) Ct Abd/Pel W/O Iv Contrast (10/26/17 ) Labs Laboratory Tests Test 10/26/17 21:50 White Blood Count 8.2 TH/MM3 Red Blood Count 4.39 MIL/MM3 Hemoglobin 12.7 GM/DL Hematocrit 38.3 % Mean Corpuscular Volume 87.1 FL Mean Corpuscular Hemoglobin 28.9 PG Mean Corpuscular Hemoglobin Concent 33.1 % Red Cell Distribution Width 15.7 % Platelet Count 294 TH/MM3 Mean Platelet Volume 8.1 FL Neutrophils (%) (Auto) 63.5 % Lymphocytes (%) (Auto) 23.7 % Monocytes (%) (Auto) 9.8 % Eosinophils (%) (Auto) 2.0 % Basophils (%) (Auto) 1.0 % Neutrophils # (Auto) 5.2 TH/MM3 Lymphocytes # (Auto) 2.0 TH/MM3 Monocytes # (Auto) 0.8 TH/MM3 Eosinophils # (Auto) 0.2 TH/MM3 Basophils # (Auto) 0.1 TH/MM3 CBC Comment DIFF FINAL Differential Comment Prothrombin Time 10.0 SEC Prothromb Time International Ratio 1.0 RATIO Activated Partial Thromboplast Time 27.0 SEC Blood Urea Nitrogen 18 MG/DL Creatinine 0.96 MG/DL Random Glucose 116 MG/DL Total Protein 7.1 GM/DL Albumin 3.9 GM/DL Calcium Level 9.4 MG/DL Alkaline Phosphatase 79 U/L Aspartate Amino Transf (AST/SGOT) 19 U/L Alanine Aminotransferase (ALT/SGPT) 23 U/L Total Bilirubin 0.4 MG/DL Sodium Level 138 MEQ/L Potassium Level 4.0 MEQ/L Chloride Level 103 MEQ/L Carbon Dioxide Level 25.2 MEQ/L Anion Gap 10 MEQ/L Estimat Glomerular Filtration Rate 56 ML/MIN Troponin I LESS THAN 0.02 NG/ML Lipase 123 U/L MDM Supervised Visit with ROSEMARIE: Yes Narrative Course I, Dr. Boland, have reviewed the advance practice practitioner's documentation and am in agreement, met with the patient face to face, made the diagnosis, and the medical decision making was done by me. See her note for further details. Briefly this is an 82-year-old female who is here for evaluation of left anterior chest wall left upper quadrant abdominal pain after falling between her sofa 2 days ago. She was at a [employer] today and believe she may be overdone it. She does have left anterior/lateral chest wall tenderness without step-off, without crepitus, without paradoxical chest wall movement. She has mild left upper quadrant abdominal tenderness. EKG shows no signs of ischemia. CBC is unremarkable. CMP is unremarkable. Cardiac enzymes are negative. Chest x-ray shows a tiny nodular density in the right lung base which is indeterminant, left basilar scarring. CT abdomen pelvis shows diverticulosis and bilateral intrarenal stones. Patient and the patient's daughter were made aware of all findings per she is resting comfortably. She is stable for discharge home with outpatient follow-up with her primary care physician this week. She was advised on when to return to the emergency department. She verbalizes understanding and agreement with plan. Diagnosis Primary Impression: Chest wall contusion Qualified Codes: S20.212A - Contusion of left front wall of thorax, initial encounter Additional Impression: Pulmonary nodule Referrals: Primary Care Physician 3 days Additional Instruction: Follow-up with your primary care physician this week. Return to the emergency department for worsening symptoms or any other concerns. Disposition: 01 DISCHARGE HOME Condition: Stable Corky Boland MD Oct 26, 2017 23:49
--- NOTE | 2017-10-27 09:00 | EKG ---
Date Performed: 10/26/2017 Time Performed: 21:58:49 PTAGE: 82 years EKG: Sinus rhythm MARKED LEFT AXIS DEVIATION ABNORMAL ECG PREVIOUS TRACING : 10/26/2017 21.57 DOCTOR: Ac Aguirre Interpretating Date/Time 10/27/2017 08:58:30
== END 2017-10-27 00:25 | disposition home or self-care (01) ==
LOC: NEPE 20:06
DX: S20.212A Contusion of left front wall of thorax, initial encounter (principal); R91.1 Solitary pulmonary nodule; I10 Essential (primary) hypertension; E78.00 Pure hypercholesterolemia, unspecified; J44.9 Chronic obstructive pulmonary disease, unspecified; E11.9 Type 2 diabetes mellitus without complications; M79.7 Fibromyalgia; R94.31 Abnormal electrocardiogram [ECG] [EKG]; W23.1XXA Caught, crushed, jammed, or pinched between stationary objects, initial encounter; Z88.5 Allergy status to narcotic agent; Z88.8 Allergy status to other drugs, medicaments and biological substances; Z79.84 Long term (current) use of oral hypoglycemic drugs; Z79.899 Other long term (current) drug therapy
CPT/HCPCS: 71046; 74176; 80053; 83690; 84484; 85025; 85610; 85730; 93005

== ENCOUNTER 2018-10-22 04:04 | Observation (INO) ==
--- NOTE | 2018-10-22 04:50 | ED ---
HPI General Chief complaint: Back Pain/Injury Stated complaint: vomiting Time Seen by Provider: 10/22/18 04:49 Source: patient Mode of arrival: ambulatory Limitations: no limitations History of Present Illness HPI narrative: 83 yo F c/o nausea and vomiting for about five hours. no fever/ chills. + pain in the R flank with some apparent radiation to the region of the iliac crest on the right side. The pain is constant and of moderate severity. emesis nonbloody. no diarrhea. Patient was very tired a few days ago preceding the episode however there is otherwise no acute change in baseline clinical condition. Related Data Home Medications Medication Instructions Recorded Confirmed alprazolam [Xanax] 0.5 mg PO BID 05/22/18 10/22/18 apixaban [Eliquis] 5 mg PO BID 05/22/18 10/22/18 atorvastatin 40 mg PO DAILY 05/22/18 10/22/18 metformin 500 mg PO BID 05/22/18 10/22/18 ipratropium bromide 0.025 mg/kg INHALATION Q8H 08/15/18 10/22/18 montelukast 10 mg PO QPM 08/15/18 10/22/18 tiotropium bromide [Spiriva 2 puff INHALATION DAILY 08/15/18 10/22/18 Respimat] calcium carbonate [Calcium 600] 600 mg PO QID 09/24/18 10/22/18 ferrous sulfate 325 mg PO BID 09/24/18 10/22/18 mv,Ca,min-folic acid-vit K1 1 tab PO DAILY 09/24/18 10/22/18 [One-A-Day Women's 50 Plus] Al hyd-Mg tr-alg ac-sod bicarb See Label Instructions .ROUTE 10/22/18 10/22/18 [Gaviscon] .COMPLEX vit [id number] See Label Instructions .ROUTE 10/22/18 10/22/18 .COMPLEX Previous Rx's Medication Instructions Recorded baclofen 10 mg PO Q8H #9 tab 10/23/18 hydrocodone-acetaminophen 1 tab PO Q6H PRN #10 tab 10/23/18 tamsulosin 0.4 mg PO DAILY #30 cap 10/23/18 Allergies Allergy/AdvReac Type Severity Reaction Status Date / Time albuterol Allergy Severe Arrhythmias Verified 10/22/18 04:06 caffeine Allergy Severe Arrhythmias Verified 10/22/18 04:06 ergotamine Allergy Severe VOMITING Verified 10/22/18 04:06 Iodinated Contrast- Oral and Allergy Severe Shortness Verified 10/22/18 06:14 IV Dye of Breath [Contrast] codeine AdvReac Severe Vomiting Verified 10/22/18 04:06 duloxetine AdvReac Severe SEVERE Verified 10/22/18 04:06 SOMNOLENCE gabapentin AdvReac Severe VOMITING Verified 10/22/18 04:06 pregabalin AdvReac Severe "WIPED OUT" Verified 10/22/18 04:06 morphine AdvReac Intermediate Vomiting Verified 10/22/18 04:06 propoxyphene AdvReac Intermediate Hives Verified 10/22/18 04:06 Review of Systems ROS: all other systems reviewed are negative ON LICENSE OF [facility] Medical History Medical History Benign tumor of back (Acute) History of hysterectomy (Acute) Prolapse of intestine (Acute) Trigger thumb of left hand (Acute) Afib (Acute) COPD (chronic obstructive pulmonary disease) (Acute) Diabetes (Acute) GERD (gastroesophageal reflux disease) (Acute) Hyperlipidemia (Acute) Surgical History Surgical History History of appendectomy (Acute) History of bladder suspension procedure (Acute) History of carpal tunnel surgery of right wrist (Acute) History of cholecystectomy (Acute) History of heart artery stent (Acute) History of hernia repair (Acute) History of removal of cyst (Acute) History of repair of hiatal hernia (Acute) History of spinal surgery (Acute) History of tonsillectomy and adenoidectomy (Acute) History of tubal ligation (Acute) S/P knee replacement (Acute) Social History Social History Substance History: No History of Abuse Second Hand Smoke Exposure: No Smoking Status: Former smoker Tobacco Type: Cigarettes How Often Do You Have a Drink Containing Alcohol: Never Recent Travel in [facility] within the Last 8 Weeks: No Recent Out of Country Travel within the Last 8 Weeks: No Immunization History Tetanus Immunization: >5 Years Exam Narrative Exam Narrative: GENERAL: 83-year-old female moderate distress due to vomiting and dry heaving SKIN: Focused skin assessment warm/dry. HEAD: Atraumatic. Normocephalic. EYES: Pupils equal and round. No scleral icterus. No injection or drainage. ENT: No nasal bleeding or discharge. Mucous membranes pink and moist. NECK: Trachea midline. No JVD. CARDIOVASCULAR: Regular rate and rhythm. No murmur appreciated. RESPIRATORY: No accessory muscle use. Clear to auscultation. Breath sounds equal bilaterally. GASTROINTESTINAL: Soft. Minimal tenderness to percussion in the right flank. MUSCULOSKELETAL: No obvious deformities. No clubbing. No cyanosis. No edema. NEUROLOGICAL: Awake and alert. No obvious cranial nerve deficits. Motor grossly within normal limits. Normal speech. PSYCHIATRIC: Appropriate mood and affect; insight and judgment normal. Course Initial Documented Vital Signs Temperature 97.7 F 10/22/18 04:06 Pulse Rate 42 L 10/22/18 04:06 Respiratory Rate 20 10/22/18 04:06 Blood Pressure 220/93 H 10/22/18 04:06 Pulse Oximetry 100 10/22/18 04:06 Last Documented Vital Signs Temperature 98.3 F 10/23/18 11:24 Pulse Rate 67 10/23/18 11:24 Respiratory Rate 20 10/23/18 11:24 Blood Pressure 128/60 10/23/18 11:24 Pulse Oximetry 96 10/23/18 11:24 Medical Decision Making MDM Narrative Medical decision making narrative: White blood cell count is 11,000 Hemoglobin is 13.2 Platelet count is 214 BUN/creatinine is 20/1.13 stable Zofran given shortly following arrival conferred minimal benefit. IM phenergan given with good benefit temporarily. Patient reassessed at 6:55 AM and found to be holding a green emesis bag next to her mouth with a complaint of nausea after Zofran and Phenergan. CT shows 4mm proximal UPJ stone. Patient has vomited despite Zofran and Phenergan. Patient required fentanyl twice. Patient is 83 years old with a history of diabetes atrial fibrillation with multiple abdominal surgeries. Urinalysis shows hematuria with no nitrites or significant white blood cells or clumps of white blood cells. Admission for intractable pain intractable vomiting and hydronephrosis with a 4 mm UPJ stone on the right. Call to at 700AM. D/w Dr Hoyos at approximately 800AM. Medical Screen Exam Complete: Yes Emergency Medical Condition: Yes Lab Data Result diagrams: 10/22/18 04:57 10/23/18 05:35 Lab Results 10/22/18 10/22/18 10/22/18 Range/Units 04:57 04:57 06:07 WBC 11.0 (4.0-11.0) th/mm3 RBC 4.41 (4.00-5.30) mil/mm3 Hgb 13.2 (11.6-15.3) gm/dL Hct 39.7 (35.0-46.0) % MCV 89.9 (80.0-100.0) fL MCH 29.9 (27.0-34.0) pg MCHC 33.3 (32.0-36.0) % RDW 14.5 (11.6-17.2) % Plt Count 214 (150-450) th/mm3 MPV 8.6 (7.0-11.0) fL Neut % (Auto) 70.6 H (16.0-70.0) % Lymph % (Auto) 17.1 (9.0-44.0) % [place] % (Auto) 8.7 H (0.0-8.0) % Eos % (Auto) 2.9 (0.0-4.0) % Baso % (Auto) 0.7 (0.0-2.0) % Neut # (Auto) 7.8 H (1.8-7.7) th/mm3 Lymph # (Auto) 1.9 (1.0-4.8) th/mm3 [place] # (Auto) 1.0 H (0.0-0.9) th/mm3 Eos # (Auto) 0.3 (0.0-0.4) th/mm3 Baso # (Auto) 0.1 (0.0-0.2) th/mm3 WBC Differential . Differential Comment Auto diff final Sodium 138 (136-145) meq/L Potassium 4.3 (3.5-5.1) meq/L Chloride 104 (98-107) meq/L Carbon Dioxide 25.7 (21.0-32.0) meq/L Anion Gap 8 (5-15) meq/L BUN 20 H (7-18) mg/dL Creatinine 1.13 H (0.50-1.00) mg/dL Estimated GFR 46 L (>89) mL/min POC Glucose (68-110) mg/dl Random Glucose 144 H (74-106) mg/dL Calcium 9.1 (8.5-10.1) mg/dL Magnesium 2.3 (1.5-2.5) mg/dL Total Bilirubin 0.4 (0.2-1.0) mg/dL AST 51 H (15-37) U/L ALT 42 (10-53) U/L Alkaline Phosphatase 77 (45-117) U/L Total Protein 7.1 (6.4-8.2) g/dL Albumin 3.8 (3.4-5.0) g/dL Lipase 111 (73-393) U/L Urine Color Yellow (Yellw/Straw) Urine Clarity Clear (Clear) Urine pH 7.0 (5.0-8.5) Ur Specific [place] 1.011 (1.002-1.035) Urine Protein Negative (Neg-Trace) mg/dL Urine Glucose (UA) 50 (Negative) mg/dL Urine Ketones Trace H (Negative) mg/dL Urine Occult Blood Moderate H (Negative) Urine Nitrate Negative (Negative) Urine Bilirubin Negative (Negative) Urine Urobilinogen Less than 2 (Less than 2) mg/dL Ur Leukocyte Esterase Small H (Negative) Urine RBC 68 H (0-3) /hpf Urine WBC 7 H (0-5) /hpf Urine Mucus Few H (Occasional) /lpf Micro UA Comment Culture not ind Ur Microscopic Review Not Reportable Urine Culture Comments Culture not ind 10/22/18 10/22/18 10/23/18 Range/Units 14:45 18:44 05:35 WBC (4.0-11.0) th/mm3 RBC (4.00-5.30) mil/mm3 Hgb (11.6-15.3) gm/dL Hct (35.0-46.0) % MCV (80.0-100.0) fL MCH (27.0-34.0) pg MCHC (32.0-36.0) % RDW (11.6-17.2) % Plt Count (150-450) th/mm3 MPV (7.0-11.0) fL Neut % (Auto) (16.0-70.0) % Lymph % (Auto) (9.0-44.0) % [place] % (Auto) (0.0-8.0) % Eos % (Auto) (0.0-4.0) % Baso % (Auto) (0.0-2.0) % Neut # (Auto) (1.8-7.7) th/mm3 Lymph # (Auto) (1.0-4.8) th/mm3 [place] # (Auto) (0.0-0.9) th/mm3 Eos # (Auto) (0.0-0.4) th/mm3 Baso # (Auto) (0.0-0.2) th/mm3 WBC Differential Differential Comment Sodium 143 (136-145) meq/L Potassium 3.4 L D (3.5-5.1) meq/L Chloride 109 H (98-107) meq/L Carbon Dioxide 26.4 (21.0-32.0) meq/L Anion Gap 8 (5-15) meq/L BUN 15 (7-18) mg/dL Creatinine 0.89 (0.50-1.00) mg/dL Estimated GFR 61 L (>89) mL/min POC Glucose 121 H 149 H (68-110) mg/dl Random Glucose 99 (74-106) mg/dL Calcium 8.5 (8.5-10.1) mg/dL Magnesium (1.5-2.5) mg/dL Total Bilirubin (0.2-1.0) mg/dL AST (15-37) U/L ALT (10-53) U/L Alkaline Phosphatase (45-117) U/L Total Protein (6.4-8.2) g/dL Albumin (3.4-5.0) g/dL Lipase (73-393) U/L Urine Color (Yellw/Straw) Urine Clarity (Clear) Urine pH (5.0-8.5) Ur Specific [place] (1.002-1.035) Urine Protein (Neg-Trace) mg/dL Urine Glucose (UA) (Negative) mg/dL Urine Ketones (Negative) mg/dL Urine Occult Blood (Negative) Urine Nitrate (Negative) Urine Bilirubin (Negative) Urine Urobilinogen (Less than 2) mg/dL Ur Leukocyte Esterase (Negative) Urine RBC (0-3) /hpf Urine WBC (0-5) /hpf Urine Mucus (Occasional) /lpf Micro UA Comment Ur Microscopic Review Urine Culture Comments 10/23/18 Range/Units 08:15 WBC (4.0-11.0) th/mm3 RBC (4.00-5.30) mil/mm3 Hgb (11.6-15.3) gm/dL Hct (35.0-46.0) % MCV (80.0-100.0) fL MCH (27.0-34.0) pg MCHC (32.0-36.0) % RDW (11.6-17.2) % Plt Count (150-450) th/mm3 MPV (7.0-11.0) fL Neut % (Auto) (16.0-70.0) % Lymph % (Auto) (9.0-44.0) % [place] % (Auto) (0.0-8.0) % Eos % (Auto) (0.0-4.0) % Baso % (Auto) (0.0-2.0) % Neut # (Auto) (1.8-7.7) th/mm3 Lymph # (Auto) (1.0-4.8) th/mm3 [place] # (Auto) (0.0-0.9) th/mm3 Eos # (Auto) (0.0-0.4) th/mm3 Baso # (Auto) (0.0-0.2) th/mm3 WBC Differential Differential Comment Sodium (136-145) meq/L Potassium (3.5-5.1) meq/L Chloride (98-107) meq/L Carbon Dioxide (21.0-32.0) meq/L Anion Gap (5-15) meq/L BUN (7-18) mg/dL Creatinine (0.50-1.00) mg/dL Estimated GFR (>89) mL/min POC Glucose 103 (68-110) mg/dl Random Glucose (74-106) mg/dL Calcium (8.5-10.1) mg/dL Magnesium (1.5-2.5) mg/dL Total Bilirubin (0.2-1.0) mg/dL AST (15-37) U/L ALT (10-53) U/L Alkaline Phosphatase (45-117) U/L Total Protein (6.4-8.2) g/dL Albumin (3.4-5.0) g/dL Lipase (73-393) U/L Urine Color (Yellw/Straw) Urine Clarity (Clear) Urine pH (5.0-8.5) Ur Specific [place] (1.002-1.035) Urine Protein (Neg-Trace) mg/dL Urine Glucose (UA) (Negative) mg/dL Urine Ketones (Negative) mg/dL Urine Occult Blood (Negative) Urine Nitrate (Negative) Urine Bilirubin (Negative) Urine Urobilinogen (Less than 2) mg/dL Ur Leukocyte Esterase (Negative) Urine RBC (0-3) /hpf Urine WBC (0-5) /hpf Urine Mucus (Occasional) /lpf Micro UA Comment Ur Microscopic Review Urine Culture Comments Imaging Data Radiologist's impression: Abdomen/Pelvis CT 10/22/18 04:58 CONCLUSION: 1. Moderate obstructive uropathy on the right secondary to a right UPJ calculus measuring 4 mm. There are some inflammatory changes and minimal fluid adjacent to the right kidney. 2. Nonobstructing bilateral renal calculi. 3. Diverticulosis without diverticulitis. 4. Small to moderate sized cardia. Discharge Plan Discharge Disposition Patient Disposition: ED Admit(ED Internal Use Only) Discharge Order Discharge Orders: Discharge Order (Routine); Ordered 10/23/18 Ordered By: Joann Hunt ED Use Only Admit Order (Routine); Ordered 10/22/18 Ordered By: Monroe Conteh Discharge Details Anticipated Discharge Date: 10/23/18 Physicians Team ED Provider: Monroe Conteh Primary Care Provider: Wilbert Harrison Attending Provider: Fidelia Torre Other Providers: Shan Burns Status ED Status: Left Department Discharge Information Discharge Date/Time: 10/23/18 00:22
[2018-10-22] MEDS ORDERED: fentaNYL Citrate Inj 100 MCG/2 ML Ampul IV.PUSH ONE ×2 (04:58→06:53)
[2018-10-22 05:19] LABS: Baso # (Auto) 0.1 th/mm3 (0.0-0.2); Baso % (Auto) 0.7 % (0.0-2.0); Eos # (Auto) 0.3 th/mm3 (0.0-0.4); Eos % (Auto) 2.9 % (0.0-4.0); Hematocrit 39.7 % (35.0-46.0); Hemoglobin 13.2 gm/dL (11.6-15.3); Lymph # (Auto) 1.9 th/mm3 (1.0-4.8); Lymph % (Auto) 17.1 % (9.0-44.0); Mean Corpuscular HGB Conc 33.3 % (32.0-36.0); Mean Corpuscular Hemoglobin 29.9 pg (27.0-34.0); Mean Corpuscular Volume 89.9 fL (80.0-100.0); Mean Platelet Volume 8.6 fL (7.0-11.0); Mono % (Auto) 8.7 % (0.0-8.0); Neut # (Auto) 7.8 th/mm3 (1.8-7.7); Neut % (Auto) 70.6 % (16.0-70.0); Platelet Count 214 th/mm3 (150-450); Red Blood Count 4.41 mil/mm3 (4.00-5.30); Red Cell Distribution Width 14.5 % (11.6-17.2)
[2018-10-22 05:30] LABS: Alkaline Phosphatase 77 U/L (45-117); Total Protein 7.1 g/dL (6.4-8.2)
[2018-10-22 05:31] LABS: Alanine Aminotransferase 42 U/L (10-53); Albumin 3.8 g/dL (3.4-5.0); Anion Gap 8 meq/L (5-15); Aspartate Aminotransferase 51 U/L (15-37); Blood Urea Nitrogen 20 mg/dL (7-18); Calcium 9.1 mg/dL (8.5-10.1); Carbon Dioxide 25.7 meq/L (21.0-32.0); Chloride 104 meq/L (98-107); Glomerular Filtration Rate 46 mL/min (>89); Glucose,Random 144 mg/dL (74-106); Lipase 111 U/L (73-393); Magnesium 2.3 mg/dL (1.5-2.5); Sodium 138 meq/L (136-145)
[2018-10-22 05:35] LABS: Potassium 4.3 meq/L (3.5-5.1)
[2018-10-22 06:40] LABS: Bilirubin,Urine Negative (Negative); Clarity,Urine Clear (Clear); Color,Urine Yellow (Yellw/Straw); Glucose,Urine (UA) 50 mg/dL (Negative); Leukocyte Esterase,Urine Small (Negative); Mucus,Urine Few /lpf (Occasional); Nitrite,Urine Negative (Negative); Specific Gravity,Urine 1.011 (1.002-1.035)
--- NOTE | 2018-10-22 06:42 | CT ---
EXAM DATE: 10/22/2018 6:23 AM EST AGE/SEX: 83 years / Female INDICATIONS: Right flank pain and vomiting. CLINICAL DATA: This is the patient's initial encounter. Patient reports that signs and symptoms have been present for 1 day and indicates a pain score of 8/10. MEDICAL/SURGICAL HISTORY: Chronic obstructive pulmonary disease. Diabetes. Cardiovascular dis ease. Coronary artery stent. Appendectomy. Bladder suspension, tubal ligation, hernia repair RADIATION DOSE: 7.50 CTDI (mGy) COMPARISON: [facility] [place], CT ABDOMEN & PELVIS W/O CONTRAST, 10/26/2017. . TECHNIQUE: Multiple contiguous axial images were obtained through the abdomen. Images were obtained using multiple row detector helical technique. Using automated exposure control and adjustment of the mA and/or kV according to patient size, radiation dose was kept as low as reasonably achievable to o btain optimal diagnostic quality images. DICOM format image data is available electronically for rev iew and comparison. FINDINGS: Lower Lungs: The visualized lower lungs are clear. Liver: The liver has a homogeneous density without space-occupying lesion. There is no dilation of th e biliary tree. Spleen: Homogeneous density without enlargement. Pancreas: Unremarkable without mass or calcification. Kidneys: 4 mm nonobstructing right renal calculus. 5 mm nonobstructing left renal calculus. Moderate obstructive uropathy on the right with perinephric stranding and perinephric fluid. Moderate obstruc tive uropathy on the right leading to a right UVJ calculus measuring 4 mm. Adrenal Glands: Unremarkable. Aorta: The aorta and proximal iliac vessels are grossly unremarkable without aneurysmal dilation. Bowel/Mesentery: Extensive diverticulosis of the colon without diverticulitis greatest within the de scending and sigmoid colon. Small to moderate hiatal hernia. Abdominal Wall: Intact. Retroperitoneum: No evidence of adenopathy in the retrocrural, para-aortic, or deep pelvic regions. Bladder: Contours are smooth. Reproductive Organs: No abnormal masses or calcifications seen. Uterus is absent. Inguinal: The inguinal region is unremarkable without evidence of adenopathy. Bony Structures: Degenerative changes and scoliosis lumbar spine. CONCLUSION: 1. Moderate obstructive uropathy on the right secondary to a right UPJ calculus measuring 4 mm. Ther e are some inflammatory changes and minimal fluid adjacent to the right kidney. 2. Nonobstructing bilateral renal calculi. 3. Diverticulosis without diverticulitis. 4. Small to moderate sized cardia. Electronically signed by: Sreedhar Gill MD Board Certified Radiologist 10/22/2018 6:40 AM EST
[2018-10-22] MEDS ORDERED: Dextrose 50% in Water 50 ML Vial IV.PUSH PRN (08:12)
[2018-10-22] MEDS ORDERED: Naloxone Inj 0.4 MG/ML Vial IV.PUSH PRN (08:13)
[2018-10-22] MEDS ORDERED: hydrALAZINE HCl Inj 20 MG/ML Vial IV.PUSH PRN (09:00)
[2018-10-22] MEDS ORDERED: HYDROmorphone PF Inj 1 MG/ML Ampul IV.PUSH PRN (09:00)
[2018-10-22] MEDS ORDERED: Bisacodyl 10 MG Supp RECTAL PRN (09:00)
[2018-10-22] MEDS ORDERED: Ketorolac Inj 30 MG/ML (IVP) Vial IV.PUSH PRN ×2 (09:00)
[2018-10-22] MEDS ORDERED: Acetaminophen 325 MG Tablet PO PRN ×2 (09:00)
--- NOTE | 2018-10-22 10:53 | P.HPIM ---
History of Present Illness Primary Care Physician: Wilbert Harrison MD Chief Complaint: Nausea, vomiting and right flank pain History of Present Illness: This is a 83-year-old female with history of atrial fibrillation on Eliquis, COPD, diabetes mellitus, GERD and hyperlipidemia. She presents with nausea vomiting and right flank pain. Started 2 days ago when she developed intermittent nausea and emesis. For the last 5 hours patient developed constant severe right flank pain with radiation to the right iliac bone. Denies dysuria, frequency, hematuria, constipation, diarrhea, fever and chills. Abdominal CT shows obstructive uropathy with a 4 mm stone at the right UPJ. At this time, she still feels nauseous and painful in the right iliac. She has been retching. Seen with daughter. Discussed with nurse. All other systems reviewed negative. EKG independently reviewed by me with sinus rhythm PVC. Family history diabetes Review of Systems Review of Systems: all other systems reviewed are negative [facility] Medical History Medical History Benign tumor of back (Acute) History of hysterectomy (Acute) Prolapse of intestine (Acute) Trigger thumb of left hand (Acute) Afib (Acute) COPD (chronic obstructive pulmonary disease) (Acute) Diabetes (Acute) GERD (gastroesophageal reflux disease) (Acute) Hyperlipidemia (Acute) Surgical History Surgical History History of appendectomy (Acute) History of bladder suspension procedure (Acute) History of carpal tunnel surgery of right wrist (Acute) History of cholecystectomy (Acute) History of heart artery stent (Acute) History of hernia repair (Acute) History of removal of cyst (Acute) History of repair of hiatal hernia (Acute) History of spinal surgery (Acute) History of tonsillectomy and adenoidectomy (Acute) History of tubal ligation (Acute) S/P knee replacement (Acute) Social History Social History Substance History: No History of Abuse Second Hand Smoke Exposure: No Smoking Status: Former smoker Tobacco Type: Cigarettes How Often Do You Have a Drink Containing Alcohol: Never Recent Travel in [facility] within the Last 8 Weeks: No Recent Out of Country Travel within the Last 8 Weeks: No Immunization History Tetanus Immunization: >5 Years Medications and Allergies Allergies Allergy/AdvReac Type Severity Reaction Status Date / Time albuterol Allergy Severe Arrhythmias Verified 10/22/18 04:06 caffeine Allergy Severe Arrhythmias Verified 10/22/18 04:06 ergotamine Allergy Severe VOMITING Verified 10/22/18 04:06 Iodinated Contrast- Oral and Allergy Severe Shortness Verified 10/22/18 06:14 IV Dye of Breath [Contrast] codeine AdvReac Severe Vomiting Verified 10/22/18 04:06 duloxetine AdvReac Severe SEVERE Verified 10/22/18 04:06 SOMNOLENCE gabapentin AdvReac Severe VOMITING Verified 10/22/18 04:06 pregabalin AdvReac Severe "WIPED OUT" Verified 10/22/18 04:06 morphine AdvReac Intermediate Vomiting Verified 10/22/18 04:06 propoxyphene AdvReac Intermediate Hives Verified 10/22/18 04:06 Home Medications Medication Instructions Recorded Confirmed Type alprazolam [Xanax] 0.5 mg PO BID 05/22/18 10/22/18 History apixaban [Eliquis] 5 mg PO BID 05/22/18 10/22/18 History atorvastatin 40 mg PO DAILY 05/22/18 10/22/18 History metformin 500 mg PO BID 05/22/18 10/22/18 History ipratropium bromide 0.025 mg/kg INHALATION Q8H 08/15/18 10/22/18 History montelukast 10 mg PO QPM 08/15/18 10/22/18 History tiotropium bromide [Spiriva 2 puff INHALATION DAILY 08/15/18 10/22/18 History Respimat] calcium carbonate [Calcium 600] 600 mg PO QID 09/24/18 10/22/18 History ferrous sulfate 325 mg PO BID 09/24/18 10/22/18 History mv,Ca,min-folic acid-vit K1 1 tab PO DAILY 09/24/18 10/22/18 History [One-A-Day Women's 50 Plus] Al hyd-Mg tr-alg ac-sod bicarb See Label Instructions .ROUTE 10/22/18 10/22/18 History [Gaviscon] .COMPLEX vit [id number] See Label Instructions .ROUTE 10/22/18 10/22/18 History .COMPLEX Active Medications: Active Medications Acetaminophen (Tylenol) 650 mg PO Q6HR PRN PRN Reason: PAIN SCALE 1 TO 2 Acetaminophen (Tylenol) 650 mg PO Q4H PRN PRN Reason: Temp > 100.4 Alprazolam (Xanax) 0.5 mg PO BID TATE Bisacodyl (Dulcolax Supp) 10 mg RECTAL DAILY PRN PRN Reason: SEVERE CONSITIPATION Dextrose (D50w Vial) 50 ml IV.PUSH UNSCH PRN PRN Reason: PER HYPOGLYCEMIA PROTOCOL Enalaprilat (Vasotec Inj) 1.25 mg IV.PUSH Q6H PRN PRN Reason: SEE LABEL COMMENTS Glucagon (Glucagon Inj) 1 mg OTHER PRN PRN PRN Reason: for Hypoglycemia Protocol Hydralazine HCl (Apresoline Inj) 10 mg IV.PUSH Q6H PRN PRN Reason: SEE LABEL COMMENTS Hydromorphone HCl (Dilaudid) 1 mg PO Q4H PRN PRN Reason: PAIN SCALE 3 TO 5 Hydromorphone HCl (Dilaudid) 2 mg PO Q4H PRN PRN Reason: PAIN SCALE 6 TO 10 Hydromorphone HCl (Dilaudid Pf Inj) 1 mg IV.PUSH Q3H PRN PRN Reason: BREAKTHROUGH PAIN Sodium Chloride (Ns Inj) 1,000 mls @ 100 mls/hr IV.CONT .Q10H [facility] Insulin Aspart (Novolog Insulin Correctional Sugar Inj) 0 unit SQ ACHS TATE; Protocol Ipratropium [place] (Atrovent Neb) 0.5 mg NEB Q8HR NEB [facility] Ketorolac Tromethamine (Toradol Inj) 30 mg IV.PUSH Q6H PRN PRN Reason: PAIN 6-10;IF UNABLE TO TAKE PO Stop: 10/27/18 08:59 Ketorolac Tromethamine (Toradol Inj) 15 mg IV.PUSH Q6H PRN PRN Reason: PAIN 3-5; IF UABLE TO TAKE PO Stop: 10/27/18 08:59 Lactulose (Lactulose Liq) 30 ml PO DAILY PRN PRN Reason: SEVERE CONSITIPATION Montelukast Sodium (Singulair) 10 mg PO QPM [facility] Naloxone HCl (Narcan Inj) 0.4 mg IV.PUSH UNSCH PRN PRN Reason: SEE LABEL COMMENTS Ondansetron HCl (Zofran Inj) 4 mg IV.PUSH Q6H PRN PRN Reason: NAUSEA OR VOMITING Senna/Docusate Sodium (Luda-Colace) 1 tab PO BID [facility] Sennosides (Senokot) 17.2 mg PO Q12H PRN PRN Reason: Moderate Constipation Sodium Chloride (Ns Flush) 2 ml IV.FLUSH PRN PRN PRN Reason: FLUSH AFTER USING IV ACCESS Sodium Chloride (Ns Flush) 2 ml IV.FLUSH PRN PRN PRN Reason: FLUSH AFTER USING IV ACCESS Sodium Chloride (Ns Flush) 2 ml IV.FLUSH BID [facility] Tiotropium [place] (Spiriva 18 Mcg Inh) 18 mcg INH DAILY [facility] Physical Exam Vital signs: Vital Signs 10/22/18 04:06 10/22/18 04:30 10/22/18 04:50 Temperature 97.7 F Pulse Rate 42 L 77 104 H Respiratory Rate 20 16 Blood Pressure 220/93 H 171/88 H Pulse Oximetry 100 97 97 10/22/18 07:15 10/22/18 07:30 10/22/18 08:15 Temperature 97.9 F Pulse Rate 62 Respiratory Rate 18 17 Blood Pressure 200/82 H Pulse Oximetry 97 97 10/22/18 10:41 Temperature 97.6 F Pulse Rate 87 Respiratory Rate 23 Blood Pressure 119/58 L Pulse Oximetry Intake & Output 10/21/18 10/22/18 10/22/18 18:59 06:59 18:59 Weight 70.76 kg Narrative: GENERAL: Well-developed, well-nourished in distress due to pain and nausea SKIN: Warm and dry. HEAD: Atraumatic. Normocephalic. EYES: Pupils equal and round. No scleral icterus. No injection or drainage. ENT: No nasal bleeding or discharge. Mucous membranes pink and moist. NECK: Trachea midline. No JVD. CARDIOVASCULAR: Regular rate and rhythm. RESPIRATORY: No accessory muscle use. Clear to auscultation. Breath sounds equal bilaterally. GASTROINTESTINAL: Abdomen soft, tender epigastric and right lower quadrant, nondistended. Right CVA tenderness MUSCULOSKELETAL: Extremities without clubbing, cyanosis, or edema. No obvious deformities. NEUROLOGICAL: Awake and alert. No obvious cranial nerve deficits. Motor grossly within normal limits. Five out of 5 muscle strength in the arms and legs. Normal speech. PSYCHIATRIC: Appropriate mood and affect; insight and judgment normal. Results Labs CBC & Chem 7: 10/22/18 04:57 10/22/18 04:57 Imaging Impressions Abdomen/Pelvis CT 10/22/18 04:58 CONCLUSION: 1. Moderate obstructive uropathy on the right secondary to a right UPJ calculus measuring 4 mm. There are some inflammatory changes and minimal fluid adjacent to the right kidney. 2. Nonobstructing bilateral renal calculi. 3. Diverticulosis without diverticulitis. 4. Small to moderate sized cardia. Caprini VTE Risk Assessment Caprini VTE Risk Assessment: Moderate/High Risk (score >= 2) Caprini Risk Assessment Model: Point Value = 1 Point Value = 2 Point Value = 3 Point Value = 5 Age 41-60 Minor surgery BMI > 25 kg/m2 Swollen legs Varicose veins or History of unexplained or recurrent spontaneous Oral contraceptives or hormone replacement Sepsis (< 1 month) Serious lung disease, including pneumonia (< 1 month) Abnormal pulmonary function Acute myocardial infarction Congestive heart failure (< 1 month) History of inflammatory bowel disease Medical patient at bed rest Age 61-74 Arthroscopic surgery Major open surgery (> 45 min) Laparoscopic surgery (> 45 min) Malignancy Confined to bed (> 72 hours) Immobilizing plaster cast Central venous access Age >= 75 History of VTE Family history of VTE Factor V Leiden Prothrombin [id number] Lupus anticoagulant Anticardiolipin antibodies Elevated serum homocysteine Heparin-induced thrombocytopenia Other congenital or acquired thrombophilia Stroke (< 1 month) Elective arthroplasty Hip, pelvis, or leg fracture Acute spinal cord injury (< 1 month) Prophylaxis Regimen: Total Risk Factor Score Risk Level Prophylaxis Regimen 0-1 Low Early ambulation 2 Moderate Order ONE of the following: *Sequential Compression Device (SCD) *Heparin 5000 units SQ BID 3-4 Higher Order ONE of the following medications: *Heparin 5000 units SQ TID *Enoxaparin/Lovenox 40 mg SQ daily (WT < 150 kg, CrCl > 30 mL/min) *Enoxaparin/Lovenox 30 mg SQ daily (WT < 150 kg, CrCl > 10-29 mL/min) *Enoxaparin/Lovenox 30 mg SQ BID (WT < 150 kg, CrCl > 30 mL/min) AND/OR *Sequential Compression Device (SCD) 5 or more Highest Order ONE of the following medications: *Heparin 5000 units SQ TID (Preferred with Epidurals) *Enoxaparin/Lovenox 40 mg SQ daily (WT < 150 kg, CrCl > 30 mL/min) *Enoxaparin/Lovenox 30 mg SQ daily (WT < 150 kg, CrCl > 10-29 mL/min) *Enoxaparin/Lovenox 30 mg SQ BID (WT < 150 kg, CrCl > 30 mL/min) AND *Sequential Compression Device (SCD) Assessment and Plan Plan This is a 83-year-old female with history of atrial fibrillation on Eliquis, COPD, diabetes mellitus, GERD and hyperlipidemia. She presents with nausea vomiting and right flank pain. Started 2 days ago when she developed intermittent nausea and emesis. For the last 5 hours patient developed constant severe right flank pain with radiation to the right iliac bone. Denies dysuria, frequency, hematuria, constipation, diarrhea, fever and chills. Abdominal CT shows obstructive uropathy with a 4 mm stone at the right UPJ. Obstructive uropathy with intractable nausea, vomiting and pain. Patient will be hospitalized for IV hydration, symptom control with antiemetics and pain management with IV Toradol and Dilaudid counseled regarding narcotics. Strain all urine and consult Acute kidney injury secondary to above. Nonoliguric. Monitor Slightly elevated AST. Patient on Lipitor will monitor Uncontrolled hypertension likely secondary to pain. Will monitor DVT prophylaxis with SCD, early ambulation and pharmacological prophylaxis when cleared by
--- NOTE | 2018-10-22 11:02 | P.CONURO ---
History of Present Illness Service: Consult date: 10/22/18 Requesting Physician: Tony Hoyos Reason for Consult: Obstructing right ureteral calculus Primary Care Provider: Wilbert Harrison MD History of Present Illness: 83-year-old female with multiple medical problems who presented to the emergency room with acute onset right flank pain radiating down towards the right hip region. Workup included a CT scan stone protocol that demonstrated a 4 mm right ureterovesical junction calculus causing moderate right hydroureteronephrosis with perinephric stranding. Also noted was a 4 mm right renal calculus and a 5 mm left renal calculus which not appear to be causing any obstruction. A urology consult was placed for further recommendations. At the time of consultation, the patient's pain was adequately controlled. She was having ongoing nausea. She denied a prior history of nephrolithiasis. Patient has been afebrile. I reviewed the actual CT scan images and concur with the radiologist impression. Review of Systems All other systems reviewed negative except as stated in HPI PMFSH - History History Provided By: Patient - Medical History Medical History: Medical History (Last Updated 10/22/18 @ 04:14 by Melanie Botello) Benign tumor of back History of hysterectomy Prolapse of intestine Trigger thumb of left hand Afib COPD (chronic obstructive pulmonary disease) Diabetes GERD (gastroesophageal reflux disease) Hyperlipidemia - Surgical History Surgical History: Surgical History (Last Updated 10/22/18 @ 04:14 by Melanie Botello) History of appendectomy History of bladder suspension procedure History of carpal tunnel surgery of right wrist History of cholecystectomy History of heart artery stent History of hernia repair History of removal of cyst History of repair of hiatal hernia History of spinal surgery History of tonsillectomy and adenoidectomy History of tubal ligation S/P knee replacement - Tobacco History Second Hand Smoke Exposure: No Tobacco Use In Past 30 Days: No Smoking Status: Former smoker Tobacco Type: Cigarettes - Alcohol History How Often Do You Have a Drink Containing Alcohol: Never - Substance Use History Substance History: No History of Abuse - Travel History Recent Travel in the [place] Within the Last 8 Weeks: No Recent Travel Out of the Country Within the Last 8 Weeks: No - Immunization History Tetanus Immunization: >5 Years Medications and Allergies Active Medications: Active Medications Acetaminophen (Tylenol) 650 mg PO Q6HR PRN PRN Reason: PAIN SCALE 1 TO 2 Acetaminophen (Tylenol) 650 mg PO Q4H PRN PRN Reason: Temp > 100.4 Alprazolam (Xanax) 0.5 mg PO BID TATE Bisacodyl (Dulcolax Supp) 10 mg RECTAL DAILY PRN PRN Reason: SEVERE CONSITIPATION Calcium Carbonate (Tums Chew) 500 mg CHEW Q6H PRN PRN Reason: DYSPEPSIA OR HEARTBURN Dextrose (D50w Vial) 50 ml IV.PUSH UNSCH PRN PRN Reason: PER HYPOGLYCEMIA PROTOCOL Enalaprilat (Vasotec Inj) 1.25 mg IV.PUSH Q6H PRN PRN Reason: SEE LABEL COMMENTS Famotidine (Pepcid) 20 mg PO BID TATE Glucagon (Glucagon Inj) 1 mg OTHER PRN PRN PRN Reason: for Hypoglycemia Protocol Hydralazine HCl (Apresoline Inj) 10 mg IV.PUSH Q6H PRN PRN Reason: SEE LABEL COMMENTS Hydromorphone HCl (Dilaudid) 1 mg PO Q4H PRN PRN Reason: PAIN SCALE 3 TO 5 Hydromorphone HCl (Dilaudid) 2 mg PO Q4H PRN PRN Reason: PAIN SCALE 6 TO 10 Hydromorphone HCl (Dilaudid Pf Inj) 1 mg IV.PUSH Q3H PRN PRN Reason: BREAKTHROUGH PAIN Sodium Chloride (Ns Inj) 1,000 mls @ 100 mls/hr IV.CONT .Q10H [facility] Insulin Aspart (Novolog Insulin Correctional Sugar Inj) 0 unit SQ ACHS TATE; Protocol Ipratropium [place] (Atrovent Neb) 0.5 mg NEB Q8HR NEB [facility] Ketorolac Tromethamine (Toradol Inj) 30 mg IV.PUSH Q6H PRN PRN Reason: PAIN 6-10;IF UNABLE TO TAKE PO Stop: 10/27/18 08:59 Ketorolac Tromethamine (Toradol Inj) 15 mg IV.PUSH Q6H PRN PRN Reason: PAIN 3-5; IF UABLE TO TAKE PO Stop: 10/27/18 08:59 Lactulose (Lactulose Liq) 30 ml PO DAILY PRN PRN Reason: SEVERE CONSITIPATION Montelukast Sodium (Singulair) 10 mg PO QPM TATE Naloxone HCl (Narcan Inj) 0.4 mg IV.PUSH UNSCH PRN PRN Reason: SEE LABEL COMMENTS Ondansetron HCl (Zofran Inj) 4 mg IV.PUSH Q6H PRN PRN Reason: NAUSEA OR VOMITING Senna/Docusate Sodium (Luda-Colace) 1 tab PO BID [facility] Sennosides (Senokot) 17.2 mg PO Q12H PRN PRN Reason: Moderate Constipation Sodium Chloride (Ns Flush) 2 ml IV.FLUSH PRN PRN PRN Reason: FLUSH AFTER USING IV ACCESS Sodium Chloride (Ns Flush) 2 ml IV.FLUSH PRN PRN PRN Reason: FLUSH AFTER USING IV ACCESS Sodium Chloride (Ns Flush) 2 ml IV.FLUSH BID [facility] Tiotropium [place] (Spiriva 18 Mcg Inh) 18 mcg INH DAILY [facility] Allergies Allergy/AdvReac Type Severity Reaction Status Date / Time albuterol Allergy Severe Arrhythmias Verified 10/22/18 04:06 caffeine Allergy Severe Arrhythmias Verified 10/22/18 04:06 ergotamine Allergy Severe VOMITING Verified 10/22/18 04:06 Iodinated Contrast- Oral and Allergy Severe Shortness Verified 10/22/18 06:14 IV Dye of Breath [Contrast] codeine AdvReac Severe Vomiting Verified 10/22/18 04:06 duloxetine AdvReac Severe SEVERE Verified 10/22/18 04:06 SOMNOLENCE gabapentin AdvReac Severe VOMITING Verified 10/22/18 04:06 pregabalin AdvReac Severe "WIPED OUT" Verified 10/22/18 04:06 morphine AdvReac Intermediate Vomiting Verified 10/22/18 04:06 propoxyphene AdvReac Intermediate Hives Verified 10/22/18 04:06 Home Medications Medication Instructions Recorded Confirmed Type alprazolam [Xanax] 0.5 mg PO BID 05/22/18 10/22/18 History apixaban [Eliquis] 5 mg PO BID 05/22/18 10/22/18 History atorvastatin 40 mg PO DAILY 05/22/18 10/22/18 History metformin 500 mg PO BID 05/22/18 10/22/18 History ipratropium bromide 0.025 mg/kg INHALATION Q8H 08/15/18 10/22/18 History montelukast 10 mg PO QPM 08/15/18 10/22/18 History tiotropium bromide [Spiriva 2 puff INHALATION DAILY 08/15/18 10/22/18 History Respimat] calcium carbonate [Calcium 600] 600 mg PO QID 09/24/18 10/22/18 History ferrous sulfate 325 mg PO BID 09/24/18 10/22/18 History mv,Ca,min-folic acid-vit K1 1 tab PO DAILY 09/24/18 10/22/18 History [One-A-Day Women's 50 Plus] Al hyd-Mg tr-alg ac-sod bicarb See Label Instructions .ROUTE 10/22/18 10/22/18 History [Gaviscon] .COMPLEX vit [id number] See Label Instructions .ROUTE 10/22/18 10/22/18 History .COMPLEX Physical Exam Vital Signs - 24 hr 10/22/18 04:06 10/22/18 04:30 10/22/18 04:50 Temperature 97.7 F Pulse Rate 42 L 77 104 H Respiratory Rate 20 16 Blood Pressure 220/93 H 171/88 H Pulse Oximetry 100 97 97 10/22/18 07:15 10/22/18 07:30 10/22/18 08:15 Temperature 97.9 F Pulse Rate 62 Respiratory Rate 18 17 Blood Pressure 200/82 H Pulse Oximetry 97 97 10/22/18 10:41 Temperature 97.6 F Pulse Rate 87 Respiratory Rate 23 Blood Pressure 119/58 L Pulse Oximetry Physical Exam: GENERAL: This is a well-nourished, well-developed patient, in no apparent distress. SKIN: No rashes, ecchymoses or lesions. Cool and dry. HEAD: Atraumatic. Normocephalic. No temporal or scalp tenderness. EYES: Pupils equal round and reactive. Extraocular motions intact. No scleral icterus. No injection or drainage. ENT: Nose without bleeding, purulent drainage or septal hematoma. Throat without erythema, tonsillar hypertrophy or exudate. Uvula midline. Airway patent. NECK: Trachea midline. No JVD or lymphadenopathy. Supple, nontender, no meningeal signs. CARDIOVASCULAR: Regular rate and rhythm without murmurs, gallops, or rubs. RESPIRATORY: Clear to auscultation. Breath sounds equal bilaterally. No wheezes , rales, or rhonchi. GASTROINTESTINAL: Abdomen soft, non-tender, nondistended. No hepato-splenomegaly , or palpable masses. No guarding. GENITOURINARY: No CVA tenderness, bladder not distended MUSCULOSKELETAL: Extremities without clubbing, cyanosis, or edema. No joint tenderness, effusion, or edema noted. No calf tenderness. Negative Homans sign bilaterally. NEUROLOGICAL: Awake and alert. Cranial nerves II through XII intact. Motor and sensory grossly within normal limits. Five out of 5 muscle strength in all muscle groups. Normal speech. Laboratory Results - last 24 hr 10/22/18 10/22/18 10/22/18 04:57 04:57 06:07 WBC 11.0 RBC 4.41 Hgb 13.2 Hct 39.7 MCV 89.9 MCH 29.9 MCHC 33.3 RDW 14.5 Plt Count 214 MPV 8.6 Neut % (Auto) 70.6 H Lymph % (Auto) 17.1 [place] % (Auto) 8.7 H Eos % (Auto) 2.9 Baso % (Auto) 0.7 Neut # (Auto) 7.8 H Lymph # (Auto) 1.9 [place] # (Auto) 1.0 H Eos # (Auto) 0.3 Baso # (Auto) 0.1 WBC Differential . Differential Comment Auto diff final Sodium 138 Potassium 4.3 Chloride 104 Carbon Dioxide 25.7 Anion Gap 8 BUN 20 H Creatinine 1.13 H Estimated GFR 46 L Random Glucose 144 H Calcium 9.1 Magnesium 2.3 Total Bilirubin 0.4 AST 51 H ALT 42 Alkaline Phosphatase 77 Total Protein 7.1 Albumin 3.8 Lipase 111 Urine Color Yellow Urine Clarity Clear Urine pH 7.0 Ur Specific [place] 1.011 Urine Protein Negative Urine Glucose (UA) 50 Urine Ketones Trace H Urine Occult Blood Moderate H Urine Nitrate Negative Urine Bilirubin Negative Urine Urobilinogen Less than 2 Ur Leukocyte Esterase Small H Urine RBC 68 H Urine WBC 7 H Urine Mucus Few H Micro UA Comment Culture not ind Ur Microscopic Review Not Reportable Urine Culture Comments Culture not ind Result Diagrams: 10/22/18 04:57 10/22/18 04:57 Imaging: ITS Impressions Abdomen/Pelvis CT 10/22/18 04:58 CONCLUSION: 1. Moderate obstructive uropathy on the right secondary to a right UPJ calculus measuring 4 mm. There are some inflammatory changes and minimal fluid adjacent to the right kidney. 2. Nonobstructing bilateral renal calculi. 3. Diverticulosis without diverticulitis. 4. Small to moderate sized cardia. Assessment and Plan - Assessment (1) Right ureteral calculus Code(s): N20.1 - Calculus of ureter Status: Acute (2) Hydronephrosis of right kidney Code(s): N13.30 - Unspecified hydronephrosis Status: Acute (3) Renal calculus, bilateral Code(s): N20.0 - Calculus of kidney Status: Acute - Plan Urologic impression: 1. 4 mm right ureterovesical junction calculus causing moderate right hydroureteronephrosis with perinephric stranding 2. Bilateral nonobstructing renal calculi Recommendations: 1. Strain all urine 2. Tamsulosin 0.4 mg by mouth daily 3. Patient may be discharged home when pain managed with oral meds if medically stable with instructions to continue straining her urine until stone passes. 4. Office follow-up in 1 week.
[2018-10-22] MEDS: Sod Chloride 0.9% Inj 1,000 ML IV.CONT SCH ×2 (14:14→19:10)
[2018-10-22] MEDS: Senna/Docusate Sodium 8.6/50 MG Tablet PO SCH ×2 (14:16→21:26)
[2018-10-22] MEDS: ALPRAZolam 0.25 MG Tablet PO SCH ×2 (14:16→21:26)
[2018-10-22] MEDS: Insulin NovoLOG Aspart Correctional Sugar Inj SQ SCH ×3 (16:22→21:26)
[2018-10-22] MEDS: Tiotropium Bromide 18 MCG/ACT Inhaler INH SCH (16:56)
[2018-10-22] MEDS ORDERED: Montelukast 10 MG Tablet PO SCH (18:00)
--- NOTE | 2018-10-22 20:35 | ECG ---
Date Performed: 10/22/2018 Time Performed: 04:35:08 PTAGE: 83 years EKG: Sinus rhythm WITH FREQUENT VENTRICULAR PREMATURE COMPLEXES IN A BIGEMINAL PATTERN MARKED LEFT AXIS DEVIATION ABNO RMAL ECG PREVIOUS TRACING : 05/28/2018 22.15 Since the previous tracing, no significant change noted DOCTOR: Divine Nava Interpretating Date/Time 10/22/2018 20:34:25
[2018-10-22] MEDS: Famotidine 20 MG Tablet PO SCH (21:27)
[2018-10-23] MEDS: Sod Chloride 0.9% Inj 1,000 ML IV.CONT SCH (00:26)
[2018-10-23 07:21] LABS: Calcium 8.5 mg/dL (8.5-10.1); Carbon Dioxide 26.4 meq/L (21.0-32.0); Potassium 3.4 meq/L (3.5-5.1)
[2018-10-23] MEDS: Insulin NovoLOG Aspart Correctional Sugar Inj SQ SCH (08:16)
[2018-10-23] MEDS: Senna/Docusate Sodium 8.6/50 MG Tablet PO SCH (08:17)
[2018-10-23] MEDS: Famotidine 20 MG Tablet PO SCH (08:17)
[2018-10-23] MEDS: ALPRAZolam 0.25 MG Tablet PO SCH (09:49)
[2018-10-23] MEDS: Tiotropium Bromide 18 MCG/ACT Inhaler INH SCH (09:49)
[2018-10-23] MEDS ORDERED: Baclofen 10 MG Tablet PO SCH (10:00)
[2018-10-23 11:26] VITALS: BP 128/60; PULSE 67; RESP 20; TEMP 98.3; O2SAT 96
--- NOTE | 2018-10-23 11:37 | P.PNURO ---
Subjective Patient symptoms today: Denies pain or hematuria Reports that when she last voided she felt a little bit of pressure involving her right lower quadrant but this has subsequently passed She denies visualizing a stone in her strained urine Objective Vital Signs: Vital Signs 10/22/18 16:16 10/22/18 17:01 10/22/18 20:00 Temperature 98.3 F Pulse Rate 70 79 67 Respiratory Rate 20 16 16 Blood Pressure 134/62 135/62 Pulse Oximetry 96 97 10/22/18 23:12 10/23/18 00:00 10/23/18 04:00 Temperature Pulse Rate 74 61 66 Respiratory Rate 18 16 16 Blood Pressure 119/58 L 132/62 Pulse Oximetry 98 97 10/23/18 07:25 10/23/18 07:37 10/23/18 11:24 Temperature 98.5 F 98.3 F Pulse Rate 65 65 67 Respiratory Rate 20 17 20 Blood Pressure 156/69 H 128/60 Pulse Oximetry 97 96 Intake & Output 10/22/18 10/23/18 10/23/18 18:59 06:59 18:59 Intake Total 2080 / 2080 600 / 600 Balance 2080 / 2080 600 / 600 Weight 70.7 kg Intake: IV 1000 / 1000 600 / 600 NS Inj 1,000 ML @ 60 mls/hr IV. 1000 / 1000 600 / 600 CONT .[id number] [facility] Rx#:[id number] Oral 360 / 360 Other 720 / 720 Other: Other Intake Source Saline Solution # Voids 3 3 Weight On Admission 70.7 kg Result Diagrams: 10/22/18 04:57 10/23/18 05:35 Medications and IVs: Active Medications Generic Name Dose Route Start Last Admin Trade Name Freq PRN Reason Stop Dose Admin Acetaminophen 650 mg 10/22/18 09:00 Tylenol PO Q6HR PRN PAIN SCALE 1 TO 2 Acetaminophen 650 mg 10/22/18 09:00 Tylenol PO Q4H PRN Temp > 100.4 Hydrocodone Bitart/Acetaminophen 1 tab 10/23/18 08:24 [place] 5/325 PO Q6H PRN Pain 3-6 Hydrocodone Bitart/Acetaminophen 1 tab 10/23/18 08:24 [place] 7.5/325 PO Q6H PRN Pain 7-10 Alprazolam 0.5 mg 10/22/18 09:00 10/23/18 09:49 Xanax PO Not Given BID TATE Apixaban 5 mg 10/22/18 21:00 10/23/18 08:17 Eliquis PO 5 mg BID [facility] Administration Baclofen 10 mg 10/23/18 10:00 10/23/18 11:07 Lioresal PO 10 mg Q8H TATE Administration Bisacodyl 10 mg 10/22/18 09:00 Dulcolax Supp RECTAL DAILY PRN SEVERE CONSITIPATION Calcium Carbonate 500 mg 10/22/18 10:51 Tums Chew CHEW Q6H PRN DYSPEPSIA OR HEARTBURN Dextrose 50 ml 10/22/18 08:12 D50w Vial IV.PUSH UNSCH PRN PER HYPOGLYCEMIA PROTOCOL Enalaprilat 1.25 mg 10/22/18 09:00 Vasotec Inj IV.PUSH Q6H PRN SEE LABEL COMMENTS Famotidine 20 mg 10/22/18 21:00 10/23/18 08:17 Pepcid PO 20 mg BID [facility] Administration Glucagon 1 mg 10/22/18 08:12 Glucagon Inj OTHER PRN PRN for Hypoglycemia Protocol Hydralazine HCl 10 mg 10/22/18 09:00 Apresoline Inj IV.PUSH Q6H PRN SEE LABEL COMMENTS Hydromorphone HCl 1 mg 10/22/18 09:00 Dilaudid Pf Inj IV.PUSH Q3H PRN BREAKTHROUGH PAIN Sodium Chloride 1,000 mls @ 60 mls/hr 10/22/18 09:00 10/23/18 10:26 Ns Inj IV.CONT Infused .[id number] [facility] Infusion Insulin Aspart 0 unit 10/22/18 12:00 10/23/18 08:16 Novolog Insulin Correctional Sugar Inj SQ Not Given ACHS [facility] Protocol Ipratropium [place] 0.5 mg 10/22/18 09:00 10/23/18 07:37 Atrovent Neb NEB 0.5 mg Q8HR NEB [facility] Administration Ketorolac Tromethamine 30 mg 10/22/18 09:00 Toradol Inj IV.PUSH 10/27/18 08:59 Q6H PRN PAIN 6-10;IF UNABLE TO TAKE PO Ketorolac Tromethamine 15 mg 10/22/18 09:00 Toradol Inj IV.PUSH 10/27/18 08:59 Q6H PRN PAIN 3-5; IF UABLE TO TAKE PO Lactulose 30 ml 10/22/18 09:00 Lactulose Liq PO DAILY PRN SEVERE CONSITIPATION Montelukast Sodium 10 mg 10/22/18 18:00 10/22/18 18:52 Singulair PO 10 mg QPM [facility] Administration Naloxone HCl 0.4 mg 10/22/18 08:13 Narcan Inj IV.PUSH UNSCH PRN SEE LABEL COMMENTS Ondansetron HCl 4 mg 10/22/18 09:00 Zofran Inj IV.PUSH Q6H PRN NAUSEA OR VOMITING Senna/Docusate Sodium 1 tab 10/22/18 09:00 10/23/18 08:17 Luda-Colace PO 1 tab BID TATE Administration Sennosides 17.2 mg 10/22/18 08:13 Senokot PO Q12H PRN Moderate Constipation Sodium Chloride 2 ml 10/22/18 04:50 Ns Flush IV.FLUSH PRN PRN FLUSH AFTER USING IV ACCESS Sodium Chloride 2 ml 10/22/18 08:13 Ns Flush IV.FLUSH PRN PRN FLUSH AFTER USING IV ACCESS Sodium Chloride 2 ml 10/22/18 09:00 10/23/18 09:48 Ns Flush IV.FLUSH 2 ml BID [facility]ATE Administration Tamsulosin HCl 0.4 mg 10/22/18 11:45 10/23/18 08:17 Flomax PO 0.4 mg DAILY TATE Administration Tiotropium [place] 18 mcg 10/22/18 09:00 10/23/18 09:49 Spiriva 18 Mcg Inh INH 18 mcg DAILY TATE Administration Objective Remarks: No CVA tenderness Bladder not distended Assessment and Plan - Assessment (1) Right ureteral calculus Code(s): N20.1 - Calculus of ureter Status: Acute (2) Hydronephrosis of right kidney Code(s): N13.30 - Unspecified hydronephrosis Status: Acute (3) Renal calculus, bilateral Code(s): N20.0 - Calculus of kidney Status: Acute - Plan Urologic impression: 1. 4 mm right ureterovesical junction calculus causing moderate right hydroureteronephrosis with perinephric stranding 2. Bilateral nonobstructing renal calculi Recommendations: 1. Continue to strain all urine until stone captured 2. Tamsulosin 0.4 mg by mouth daily 3. Patient may be discharged home with oral pain meds if medically stable with instructions to continue straining her urine until stone passes. 4. Office follow-up in 1 week.
--- NOTE | 2018-10-23 11:51 | P.DS ---
DS: Providers Date of admission: 10/22/18 07:27 Primary care physician: Wilbert Harrison MD Consults: 10/22/18 08:11 Consult to Urology Routine Consulting Provider: Shan Burns Reason for Consultation: obstructive uropathy Notified:: Service Spoke with:: LINNETTE Date Notified:: 10/22/18 Time Notified:: 08:27 Ordering Provider: RADHA Best date of discharge: 10/23/18 Brief History from admission: This is a 83-year-old female with history of atrial fibrillation on Eliquis, COPD, diabetes mellitus, GERD and hyperlipidemia. She presents with nausea vomiting and right flank pain. Started 2 days ago when she developed intermittent nausea and emesis. For the last 5 hours patient developed constant severe right flank pain with radiation to the right iliac bone. Denies dysuria, frequency, hematuria, constipation, diarrhea, fever and chills. Abdominal CT shows obstructive uropathy with a 4 mm stone at the right UPJ. At this time, she still feels nauseous and painful in the right iliac. She has been retching. Seen with daughter. Discussed with nurse. All other systems reviewed negative. EKG independently reviewed by me with sinus rhythm PVC. Family history diabetes Patient update on day of discharge: Follow-up visit obstructive uropathy with intractable nausea, vomiting, pain, AK I, DM 2, A. fib on Eliquis. Patient seen and examined today. Reports she is doing a lot better. States that she continues to have pressure in between her legs wanting to urinate but states that she was able to urinate but not a lot. Pain in her back has subsided. Nausea vomiting has also subsided. Denies SOB/ dyspnea. Denies chest pain, palpitations, headaches, dizziness. Denies fevers, chills. Has not seen if the stone has passed. DS: Diagnosis Discharge Diagnosis (1) Right ureteral calculus: Status: Acute (2) Hydronephrosis of right kidney: Status: Acute (3) Renal calculus, bilateral: Status: Acute DS: Summary 83-year-old female with history of atrial fibrillation on Eliquis, COPD, diabetes mellitus, GERD and hyperlipidemia. She presents with nausea vomiting and right flank pain. Started 2 days ago when she developed intermittent nausea and emesis. For the last 5 hours patient developed constant severe right flank pain with radiation to the right iliac bone. Denies dysuria, frequency, hematuria, constipation, diarrhea, fever and chills. Abdominal CT shows obstructive uropathy with a 4 mm stone at the right UPJ. Patient found to have obstructive uropathy with intractable nausea, vomiting, pain. IV fluid hydration was provided and symptom control for antiemetics including pain management has been provided with patient. Urology consulted and had followed the patient. Started on Flomax daily and advised to strain all urine. Has cleared the patient to go home straining all of her urine, pain management and follow-up in your office in 1 week. This has been extensively discussed with patient and daughter. She will also start on baclofen just for 3 days, To help with her pain. patient found to have AK I on admission but repeat BMP today showed improvement and creatinine normalized. Found to have slight elevation on AST less than twice the normal limit. On atorvastatin, follow-up in the outpatient. Chronic condition has been managed with her home medication. Diabetes has been managed with insulin sliding scale. Patient has met maximal benefits of hospitalization. Clinically stable for discharge. Follow-up with PCP and neurology and outpatient. Time Spent with Patient Total time spent providing and/or coordinating discharge services: >30mins Quality: VTE Deep Vein Thrombosis/Pulmonary Embolism Present on Admission: No Exam Narrative Exam Narrative: GENERAL: This is a pleasant elderly female, well-developed patient, in no apparent distress. SKIN: Warm and dry. HEENT: Normocephalic. Pupils equal round and reactive. Nose without bleeding. Airway patent. NECK: Trachea midline. CARDIOVASCULAR: Regular rate and rhythm without murmurs, gallops, or rubs. RESPIRATORY: Clear to auscultation. Breath sounds equal bilaterally. No wheezes , rales, or rhonchi. GASTROINTESTINAL: Abdomen soft, non-tender, nondistended. Bowel Sounds normoactive x4. MUSCULOSKELETAL: Extremities without clubbing, cyanosis, or edema. Back nontender to palpate. NEUROLOGICAL: Awake and alert. No focal neuro deficit. Moves all extremities. Normal speech. Results Labs on day of discharge: Labs from last 24 hours 10/23/18 10/23/18 10/22/18 08:15 05:35 18:44 Sodium 143 Potassium 3.4 L D Chloride 109 H Carbon Dioxide 26.4 Anion Gap 8 BUN 15 Creatinine 0.89 Estimated GFR 61 L POC Glucose 103 149 H Random Glucose 99 Calcium 8.5 10/22/18 14:45 Sodium Potassium Chloride Carbon Dioxide Anion Gap BUN Creatinine Estimated GFR POC Glucose 121 H Random Glucose Calcium Impressions ITS Impressions Abdomen/Pelvis CT 10/22/18 04:58 CONCLUSION: 1. Moderate obstructive uropathy on the right secondary to a right UPJ calculus measuring 4 mm. There are some inflammatory changes and minimal fluid adjacent to the right kidney. 2. Nonobstructing bilateral renal calculi. 3. Diverticulosis without diverticulitis. 4. Small to moderate sized cardia. Discharge Plan Discharge Disposition Patient Disposition: Discharge Home Discharge Order Discharge Orders: Discharge Order (Routine); Ordered 10/23/18 Ordered By: Joann Hunt ED Use Only Admit Order (Routine); Ordered 10/22/18 Ordered By: Monroe Conteh Discharge Details Anticipated Discharge Date: 10/23/18 Physicians Team ED Provider: Monroe Conteh Primary Care Provider: Wilbert Harrison Attending Provider: Fidelia Torre Other Providers: Shan Burns Rxs /Orders / Referrals /Forms Prescriptions: New hydrocodone-acetaminophen 5-325 mg Tablet 1 tab PO Q6H PRN (Reason: Acute Pain) Qty: 10 RF: 0 tamsulosin 0.4 mg Capsule 0.4 mg PO DAILY Qty: 30 RF: 0 baclofen 10 mg Tablet 10 mg PO Q8H Qty: 9 RF: 0 Continue atorvastatin 40 mg Tablet 40 mg PO DAILY RF: 0 metformin 500 mg PO BID RF: 0 apixaban [Eliquis] 2.5 mg Tablet 5 mg PO BID RF: 0 alprazolam [Xanax] 0.25 mg Tablet 0.5 mg PO BID RF: 0 montelukast 10 mg Tablet 10 mg PO QPM RF: 0 ipratropium bromide 0.02 % Solution 0.025 mg/kg INHALATION Q8H RF: 0 tiotropium bromide [Spiriva Respimat] 2.5 mcg/actuation Mist 2 puff INHALATION DAILY RF: 0 calcium carbonate [Calcium 600] 600 mg calcium (1,500 mg) Tablet 600 mg PO QID RF: 0 ferrous sulfate 325 mg (65 mg iron) Tablet 325 mg PO BID RF: 0 mv,Ca,min-folic acid-vit K1 [One-A-Day Women's 50 Plus] 400-20 mcg Tablet 1 tab PO DAILY RF: 0 Al hyd-Mg tr-alg ac-sod bicarb [Gaviscon] 80-14.2 mg Tablet,Chewable See Label Instructions .ROUTE .COMPLEX RF: 0 vit [id number] See Label Instructions .ROUTE .COMPLEX RF: 0 Referrals: Shan Burns MD [UROLOGY] - See Instructions (Follow up in 7 Days. Schedule an appointment.) Wilbert Harrison MD [Primary Care Provider] - See Instructions (Follow up in 7 Days. Schedule an appointment.) Discharge Interventions Interventions: Discharge Planning - Case Management Last Done: 10/22/18 16:14 Status ED Status: Left Department
== END 2018-10-23 12:29 | disposition home or self-care (01) ==
LOC: NEPE 04:04 → NEDA 04:04 → NEPGCP 11:46
PROVIDERS: ADMIT Family Medicine; ATTEND Family Medicine
DX: Z79.01 Long term (current) use of anticoagulants; Z90.49 Acquired absence of other specified parts of digestive tract; Z90.710 Acquired absence of both cervix and uterus; E78.5 Hyperlipidemia, unspecified; N17.9 Acute kidney failure, unspecified; Z96.659 Presence of unspecified artificial knee joint; Z83.3 Family history of diabetes mellitus; I49.3 Ventricular premature depolarization; N13.2 Hydronephrosis with renal and ureteral calculous obstruction; F17.210 Nicotine dependence, cigarettes, uncomplicated; I10 Essential (primary) hypertension; E11.9 Type 2 diabetes mellitus without complications; J44.9 Chronic obstructive pulmonary disease, unspecified; Z79.899 Other long term (current) drug therapy; Z79.84 Long term (current) use of oral hypoglycemic drugs; I48.91 Unspecified atrial fibrillation; Z95.5 Presence of coronary angioplasty implant and graft; K21.9 Gastro-esophageal reflux disease without esophagitis; K57.90 Diverticulosis of intestine, part unspecified, without perforation or abscess without bleeding
CPT/HCPCS: 74176; 80048; 80053; 81001; 82948; 82962; 83690; 83735; 85025; 90772; 90774; 90775; 90776; 90782; 90784; 93005; 94640; 94664; 94665; 96361; 96372; 96374; 96375; 96376; 99285; C8952; G0378; J2405; J2550; J3010; J7030